=== PATIENT | male | born 1950 | race Caucasian/White ===

== ENCOUNTER → 2018-03-16 13:31 | Outpatient (CLI) | payer MEDICARE, OTHER, SELFPAY ==
--- NOTE | 2018-03-16 13:36 | DI.RAD.S_ITS ---
PROCEDURE: XR LUMBAR SPINE 2-3V INDICATIONS: lumbar pain TECHNIQUE: 3 views of the lumbar spine were acquired. COMPARISON: [facility], , -SPINE 2-3 VIEWS, 08/23/2016, 15:17. FINDINGS: Bones: 5 [id number] vertebrae are present. No acute fractures or dislocations. There is approximately 9 mm of anterolisthesis of L5 on S1, not significantly changed from comparison exam of 08/23/16. Mild anterior wedging of the T11 and T12 vertebral bodies is unchanged from comparison exam as well. There are mild multilevel degenerative changes of the spine as evidenced by osteophyte formation, loss of and agree with the space height, and facet arthropathy. Soft tissues: Overlying bowel gas pattern is normal. No suspicious soft tissue calcifications. IMPRESSION: Mild multilevel degenerative changes of the lumbar spine. Dictated by: David Mitchell M.D. on 03/16/2018 at 16:38 Approved by: David Mitchell M.D. on 03/16/2018 at 16:43
== END ==
PROVIDERS: PCP Internal Medicine; Visit Provider Physician Assistant
DX: M47.816 Spondylosis without myelopathy or radiculopathy, lumbar region (principal); M54.5 Low back pain; G89.29 Other chronic pain
CPT/HCPCS: 72100

== ENCOUNTER → 2019-02-20 12:49 | Outpatient (CLI) | payer MEDICARE, OTHER, SELFPAY ==
[2019-02-20 13:10] LABS: Hematocrit 47.4 % (41-53); Mean Corpuscular HGB Conc 33.8 % (30-36); Mean Corpuscular Hemoglobin 32.2 PG (26-34); Mean Corpuscular Volume 95.2 fL (80-100); Platelet Count 214 X10^3/uL (150-400); Red Blood Cell Count 4.98 X10^6/uL (4.5-5.9); Red Cell Distribution Width 14.3 % (11.6-14.8); White Blood Cell Count 7.9 X10^3/uL (4.5-11.0)
[2019-02-20 13:27] LABS: Neutrophils Absolute Manual 4898 /uL (3000-5900); Total Cells Counted 100
[2019-02-20 13:28] LABS: RBC Morphology Normal Morphology
[2019-02-20 13:54] LABS: Alanine Aminotransferase 30 IU/L (<50); Albumin 4.5 g/dL (3.5-5.0); Albumin Globulin Ratio 1.8 (1.0-2.8); Alkaline Phosphatase 56 U/L (38-126); Aspartate Aminotransferase 28 IU/L (17-59); Bilirubin Total 0.9 mg/dL (0.2-1.3); Blood Urea Nitrogen 16 mg/dL (9-20); Calcium 9.2 mg/dL (8.4-10.2); Carbon Dioxide 26 mmol/L (22-32); Chloride 104 mmol/L (98-107); Estimated Glomerular Filt Rate > 60.0 mL/min (>60); Globulin 2.5 g/dL (1.7-4.1); Glucose 86 mg/dL (80-110); HEMOLYSIS < 15 (0-50); Potassium 4.3 mmol/L (3.4-5.1); Sodium 137 mmol/L (137-145)
[2019-02-20 14:24] LABS: Thyroid Stimulating Hormone 4.88 uIU/mL (0.47-4.68)
[2019-02-24 16:45] LABS: EBV Virus IgG Ab > 750.00 U/mL (< 18.00); EBV Virus IgM Ab < 36.00 U/mL (< 36.00)
== END ==
PROVIDERS: PCP Internal Medicine; Visit Provider Internal Medicine
DX: R53.83 Other fatigue (principal); R50.9 Fever, unspecified
CPT/HCPCS: 36415; 80053; 84443; 85025; 86664; 86665

== ENCOUNTER → 2019-03-05 15:15 | Outpatient (CLI) | payer MEDICARE, OTHER, SELFPAY ==
--- NOTE | 2019-03-05 | DI.RAD.S_ITS ---
PROCEDURE: XR CHEST 2V INDICATIONS: DYSPNEA TECHNIQUE: 2 views of the chest were acquired. COMPARISON: [facility], , CHEST 2 VIEW, 09/15/2012, 10:28. FINDINGS: Surgical changes and devices: None. Lungs and pleura: Left basilar scars and/or atelectasis. No pleural effusions or pneumothorax. Mediastinum: Mediastinal contours are normal. Heart size is normal. Bones and chest wall: No suspicious bony abnormalities. Soft tissues appear unremarkable. IMPRESSION: Left basilar scars and/or atelectasis. Dictated by: Gail Robertson M.D. on 03/05/2019 at 16:30 Approved by: Gail Robertson M.D. on 03/05/2019 at 16:31
[2019-03-05 16:50] LABS: Erythrocyte Sedimentation Rate 2 MM/HR (0-15)
[2019-03-05 16:57] LABS: Creatine Kinase 40 U/L (55-170)
[2019-03-05 17:00] LABS: C-Reactive Protein Quant < 0.5 mg/dL (<1.0); Rheumatoid Factor < 8.6 IU/mL (<12.0)
[2019-03-05 17:12] LABS: Vitamin D 25 Hydroxy (D3) 17.5 ng/mL (30.0-100.0)
[2019-03-05 17:44] LABS: Vitamin B12 559 pg/mL (239-931)
[2019-03-05 17:45] LABS: Hep C Virus Ab w/Reflex Quant NEGATIVE s/c (NEGATIVE)
[2019-03-08 14:09] LABS: Aldolase 4.5 U/L (< 8.2)
[2019-03-08 21:09] LABS: Vitamin B1 125 nmol/L (78-185)
[2019-03-09 09:56] LABS: ANA Screen, IFA NEGATIVE (NEGATIVE)
[2019-03-09 11:11] LABS: CCP Antibody (IgG) < 16 Units (< 20)
[2019-03-16 10:33] LABS: Abnormal Protein Band 1 0.4 g/dL (NONE DETECTED); Albumin 4.1 g/dL (3.8-4.8); Alpha 1 Globulin 0.2 g/dL (0.2-0.3); Alpha 2 Globulin 0.6 g/dL (0.5-0.9); Beta 1 Globulin 0.4 g/dL (0.4-0.6); Gamma Globulin 0.9 g/dL (0.8-1.7); Protein, Total 6.5 g/dL (6.1-8.1)
[2019-03-23 10:22] LABS: Immunofixation, Serum SEE COMMENT BELOW
== END ==
PROVIDERS: PCP Internal Medicine; Visit Provider Internal Medicine
DX: R06.00 Dyspnea, unspecified (principal); M25.50 Pain in unspecified joint; M79.10 Myalgia, unspecified site; R53.83 Other fatigue; G62.9 Polyneuropathy, unspecified
CPT/HCPCS: 36415; 71046; 82085; 82306; 82550; 82607; 82784; 84155; 84165; 84425; 85651; 86038; 86140; 86200; 86334; 86430; 86803

== ENCOUNTER 2019-03-05 18:59 | Emergency (ER) | payer MEDICARE, OTHER, SELFPAY ==
[2019-03-05 19:01] VITALS: BP 149/92; PULSE 94; RESP 12; TEMP 36.7; O2SAT 99; BMI 30.4
--- NOTE | 2019-03-05 19:08 | DI.CT.S_ITS ---
PROCEDURE: CT HEAD/BRAIN WO CON INDICATIONS: headache, confusion, blurry vision TECHNIQUE: Noncontrast 4.5 mm thick angled axial sections acquired from the foramen magnum to the vertex, with coronal and sagittal reformats. For radiation dose reduction, the following was used: automated exposure control, adjustment of mA and/or kV according to patient size. COMPARISON: [facility], CT, HEAD WITHOUT CONTRAST, 11/05/2013, 12:34. FINDINGS: Image quality: Excellent. CSF spaces: Basal cisterns are patent. No extra-axial fluid collections. The ventricles are symmetric in size and shape. Brain: No intracranial bleeds or masses. There is cerebral volume loss for age, with resultant ventricular and sulcal prominence. There are periventricular and deep white matter chronic small vessel ischemic changes. There is intracranial internal carotid artery atherosclerosis. Skull and face: Calvarium and visualized facial bones appear intact, without suspicious lesions. Sinuses: Visualized sinuses and mastoids are clear. IMPRESSION: No CT evidence of acute intracranial pathology. Dictated by: Chapito Greene M.D. on 03/05/2019 at 19:32 Approved by: Chapito Greene M.D. on 03/05/2019 at 19:32
--- NOTE | 2019-03-05 19:58 | ED_ITS ---
HPI - Headache General Chief Complaint: Headache Stated Complaint: pressure in head, dizziness Time Seen by Provider: 03/05/19 19:34 Source: patient Mode of arrival: Ambulatory Limitations: no limitations History of Present Illness HPI Narrative: 68-year-old male here for evaluation of several symptoms. All of these symptoms have been going on for the past several days if not weeks. He describes a pressure in his head. He also describes a lightheadedness. Is not a room spinning sensation just an unsteadiness. Also describes some vision changes. No hearing deficits. Also has been having subjective fevers at night. Did spend some time in [place] however that was several weeks ago. Was exposed to some ?mold? while he was over there. Has been on several different types of antibiotics and is currently on Levaquin for bronchitis. Has also been on prednisone. Has seen his primary doctor for these symptoms. Is scheduled for an MRI of the brain on Saturday of next week. Had labs drawn approximately 2 weeks ago. Had more labs drawn today ordered by his primary provider. Related Data Home Medications Medication Instructions Recorded Confirmed amitriptyline 50 mg tablet 50 mg PO BEDTIME 03/16/18 12/02/18 melatonin 3 mg tablet 3 mg PO BEDTIME PRN 06/27/18 12/02/18 Previous Rx's Medication Instructions Recorded zolpidem 10 mg tablet 10 mg PO BEDTIME PRN #90 tab 02/24/19 Allergies Allergy/AdvReac Type Severity Reaction Status Date / Time No Known Drug Allergies Allergy Verified 03/05/19 19:05 Review of Systems Constitutional Constitutional: Reports fatigue, Reports fever(s), Denies frequent falls, Reports headache(s) and Denies weakness Eyes Eyes: Reports blurry vision and Reports change in vision ENT Ears, Nose, Mouth, and Throat: Denies abnormal hearing, Denies vertigo, Reports dizziness, Reports headache(s), Denies neck pain, Reports disequilibrium, Denies tinnitus, Denies sinus pressure and Denies sore throat Cardiovascular Cardiovascular: Denies chest pain, Denies syncope, Denies palpitations and Denies dyspnea Respiratory Respiratory: Denies dyspnea Gastrointestinal Gastrointestinal: Denies abdominal pain, Denies nausea and Denies vomiting Genitourinary Genitourinary: Denies dysuria Musculoskeletal Musculoskeletal: Denies myalgias, Denies arthralgias, Denies neck pain and Denies tingling Integumentary/Breasts Skin/Breast: Denies lesions and Denies rash Neurologic Neurologic: Denies abnormal hearing, Denies abnormal movements, Denies abnormal speech, Denies behavioral changes, Denies confusion, Denies vertigo, Reports dizziness, Denies syncope, Denies frequent falls, Reports headache(s), Denies convulsions, Denies tingling, Denies paresthesias, Reports disequilibrium and Denies weakness Psychiatric Psychiatric: Denies behavioral changes and Denies confusion Endocrine Endocrine: Reports fatigue and Denies palpitations Hematologic/Lymphatic Hematologic/Lymphatic: Denies easy bleeding and Denies easy bruising Allergic/Immunologic Allergic/Immunologic: Denies urticaria Patient History Medical History Primary insomnia (Chronic) Social History Smoking Status: Never smoker Smoking Status: Never smoker alcohol intake frequency: 0-2 drinks per day Alcohol type: beer Substance Use Type: does not use Exam Initial Vital Signs Initial Vital Signs: Vital Signs Temperature 98.1 F 03/05/19 19:01 Pulse Rate 94 H 03/05/19 19:01 Respiratory Rate 12 03/05/19 19:01 Blood Pressure 149/92 H 03/05/19 19:01 Pulse Oximetry 99 03/05/19 19:01 Const General: cooperative, healthy appearing, comfortable, well developed, well groomed and acute distress Orientation: alert, awake and oriented x3 HENMT Head: normal to inspection and normocephalic Resp Effort & Inspection: normal respiratory effort Auscultation: clear to auscultation bilaterally Cardio Rate: regular rate Rhythm: regular rhythm GI Inspection: non-distended Palpation: soft Skin Lesions: no lesions Rashes: no rashes Neuro General: alert and oriented x3 Cranial Nerves: CN's II-XI intact bilaterally Cognition: normal cognition Speech: speech normal Gait: normal gait Motor: muscle tone normal throughout Sensory Exam: no sensory deficits noted Extrem General: normal to inspection and capillary refill normal Psych Appearance: grossly normal and well kempt Scores GCS [place] coma scale eye opening: Spontaneous [place] coma scale verbal response: Orientated [place] coma scale motor response: Obey commands Shea coma scale total score: 15 Course Orders Ordered: ED Orders 03/05/19 19:08 CT head/brain wo con Stat 03/05/19 19:56 EKG-12 Lead Stat 03/05/19 20:00 Complete Blood Count AUTO DIFF Stat Comprehensive Metabolic Panel Stat Lipase Stat Vital Signs Vital signs: Vital Signs - 8 hr 03/05/19 19:01 03/05/19 20:08 03/05/19 21:11 Temperature 98.1 F Pulse Rate 94 H 72 67 Respiratory Rate 12 12 11 L Blood Pressure 149/92 H Blood Pressure [Left Arm] 146/94 H 141/88 H Pulse Oximetry 99 95 98 MDM - Headache Medical Records Attestation: I reviewed the patient's medical records. Lab Data Attestation: I reviewed the patient's lab results. Result diagrams: 03/05/19 20:00 03/05/19 20:00 Labs: Lab Results 03/05/19 03/05/19 Range/Units 20:00 20:00 WBC 7.3 (4.5-11.0) X10^3/uL RBC 4.64 (4.5-5.9) X10^6/uL Hgb 14.9 (13.5-17.5) g/dL Hct 43.4 (41-53) % MCV 93.5 (80-100) fL MCH 32.1 (26-34) PG MCHC 34.4 (30-36) % RDW 14.0 (11.6-14.8) % Plt Count 211 (150-400) X10^3/uL Neut % (Auto) 50.7 (50-75) % Lymph % (Auto) 38.5 (25-40) % Foster % (Auto) 7.0 (3-14) % Eos % (Auto) 3.0 (2-4) % Baso % (Auto) 0.8 (0-2) % Neut # (Auto) 3700 (9901-2227) /uL Lymph # (Auto) 2800 (3131-1815) /uL Foster # (Auto) 500 (0-900) /uL Eos # (Auto) 200 (0-450) /uL Baso # (Auto) 100 (0-100) /uL Sodium 138 (137-145) mmol/L Potassium 3.8 (3.4-5.1) mmol/L Chloride 103 (98-107) mmol/L Carbon Dioxide 25 (22-32) mmol/L BUN 20 (9-20) mg/dL Creatinine 1.10 (0.66-1.25) mg/dL Estimated GFR > 60.0 (>60) mL/min BUN/Creatinine Ratio 18.2 (6-22) Glucose 125 H (80-110) mg/dL Calcium 9.1 (8.4-10.2) mg/dL Total Bilirubin 0.7 (0.2-1.3) mg/dL AST 27 (17-59) IU/L ALT 23 (<50) IU/L Alkaline Phosphatase 51 (38-126) U/L Total Protein 6.6 (6.3-8.2) g/dL Albumin 4.1 (3.5-5.0) g/dL Globulin 2.5 (1.7-4.1) g/dL Albumin/Globulin Ratio 1.6 (1.0-2.8) Lipase 39 (23-300) U/L Imaging Data Chest x-ray: Radiologist's impression: [address] [address] XRay Report Signed Patient: Oneil Mays EMR#: [id number] : 9Acct:[id number] Age/Sex: 68 / MDate of Service: 03/05/19 Loc: RAD Accession Number: [id number] Procedure: XR chest 2V Ordering Provider: Cindy Miranda MD PROCEDURE: XR CHEST 2V INDICATIONS: DYSPNEA TECHNIQUE: 2 views of the chest were acquired. COMPARISON: [facility], CHEST 2 VIEW, 09/15/2012, 10:28. FINDINGS: Surgical changes and devices: None. Lungs and pleura: Left basilar scars and/or atelectasis. No pleural effusions or pneumothorax. Mediastinum: Mediastinal contours are normal. Heart size is normal. Bones and chest wall: No suspicious bony abnormalities. Soft tissues appear unremarkable. IMPRESSION: Left basilar scars and/or atelectasis. Dictated by: Gail Robertson M.D. on 03/05/2019 at 16:30 Approved by: Gail Robertson M.D. on 03/05/2019 at 16:31 CT scan - head: Radiologist's impression: Oneil Mays John 68 M [address] [address] [address] Scan Report Signed Patient: Oneil Mays EMR#: [id number] : 9Acct:[id number] Age/Sex: 68 / MDate of Service: 03/05/19 Loc: ED Accession Number: [id number] Procedure: CT head/brain wo con Ordering Provider: Kareem Fischer D.O. PROCEDURE: CT HEAD/BRAIN WO CON INDICATIONS: headache, confusion, blurry vision TECHNIQUE: Noncontrast 4.5 mm thick angled axial sections acquired from the foramen magnum to the vertex, with coronal and sagittal reformats. For radiation dose reduction, the following was used: automated exposure control, adjustment of mA and/or kV according to patient size. COMPARISON: [facility], CT, HEAD WITHOUT CONTRAST, 11/05/2013, 12:34. FINDINGS: Image quality: Excellent. CSF spaces: Basal cisterns are patent. No extra-axial fluid collections. The ventricles are symmetric in size and shape. Brain: No intracranial bleeds or masses. There is cerebral volume loss for age, with resultant ventricular and sulcal prominence. There are periventricular and deep white matter chronic small vessel ischemic changes. There is intracranial internal carotid artery atherosclerosis. Skull and face: Calvarium and visualized facial bones appear intact, without suspicious lesions. Sinuses: Visualized sinuses and mastoids are clear. IMPRESSION: No CT evidence of acute intracranial pathology. Dictated by: Chapito Greene M.D. on 03/05/2019 at 19:32 Approved by: Chapito Greene M.D. on 03/05/2019 at 19:32 ECG Data Attestation: I personally reviewed and interpreted this ECG as follows: Prior ECG tracings: not available for review Interpretation: Sinus rhythm Ventricular rate is 67 Normal axis Normal QRS Normal QTC Nonspecific ST T wave changes MDM Narrative Medical decision making narrative: Patient's labs today are unchanged from earlier this month under unremarkable. Labs are ordered by his primary doctor around here today are still pending. I did inform the patient of this. His head CT is unremarkable. His EKG is unremarkable. Patient has relatively benign abdominal exam without any focal neuro deficits. I do think that the MRI on Saturday is not unreasonable. Do not feel that needs to be emergently performed here in the ER in this visit. Patient has had symptoms for several days if not several weeks. He is currently on antibiotics for bronchitis. We did discuss the use of other medications that may potentially help his symptoms to include antihistamine such as Claritin and also Flonase. I did inform him that I'm unsure whether not this would help the symptoms however if this was sinus issues it could potentially help. Will hold on further workup for now. Patient was given return precautions and follow-up instructions. He expressed understanding and agreement plan Discharge Plan Departure Patient Disposition: Home Clinical Impression: Pressure in head, Lightheadedness Discharge Date/Time: 03/05/19 21:24 Instructions: DI for Dizziness-Nonvertigo Activity Restrictions/Additional Instructions: Recommend you continue all of your medications. Also recommend that you start on a medication such as Claritin or Jacqueline. You can also start either Flonase or Nasonex. I do think that the MRI on Saturday is an appropriate test. I also recommend you contact your eye doctor tomorrow for follow-up. Return to the emergency department for any new or worsening symptoms Prescriptions: No Action amitriptyline 50 mg tablet 50 mg PO BEDTIME RF: 0 melatonin 3 mg tablet 3 mg PO BEDTIME PRNRF: 0 zolpidem 10 mg tablet 10 mg PO BEDTIME PRN (Reason: insomnia) Qty: 90 RF: 0 Referrals: Cindy Miranda MD [Primary Care Provider] -
[2019-03-05 20:07] LABS: Add Manual Diff / Slide Review NO; Basophils Absolute Auto 100 /uL (0-100); Basophils Percent Auto 0.8 % (0-2); Eosinophils Absolute Auto 200 /uL (0-450); Hematocrit 43.4 % (41-53); Hemoglobin 14.9 g/dL (13.5-17.5); Lymphocytes Absolute Auto 2800 /uL (1100-4500); Lymphocytes Percent Auto 38.5 % (25-40); Mean Corpuscular HGB Conc 34.4 % (30-36); Mean Corpuscular Hemoglobin 32.1 PG (26-34); Mean Corpuscular Volume 93.5 fL (80-100); Monocytes Absolute Auto 500 /uL (0-900); Neutrophils Absolute Auto 3700 /uL (1500-7000); Neutrophils Percent Auto 50.7 % (50-75); Platelet Count 211 X10^3/uL (150-400); Red Blood Cell Count 4.64 X10^6/uL (4.5-5.9); White Blood Cell Count 7.3 X10^3/uL (4.5-11.0)
[2019-03-05 20:08] VITALS: BP 146/94; PULSE 72; RESP 12; O2SAT 95
[2019-03-05 20:40] LABS: Alanine Aminotransferase 23 IU/L (<50); Albumin 4.1 g/dL (3.5-5.0); Albumin Globulin Ratio 1.6 (1.0-2.8); Alkaline Phosphatase 51 U/L (38-126); Aspartate Aminotransferase 27 IU/L (17-59); BUN Creatinine Ratio 18.2 (6-22); Bilirubin Total 0.7 mg/dL (0.2-1.3); Blood Urea Nitrogen 20 mg/dL (9-20); Calcium 9.1 mg/dL (8.4-10.2); Carbon Dioxide 25 mmol/L (22-32); Chloride 103 mmol/L (98-107); Estimated Glomerular Filt Rate > 60.0 mL/min (>60); Globulin 2.5 g/dL (1.7-4.1); Glucose 125 mg/dL (80-110); HEMOLYSIS < 15 (0-50); Lipase 39 U/L (23-300); Potassium 3.8 mmol/L (3.4-5.1); Sodium 138 mmol/L (137-145); Total Protein 6.6 g/dL (6.3-8.2)
[2019-03-05 21:11] VITALS: BP 141/88; PULSE 67; RESP 11; O2SAT 98
== END 2019-03-05 21:24 | disposition home or self-care (01) ==
PROVIDERS: Emergency Provider Emergency Medicine; Family Provider Internal Medicine; PCP Internal Medicine
DX: R51 Headache (principal); R42 Dizziness and giddiness; R06.00 Dyspnea, unspecified; M25.50 Pain in unspecified joint; M79.10 Myalgia, unspecified site; R53.83 Other fatigue; G62.9 Polyneuropathy, unspecified
CPT/HCPCS: 36415; 70450; 71046; 80053; 82085; 82306; 82550; 82607; 82784; 83690; 84155; 84165; 84425; 85025; 85651; 86038; 86140; 86200; 86334; 86430; 86803; 93005; 93010; 99284; 99285

== ENCOUNTER → 2019-03-09 18:40 | Outpatient (CLI) | payer MEDICARE, OTHER, SELFPAY ==
--- NOTE | 2019-03-09 | DI.MRI.S_ITS ---
PROCEDURE: MR HEAD/BRAIN WO CON INDICATIONS: Headache TECHNIQUE: Non-contrast axial T1 spin echo, axial T2 fast spin echo, sagittal and axial FLAIR, coronal T2 fast spin echo, axial gradient echo, axial diffusion and ADC through the brain. COMPARISON: [facility], CT, CT HEAD/BRAIN WO CON, 03/05/2019, 19:14. [facility], CT, HEAD WITHOUT CONTRAST, 11/05/2013, 12:34. FINDINGS: Image quality: Excellent. CSF spaces: Ventricles appear symmetric in size and shape. Basal cisterns are patent. No extra-axial fluid collections. Brain: No intracranial bleeds or mass effects. There is cerebral volume loss for age. There are periventricular and deep white matter chronic small vessel ischemic changes. Brainstem appears normal. Diffusion-weighted images show no acute ischemic insults. No chronic ischemic insults. Normal intravascular flow voids are present. Skull and face: Calvarial bone marrow is normal in signal. Orbits are normal. Sinuses: There is bilateral ethmoid and left maxillary sinus mucosal thickening. Mastoids are clear. IMPRESSION: 1. No acute intracranial abnormalities. 2. Bilateral ethmoid and left maxillary sinusitis. Dictated by: Gail Robertson M.D. on 03/10/2019 at 10:21 Approved by: Gail Robertson M.D. on 03/10/2019 at 15:59
== END ==
PROVIDERS: PCP Internal Medicine; Visit Provider Internal Medicine
DX: R51 Headache (principal); J32.8 Other chronic sinusitis
CPT/HCPCS: 70551

== ENCOUNTER → 2019-03-19 08:13 | Outpatient (CLI) | payer MEDICARE, OTHER, SELFPAY ==
--- NOTE | 2019-03-21 09:30 | DI.NM.S_ITS ---
DATE OF SERVICE: 03/19/2019 PROCEDURE: Exercise perfusion study. INDICATIONS: Shortness of breath, lightheadedness, fatigue. The patient is 68 years old. RADIOPHARMACEUTICAL: 27.4 mCi technetium-99m Myoview IV was injected at stress and 24.3 mCi technetium-99m Myoview IV was injected at rest. CARDIAC STRESS: The patient underwent an exercise perfusion study under the supervision of an attending staff. The patient walked on Poli protocol for 9 minutes and 05 seconds, achieved 105% of target heart rate. Baseline blood pressure 138/90. Peak blood pressure 210/100, suggestive of hypertensive blood pressure response. The patient achieved functional aerobic impairment of -27% and 10.1 METs of workload. No anginal symptoms. Baseline rhythm sinus with flat ST segment in lead V4 to V6 and early transition. During stress, the patient developed 2-3 mm horizontal/down-sloping ST depression in lead V3 to V6 and some nonspecific changes in the inferolateral leads. There was prolonged recovery and even more than 5 minutes of recovery, the patient remained to have T-wave inversion in the anterolateral leads, which appears to be asymmetrical. No significant sustained arrhythmias seen. RAW DATA: The patient's weight is 200 pounds. There is increased subdiaphragmatic activity. GATED STUDY: Stress LV ejection fraction 59% without any obvious wall motion abnormalities. Resting LV ejection fraction 60%. No transient ischemic dilatation. TID ratio 0.96, which is within normal. Resting end diastolic volume 92 mL. Lung/heart ratio 0.27, which is within normal limits. MYOCARDIAL PERFUSION: Stress supine, resting supine, and stress prone images were compared to each other. Stress supine images revealed a small sized mildly decreased perfusion of the distal anterior wall, distal anterior septum, as well as mildly decreased perfusion of the inferolateral wall which got completely resolved during prone images, suggestive of tissue attenuation artifact. During resting supine, there was mildly decreased perfusion of the distal anterior wall. No obvious reversible ischemia. CONCLUSION: As far as perfusion scan is concerned, I will call this a normal myocardial perfusion study, as prone images revealed normal myocardial perfusion. Most likely, the patient had tissue attenuation artifact which was seen during stress supine images. The patient has good exercise tolerance, walked on Poli protocol for 9 minutes and 05 seconds with functional aerobic impairment -27%. Hypertensive blood pressure response. There were ischemic EKG changes seen without any significant arrhythmias. In view of normal myocardial perfusion, normal LV function, and good exercise tolerance, without any transient ischemic dilatation or abnormal lung/heart ratio, likely positive EKG changes due to false positive stress test. However, sometimes balanced ischemia can cause normal myocardial perfusion, as well. If clinical suspicion for pre-test coronary artery disease is high, and the patient's symptoms are very typical, consider other modalities for CAD diagnosis and risk stratification. Oneil Mays - [employer]ESS[employer]/jacklyn/ts doc#: [id number]/job#: [id number] dd: 03/20/2019 16:36:00 dt: 03/21/2019 09:05:00 DICTATING /COPIES TO: Fredy Moore MD COPIES MNE: WESLY
== END ==
PROVIDERS: PCP Internal Medicine; Visit Provider Internal Medicine
DX: R06.02 Shortness of breath (principal); R53.83 Other fatigue; R42 Dizziness and giddiness; R06.00 Dyspnea, unspecified
CPT/HCPCS: 78452; 93016; 93017; 93018; A9502

== ENCOUNTER → 2019-03-24 09:09 | Outpatient (CLI) | payer MEDICARE, OTHER, SELFPAY ==
--- NOTE | 2019-03-24 | DI.ECHO.S_ITS ---
[facility] +---------+ : : [address] : : : : [id number] : : : : Phone: [phone] Echocardiogram Report + + :Name: TEDDY NGUYEN Study Date: 03/24/2019 Height: 68 in : :[facility] Weight: 200 lb : : Gender: Male BSA: 2.0 m2 : :: 1950 Age: 68 yrs BP: 128/78 mmHg: :Reason For Study: Dyspnea : : Performed By: Mateusz Estrada : :Referring: GT WOOD : + + Interpretation Summary The left ventricle is normal in size. The ejection fraction is estimated to be 55-60%. The right ventricle is at the upper limits of normal in size. Right ventricular systolic function is mildly reduced. There is mild to moderate mitral regurgitation. The IVC is of normal diameter and collapses greater than 50% with a sniff. This suggests a low right atrial pressure of 3 mm Hg. Procedure: A two-dimensional transthoracic echocardiogram with color flow and Doppler was performed. The study quality was technically adequate. There is no prior echocardiogram noted for this patient. The patient was in normal sinus rhythm during the exam. Left Ventricle: The left ventricle is normal in size. There is mild concentric left ventricular hypertrophy. Proximal septal thickening is noted. There is no echo evidence for significant left ventricular outflow tract obstruction. There is no thrombus. Left ventricular systolic function is normal. The ejection fraction is estimated to be 55-60%. There are no focal wall motion abnormalities. Diastolic parameters suggest a relaxation abnormality of the left ventricle, consistent with probable normal filling pressures. Right Ventricle: The right ventricle is at the upper limits of normal in size. Right ventricular systolic function is mildly reduced. Atria: The left atrial size is normal. Right atrial size is normal. The interatrial septum is intact with no evidence for an atrial septal defect. Mitral Valve: There is mild mitral annular calcification. There is mild to moderate mitral regurgitation. Aortic Valve: The aortic valve is trileaflet. The aortic valve opens well. There is no aortic valve stenosis. No aortic regurgitation is present. Tricuspid Valve: The tricuspid valve is normal. There is trace tricuspid regurgitation. Pulmonary artery pressures cannot be estimated because of the lack of a measurable TR jet velocity. Pulmonic Valve: The pulmonic valve is not well seen, but is grossly normal. There is trace pulmonic regurgitation. Great Vessels: The aortic root is normal size. The dimensions of the ascending aorta are normal. The pulmonary artery is normal size. The IVC is of normal diameter and collapses greater than 50% with a sniff. This suggests a low right atrial pressure of 3 mm Hg. Pericardium/ Pleura There is no pericardial effusion. There is no pleural effusion. MMode/2D Measurements & Calculations LVIDd: 3.9 cm LVOT diam: 2.0 cm LVIDs: 2.8 cm Ao root diam: 3.7 cm FS: 29.0 % Aortic Jxn: 3.1 cm IVSd: 1.3 cm asc Aorta Diam: 3.1 cm LVPWd: 1.1 cm LV quiñones. diameter/BSA (cm/m^2): 1.9 LV sys. diameter/BSA (cm/m^2): 1.3 LA A2 area: 19.6 cm2 RA long axis: 5.2 cm LA A4 area: 23.1 cm2 RA area: 17.4 cm2 LA length (vol): 5.8 cm RA vol: 49.6 ml LA vol: 65.7 ml RA : 24.3 ml/m2 LA vol index: 32.1 ml/m2 TAPSE: 1.2 cm Doppler Measurements & Calculations Ao V2 max: 94.3 cm/sec LVOT Max Estuardo: 92.4 cm/sec Ao V2 mean: 60.4 cm/sec LV V1 max P.4 mmHg Ao max P.6 mmHg LV V1 VTI: 19.6 cm Ao mean P.8 mmHg LUL(I,D): 3.6 cm2 Ao V2 VTI: 17.8 cm LUL(V,D): 3.2 cm2 sev ratio: 1.1 LUL indexed to BSA (cm^2/m^2): 1.8 MV E max estuardo: 57.1 cm/sec PA V2 max: 106.1 cm/sec MV A max estuardo: 59.9 cm/sec PA V2 mean: 70.0 cm/sec MV E/A: 0.95 PA mean P.3 mmHg Med Peak E' Estuardo: 5.6 cm/sec PA Accel Time: 0.07 sec E/E' med: 10.2 Lat Peak E' Estuardo: 8.7 cm/sec E/E' lat: 6.5 E/e' average: 8.4 MV dec time: 0.32 sec SV(LVOT): 63.8 ml Reading Physician:01:06 PM
== END ==
PROVIDERS: PCP Internal Medicine; Visit Provider Internal Medicine
DX: I34.0 Nonrheumatic mitral (valve) insufficiency (principal); R53.83 Other fatigue; R06.00 Dyspnea, unspecified
CPT/HCPCS: 93306

== ENCOUNTER → 2019-03-25 13:36 | Outpatient (CLI) | payer MEDICARE, OTHER, SELFPAY ==
[2019-03-27 11:52] LABS: Free Kappa/ Lambda Ratio 0.87 (0.26-1.65); Free Lambda 13.8 mg/L (5.7-26.3)
[2019-03-28 15:18] LABS: PSA, Total < 0.1 ng/mL (< 4.1)
== END ==
PROVIDERS: PCP Internal Medicine; Visit Provider Internal Medicine
DX: R79.89 Other specified abnormal findings of blood chemistry (principal); E03.9 Hypothyroidism, unspecified; Z85.46 Personal history of malignant neoplasm of prostate
CPT/HCPCS: 36415; 83883; 84153; 84154; 86335

== ENCOUNTER → 2019-03-27 09:52 | Outpatient (CLI) | payer MEDICARE, OTHER, SELFPAY ==
--- NOTE | 2019-04-01 10:13 | PM.PFT.1 ---
Pulmonary Function Test Referral & Results Date Patient Seen: 03/27/19 Requesting provider: Cindy Miranda Results: The spirometry demonstrates an FVC of 3.67 L which is 89% of predicted. The FEV1 was measured at 2.76 L which is 91% of predicted. The FEV1/FVC ratio was 75 which is 102% of predicted. Following the administration of bronchodilator there was a 9% improvement in FEV1 and a 42% improvement in FEF 25-75%. Lung volumes show an SVC of 3.44 L which is 80% of predicted. The diffusing capacity was measured at 26.43 which is 89% of predicted. The maximum voluntary ventilation was normal Interpretation: This study demonstrates very mild obstructive lung disease based on minimal reduction FEV1 although shape a flow volume loop supports this as well. There is also evidence of benefit following bronchodilator administration particularly small airway flow based on 42% improvement in FEF 25-75%. There may be minimal restrictive lung disease based on minimal reduction in SVC as well Clinical correlation suggested
== END ==
PROVIDERS: PCP Internal Medicine; Visit Provider Internal Medicine
DX: R06.02 Shortness of breath (principal)
CPT/HCPCS: 94060; 94726; 94729

== ENCOUNTER → 2019-04-03 15:00 | Outpatient (CLI) | payer MEDICARE, OTHER, SELFPAY ==
--- NOTE | 2019-04-03 | DI.MRI.S_ITS ---
PROCEDURE: MR CERVICAL SPINE WO/W CON INDICATIONS: SPEECH DISTURBANCE,Occlusion and stenosis of unspe TECHNIQUE: Noncontrast sagittal T1 spin echo and T2 fast spin echo, sagittal STIR, foraminal oblique sagittal T2 fast spin echo, axial gradient echo or T2 fast spin echo through the cervical spine. After the administration of contrast, axial and sagittal T1 spin echo with fat saturation through the cervical spine. COMPARISON: None. FINDINGS: Image quality: Degraded by patient motion artifact. Alignment and curvature: There is trace C7-T1 and T1-T2 anterolisthesis. Marrow: Mild reactive endplate change is noted adjacent to the C3-C4, C4-C5, C5-C6 and C6-C7 discs. Small, benign interosseous hemangioma noted in the C6 vertebral body. No suspicious enhancement. Spinal cord: Visualized spinal cord has normal size and signal. No cerebellar tonsillar herniation. No abnormal intramedullary enhancement. Paraspinous soft tissues: No paravertebral masses or suspicious enhancement. C2-3: Loss of disc signal. Mild bilateral facet hypertrophy. Mild narrowing central canal. Mild bilateral neural foraminal narrowing. No neural compression. C3-4: Loss of disc signal. Mild diffuse disc bulge. Mild right and moderate left facet hypertrophy. Mild narrowing of the central canal. Moderate right and severe left neural foraminal narrowing with compression of the exiting left C4 nerve root. C4-5: Loss of disc signal and mild loss of disc height. Moderate, diffuse disc bulge. Moderate bilateral facet hypertrophy. Mild to moderate narrowing of the central canal. Mild bilateral uncovertebral joint hypertrophy. Severe bilateral neural foraminal narrowing with compression of the exiting C5 nerve roots. C5-6: Loss of disc signal. Mild, diffuse disc bulge. Mild right and moderate left facet hypertrophy. Mild narrowing of the central canal. Mild to moderate bilateral uncovertebral joint hypertrophy. Moderate right and severe left neural foraminal narrowing with compression of the left C6 nerve root. C6-7: Loss of disc signal and height. Mild to moderate diffuse disc bulge. Moderate narrowing of the central canal. Mild bilateral uncovertebral joint hypertrophy. Mild right and moderate left neural foraminal narrowing. No neural compression. C7-T1: Loss of disc signal. Minimal, diffuse disc bulge. No central stenosis. No neural foraminal narrowing. No neural compression. The right true vocal cord appears medialized. IMPRESSION: 1. Multilevel degenerative disc disease. 2. Multilevel facet and uncovertebral arthropathy. 3. Moderate C6-C7 central canal narrowing. Mild to moderate C4-C5 and C5-C6 central canal narrowing. Mild C2-C3 and C3-C4 central innominate. 4. Severe bilateral C4-C5 neural foraminal narrowing. Moderate right and severe left C3-C4 and C5-C6 neural foraminal narrowing. Mild right and moderate left C6-C7 neural foraminal narrowing. Mild bilateral C2-C3 neural foraminal narrowing. 5. No suspicious postcontrast enhancement. 6. Possible medialization of the right true vocal cord. Recommend dedicated CT scan of soft tissues of the neck with contrast for definitive characterization. Dictated by: Camila Reyna MD, PhD on 04/03/2019 at 17:14 Approved by: Camila Reyna MD, PhD on 04/03/2019 at 17:25
--- NOTE | 2019-04-03 | DI.CT.S_ITS ---
PROCEDURE: CT ANGIO NECK INDICATIONS: SPEECH DISTURBANCE, Occlusion and stenosis of unspe TECHNIQUE: After the administration of intravenous contrast, 1.5 mm axial sections acquired from the aortic arch to the [place]. Maximum intensity projection (MIP) reformats were then performed. COMPARISON: [facility], CT, CT HEAD/BRAIN WO CON, 03/05/2019, 19:14. [facility], MR, MR CERVICAL SPINE WO/W CON, 04/03/2019, 15:15. FINDINGS: Image quality: There is streak artifact associated with the metallic dental hardware. Carotid system: The great vessels demonstrate a conventional anatomy as they arise from the aortic arch. The origins of the common carotid arteries appear patent. The common carotid arteries demonstrate normal calibers and courses. The bifurcation regions appear normal bilaterally. The internal carotid arteries demonstrate normal caliber and course. Posterior circulation: The origins of the vertebral arteries appear patent. The more superior portions of the vertebral arteries demonstrate normal course and caliber. They join to form a normal appearing basilar artery. Soft tissues: Visualized neck soft tissues demonstrate no suspicious abnormalities. Thyroid gland demonstrates no significant CT abnormality. Coronary artery calcifications are seen. Bones: No suspicious bony lesions. Visualized cervical spine appears normally aligned. Degenerative changes are seen, including mild to moderate disc space narrowing at C4-C5 and C5-C6 at least moderate disc space narrowing at C6-C7. Facet arthropathy is seen at many levels, left worse than right. IMPRESSION: Within the arteries of the neck, no hemodynamically significant stenosis can be seen. Incidental note is made of: Lower cervical spine degenerative change Coronary artery calcification Any quantitative stenosis measurements were performed using the NASCET criteria. Dictated by: Adrián Vang M.D. on 04/03/2019 at 16:59 Approved by: Adrián Vang M.D. on 04/03/2019 at 17:03
[2019-04-03 15:32] LABS: Alanine Aminotransferase 31 IU/L (<50); Albumin 4.1 g/dL (3.5-5.0); Albumin Globulin Ratio 1.3 (1.0-2.8); Alkaline Phosphatase 56 U/L (38-126); Aspartate Aminotransferase 32 IU/L (17-59); Bilirubin Total 0.6 mg/dL (0.2-1.3); Blood Urea Nitrogen 19 mg/dL (9-20); Carbon Dioxide 28 mmol/L (22-32); Chloride 100 mmol/L (98-107); Estimated Glomerular Filt Rate > 60.0 mL/min (>60); Globulin 3.1 g/dL (1.7-4.1); Glucose 106 mg/dL (80-110); HEMOLYSIS 25 (0-50); Potassium 4.1 mmol/L (3.4-5.1); Sodium 137 mmol/L (137-145); Total Protein 7.2 g/dL (6.3-8.2)
== END ==
PROVIDERS: PCP Internal Medicine; Visit Provider Internal Medicine
DX: M47.22 Other spondylosis with radiculopathy, cervical region (principal); M50.11 Cervical disc disorder with radiculopathy, high cervical region; M48.02 Spinal stenosis, cervical region; I65.29 Occlusion and stenosis of unspecified carotid artery; R47.81 Slurred speech; R47.9 Unspecified speech disturbances; I25.10 Atherosclerotic heart disease of native coronary artery without angina pectoris
CPT/HCPCS: 36415; 70498; 72156; 80053; Q9967

== ENCOUNTER → 2019-04-07 07:18 | Outpatient (CLI) | payer MEDICARE, OTHER, SELFPAY ==
[2019-04-07 07:55] LABS: Cholesterol 265 mg/dL (140-199); HDL Cholesterol 90 mg/dL (40-60); LDL Cholesterol Calculated 138 mg/dL (<100); Triglycerides 187 mg/dL (35-150)
== END ==
PROVIDERS: PCP Internal Medicine; Visit Provider Internal Medicine Cardiovascular Disease
DX: Z00.00 Encounter for general adult medical examination without abnormal findings (principal); I25.10 Atherosclerotic heart disease of native coronary artery without angina pectoris; I25.84 Coronary atherosclerosis due to calcified coronary lesion
CPT/HCPCS: 36415; 80061

== ENCOUNTER → 2019-05-19 13:05 | Outpatient (ROUT) | payer MEDICARE, OTHER, SELFPAY ==
[2019-05-19 13:19] LABS: Add Manual Diff / Slide Review NO; Basophils Absolute Auto 0 /uL (0-100); Basophils Percent Auto 0.7 % (0-2); Eosinophils Absolute Auto 200 /uL (0-450); Eosinophils Percent Auto 3.3 % (2-4); Hematocrit 44.7 % (41-53); Hemoglobin 15.7 g/dL (13.5-17.5); Lymphocytes Absolute Auto 2000 /uL (1100-4500); Lymphocytes Percent Auto 29.2 % (25-40); Mean Corpuscular HGB Conc 35.1 % (30-36); Mean Corpuscular Hemoglobin 32.4 PG (26-34); Mean Corpuscular Volume 92.5 fL (80-100); Monocytes Absolute Auto 700 /uL (0-900); Monocytes Percent Auto 9.8 % (3-14); Neutrophils Absolute Auto 3800 /uL (1500-7000); Platelet Count 225 X10^3/uL (150-400); Red Blood Cell Count 4.83 X10^6/uL (4.5-5.9); Red Cell Distribution Width 14.2 % (11.6-14.8); White Blood Cell Count 6.7 X10^3/uL (4.5-11.0)
[2019-05-19 13:34] LABS: Alanine Aminotransferase 32 IU/L (<50); Albumin 4.2 g/dL (3.5-5.0); Albumin Globulin Ratio 1.4 (1.0-2.8); Alkaline Phosphatase 80 U/L (38-126); Aspartate Aminotransferase 37 IU/L (17-59); Bilirubin Total 0.5 mg/dL (0.2-1.3); Blood Urea Nitrogen 18 mg/dL (9-20); C-Reactive Protein Quant 1.5 mg/dL (<1.0); Calcium 9.9 mg/dL (8.4-10.2); Carbon Dioxide 22 mmol/L (22-32); Chloride 105 mmol/L (98-107); Creatine Kinase 41 U/L (55-170); Estimated Glomerular Filt Rate > 60.0 mL/min (>60); Glucose 126 mg/dL (80-110); HEMOLYSIS 22 (0-50); Potassium 4.5 mmol/L (3.4-5.1); Sodium 138 mmol/L (137-145); Total Protein 7.2 g/dL (6.3-8.2)
[2019-05-19 13:50] LABS: Erythrocyte Sedimentation Rate 11 MM/HR (0-15)
[2019-05-21 14:15] LABS: Aldolase 5.9 U/L (< 8.2)
[2019-05-21 15:34] LABS: Lyme SCREEN w/ Reflex IgG IgM < 0.90 (< 0.90)
[2019-05-23 12:55] LABS: Myoglobin < 28 mcg/L (< 96)
== END ==
PROVIDERS: PCP Internal Medicine; Visit Provider Internal Medicine
DX: M25.50 Pain in unspecified joint (principal); M79.10 Myalgia, unspecified site; R53.83 Other fatigue
CPT/HCPCS: 80053; 82085; 82550; 83874; 85025; 85651; 86140; 86618

== ENCOUNTER → 2019-06-17 11:30 | Outpatient (CLI) | payer MEDICARE, OTHER, SELFPAY ==
[2019-06-17 13:27] LABS: Influenza A - CEPHEID Flu A NEGATIVE (NEGATIVE); Influenza B - CEPHEID Flu B NEGATIVE (NEGATIVE)
[2019-06-19 08:11] LABS: COVID19 Sendout Not Detected (Not Detected)
== END ==
PROVIDERS: PCP Internal Medicine; Visit Provider Family Medicine
DX: R05 Cough (principal)
CPT/HCPCS: 87502; 87635

== ENCOUNTER → 2019-07-10 11:07 | Outpatient (CLI) | payer MEDICARE, OTHER, SELFPAY ==
--- NOTE | 2019-07-10 | DI.RAD.S_ITS ---
PROCEDURE: XR SHOULDER LT MIN 2V INDICATIONS: Arthralgia, unspecified joint TECHNIQUE: 3 views of the shoulder were acquired. COMPARISON: [facility], ELINA, CHEST 2 VIEW, 09/15/2012, 10:28. [facility], ELINA, XR CHEST 2V, 03/05/2019, 16:06. FINDINGS: Bones: No fractures or dislocations. Sclerosis is present overlying the acromion/scapula unchanged compared to prior exam and possibly related to bone island. Visualized ribs appear intact. Mild high riding appearance of the humeral head. Severe acromioclavicular degenerative narrowing. Soft tissues: No suspicious soft tissue calcifications. Calcific tendinitis is present. IMPRESSION: 1. High riding appearance of the humeral head, which can be indicative of rotator cuff pathology. 2. Severe acromioclavicular degenerative narrowing. Dictated by: Debi Ugalde M.D. on 07/10/2019 at 13:25 Approved by: Debi Ugalde M.D. on 07/10/2019 at 13:27
--- NOTE | 2019-07-10 | DI.RAD.S_ITS ---
PROCEDURE: XR SHOULDER RT MIN 2V INDICATIONS: Arthralgia, unspecified joint TECHNIQUE: 3 views of the shoulder were acquired. COMPARISON: [facility], CR, XR CHEST 2V, 03/05/2019, 16:06. [facility], CR, XR SHOULDER LT MIN 2V, 07/10/2019, 10:28. FINDINGS: Bones: No fractures or dislocations. No suspicious bony lesions. Visualized ribs appear intact. Humeral head is high riding. Severe acromioclavicular degenerative narrowing. Soft tissues: No suspicious soft tissue calcifications. IMPRESSION: 1. High riding appearance of the humeral head, which can be indicative of rotator cuff pathology. 2. Severe acromioclavicular degenerative narrowing. Dictated by: Debi Ugalde M.D. on 07/10/2019 at 13:27 Approved by: Debi Ugalde M.D. on 07/10/2019 at 13:30
--- NOTE | 2019-07-10 | DI.RAD.S_ITS ---
PROCEDURE: XR HAND LT 2V INDICATIONS: Arthralgia, unspecified joint TECHNIQUE: 2 Views of the hand(s) acquired. COMPARISON: [facility], CR, XR HAND RT 2V, 07/10/2019, 10:35. FINDINGS: Bones: Prior amputation change of the distal 4th finger can be seen. Degenerative changes are seen, with joint space narrowing with associated subchondral irregularity and sclerosis with osteophyte formation. These findings are most prominent involving the distal interphalangeal joints and the 1st carpometacarpal joint. No acute fractures are seen. No suspicious lytic or blastic lesions are seen. Soft tissues: No suspicious soft tissue calcifications. 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 Dictated by: Adrián Vang M.D. on 07/10/2019 at 11:26 Approved by: Adrián Vang M.D. on 07/10/2019 at 11:27
--- NOTE | 2019-07-10 | DI.RAD.S_ITS ---
PROCEDURE: XR HAND RT 2V INDICATIONS: Arthralgia, unspecified joint TECHNIQUE: 2 views of the hand(s) acquired. COMPARISON: [facility], CR, XR HAND LT 2V, 07/10/2019, 10:33. FINDINGS: Bones: No acute fractures or dislocations. There is a remote, unfused ulnar styloid fracture seen. Irregularity is seen of the distal 5th metacarpal, which also may be related to remote fracture. Carpal bones are normally aligned. No suspicious bony lesions. Osteoarthritic degenerative changes are seen, which are most prominent involving the distal interphalangeal joints and the 1st carpometacarpal joint. Soft tissues: No suspicious soft tissue calcifications. IMPRESSION: Age-appropriate osteoarthritic degenerative changes. Remote, unfused ulnar styloid fracture. Dictated by: Adrián Vang M.D. on 07/10/2019 at 10:57 Approved by: Adrián Vang M.D. on 07/10/2019 at 10:58
[2019-07-10 12:30] LABS: C-Reactive Protein Quant < 0.5 mg/dL (<1.0); Rheumatoid Factor < 8.6 IU/mL (<12.0)
[2019-07-10 12:34] LABS: Erythrocyte Sedimentation Rate 1 MM/HR (0-15)
[2019-07-13 20:07] LABS: CCP Antibodies IgG/IgA 11 units (0-19)
[2019-07-16 07:45] LABS: HLA B27 Negative (.)
== END ==
PROVIDERS: PCP Internal Medicine; Referring Provider Internal Medicine; Visit Provider Internal Medicine
DX: M25.50 Pain in unspecified joint (principal)
CPT/HCPCS: 36415; 73030; 73120; 81374; 85651; 86140; 86200; 86430

== ENCOUNTER → 2019-07-24 07:37 | Outpatient (CLI) | payer MEDICARE, OTHER, SELFPAY ==
[2019-07-24 08:27] LABS: Cholesterol 244 mg/dL (140-199); HDL Cholesterol 85 mg/dL (40-60); LDL Cholesterol Calculated 133 mg/dL (<100); Triglycerides 130 mg/dL (35-150)
== END ==
PROVIDERS: PCP Internal Medicine; Referring Provider Internal Medicine Cardiovascular Disease; Visit Provider Internal Medicine Cardiovascular Disease
DX: I25.10 Atherosclerotic heart disease of native coronary artery without angina pectoris (principal); I65.29 Occlusion and stenosis of unspecified carotid artery; I25.84 Coronary atherosclerosis due to calcified coronary lesion
CPT/HCPCS: 36415; 80061

== ENCOUNTER → 2019-07-30 13:17 | Outpatient (CLI) | payer MEDICARE, OTHER, SELFPAY ==
--- NOTE | 2019-07-30 | DI.RAD.S_ITS ---
PROCEDURE: XR CHEST 2V INDICATIONS: CHEST CONGESTION TECHNIQUE: 2 views of the chest were acquired. COMPARISON: [facility], CR, XR CHEST 2V, 03/05/2019, 16:06. FINDINGS: Surgical changes and devices: None. Lungs and pleura: Minimal opacity at the left lung base. Mild prominence of the interstitium bilaterally. No significant pleural effusions or pneumothorax. Mediastinum: Mediastinal contours are normal. Heart size is normal. Bones and chest wall: No suspicious bony abnormalities. Soft tissues appear unremarkable. IMPRESSION: Mild fluid overload. Dictated by: Erickson Nobles M.D. on 07/30/2019 at 14:24 Approved by: Erickson Nobles M.D. on 07/30/2019 at 14:25
[2019-07-30 14:09] LABS: Add Manual Diff / Slide Review NO; Basophils Absolute Auto 0 /uL (0-100); Basophils Percent Auto 0.5 % (0-2); Eosinophils Absolute Auto 0 /uL (0-450); Eosinophils Percent Auto 0.4 % (2-4); Hematocrit 44.9 % (41-53); Hemoglobin 15.3 g/dL (13.5-17.5); Lymphocytes Absolute Auto 1000 /uL (1100-4500); Lymphocytes Percent Auto 12.6 % (25-40); Mean Corpuscular Hemoglobin 32.4 PG (26-34); Mean Corpuscular Volume 95.3 fL (80-100); Monocytes Absolute Auto 200 /uL (0-900); Monocytes Percent Auto 2.8 % (3-14); Neutrophils Absolute Auto 6900 /uL (1500-7000); Neutrophils Percent Auto 83.7 % (50-75); Platelet Count 226 X10^3/uL (150-400); Red Blood Cell Count 4.72 X10^6/uL (4.5-5.9); Red Cell Distribution Width 14.4 % (11.6-14.8); White Blood Cell Count 8.2 X10^3/uL (4.5-11.0)
[2019-07-30 14:29] LABS: Erythrocyte Sedimentation Rate 1 MM/HR (0-15)
[2019-07-30 14:30] LABS: Alanine Aminotransferase 33 IU/L (<50); Albumin 4.4 g/dL (3.5-5.0); Albumin Globulin Ratio 1.6 (1.0-2.8); Alkaline Phosphatase 57 U/L (38-126); Aspartate Aminotransferase 35 IU/L (17-59); BUN Creatinine Ratio 19.8 (6-22); Bilirubin Total 0.6 mg/dL (0.2-1.3); Blood Urea Nitrogen 19 mg/dL (9-20); Calcium 9.9 mg/dL (8.4-10.2); Carbon Dioxide 27 mmol/L (22-32); Chloride 100 mmol/L (98-107); Estimated Glomerular Filt Rate > 60.0 mL/min (>60); Globulin 2.8 g/dL (1.7-4.1); Glucose 127 mg/dL (80-110); HEMOLYSIS < 15 (0-50); Potassium 4.6 mmol/L (3.4-5.1); Sodium 136 mmol/L (137-145); Total Protein 7.2 g/dL (6.3-8.2)
[2019-07-30 14:31] LABS: C-Reactive Protein Quant < 0.5 mg/dL (<1.0)
[2019-07-31 11:37] LABS: NT-proBNP (BNP-Adult 18+) 54 pg/mL (<125)
== END ==
PROVIDERS: PCP Internal Medicine; Referring Provider Internal Medicine; Visit Provider Internal Medicine
DX: R09.89 Other specified symptoms and signs involving the circulatory and respiratory systems (principal); G89.4 Chronic pain syndrome
CPT/HCPCS: 36415; 71046; 80053; 83880; 85025; 85651; 86140

== ENCOUNTER → 2019-08-07 10:05 | Outpatient (CLI) | payer MEDICARE, OTHER, SELFPAY ==
--- NOTE | 2019-08-07 | DI.CT.S_ITS ---
PROCEDURE: CT CHEST WO CON INDICATIONS: Cough TECHNIQUE: Noncontrast 5 mm thick sections acquired from the pulmonary apices to the posterior costophrenic angles. 1 mm lung window, 5 mm thick coronal and sagittal and 7 mm axial MIP reformats were then acquired. For radiation dose reduction, the following was used: automated exposure control, adjustment of mA and/or kV according to patient size. COMPARISON: [facility], CT, ABDOMEN/PELVIS WITH CONTRAST, 01/16/2010, 16:21. FINDINGS: Image quality: Excellent. Lungs and pleura: Scattered subsegmental atelectasis and/or scarring. No focal consolidation. No pleural effusions or pneumothorax. Central and peripheral airways are patent and normal in caliber. 2 mm right middle lobe pulmonary nodule image 69/3. 2 mm nodule seen within the right fissure image 142/3. Mediastinum: Heart size is normal. No pericardial effusion. No mediastinal adenopathy by size criteria. Thoracic aorta and central pulmonary arteries are normal in size. Esophagus is normal in caliber. No hiatal hernia. Bones and chest wall: No suspicious bony lesions. No vertebral body compression fractures. No axillary or supraclavicular adenopathy by size criteria. Thyroid gland negative. Abdomen: Visualized upper abdominal solid organs and bowel loops appear normal in the absence of contrast. IMPRESSION: Scattered subsegmental atelectasis and/or scarring. No focal consolidation. Multiple sub-5 mm nonspecific pulmonary nodules within the right lung. Given the absence of relevant prior studies, recommend one year chest CT followup to exclude early malignant or metastatic possibilities Dictated by: Hakeem Ruffin M.D. on 08/07/2019 at 10:55 Approved by: Hakeem Ruffin M.D. on 08/07/2019 at 11:01
== END ==
PROVIDERS: PCP Internal Medicine; Referring Provider Internal Medicine; Visit Provider Internal Medicine
DX: R05 Cough (principal); R91.8 Other nonspecific abnormal finding of lung field
CPT/HCPCS: 71250

== ENCOUNTER 2020-02-07 14:45 | Emergency (ER) | payer MEDICARE, OTHER, SELFPAY ==
[2020-02-07] VITALS (10 sets, daily range): BP systolic 155–169; BP diastolic 74–87; PULSE 64–76; RESP 15; TEMP 36.5; O2SAT 87–98; BMI 31.9
--- NOTE | 2020-02-07 16:43 | DI.RAD.S_ITS ---
PROCEDURE: XR CHEST 1V INDICATIONS: fall, ingested ambien x 3 TECHNIQUE: One view of the chest was acquired. COMPARISON: [facility], CT, CT CHEST WO CON, 08/07/2019, 10:05. [facility], CR, XR CHEST 2V, 03/05/2019, 16:06. [facility], CR, XR CHEST 2V, 07/30/2019, 13:35. FINDINGS: Surgical changes and devices: None. Lungs and pleura: On this semiupright portable chest examination, no large pneumothorax or large pleural effusions are seen. No focal infiltrates are seen. Generalized interstitial prominence can be seen. Low lung volumes are noted. This causes a crowded appearance to the lung markings and limits evaluation. Mediastinum: Mediastinal contours appear normal. Heart size is normal. Bones and chest wall: No suspicious bony lesions. Age-appropriate bony degenerative changes are seen. Overlying soft tissues appear unremarkable. IMPRESSION: Generalized interstitial prominence is seen. Differential diagnosis includes artifact from low lung volumes and mild pulmonary edema. No focal infiltrates are seen. If there is clinical concern for a developing pulmonary process, a short-term followup chest series (with PA and lateral views, performed in deep inspiration) is suggested for further evaluation. Dictated by: Adrián Vang M.D. on 02/07/2020 at 16:26 Approved by: Adrián Vang M.D. on 02/07/2020 at 16:27
--- NOTE | 2020-02-07 16:50 | ED.OVERDOSE ---
HPI - Overdose General Chief Complaint: Toxicology Problem Stated Complaint: cant wake up /fell Time Seen by Provider: 02/07/20 16:42 Source: patient and family Mode of arrival: Wheelchair Limitations: no limitations History of Present Illness HPI Narrative: 69-year-old male comes emergency department with complaint of difficulty waking up and fall overnight and overdose of Ambien. Per patient he took 2 Ambien 10 mg overnight the 1st at 8:30 p.m. and the 2nd around 9:30 p.m.. Patient states he will often take 2 if needed. Patient states he was having hard time fall asleep because he has chronic shoulder pain and it was worse last night. He denies take any an additional but his daughter states that of 90 tablet prescription they are only 62 tablets present and it was filled on 01/25/2022. At most he would have taken 22 if he was taking 2 tablets nightly which he does not take every night and 28 tablets are currently missin. Daughter states that he was very hard to wake and he overslept this morning and she will come up about 10:30 a.m., she noticed that he had been incontinent. He was also very very dry mouth and had difficulty even opening his mouth, she states that he has been complaining that he still feels dry. His speech was difficult to understand because he was so dry that has improved but she states he still seems a little slurred he falls asleep almost immediately although that is slowly improving. She states he did fall overnight either out of bed or getting out of bed. They do not appreciate any bruises or injuries and he does not complain of any pain. He denies any fevers or chills, no cold cough or congestion recently but had some upper respiratory symptoms about a week ago. No chest pain or shortness of breath. No nausea, no vomiting, no diarrhea, no constipation. No frequency dysuria urgency. He has a history of neuropathy, they stated in the opacity, he does take amitriptyline and gabapentin but did not appear that he had taken additional. He takes medication for dyslipidemia and she states he has some sort of autoimmune disease that has not been fully diagnosed. Patient states he is not intending to take additional medication in order to harm himself but only to sleep. Related Data Home Medications Medication Instructions Recorded Confirmed aspirin 81 mg PO DAILY 04/14/19 02/07/20 levothyroxine 25 mcg PO DAILY 04/14/19 02/07/20 amitriptyline 10 mg tablet 40 mg PO DAILY tab 06/17/19 02/07/20 gabapentin 800 mg tablet 400 mg PO DAILY tab 06/17/19 02/07/20 rosuvastatin 20 mg tablet 20 mg PO DAILY 08/28/19 02/07/20 duloxetine 60 mg PO DAILY 11/02/19 02/07/20 Previous Rx's Medication Instructions Recorded albuterol sulfate 90 mcg/actuation 2 puff INHALATION Q6H PRN #8 gram 06/17/19 aerosol inhaler zolpidem 10 mg tablet See Rx Instructions .ROUTE 01/26/20 .COMPLEX #90 tab Allergies Allergy/AdvReac Type Severity Reaction Status Date / Time No Known Drug Allergies Allergy Verified 06/17/19 11:17 Review of Systems Review of Systems ROS Unobtainable: All systems reviewed & are unremarkable except as noted in HPI and below Patient History Medical History H/O nephrolithotomy with removal of calculi (~1970) Hyperlipidemia Hypothyroidism Primary insomnia Surgical History H/O hernia repair (~08/2018) H/O prostatectomy (~1999) Hx of appendectomy Hx of tonsillectomy Family History (Updated 04/14/19 @ 11:08 by Janna Graham MD) Brother COPD (chronic obstructive pulmonary disease) Social History Smoking Status: Never smoker Smoking Status: Never smoker alcohol intake frequency: 0-2 drinks per day Alcohol type: beer Substance Use Type: does not use Exam Narrative Exam Narrative: GEN: well nourished, well appearing male, alert and oriented x 3, patient appears to be in mild distress. HEENT: Atraumatic, pupils are equal round reactive to light, extraocular movements are intact, nares are clear, TMs are clear with no fluid, there is no conjunctival pallor. Throat is clear without any exudates, erythema, tonsillar enlargement or uvular deviation, no facial droop, patient does appear to have some dry mouth and there is a little bit of Abrasion on the edge of the mouth. Dry mucous membranes HEART: Regular rate and rhythm without murmur, clicks, rubs. Pulses are equal in upper and lower extremities LUNGS:Lungs clear to auscultation, no wheezes, rales, crackles, chest moves symmetrically ABD:bowel sounds normal, soft, non-tender, no guarding, rebound, rigidity, no masses noted, no hepatosplenomegaly :No CVA tenderness MSCL: Non-tender, no muscle atrophy, muscles strength 5/5 upper and lower extremities, full range of motion NEURO:CN 2-12 intact, sensation normal, reflexes 2/4 upper and lower extremities. finger nose finger test normal, heel triplett test normal, speech is slightly slurred. Initial Vital Signs Initial Vital Signs: Vital Signs Temperature 97.7 F 02/07/20 14:59 Pulse Rate 73 02/07/20 14:59 Respiratory Rate 15 02/07/20 14:59 Blood Pressure 169/87 H 02/07/20 14:59 Pulse Oximetry 98 02/07/20 14:59 Scores GCS [place]a coma scale eye opening: Spontaneous [place] coma scale verbal response: Orientated [place] coma scale motor response: Obey commands [place] coma scale total score: 15 NIH Stroke Scale Level of Conciousness: Alert, keenly responsive Ask month/age: Answers both questions correctly. Open/close eyes, close hand: Performs both tasks correctly Best gaze horizontal: Normal Visual hughes: No visual loss Facial palsy: Normal symetrical movement Left arm drift: No drift for full 10 sec Right arm drift: No drift for full 10 sec Left leg drift: No drift for full 5 sec Right leg drift: No drift for full 5 sec Limb ataxia: Absent Sensory on face/arms/legs: Normal, no sensory loss Best language: No aphasia, normal Dysarthria: Mild to mod,some slurring (resolved on recheck, NIH=0) Extinction or inattention: No abnormality Total NIH Stroke scale score: 1 Course Orders Ordered: ED Orders 02/07/20 16:20 Acetaminophen Stat Complete Blood Count AUTO DIFF Stat Comprehensive Metabolic Panel Stat Ethanol (ETOH) Stat Hepatic (Liver) Panel Stat Lactate (Lactic Acid) Stat Salicylate Stat Troponin & CK Cardiac Panel Stat 02/07/20 16:43 XR chest 1V Stat 02/07/20 17:13 EKG-12 Lead Stat 02/07/20 17:26 CT head/brain wo con Stat 02/07/20 17:55 COVID19 Stat 02/07/20 18:37 Urine Drug Screen, Rapid Stat Sodium Chloride (Normal Saline 0.9%) 1,000 mls @ 150 mls/hr IV CONT PHILOMENA Last Admin: 02/07/20 17:28 Dose: 150 mls/hr Documented by: IRENE Discontinued Medications Al Hydrox/Mg Hydrox/Simethicone 20 ml/ Lidocaine HCl 15 ml 0 ml PO NOW ONE Stop: 02/07/20 18:58 Last Admin: 02/07/20 19:07 Dose: 35 ml Documented by: MICHELLE Consultations Consultation #1: Nursing spoke with poison control but recontacted as patient family gave me an updated number of tablets missing. Time: 17:48 Vital Signs Vital signs: Vital Signs - 8 hr 02/07/20 14:59 02/07/20 16:14 02/07/20 16:30 Temperature 97.7 F Pulse Rate 73 72 68 Respiratory Rate 15 Blood Pressure 169/87 H 165/82 H Pulse Oximetry 98 87 L 98 02/07/20 16:53 02/07/20 17:00 02/07/20 17:01 Temperature Pulse Rate 75 68 68 Respiratory Rate Blood Pressure 155/81 H 158/74 H Pulse Oximetry 98 96 97 02/07/20 17:30 02/07/20 17:31 02/07/20 18:00 Temperature Pulse Rate 76 65 64 Respiratory Rate Blood Pressure 157/84 H Pulse Oximetry 98 98 97 02/07/20 18:30 Temperature Pulse Rate 68 Respiratory Rate Blood Pressure Pulse Oximetry 96 MDM - Overdose Lab Data Attestation: I reviewed the patient's lab results. Lab results narrative: CBC is normal, sodium is 134 with normal potassium, otherwise normal renal function and electrolytes, liver function and troponin are negative. Toxicology is negative for salicylates, Tylenol and ETOH. Patient is covid negative. Result diagrams: 02/07/20 16:20 02/07/20 16:20 Labs: Lab Results 02/07/20 02/07/20 02/07/20 Range/Units 16:20 16:20 16:20 WBC 9.7 (4.5-11.0) X10^3/uL RBC 4.59 (4.5-5.9) X10^6/uL Hgb 14.7 (13.5-17.5) g/dL Hct 42.7 (41-53) % MCV 93.1 (80-100) fL MCH 32.1 (26-34) PG MCHC 34.5 (30-36) % RDW 13.7 (11.6-14.8) % Plt Count 181 (150-400) X10^3/uL Neut % (Auto) 65.8 (50-75) % Lymph % (Auto) 23.3 L (25-40) % [place] % (Auto) 8.0 (3-14) % Eos % (Auto) 2.5 (2-4) % Baso % (Auto) 0.4 (0-2) % Neut # (Auto) 6400 (4939-1641) /uL Lymph # (Auto) 2300 (6457-7723) /uL [place] # (Auto) 800 (0-900) /uL Eos # (Auto) 200 (0-450) /uL Baso # (Auto) 0 (0-100) /uL Sodium 134 L (137-145) mmol/L Potassium 4.0 (3.4-5.1) mmol/L Chloride 102 (98-107) mmol/L Carbon Dioxide 29 (22-32) mmol/L BUN 17 (9-20) mg/dL Creatinine 0.87 (0.66-1.25) mg/dL Estimated GFR > 60.0 (>60) mL/min BUN/Creatinine Ratio 19.5 (6-22) Glucose 89 (80-110) mg/dL Lactate 1.2 (0.7-2.1) mmol/L Calcium 9.0 (8.4-10.2) mg/dL Total Bilirubin 1.0 (0.2-1.3) mg/dL Conjugated Bilirubin 0.0 (0.0-0.3) md/dL Unconjugated Bilirubin 0.7 (0.0-1.1) mg/dL AST 34 (17-59) IU/L ALT 28 (<50) IU/L Alkaline Phosphatase 73 (38-126) U/L Total Creatine Kinase 157 (55-170) U/L CK-MB (CK-2) 3.74 H (<2.37) ng/mL CK-MB (CK-2) Rel Index 2.4 (1.5-5.0) % Troponin I < 0.012 (0.01-0.034) ng/mL Total Protein 7.0 (6.3-8.2) g/dL Albumin 4.1 (3.5-5.0) g/dL Globulin 2.9 (1.7-4.1) g/dL Albumin/Globulin Ratio 1.4 (1.0-2.8) Salicylates < 1.0 (<20) mg/dL U Opiates 300ng/mL cut (Negative) Ur Oxycodone Screen (Negative) Urine Methadone Screen (Negative) Acetaminophen < 10 L (10-30) ug/mL Ur Barbiturates Screen (Negative) U Tricyclic Antidepress (Negative) Ur Phencyclidine Scrn (Negative) Ur Amphetamines Screen (Negative) U Methamphetamines Scrn (Negative) Ur MDMA Scrn (Ecstasy) (Negative) U Benzodiazepines Scrn (Negative) Urine Cocaine Screen (Negative) U Marijuana (THC) Screen (Negative) Ethyl Alcohol < 10 ( - 10) mg/dL COVID-19 PCR (Negative) 02/07/20 02/07/20 Range/Units 17:55 18:37 WBC (4.5-11.0) X10^3/uL RBC (4.5-5.9) X10^6/uL Hgb (13.5-17.5) g/dL Hct (41-53) % MCV (80-100) fL MCH (26-34) PG MCHC (30-36) % RDW (11.6-14.8) % Plt Count (150-400) X10^3/uL Neut % (Auto) (50-75) % Lymph % (Auto) (25-40) % [place] % (Auto) (3-14) % Eos % (Auto) (2-4) % Baso % (Auto) (0-2) % Neut # (Auto) (7312-6292) /uL Lymph # (Auto) (6463-9078) /uL [place] # (Auto) (0-900) /uL Eos # (Auto) (0-450) /uL Baso # (Auto) (0-100) /uL Sodium (137-145) mmol/L Potassium (3.4-5.1) mmol/L Chloride (98-107) mmol/L Carbon Dioxide (22-32) mmol/L BUN (9-20) mg/dL Creatinine (0.66-1.25) mg/dL Estimated GFR (>60) mL/min BUN/Creatinine Ratio (6-22) Glucose (80-110) mg/dL Lactate (0.7-2.1) mmol/L Calcium (8.4-10.2) mg/dL Total Bilirubin (0.2-1.3) mg/dL Conjugated Bilirubin (0.0-0.3) md/dL Unconjugated Bilirubin (0.0-1.1) mg/dL AST (17-59) IU/L ALT (<50) IU/L Alkaline Phosphatase (38-126) U/L Total Creatine Kinase (55-170) U/L CK-MB (CK-2) (<2.37) ng/mL CK-MB (CK-2) Rel Index (1.5-5.0) % Troponin I (0.01-0.034) ng/mL Total Protein (6.3-8.2) g/dL Albumin (3.5-5.0) g/dL Globulin (1.7-4.1) g/dL Albumin/Globulin Ratio (1.0-2.8) Salicylates (<20) mg/dL U Opiates 300ng/mL cut Positive H (Negative) Ur Oxycodone Screen Negative (Negative) Urine Methadone Screen Negative (Negative) Acetaminophen (10-30) ug/mL Ur Barbiturates Screen Negative (Negative) U Tricyclic Antidepress Positive H (Negative) Ur Phencyclidine Scrn Negative (Negative) Ur Amphetamines Screen Negative (Negative) U Methamphetamines Scrn Negative (Negative) Ur MDMA Scrn (Ecstasy) Negative (Negative) U Benzodiazepines Scrn Negative (Negative) Urine Cocaine Screen Negative (Negative) U Marijuana (THC) Screen Negative (Negative) Ethyl Alcohol ( - 10) mg/dL COVID-19 PCR Negative (Negative) Urine Dip Bedside Urine Glucose Negative Bedside Urine Bilirubin - Negative Bedside Urine Ketone - Negative Urine Specific [place] 1.015 Bedside Urine Occult Blood - Negative Bedside Urine pH 6.0 Bedside Urine Protein - Negative Bedside Urine Urobilinogen - Negative Bedside Urine Nitrite - Negative Bedside Urine Leukocytes - Negative Esterase Imaging Data CT scan - head: Radiologist's Impression: [address] [id number] Scan ReportSigned Patient: Oneil Mays EMR#: [id number]: [id number]:[id number]/Sex: 69 / MDate of Service: 02/07/20Loc: EDAccession Number: [id number] Procedure: CT head/brain wo con Ordering Provider: Camille Wagner D.O. PROCEDURE: CT HEAD/BRAIN WO CON INDICATIONS: ? overdose vs other TECHNIQUE: Noncontrast 4.5 mm thick angled axial sections acquired from the foramen magnum to the vertex, with coronal and sagittal reformats. For radiation dose reduction, the following was used: automated exposure control, adjustment of mA and/or kV according to patient size. COMPARISON: [facility], MR, MR HEAD/BRAIN WO CON, 03/09/2019, 18:47. [facility], CT, HEAD WITHOUT CONTRAST, 11/05/2013, 12:34. [facility], CR, XR CHEST 1V, 02/07/2020, 17:02. [facility], CT, CT HEAD/BRAIN WO CON, 03/05/2019, 19:14. FINDINGS: Image quality: Excellent. CSF spaces: Basal cisterns are patent. No extra-axial fluid collections. The ventricles are symmetric in size and shape. Brain: No intracranial bleeds or masses. There is cerebral volume loss for age, with resultant ventricular and sulcal prominence. There are periventricular and deep white matter chronic small vessel ischemic changes. There is intracranial internal carotid artery atherosclerosis. Skull and face: Calvarium and visualized facial bones appear intact, without suspicious lesions. Sinuses: Visualized sinuses and mastoids are clear. IMPRESSION: No acute intracranial process is seen. If there is strong clinical suspicion for an acute stroke, please consider an MRI for further evaluation, as it is more sensitive (assuming that there is no contraindication to MRI). Dictated by: Adrián Vang M.D. on 02/07/2020 at 16:58 Approved by: Adrián Vang M.D. on 02/07/2020 at 16:59 Chest x-ray: Radiologist's Impression: [address] [id number] ReportSigned Patient: Oneil Mays EMR#: [id number]: [id number]:[id number]/Sex: 69 / MDate of Service: 02/07/20Loc: EDAccession Number: [id number] Procedure: XR chest 1V Ordering Provider: Camille Wagner D.O. PROCEDURE: XR CHEST 1V INDICATIONS: fall, ingested ambien x 3 TECHNIQUE: One view of the chest was acquired. COMPARISON: [facility], CT, CT CHEST WO CON, 08/07/2019, 10:05. [facility], CR, XR CHEST 2V, 03/05/2019, 16:06. [facility], CR, XR CHEST 2V, 07/30/2019, 13:35. FINDINGS: Surgical changes and devices: None. Lungs and pleura: On this semiupright portable chest examination, no large pneumothorax or large pleural effusions are seen. No focal infiltrates are seen. Generalized interstitial prominence can be seen. Low lung volumes are noted. This causes a crowded appearance to the lung markings and limits evaluation. Mediastinum: Mediastinal contours appear normal. Heart size is normal. Bones and chest wall: No suspicious bony lesions. Age-appropriate bony degenerative changes are seen. Overlying soft tissues appear unremarkable. IMPRESSION: Generalized interstitial prominence is seen. Differential diagnosis includes artifact from low lung volumes and mild pulmonary edema. No focal infiltrates are seen. If there is clinical concern for a developing pulmonary process, a short-term followup chest series (with PA and lateral views, performed in deep inspiration) is suggested for further evaluation. Dictated by: Adrián Vang M.D. on 02/07/2020 at 16:26 Approved by: Adrián Vang M.D. on 02/07/2020 at 16:27 ECG Data Attestation: I personally reviewed and interpreted this ECG as follows: Prior ECG tracings: available for review Interpretation: Sinus rhythm rate of 62, [place] 148, QRS of 90 and QTC of 422. No ST elevation appreciated. Nonspecific change. Similar prior. [facility] Narrative Medical decision making narrative: Patient comes in with a day of sleepiness, dry mouth and some slurred speech. He likely took multiple tablets of Ambien possibly up he thought he took 2 tablets which is his normal and his daughter thought he took more accidentally. Patient does also take [place] amitriptyline as well as duloxetine and gabapentin and these may have potentially also caused his altered mental status although it is unclear if he is missing any tablets from these prescriptions. Head CT and chest x-ray do not show any acute changes, EKG does not show acute changes there is potential for stroke he does continue to have some slurred speech. Discharge Plan Departure Patient Disposition: Home Clinical Impression: Accidental overdose Instructions: DI for Drug Overdose in Adults Activity Restrictions/Additional Instructions: Follow up with your physician in the next 24-48 hours for recheck. If you continue to have dry mouth, throat and soreness discuss with your physician or return for re-evaluation. Do not take any Ambien tonight, make sure all of your medications are secured so you cannot take an additional for extra medication by accident. Return to the ER for fevers, new confusion or altered mental status, new weakness, numbness, difficulty with speech, lightheadedness or passing out, new chest pain or shortness of breath, persistent vomiting or other new or concerning symptoms. Prescriptions: No Action amitriptyline 10 mg tablet 40 mg PO DAILY RF: 0 gabapentin 800 mg tablet 400 mg PO DAILY RF: 0 albuterol sulfate 90 mcg/actuation HFA aerosol inhaler 2 puff INHALATION Q6H PRN (Reason: shortness of breath or wheezing) Qty: 8 RF: 0 zolpidem 10 mg tablet See Rx Instructions .ROUTE .COMPLEX Qty: 90 RF: 0 levothyroxine 25 mcg Tablet 25 mcg PO DAILY RF: 0 aspirin 81 mg Tablet,Chewable 81 mg PO DAILY RF: 0 duloxetine 20 mg Capsule,Delayed Release(Dr/Ec) 60 mg PO DAILY RF: 0 rosuvastatin 20 mg tablet 20 mg PO DAILY RF: 0 Referrals: Cindy Miranda MD [Primary Care Provider] -
[2020-02-07 16:53] LABS: Add Manual Diff / Slide Review NO; Basophils Absolute Auto 0 /uL (0-100); Basophils Percent Auto 0.4 % (0-2); Eosinophils Absolute Auto 200 /uL (0-450); Eosinophils Percent Auto 2.5 % (2-4); Hematocrit 42.7 % (41-53); Hemoglobin 14.7 g/dL (13.5-17.5); Lymphocytes Absolute Auto 2300 /uL (1100-4500); Lymphocytes Percent Auto 23.3 % (25-40); Mean Corpuscular HGB Conc 34.5 % (30-36); Mean Corpuscular Hemoglobin 32.1 PG (26-34); Mean Corpuscular Volume 93.1 fL (80-100); Monocytes Absolute Auto 800 /uL (0-900); Neutrophils Absolute Auto 6400 /uL (1500-7000); Neutrophils Percent Auto 65.8 % (50-75); Platelet Count 181 X10^3/uL (150-400); Red Blood Cell Count 4.59 X10^6/uL (4.5-5.9); Red Cell Distribution Width 13.7 % (11.6-14.8); White Blood Cell Count 9.7 X10^3/uL (4.5-11.0)
[2020-02-07 17:02] LABS: Alanine Aminotransferase 28 IU/L (<50); Albumin 4.1 g/dL (3.5-5.0); Albumin Globulin Ratio 1.4 (1.0-2.8); Alkaline Phosphatase 73 U/L (38-126); Aspartate Aminotransferase 34 IU/L (17-59); BUN Creatinine Ratio 19.5 (6-22); Bilirubin Unconjugated 0.7 mg/dL (0.0-1.1); Blood Urea Nitrogen 17 mg/dL (9-20); Carbon Dioxide 29 mmol/L (22-32); Chloride 102 mmol/L (98-107); Creatine Kinase 157 U/L (55-170); Estimated Glomerular Filt Rate > 60.0 mL/min (>60); Globulin 2.9 g/dL (1.7-4.1); Glucose 89 mg/dL (80-110); HEMOLYSIS 24 (0-50); Lactate (Lactic Acid) 1.2 mmol/L (0.7-2.1); Sodium 134 mmol/L (137-145)
[2020-02-07 17:13] LABS: Acetaminophen < 10 ug/mL (10-30); Ethanol (ETOH) < 10 mg/dL; Salicylate < 1.0 mg/dL (<20); Troponin I < 0.012 ng/mL (0.01-0.034)
[2020-02-07 17:17] LABS: CKMB % Relative Index 2.4 % (1.5-5.0); Creatine Kinase MB 3.74 ng/mL (<2.37)
--- NOTE | 2020-02-07 17:26 | DI.CT.S_ITS ---
PROCEDURE: CT HEAD/BRAIN WO CON INDICATIONS: ? overdose vs other TECHNIQUE: Noncontrast 4.5 mm thick angled axial sections acquired from the foramen magnum to the vertex, with coronal and sagittal reformats. For radiation dose reduction, the following was used: automated exposure control, adjustment of mA and/or kV according to patient size. COMPARISON: [facility], MR, MR HEAD/BRAIN WO CON, 03/09/2019, 18:47. [facility], CT, HEAD WITHOUT CONTRAST, 11/05/2013, 12:34. [facility], CR, XR CHEST 1V, 02/07/2020, 17:02. [facility], CT, CT HEAD/BRAIN WO CON, 03/05/2019, 19:14. FINDINGS: Image quality: Excellent. CSF spaces: Basal cisterns are patent. No extra-axial fluid collections. The ventricles are symmetric in size and shape. Brain: No intracranial bleeds or masses. There is cerebral volume loss for age, with resultant ventricular and sulcal prominence. There are periventricular and deep white matter chronic small vessel ischemic changes. There is intracranial internal carotid artery atherosclerosis. Skull and face: Calvarium and visualized facial bones appear intact, without suspicious lesions. Sinuses: Visualized sinuses and mastoids are clear. IMPRESSION: No acute intracranial process is seen. If there is strong clinical suspicion for an acute stroke, please consider an MRI for further evaluation, as it is more sensitive (assuming that there is no contraindication to MRI). Dictated by: Adrián Vang M.D. on 02/07/2020 at 16:58 Approved by: Adrián Vang M.D. on 02/07/2020 at 16:59
[2020-02-07] MEDS: SODIUM CHLORIDE 0.9% 1,000 ML 150 ML IV (17:28)
[2020-02-07 18:23] LABS: COVID19 -Nasal RAPID Negative (Negative)
[2020-02-07] MEDS: MAG HYDROX/ALUMINUM/SIMETH SUS 20 ML, LIDOCAINE VISCOUS 2% 15 ML PO (19:07)
[2020-02-07 19:11] LABS: UR Morphine/Opiate cutoff 300 Positive (Negative); Ur Creatinine Normal (Normal); Ur Specific Gravity Normal (Normal); Urine Amphetamines Negative (Negative); Urine Barbiturates Negative (Negative); Urine Benzodiazepines Negative (Negative); Urine Cocaine Negative (Negative); Urine MDMA Negative (Negative); Urine Methamphetamines Negative (Negative); Urine Phencyclidine Negative (Negative); Urine Tetrahydrocannabinol Negative (Negative); Urine pH Normal (Normal)
[2020-02-07 19:12] LABS: Urine Methadone Negative (Negative); Urine Oxycodone Negative (Negative); Urine Tricyclic Antidepressant Positive (Negative)
== END 2020-02-07 19:15 | disposition home or self-care (01) ==
PROVIDERS: Emergency Provider Emergency Medicine; PCP Internal Medicine
DX: T42.6X1A Poisoning by other antiepileptic and sedative-hypnotic drugs, accidental (unintentional), initial encounter (principal); R47.81 Slurred speech; R07.9 Chest pain, unspecified
CPT/HCPCS: 36415; 70450; 71045; 80053; 80076; 80305; 80320; 80329; 81003; 82550; 82553; 83605; 84484; 85025; 87635; 93005; 93010; 96360; 96361; 99284; G0480

== ENCOUNTER → 2020-02-17 14:07 | Outpatient (CLI) | payer MEDICARE, OTHER, SELFPAY | PROVIDERS: PCP Internal Medicine; Referring Provider Internal Medicine; Visit Provider Internal Medicine | DX: Z03.818 Encounter for observation for suspected exposure to other biological agents ruled out (principal) | CPT/HCPCS: 36415; 86769 ==

== ENCOUNTER → 2020-03-29 15:52 | Outpatient (CLI) | payer MEDICARE, OTHER, SELFPAY ==
[2020-03-29 18:18] LABS: Erythrocyte Sedimentation Rate 2 MM/HR (0-15)
[2020-03-29 18:25] LABS: BUN Creatinine Ratio 22.8 (6-22); Blood Urea Nitrogen 18 mg/dL (9-20); Calcium 8.9 mg/dL (8.4-10.2); Carbon Dioxide 26 mmol/L (22-32); Chloride 104 mmol/L (98-107); Estimated Glomerular Filt Rate > 60.0 mL/min (>60); Glucose 100 mg/dL (80-110); HEMOLYSIS < 15 (0-50); Potassium 3.8 mmol/L (3.4-5.1); Sodium 136 mmol/L (137-145)
[2020-03-29 18:27] LABS: C-Reactive Protein Quant < 0.5 mg/dL (<1.0)
[2020-03-29 18:43] LABS: Free T4, Direct Thyroxine 0.94 ng/dL (0.78-2.19)
[2020-03-29 18:57] LABS: Thyroid Stimulating Hormone 2.76 uIU/mL (0.47-4.68)
[2020-03-31 08:08] LABS: Triiodothyronine T3 Total 111 ng/dL (71-180)
[2020-04-01 09:28] LABS: Free Kappa Lt Chain,UR 74.88 mg/L (0.63-113.79); Free Lambda Lt Chain,UR 7.85 mg/L (0.47-11.77); URINE Kappa/Lambda Ratio 9.54 (1.03-31.76)
[2020-04-01 15:11] LABS: Immunoglobulin A, Serum 462 mg/dL (61-437); Immunoglobulin G,Serum 544 mg/dL (603-1613); Immunoglobulin M, Serum 50 mg/dL (15-143)
== END ==
PROVIDERS: PCP Internal Medicine; Referring Provider Internal Medicine; Visit Provider Internal Medicine
DX: R53.83 Other fatigue (principal)
CPT/HCPCS: 36415; 80048; 82784; 83883; 84155; 84439; 84443; 84480; 85651; 86003; 86140; 86334

== ENCOUNTER → 2020-04-01 10:58 | Outpatient (CLI) | payer MEDICARE, OTHER, SELFPAY ==
--- NOTE | 2020-04-01 11:41 | DI.CT.S_ITS ---
PROCEDURE: CT CHEST W CON INDICATIONS: Other nonspecific abnormal finding of lung field TECHNIQUE: After the administration of intravenous contrast, 5 mm thick sections acquired from the pulmonary apices to the posterior costophrenic angles. 1 mm axial lung, 5 mm thick coronal and sagittal reformats and 7 mm axial MIP were acquired. For radiation dose reduction, the following was used: automated exposure control, adjustment of mA and/or kV according to patient size. COMPARISON: [facility], CT, CT CHEST WO CON, 08/07/2019, 10:05. FINDINGS: Image quality: Excellent. Lungs and pleura: No acute air space opacities. Chronic mild alveolar scarring right mid and lower lung. No pleural effusions or pneumothorax. Central and peripheral airways are patent and normal in caliber. Mediastinum: Heart size is normal. No pericardial effusion. No mediastinal or hilar adenopathy by size criteria. Thoracic aorta and central pulmonary arteries are normal in size. Esophagus is normal in caliber. No hiatal hernia. Bones and chest wall: No suspicious bony lesions. No vertebral body compression fractures. No axillary or supraclavicular adenopathy by size criteria. Thyroid gland is not well seen . Abdomen: Visualized upper abdominal solid organs appear normal. Upper abdominal bowel loops are normal in caliber. IMPRESSION: Normal for age, source of current symptoms is not found. The alveolar airspace disease seen at the right mid and lower lung is minimal, likely rep jossie ting alveolar scarring from prior inflammatory event. Dictated by: Barron Kelley M.D. on 04/01/2020 at 13:00 Approved by: Barron Kelley M.D. on 04/01/2020 at 13:05
== END ==
PROVIDERS: PCP Internal Medicine; Referring Provider Internal Medicine; Visit Provider Internal Medicine
DX: R91.8 Other nonspecific abnormal finding of lung field (principal)
CPT/HCPCS: 71260; Q9967

== ENCOUNTER → 2020-06-01 07:37 | Outpatient (CLI) | payer MEDICARE, OTHER, SELFPAY ==
[2020-06-01 08:20] LABS: C-Reactive Protein Quant < 0.5 mg/dL (<1.0); Cholesterol 177 mg/dL (140-199); HDL Cholesterol 68 mg/dL (40-60); LDL Cholesterol Calculated 53 mg/dL (<100); Triglycerides 278 mg/dL (35-150)
[2020-06-01 08:50] LABS: Prostate Specific Antigen Scrn < 0.064 ng/mL (0.1-4.0)
[2020-06-03 15:36] LABS: ANA Screen, IFA Negative (.)
== END ==
PROVIDERS: PCP Family Medicine; Referring Provider Family Medicine; Visit Provider Family Medicine
DX: E03.9 Hypothyroidism, unspecified (principal); E78.5 Hyperlipidemia, unspecified; Z12.5 Encounter for screening for malignant neoplasm of prostate; R53.83 Other fatigue
CPT/HCPCS: 36415; 80061; 86038; 86140; G0103

== ENCOUNTER → 2020-06-09 15:53 | Outpatient (CLI) | payer MEDICARE, OTHER, SELFPAY ==
--- NOTE | 2020-06-09 15:55 | DI.RAD.S_ITS ---
PROCEDURE: XR KNEE RT 3V INDICATIONS: Lateral R- knee pain TECHNIQUE: 3 views of the knee were acquired. COMPARISON: [facility], ELINA, XR KNEE ARTHRITIC SERIES RT, 03/19/2017, 9:57. FINDINGS: Bones: No acute fractures or dislocations. No suspicious bony lesions. Mild narrowing of the lateral femorotibial compartment is seen. Tiny marginal osteophytes are seen in the anterior compartment. Soft tissues: Small joint effusion. No suspicious soft tissue calcifications. IMPRESSION: No acute osseous abnormality. If clinical suspicion and/or symptoms persist, additional imaging with repeat plain films, or advanced imaging (e.g. CT, MRI) may be helpful for further assessment. Dictated by: Amauri Meredith M.D. on 06/09/2020 at 15:28 Approved by: Amauri Meredith M.D. on 06/09/2020 at 15:30
== END ==
PROVIDERS: PCP Family Medicine; Referring Provider Physician Assistant; Visit Provider Physician Assistant
DX: M25.561 Pain in right knee (principal)
CPT/HCPCS: 73562

== ENCOUNTER 2021-05-24 18:25 | Observation (INO) | payer MEDICARE, OTHER, SELFPAY ==
[2021-05-24] VITALS (10 sets, daily range): BP systolic 154–175; BP diastolic 93–108; PULSE 61–89; RESP 7–22; TEMP 36.1–36.3; O2SAT 97–100; BMI 32.6
--- NOTE | 2021-05-24 19:02 | DI.CT.S_ITS ---
PROCEDURE: CT ANGIO HEAD AND NECK INDICATIONS: dizzy, ataxia, confusion, trouble finding words TECHNIQUE: After the administration of intravenous contrast, 1 mm thick sections acquired from the aortic arch through the Stark of [place]. Post-contrast 4.5 mm thick sections then re-acquired from the foramen magnum to the vertex. 3-dimensional yjuzorv-jsrtiaffk-eyrdruaied (MIP) and/or volume rendering reformats were acquired of the central intracranial vasculature and neck separately. COMPARISON: [facility], CT, CT HEAD/BRAIN WO CON, 05/24/2021, 19:13. FINDINGS: Image quality: Excellent. BRAIN: CSF spaces: Ventricles are normal in size and shape. Basal cisterns are patent. No extra-axial fluid collections. Brain: No midline shift. No intracranial bleeds or masses. Johnston-white matter interface appears intact. Skull and face: Calvarium and facial bones appear intact, without suspicious lesions. Orbits appear normal. Sinuses: Sinuses and mastoids are clear. HEAD CT ANGIOGRAPHY: Anterior circulation: Intracranial internal carotid arteries are normal in size and flow. The flow within the paired anterior cerebral arteries is normal and symmetric. The flow within the middle cerebral arteries is normal and symmetric. The anterior communicating artery is seen. No aneurysms are seen. Posterior circulation: Visualized portions of the vertebral arteries demonstrate normal caliber, and join to form a normal appearing basilar artery. Flow within the posterior cerebral arteries is normal and symmetric. No aneurysms are seen. Dural sinuses demonstrate normal postcontrast enhancement. NECK CT ANGIOGRAPHY: Carotid system: The great vessels demonstrate a conventional anatomy as they arise from the aortic arch. The origins of the common carotid arteries appear patent. The common carotid arteries demonstrate normal caliber and courses. The bifurcation regions are both widely patent. The internal carotid arteries demonstrate normal calibers and courses. Posterior circulation: The origins of the vertebral arteries both appear widely patent. The more superior extracranial portions of both vertebral arteries also demonstrate normal courses and calibers. They join to form a normal appearing basilar artery. Soft tissues: Visualized neck soft tissues demonstrate no suspicious abnormalities. Bones: No suspicious bony lesions. Spine degenerative disc disease and facet arthropathy. Visualized cervical spine appears normally aligned. IMPRESSION: 1. No acute intracranial disease process. 2. No large vessel occlusion, hemodynamically significant vascular stenosis, vascular dissection or aneurysm. Any quantitative measurements of stenosis were performed using NASCET criteria. Dictated by: Camila Reyna MD, PhD on 05/24/2021 at 19:43 Approved by: Camila Reyna MD, PhD on 05/24/2021 at 19:51
--- NOTE | 2021-05-24 19:03 | DI.CT.S_ITS ---
PROCEDURE: CT HEAD/BRAIN WO CON INDICATIONS: dizzy, ataxia, confusion TECHNIQUE: Noncontrast 4.5 mm thick angled axial sections acquired from the foramen magnum to the vertex, with coronal and sagittal reformats. For radiation dose reduction, the following was used: automated exposure control, adjustment of mA and/or kV according to patient size. COMPARISON: [facility], CT, CT HEAD/BRAIN WO CON, 02/07/2020, 17:26. FINDINGS: Image quality: Excellent. CSF spaces: Basal cisterns are patent. No extra-axial fluid collections. The ventricles are symmetric in size and shape. Brain: No intracranial bleeds or masses. There is cerebral volume loss for age, with resultant ventricular and sulcal prominence. There are periventricular and deep white matter chronic small vessel ischemic changes. Skull and face: Calvarium and visualized facial bones appear intact, without suspicious lesions. Sinuses: Visualized sinuses and mastoids are clear. IMPRESSION: No acute intracranial disease process. Dictated by: Camila Reyna MD, PhD on 05/24/2021 at 19:33 Approved by: Camila Reyna MD, PhD on 05/24/2021 at 19:36
--- NOTE | 2021-05-24 19:03 | DI.RAD.S_ITS ---
PROCEDURE: XR CHEST 1V INDICATIONS: weak TECHNIQUE: One view of the chest was acquired. COMPARISON: [facility], CR, XR CHEST 1V, 02/07/2020, 17:02. FINDINGS: Surgical changes and devices: None. Lungs and pleura: Lungs are clear. No pleural effusions or pneumothorax. Mediastinum: Mediastinal contours appear normal. Heart size is normal. Bones and chest wall: No suspicious bony lesions. Overlying soft tissues appear unremarkable. IMPRESSION: No acute cardiopulmonary disease process. Dictated by: Camila Reyna MD, PhD on 05/24/2021 at 19:31 Approved by: Camila Reyna MD, PhD on 05/24/2021 at 19:32
--- NOTE | 2021-05-24 19:05 | ED.DIZZY ---
HPI - Dizziness General Chief Complaint: Dizziness Stated Complaint: dizzy/fuzzy Time Seen by Provider: 05/24/21 18:41 Source: patient Mode of arrival: Wheelchair History of Present Illness HPI Narrative: 70-year-old male nonsmoker with history of hyperlipidemia, prostate cancer, monoclonal gammopathy of unknown significance, hypothyroid presents with his in the chief complaint of series of symptoms including dizziness, lightheadedness, fatigue, confusion that has been present for at least the past few hours. Denies any recent head injuries, fever or chills nor any changes in medications, diet or sleep schedule. He states that he feels lightheaded and unsteady and has to be very purposeful with ambulation, as if he is falling over. He denies any blurred vision and has I had slurred speech but has had to think and work harder to speak on occasion. He denies chest pain or cough but has been increasingly short of breath, particularly at night. He denies any upper respiratory symptoms such as runny nose, sneezing or sore throat. He has no ear pain, fullness or drainage. He states that he is persistently dizzy, whether still or moving, whether eyes are open or close. He states that he does not have worsening dizziness when looking left or right but seems to get a bit worse upon standing. Related Data Home Medications Medication Instructions Recorded Confirmed aspirin 81 mg chewable tablet 81 mg PO DAILY 04/14/19 05/24/21 duloxetine 20 mg capsule,delayed 80 mg PO DAILY 11/02/19 05/24/21 release gabapentin 800 mg tablet 500 mg PO DAILY tab 06/21/20 05/24/21 zolpidem 5 mg tablet 2.5 mg PO BEDTIME PRN MDD 5 mg 05/18/21 05/24/21 Previous Rx's Medication Instructions Recorded albuterol sulfate 90 mcg/actuation 2 puff INHALATION Q6H PRN #8 gram 12/26/20 aerosol inhaler sildenafil (pulm.hypertension) 20 20 mg PO .PRN #14 tab MDD 5 02/22/21 mg tablet levothyroxine 25 mcg tablet 25 mcg PO DAILY #90 tab 05/19/21 Allergies Allergy/AdvReac Type Severity Reaction Status Date / Time No Known Drug Allergies Allergy Verified 05/24/21 18:36 Review of Systems Review of Systems Narrative: GENERAL: See HPI HEENT: See HPI RESPIRATORY: Denies dyspnea, cough, wheezing, hemoptysis, sputum. CARDIOVASCULAR: See HPI GASTROINTESTINAL: Denies nausea, vomiting, abdominal pain, diarrhea, constipation, melena. : Denies dysuria, frequency, incontinence, hematuria, urinary retention. MUSCULOSKELETAL: denies weakness, joint pain, or bony pain SKIN: Denies rash, skin lesions, or other NEUROLOGIC: See HPI PSYCHIATRIC: No concerning psychosocial issues. 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 Well-developed patient, in mild distress. HEAD: Atraumatic. Normocephalic. EYES: Pupils equal round and reactive. Extraocular motions intact. No scleral icterus. No injection or drainage. ENT: Nose without bleeding, purulent drainage. Throat without erythema, tonsillar hypertrophy or exudate. Airway patent. NECK: Trachea midline. Non tender CARDIOVASCULAR: Regular rate and rhythm without murmurs, gallops, or rubs. RESPIRATORY: Clear to auscultation. Breath sounds equal bilaterally. No wheezes, rales, or rhonchi. GASTROINTESTINAL: Abdomen soft, non-tender, nondistended. EXTREMITIES: No edema or joint tenderness. BACK: Nontender without deformity or crepitance. No flank tenderness. NEURO: AOx3. Cranial nerves 2-12 grossly intact SKIN: No rash or erythema of visible areas NIH Stroke Scale 1a. LOC: Patient is alert and keenly responsive (0) 1b. LOC Questions: Patient answers both LOC questions accurately (0) 1c. LOC Commands: Patient performs both tasks correctly (0) 2. Best Gaze: Normal (0) 3. Visual: No visual loss (0) 4. Facial palsy: Normal symmetrical movements (0) 5. Motor arm: No drift (0) 6. Motor leg: No drift (0) 7. Limb ataxia: Absent (0) 8. Sensory: Normal (0) 9. Best language: No aphasia; normal (0) 10. Dysarthria: Normal (0) 11. Extinction and inattention: No abnormality (0) NIHSS: 0 Initial Vital Signs Initial Vital Signs: Vital Signs Temperature 97.0 F L 05/24/21 18:33 Pulse Rate 75 05/24/21 18:33 Respiratory Rate 18 05/24/21 18:33 Blood Pressure 175/95 H 05/24/21 18:33 Pulse Oximetry 97 05/24/21 18:33 Course Course Course Narrative: Patient's orthostatic vital signs are not grossly abnormal but patient became symptomatic, not so much lightheaded or near syncopal but unsteady. Orders Ordered: Albuterol (Albuterol 2.5 Mg/3 Ml Neb (Adult)) 2.5 mg INH [id number] PRN PRN Reason: Shortness Of Breath Last Admin: 05/24/21 23:15 Dose: 2.5 mg Documented by: [email or web address] Albuterol/Ipratropium (Albuterol/Ipratropium 3 Ml Ampul) 3 ml INH RTBID [facility] Aspirin (Aspirin Ec 81 Mg Tablet) 81 mg PO DAILY [facility] Atorvastatin Calcium (Atorvastatin 20 Mg Tablet) 80 mg PO BEDTIME [facility] Duloxetine HCl (Duloxetine 20 Mg Capsule) 80 mg PO DAILY [facility] Enoxaparin Sodium (Enoxaparin 40 Mg/0.4 Ml Syringe) 40 mg SUBCUT DAILY [facility] Gabapentin (Gabapentin 100 Mg Capsule) 200 mg PO BEDTIME [facility] Last Admin: 05/24/21 23:09 Dose: 200 mg Documented by: NARDA Gabapentin (Gabapentin 300 Mg Capsule) 300 mg PO BEDTIME [facility] Last Admin: 05/24/21 23:09 Dose: 300 mg Documented by: NARDA Levothyroxine Sodium (Levothyroxine 25 Mcg Tablet) 25 mcg PO DAILY [facility] Ondansetron HCl (Ondansetron 4 Mg/2 Ml Inj) 4 mg IV Q8HR PRN PRN Reason: Nausea And Vomiting Zolpidem Tartrate (Zolpidem 5 Mg Tablet) 5 mg PO BEDTIME PRN PRN Reason: Sleep Last Admin: 05/24/21 23:09 Dose: 5 mg Documented by: NARDA Discontinued Medications Gabapentin (Gabapentin 600 Mg Tablet) 500 mg PO BEDTIME [facility] Last Admin: 05/24/21 23:10 Dose: Not Given Documented by: NARDA Sodium Chloride (Normal Saline 0.9%) 1,000 mls @ 1,000 mls/hr IV BOLUS ONE Stop: 05/24/21 20:01 Last Infusion: 05/24/21 20:50 Dose: 0 mls/hr Documented by: Admin: 05/24/21 19:24 Dose: 1,000 mls/hr Documented by: HARI Thiamine HCl 200 mg/ Sodium (Chloride) 102 mls @ 408 mls/hr IV NOW ONE Stop: 05/24/21 19:03 Last Infusion: 05/24/21 19:44 Dose: 0 mls/hr Documented by: Admin: 05/24/21 19:24 Dose: 408 mls/hr Documented by: HARI Vital Signs Vital signs: Vital Signs - 8 hr 05/24/21 18:33 05/24/21 18:53 05/24/21 18:58 Temperature 97.0 F L Pulse Rate 75 78 Pulse Rate [Orthostatic Lying] 70 Pulse Rate [Orthostatic Sitting] 76 Pulse Rate [Orthostatic Standing] 89 Respiratory Rate 18 16 Blood Pressure 175/95 H 156/97 H Blood Pressure [Orthostatic Lying] 166/98 H Blood Pressure [Orthostatic Sitting] 163/93 H Blood Pressure [Orthostatic Standing] 156/97 H Pulse Oximetry 97 98 05/24/21 19:00 05/24/21 19:30 05/24/21 20:00 Temperature Pulse Rate 66 62 63 Pulse Rate [Orthostatic Lying] Pulse Rate [Orthostatic Sitting] Pulse Rate [Orthostatic Standing] Respiratory Rate 11 L 7 L 22 Blood Pressure 154/100 H Blood Pressure [Orthostatic Lying] Blood Pressure [Orthostatic Sitting] Blood Pressure [Orthostatic Standing] Pulse Oximetry 99 99 100 05/24/21 20:30 05/24/21 20:45 Temperature Pulse Rate 61 62 Pulse Rate [Orthostatic Lying] Pulse Rate [Orthostatic Sitting] Pulse Rate [Orthostatic Standing] Respiratory Rate 13 20 Blood Pressure 170/96 H Blood Pressure [Orthostatic Lying] Blood Pressure [Orthostatic Sitting] Blood Pressure [Orthostatic Standing] Pulse Oximetry 98 99 MDM - Dizziness Lab Data Result diagrams: 05/24/21 18:38 05/24/21 19:30 Labs: Lab Results 05/24/21 05/24/21 05/24/21 Range/Units 18:38 18:38 19:30 WBC 7.8 (4.5-11.0) X10^3/uL RBC 4.85 (4.5-5.9) X10^6/uL Hgb 15.8 (13.5-17.5) g/dL Hct 46.3 (41-53) % MCV 95.3 (80-100) fL MCH 32.6 (26-34) PG MCHC 34.2 (30-36) % RDW 14.2 (11.6-14.8) % Plt Count 223 (150-400) X10^3/uL Neut % (Auto) 60.6 (50-75) % Lymph % (Auto) 26.7 (25-40) % [place] % (Auto) 9.0 (3-14) % Eos % (Auto) 2.6 (2-4) % Baso % (Auto) 1.1 (0-2) % Neut # (Auto) 4700 (1786-2159) /uL Lymph # (Auto) 2100 (5163-0443) /uL [place] # (Auto) 700 (0-900) /uL Eos # (Auto) 200 (0-450) /uL Baso # (Auto) 100 (0-100) /uL PT 11.0 (10.1-12.7) SECONDS INR 1.0 (0.9-1.3) Sodium 133 L (137-145) mmol/L Potassium 4.2 (3.4-5.1) mmol/L Chloride 103 (98-107) mmol/L Carbon Dioxide 29 (22-32) mmol/L BUN 19 (9-20) mg/dL Creatinine 0.89 (0.66-1.25) mg/dL Estimated GFR > 60.0 (>60) mL/min BUN/Creatinine Ratio 21.3 (6-22) Glucose 98 (80-110) mg/dL Calcium 8.4 (8.4-10.2) mg/dL Total Bilirubin 0.6 (0.2-1.3) mg/dL AST 36 (17-59) IU/L ALT 28 (<50) IU/L Alkaline Phosphatase 61 (38-126) U/L Troponin I (0.01-0.034) ng/mL Total Protein 7.0 (6.3-8.2) g/dL Albumin 4.0 (3.5-5.0) g/dL Globulin 3.0 (1.7-4.1) g/dL Albumin/Globulin Ratio 1.3 (1.0-2.8) Procalcitonin 0.05 (<0.5) ng/mL TSH (0.47-4.68) uIU/mL U Opiates 300ng/mL cut (Negative) Ur Oxycodone Screen (Negative) Urine Methadone Screen (Negative) Ur Barbiturates Screen (Negative) U Tricyclic Antidepress (Negative) Ur Phencyclidine Scrn (Negative) Ur Amphetamines Screen (Negative) U Methamphetamines Scrn (Negative) Ur MDMA Scrn (Ecstasy) (Negative) U Benzodiazepines Scrn (Negative) Urine Cocaine Screen (Negative) U Marijuana (THC) Screen (Negative) SARS-CoV-2 (PCR) (Negative) 05/24/21 05/24/21 05/24/21 Range/Units 19:30 19:30 20:53 WBC (4.5-11.0) X10^3/uL RBC (4.5-5.9) X10^6/uL Hgb (13.5-17.5) g/dL Hct (41-53) % MCV (80-100) fL MCH (26-34) PG MCHC (30-36) % RDW (11.6-14.8) % Plt Count (150-400) X10^3/uL Neut % (Auto) (50-75) % Lymph % (Auto) (25-40) % [place] % (Auto) (3-14) % Eos % (Auto) (2-4) % Baso % (Auto) (0-2) % Neut # (Auto) (0099-7110) /uL Lymph # (Auto) (6128-9478) /uL [place] # (Auto) (0-900) /uL Eos # (Auto) (0-450) /uL Baso # (Auto) (0-100) /uL PT (10.1-12.7) SECONDS INR (0.9-1.3) Sodium (137-145) mmol/L Potassium (3.4-5.1) mmol/L Chloride (98-107) mmol/L Carbon Dioxide (22-32) mmol/L BUN (9-20) mg/dL Creatinine (0.66-1.25) mg/dL Estimated GFR (>60) mL/min BUN/Creatinine Ratio (6-22) Glucose (80-110) mg/dL Calcium (8.4-10.2) mg/dL Total Bilirubin (0.2-1.3) mg/dL AST (17-59) IU/L ALT (<50) IU/L Alkaline Phosphatase (38-126) U/L Troponin I < 0.012 (0.01-0.034) ng/mL Total Protein (6.3-8.2) g/dL Albumin (3.5-5.0) g/dL Globulin (1.7-4.1) g/dL Albumin/Globulin Ratio (1.0-2.8) Procalcitonin (<0.5) ng/mL TSH 4.49 (0.47-4.68) uIU/mL U Opiates 300ng/mL cut (Negative) Ur Oxycodone Screen (Negative) Urine Methadone Screen (Negative) Ur Barbiturates Screen (Negative) U Tricyclic Antidepress (Negative) Ur Phencyclidine Scrn (Negative) Ur Amphetamines Screen (Negative) U Methamphetamines Scrn (Negative) Ur MDMA Scrn (Ecstasy) (Negative) U Benzodiazepines Scrn (Negative) Urine Cocaine Screen (Negative) U Marijuana (THC) Screen (Negative) SARS-CoV-2 (PCR) Negative (Negative) 05/24/21 Range/Units 20:53 WBC (4.5-11.0) X10^3/uL RBC (4.5-5.9) X10^6/uL Hgb (13.5-17.5) g/dL Hct (41-53) % MCV (80-100) fL MCH (26-34) PG MCHC (30-36) % RDW (11.6-14.8) % Plt Count (150-400) X10^3/uL Neut % (Auto) (50-75) % Lymph % (Auto) (25-40) % [place] % (Auto) (3-14) % Eos % (Auto) (2-4) % Baso % (Auto) (0-2) % Neut # (Auto) (0955-0764) /uL Lymph # (Auto) (3656-7668) /uL [place] # (Auto) (0-900) /uL Eos # (Auto) (0-450) /uL Baso # (Auto) (0-100) /uL PT (10.1-12.7) SECONDS INR (0.9-1.3) Sodium (137-145) mmol/L Potassium (3.4-5.1) mmol/L Chloride (98-107) mmol/L Carbon Dioxide (22-32) mmol/L BUN (9-20) mg/dL Creatinine (0.66-1.25) mg/dL Estimated GFR (>60) mL/min BUN/Creatinine Ratio (6-22) Glucose (80-110) mg/dL Calcium (8.4-10.2) mg/dL Total Bilirubin (0.2-1.3) mg/dL AST (17-59) IU/L ALT (<50) IU/L Alkaline Phosphatase (38-126) U/L Troponin I (0.01-0.034) ng/mL Total Protein (6.3-8.2) g/dL Albumin (3.5-5.0) g/dL Globulin (1.7-4.1) g/dL Albumin/Globulin Ratio (1.0-2.8) Procalcitonin (<0.5) ng/mL TSH (0.47-4.68) uIU/mL U Opiates 300ng/mL cut Negative (Negative) Ur Oxycodone Screen Negative (Negative) Urine Methadone Screen Negative (Negative) Ur Barbiturates Screen Negative (Negative) U Tricyclic Antidepress Negative (Negative) Ur Phencyclidine Scrn Negative (Negative) Ur Amphetamines Screen Negative (Negative) U Methamphetamines Scrn Negative (Negative) Ur MDMA Scrn (Ecstasy) Negative (Negative) U Benzodiazepines Scrn Negative (Negative) Urine Cocaine Screen Negative (Negative) U Marijuana (THC) Screen Negative (Negative) SARS-CoV-2 (PCR) (Negative) Point of Care Testing Glucose POC [address] scan - head: Radiologist's Impression: Launch?[address] [address] [address] Scan Report Signed Patient: Oneil Mays MR#: [id number] : 1950 Acct:[id number] Age/Sex: 70 / M Date of Service: 05/24/21 Loc: ED Accession Number: [id number] ?? Procedure: CT head/brain wo con Ordering Provider: Eran Silverman D.O. PROCEDURE:? CT HEAD/BRAIN WO CON ? INDICATIONS:? dizzy, ataxia, confusion ? TECHNIQUE:? Noncontrast 4.5 mm thick angled axial sections acquired from the foramen magnum to the vertex, with coronal and sagittal reformats.? For radiation dose reduction, the following was used:? automated exposure control, adjustment of mA and/or kV according to patient size.? ? COMPARISON:? [facility], CT, CT HEAD/BRAIN WO CON, 02/07/2020, 17:26. ? FINDINGS:? Image quality:? Excellent.? ? CSF spaces:? Basal cisterns are patent.? No extra-axial fluid collections.? The ventricles are symmetric in size and shape.? ? Brain:? No intracranial bleeds or masses.? There is cerebral volume loss for age, with resultant ventricular and sulcal prominence.? There are periventricular and deep white matter chronic small vessel ischemic changes.? ? Skull and face:? Calvarium and visualized facial bones appear intact, without suspicious lesions.? ? Sinuses:? Visualized sinuses and mastoids are clear.? ? IMPRESSION:? No acute intracranial disease process. ? ? Dictated by: Camila Reyna MD, PhD on 05/24/2021 at 19:33 ? ? Approved by: Camila Reyna MD, PhD on 05/24/2021 at 19:36 ? Chest x-ray: Radiologist's Impression: Launch?[address] [address] [address] Scan Report Signed Patient: Oneil Mays MR#: [id number] : 1950 Acct:[id number] Age/Sex: 70 / M Date of Service: 05/24/21 Loc: ED Accession Number: [id number] ?? Procedure: CT head/brain wo con Ordering Provider: Eran Silverman D.O. PROCEDURE:? CT HEAD/BRAIN WO CON ? INDICATIONS:? dizzy, ataxia, confusion ? TECHNIQUE:? Noncontrast 4.5 mm thick angled axial sections acquired from the foramen magnum to the vertex, with coronal and sagittal reformats.? For radiation dose reduction, the following was used:? automated exposure control, adjustment of mA and/or kV according to patient size.? ? COMPARISON:? [facility], CT, CT HEAD/BRAIN WO CON, 02/07/2020, 17:26. ? FINDINGS:? Image quality:? Excellent.? ? CSF spaces:? Basal cisterns are patent.? No extra-axial fluid collections.? The ventricles are symmetric in size and shape.? ? Brain:? No intracranial bleeds or masses.? There is cerebral volume loss for age, with resultant ventricular and sulcal prominence.? There are periventricular and deep white matter chronic small vessel ischemic changes.? ? Skull and face:? Calvarium and visualized facial bones appear intact, without suspicious lesions.? ? Sinuses:? Visualized sinuses and mastoids are clear.? ? IMPRESSION:? No acute intracranial disease process. ? ? Dictated by: Camila Reyna MD, PhD on 05/24/2021 at 19:33 ? ? Approved by: Camila Reyna MD, PhD on 05/24/2021 at 19:36 ? CTA Head/Neck: Radiologist's Impression: [address] [address] [address] Scan Report Signed Patient: Oneil Mays MR#: [id number] : 1950 Acct:[id number] Age/Sex: 70 / M Date of Service: 05/24/21 Loc: ED Accession Number: [id number] ?? Procedure: CT angio head and neck Ordering Provider: Eran Silverman D.O. PROCEDURE:? CT ANGIO HEAD AND NECK ? INDICATIONS:? dizzy, ataxia, confusion, trouble finding words ? TECHNIQUE:? After the administration of intravenous contrast, 1 mm thick sections acquired from the aortic arch through the [place].? Post-contrast 4.5 mm thick sections then re-acquired from the foramen magnum to the vertex.? 3-dimensional sgzusfk-stnqsanky-cmduzgmtht (MIP) and/or volume rendering reformats were acquired of the central intracranial vasculature and neck separately. ? COMPARISON:? [facility], CT, CT HEAD/BRAIN WO CON, 05/24/2021, 19:13. ? FINDINGS:? Image quality:? Excellent.? ? BRAIN:? CSF spaces:? Ventricles are normal in size and shape.? Basal cisterns are patent.? No extra-axial fluid collections.? ? Brain:? No midline shift.? No intracranial bleeds or masses.? [place]-white matter interface appears intact.? ? Skull and face:? Calvarium and facial bones appear intact, without suspicious lesions.? Orbits appear normal.? ? Sinuses:? Sinuses and mastoids are clear.? ? HEAD CT ANGIOGRAPHY:? Anterior circulation:? Intracranial internal carotid arteries are normal in size and flow.? The flow within the paired anterior cerebral arteries is normal and symmetric.? The flow within the middle cerebral arteries is normal and symmetric.? The anterior communicating artery is seen.? No aneurysms are seen.? ? Posterior circulation:? Visualized portions of the vertebral arteries demonstrate normal caliber, and join to form a normal appearing basilar artery.? Flow within the posterior cerebral arteries is normal and symmetric.? No aneurysms are seen. ? Dural sinuses demonstrate normal postcontrast enhancement. ? ? NECK CT ANGIOGRAPHY:? Carotid system:? The great vessels demonstrate a conventional anatomy as they arise from the aortic arch.? The origins of the common carotid arteries appear patent.? The common carotid arteries demonstrate normal caliber and courses.? The bifurcation regions are both widely patent.? The internal carotid arteries demonstrate normal calibers and courses.? ? Posterior circulation:? The origins of the vertebral arteries both appear widely patent.? The more superior extracranial portions of both vertebral arteries also demonstrate normal courses and calibers.? They join to form a normal appearing basilar artery.? ? Soft tissues:? Visualized neck soft tissues demonstrate no suspicious abnormalities.? ? Bones:? No suspicious bony lesions. Spine degenerative disc disease and facet arthropathy.? Visualized cervical spine appears normally aligned.? ? ? IMPRESSION:? ? 1. No acute intracranial disease process.? ? 2. No large vessel occlusion, hemodynamically significant vascular stenosis, vascular dissection or aneurysm.? ? ? Any quantitative measurements of stenosis were performed using NASCET criteria.? ? ? Dictated by: Camila Reyna MD, PhD on 05/24/2021 at 19:43 ? ? Approved by: Camila Reyna MD, PhD on 05/24/2021 at 19:51 ? ECG Data Interpretation: EKG is normal sinus rhythm rate [62 ] and free of any signs of ischemia or ectopy. No ST segmental elevation or depression. No T wave inversions Discharge Plan Departure Patient Disposition: Admitted as Observation Clinical Impression: Brain TIA Admit Date/Time: 05/24/21 21:45 Admit Provider: Rudi Blakely
[2021-05-24 19:14] LABS: Add Manual Diff / Slide Review NO; Basophils Absolute Auto 100 /uL (0-100); Basophils Percent Auto 1.1 % (0-2); Eosinophils Absolute Auto 200 /uL (0-450); Eosinophils Percent Auto 2.6 % (2-4); Hematocrit 46.3 % (41-53); Hemoglobin 15.8 g/dL (13.5-17.5); Lymphocytes Absolute Auto 2100 /uL (1100-4500); Lymphocytes Percent Auto 26.7 % (25-40); Mean Corpuscular HGB Conc 34.2 % (30-36); Mean Corpuscular Hemoglobin 32.6 PG (26-34); Mean Corpuscular Volume 95.3 fL (80-100); Monocytes Absolute Auto 700 /uL (0-900); Neutrophils Absolute Auto 4700 /uL (1500-7000); Neutrophils Percent Auto 60.6 % (50-75); Platelet Count 223 X10^3/uL (150-400); Red Blood Cell Count 4.85 X10^6/uL (4.5-5.9); Red Cell Distribution Width 14.2 % (11.6-14.8); White Blood Cell Count 7.8 X10^3/uL (4.5-11.0)
[2021-05-24] MEDS: THIAMINE 200 MG in SODIUM CHLORIDE 0.9% 100 ML 408 ML IV (19:24)
[2021-05-24] MEDS: SODIUM CHLORIDE 0.9% 1,000 ML 1000 ML IV (19:24)
[2021-05-24 19:54] LABS: Alanine Aminotransferase 28 IU/L (<50); Albumin Globulin Ratio 1.3 (1.0-2.8); Alkaline Phosphatase 61 U/L (38-126); Aspartate Aminotransferase 36 IU/L (17-59); BUN Creatinine Ratio 21.3 (6-22); Bilirubin Total 0.6 mg/dL (0.2-1.3); Blood Urea Nitrogen 19 mg/dL (9-20); Calcium 8.4 mg/dL (8.4-10.2); Carbon Dioxide 29 mmol/L (22-32); Chloride 103 mmol/L (98-107); Estimated Glomerular Filt Rate > 60.0 mL/min (>60); Glucose 98 mg/dL (80-110); HEMOLYSIS 36 (0-50); Potassium 4.2 mmol/L (3.4-5.1); Sodium 133 mmol/L (137-145)
[2021-05-24 20:06] LABS: Troponin I < 0.012 ng/mL (0.01-0.034)
[2021-05-24 20:11] LABS: Procalcitonin 0.05 ng/mL (<0.5)
[2021-05-24 20:33] LABS: TSH w/ Reflex to FT4 4.49 uIU/mL (0.47-4.68)
[2021-05-24 21:09] LABS: Ur Creatinine Normal (Normal); Ur Specific Gravity Normal (Normal); Urine pH Normal (Normal)
[2021-05-24 21:10] LABS: UR Morphine/Opiate cutoff 300 Negative (Negative); Urine Amphetamines Negative (Negative); Urine Barbiturates Negative (Negative); Urine Benzodiazepines Negative (Negative); Urine Cocaine Negative (Negative); Urine MDMA Negative (Negative); Urine Methadone Negative (Negative); Urine Methamphetamines Negative (Negative); Urine Oxycodone Negative (Negative); Urine Phencyclidine Negative (Negative); Urine Tetrahydrocannabinol Negative (Negative); Urine Tricyclic Antidepressant Negative (Negative)
[2021-05-24 21:51] LABS: COVID19 - ADMIT (NP swab/PCR) Negative (Negative)
--- NOTE | 2021-05-24 22:10 | DI.MRI.S_ITS ---
PROCEDURE: MR HEAD/BRAIN WO CON INDICATIONS: tia vs cva TECHNIQUE: Noncontrast axial T1 spin echo, axial T2 fast spin echo, sagittal and axial FLAIR, coronal T2 fast spin echo, axial gradient echo, axial diffusion and ADC through the brain. COMPARISON: None. FINDINGS: Image quality: Excellent. CSF Spaces: Basal cisterns are patent. No extra-axial fluid collections. Ventricles are normal in size and shape. Brain: No intracranial masses or hemorrhage. [place]/white matter interface is normal. Brainstem appears normal. Diffusion-weighted images demonstrate no acute ischemic insult. No chronic ischemic insults. Normal intravascular flow voids are present. Skull and face: Calvarium has normal marrow signal. Orbits appear normal. Sinuses: Sinuses and mastoids are clear. IMPRESSION: No acute infarct or other acute intracranial finding Dictated by: Aníbal Rodriguez M.D. on 05/25/2021 at 10:56 Approved by: Aníbal Rodriguez M.D. on 05/25/2021 at 10:57
--- NOTE | 2021-05-24 22:10 | DI.ECHO.S_ITS ---
[facility] +---------+ : : [address] : : : : [id number] : : : : Phone: [phone]+ Echocardiogram Report + + :Name: TEDDY NGUYEN Study Date: 05/25/2021 Height: 68 in : :[facility] ReadingLocation: Weight: 215 lb : : Gender: Male BSA: 2.1 m2 : :: 1950 Age: 70 yrs BP: 155/108 mmHg: :Reason For Study: TIA VS CVA : :Ordering Physician: KORIN, : :LEWIS Performed By: Geeta Renee : :Referring: LEWIS LANGLEY : + + Interpretation Summary The left ventricle is normal in size. There is mild concentric LVH The ejection fraction is estimated to be 60-65% Normal chamber sizes. No significant valvular abnormalities. Compared to prior study 03/24/2019 no changes have occurred. Procedure: A two-dimensional transthoracic echocardiogram with color flow and Doppler was performed. The study quality was technically adequate. Comparison is made with the echocardiogram of 03/24/2019. The patient was in sinus bradycardia with heart rates between 57-61 bpm during the exam. Left Ventricle: The left ventricle is normal in size. There is mild concentric left ventricular hypertrophy. The ejection fraction is estimated to be 60-65%. Right Ventricle: The right ventricle is normal in size and function. Atria: The left atrial size is normal. Right atrial size is normal. There is no Doppler evidence for an interatrial shunt. Mitral Valve: The mitral valve leaflets appear normal. There is no evidence of stenosis, fluttering, or prolapse. There is mild to moderate mitral regurgitation. Aortic Valve: The aortic valve is trileaflet. The aortic valve opens well. There is no aortic valve stenosis. No aortic regurgitation is present. Tricuspid Valve: The tricuspid valve is normal in structure and function. There is trace tricuspid regurgitation. Pulmonic Valve: The pulmonic valve leaflets are thin and pliable; valve motion is normal. There is no pulmonic valvular regurgitation. Great Vessels: The aortic root is normal size. The dimensions of the ascending aorta are normal. The IVC is of normal diameter and collapses greater than 50% with a sniff. This suggests a low right atrial pressure of 3 mm Hg. Pericardium/ Pleura There is no pericardial effusion. There is no pleural effusion. MMode/2D Measurements & Calculations LVIDd: 4.7 cm LVOT diam: 2.2 cm LVIDs: 3.1 cm Ao root diam: 3.7 cm FS: 34.5 % asc Aorta Diam: 3.3 cm IVSd: 1.2 cm Ao Arch Diam (Prox Trans): 3.1 cm LVPWd: 1.2 cm LV quiñones. diameter/BSA (cm/m^2): 2.2 LV sys. diameter/BSA (cm/m^2): 1.5 LA A2 area: 20.4 cm2 RA long axis: 5.6 cm LA A4 area: 22.8 cm2 RA area: 21.1 cm2 LA length (vol): 6.1 cm RA vol: 67.9 ml LA vol: 64.3 ml RA : 32.2 ml/m2 LA vol index: 30.5 ml/m2 IVC diam: 1.2 cm RVD1 (basal): 3.7 cm TAPSE: 1.7 cm Doppler Measurements & Calculations Ao V2 max: 112.8 cm/sec LVOT Max Estuardo: 86.6 cm/sec Ao V2 mean: 77.4 cm/sec LV V1 max P.0 mmHg Ao max P.1 mmHg LV V1 VTI: 17.6 cm Ao mean P.8 mmHg LUL(I,D): 2.8 cm2 Ao V2 VTI: 24.7 cm LUL(V,D): 3.0 cm2 sev ratio: 0.71 LUL indexed to BSA (cm^2/m^2): 1.3 MV E max estuardo: 61.3 cm/sec PA V2 max: 97.5 cm/sec MV A max estuardo: 65.0 cm/sec PA V2 mean: 71.2 cm/sec MV E/A: 0.94 PA mean P.2 mmHg Med Peak E' Estuardo: 6.5 cm/sec PA pr(Accel): 32.8 mmHg E/E' med: 9.5 Lat Peak E' Estuardo: 7.0 cm/sec E/E' lat: 8.7 E/e' average: 9.1 MV dec time: 0.30 sec SV(LVDALY): 69.4 ml Electronically signed by: Karen Marin M.D. on Reading Physician:05/25/2021 04:53 PM
--- NOTE | 2021-05-24 22:26 | P.HP_ITS ---
History of Present Illness History of Present Illness Date Patient Seen: 05/24/21 Time Patient Seen: 22:00 Chief complaint: dizzy/fuzzy Narrative: 70M with PMH MGUS, peripheral neuropathy, hypothyroid who presents with his with dizziness, headache, fatigue, difficulty with speech. He notes that he has been feeling not his normal self for the last two years. He states this started occurring after being diagnosed with covid, where he will have fatigue, and s hortness of breath primarily. He also has been diagnosed with IgA kappa MGUS. He has recently seen his oncologist and discussed these symptoms as well as symptoms including fevers/chills, sweats. He had repeat tests which showed an Mspike of only 0.4, which was stable since 2019. Free light chain kappa/lamdba and ratio were normal. It was thought that because of this it was less likely his MGUS causing these symptoms. He also notes he has a distended/bloated belly as well. He notes possibly some slight weakness in his left leg. He notes no other lateralizing weakness. He notes no facial droop. In the ED workup was done, vitals were notable for elevated blood pressure. Labs notable for WBC 7.8, hgb 15.8, plts 223. Na 133, creatinine 0.89, trop negative. TSH 4.49, procal 0.05. CT head, and CTA head/neck showed no acute process. Chest xray showed no acute process. EKG showed normal sinus rhythm. He was admitted for further treatment. 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) Peripheral neuropathic pain Primary insomnia Trochanteric bursitis of left hip Surgical History H/O hernia repair (~08/2018) H/O prostatectomy (~1999) Hx of appendectomy Hx of tonsillectomy Family & Social History Family History Brother COPD (chronic obstructive pulmonary disease) Safety & Behavioral: Feels Safe in Current Yes Environment Been Physically Hurt or No Threatened By a Person Tobacco & Substance use: Smoking Status Never smoker alcohol intake frequency 0-2 drinks per day Substance Use Type does not use Meds Home Medications and Allergies Home Medications Medication Instructions Recorded Confirmed Type aspirin 81 mg chewable tablet 81 mg PO DAILY 04/14/19 05/24/21 History duloxetine 20 mg capsule,delayed 80 mg PO DAILY 11/02/19 05/24/21 History release gabapentin 800 mg tablet 500 mg PO DAILY tab 06/21/20 05/24/21 History albuterol sulfate 90 mcg/actuation 2 puff INHALATION Q6H PRN #8 gram 12/26/20 05/24/21 Rx aerosol inhaler sildenafil (pulm.hypertension) 20 20 mg PO .PRN #14 tab MDD 5 02/22/21 05/24/21 Rx mg tablet zolpidem 5 mg tablet 2.5 mg PO BEDTIME PRN MDD 5 mg 05/18/21 05/24/21 History levothyroxine 25 mcg tablet 25 mcg PO DAILY #90 tab 05/19/21 05/24/21 Rx Allergies Allergy/AdvReac Type Severity Reaction Status Date / Time No Known Drug Allergies Allergy Verified 05/24/21 18:36 Review of Systems Review of Systems Narrative: 14 systems reviewed and negative aside from what is noted in HPI Exam Vital Signs (past 8 hours): - 05/24/21 18:33 05/24/21 18:53 05/24/21 18:58 Temperature 97.0 F L Pulse Rate 75 78 Pulse Rate [Orthostatic Lying] 70 Pulse Rate [Orthostatic Sitting] 76 Pulse Rate [Orthostatic Standing] 89 Respiratory Rate 18 16 Blood Pressure 175/95 H 156/97 H Blood Pressure [Orthostatic Lying] 166/98 H Blood Pressure [Orthostatic Sitting] 163/93 H Blood Pressure [Orthostatic Standing] 156/97 H Pulse Oximetry 97 98 05/24/21 19:00 05/24/21 19:30 05/24/21 20:00 Temperature Pulse Rate 66 62 63 Pulse Rate [Orthostatic Lying] Pulse Rate [Orthostatic Sitting] Pulse Rate [Orthostatic Standing] Respiratory Rate 11 L 7 L 22 Blood Pressure 154/100 H Blood Pressure [Orthostatic Lying] Blood Pressure [Orthostatic Sitting] Blood Pressure [Orthostatic Standing] Pulse Oximetry 99 99 100 03/09/22 20:30 05/24/21 20:45 05/24/21 22:21 Temperature 97.4 F L Pulse Rate 61 62 62 Pulse Rate [Orthostatic Lying] Pulse Rate [Orthostatic Sitting] Pulse Rate [Orthostatic Standing] Respiratory Rate 13 20 16 Blood Pressure 170/96 H 155/108 H Blood Pressure [Orthostatic Lying] Blood Pressure [Orthostatic Sitting] Blood Pressure [Orthostatic Standing] Pulse Oximetry 98 99 98 Oxygen Delivery Method Room Air Narrative Exam Narrative: GEN: no acute distress HEENT: moist mucous membranes, PERRL NECK: trachea midline, no JVD CV: regular rate and rhythm, no murmurs PULM: clear bilateraly, on wheezes, rhonchi, rales ABD: soft, nontender, nondistended, no organomegaly, normal bowel sounds EXT: warm and well perfused with no edema NEURO: awake, alert oriented, 5/5 strength upper and lower extremites, normal sensatino, normal cerebellar exam findings, cn 2-12 intact PSYCH: pleasant, cooperative Objective Labs Result Diagrams: 05/24/21 18:38 05/24/21 19:30 Labs: Laboratory Results - last 24 hr 05/24/21 05/24/21 05/24/21 18:38 18:38 19:30 WBC 7.8 RBC 4.85 Hgb 15.8 Hct 46.3 MCV 95.3 MCH 32.6 MCHC 34.2 RDW 14.2 Plt Count 223 Neut % (Auto) 60.6 Lymph % (Auto) 26.7 Lander % (Auto) 9.0 Eos % (Auto) 2.6 Baso % (Auto) 1.1 Neut # (Auto) 4700 Lymph # (Auto) 2100 Lander # (Auto) 700 Eos # (Auto) 200 Baso # (Auto) 100 PT 11.0 INR 1.0 Sodium 133 L Potassium 4.2 Chloride 103 Carbon Dioxide 29 BUN 19 Creatinine 0.89 Estimated GFR > 60.0 BUN/Creatinine Ratio 21.3 Glucose 98 Calcium 8.4 Total Bilirubin 0.6 AST 36 ALT 28 Alkaline Phosphatase 61 Troponin I Total Protein 7.0 Albumin 4.0 Globulin 3.0 Albumin/Globulin Ratio 1.3 Procalcitonin 0.05 TSH U Opiates 300ng/mL cut Ur Oxycodone Screen Urine Methadone Screen Ur Barbiturates Screen U Tricyclic Antidepress Ur Phencyclidine Scrn Ur Amphetamines Screen U Methamphetamines Scrn Ur MDMA Scrn (Ecstasy) U Benzodiazepines Scrn Urine Cocaine Screen U Marijuana (THC) Screen SARS-CoV-2 (PCR) 05/24/21 05/24/21 05/24/21 19:30 19:30 20:53 WBC RBC Hgb Hct MCV MCH MCHC RDW Plt Count Neut % (Auto) Lymph % (Auto) Lander % (Auto) Eos % (Auto) Baso % (Auto) Neut # (Auto) Lymph # (Auto) Lander # (Auto) Eos # (Auto) Baso # (Auto) PT INR Sodium Potassium Chloride Carbon Dioxide BUN Creatinine Estimated GFR BUN/Creatinine Ratio Glucose Calcium Total Bilirubin AST ALT Alkaline Phosphatase Troponin I < 0.012 Total Protein Albumin Globulin Albumin/Globulin Ratio Procalcitonin TSH 4.49 U Opiates 300ng/mL cut Ur Oxycodone Screen Urine Methadone Screen Ur Barbiturates Screen U Tricyclic Antidepress Ur Phencyclidine Scrn Ur Amphetamines Screen U Methamphetamines Scrn Ur MDMA Scrn (Ecstasy) U Benzodiazepines Scrn Urine Cocaine Screen U Marijuana (THC) Screen SARS-CoV-2 (PCR) Negative 05/24/21 20:53 WBC RBC Hgb Hct MCV MCH MCHC RDW Plt Count Neut % (Auto) Lymph % (Auto) Lander % (Auto) Eos % (Auto) Baso % (Auto) Neut # (Auto) Lymph # (Auto) Lander # (Auto) Eos # (Auto) Baso # (Auto) PT INR Sodium Potassium Chloride Carbon Dioxide BUN Creatinine Estimated GFR BUN/Creatinine Ratio Glucose Calcium Total Bilirubin AST ALT Alkaline Phosphatase Troponin I Total Protein Albumin Globulin Albumin/Globulin Ratio Procalcitonin TSH U Opiates 300ng/mL cut Negative Ur Oxycodone Screen Negative Urine Methadone Screen Negative Ur Barbiturates Screen Negative U Tricyclic Antidepress Negative Ur Phencyclidine Scrn Negative Ur Amphetamines Screen Negative U Methamphetamines Scrn Negative Ur MDMA Scrn (Ecstasy) Negative U Benzodiazepines Scrn Negative Urine Cocaine Screen Negative U Marijuana (THC) Screen Negative SARS-CoV-2 (PCR) Assessment & Plan Assessment & Plan narrative: Mr. Mays is a 70M with PMH hypothyroid, MGUS, peripheral neuropathy who presents with headache, speaking difficulties, dizziness. 1. Dizziness, acute -etiology not clear currently -does have headache, some speech difficulties, questionable laterazliazing extremity weakness that was subjective but not objective -concern for possible TIA vs CVA -ordered for aspirin, statin -initial NIH of 0 -CT head, CTA head/neck showed no acute process -ECHO/MRI ordered -a1c, lipids ordered -PT/OT ordered -NIH ordered qshift -patient also mildly acute hyponatremic, etiology likely hypovolemia, ordered for orthostatic vitals check, did get IVF in ED -think that MGUS is less likely as stable lab values, but patient does note many symptoms consistent with progression including fever/chills, fatigue, headache, dizziness -additionally could have post-covid syndrome as well with chronic respiratory and systemic symptoms that have lasted chronically since illness -TSH normal 2. Peripheral neuropathy, chronic -continue duloxetine, gabapentin -per patient etiology not known 3. Hypothyroid -continue synthroid CODE: Full Proxy: Dianne Mays, spouse I have utilized all available resources to reconcile the patient's home medications. Time Spent With Patient Critical Care time: I spent a total of [] minutes of critical care time on this patient's care today; this time is exclusive of procedural time. Quality MIPS - Admit I confirm the patient?s Advance Care Plan is present, Code status is documented, Surrogate decision maker is in patient?s record [If Yes, STOP here]: Yes
--- NOTE | 2021-05-24 22:43 | PC.ADMIT ---
[email or web address] Admission Note: Admitted from ED. Ambulated to bed, slightly unsteady. Patient denies pain and nausea, but reported mildly increased work of breathing. O2 and HR normal, RT contacted. Patient A/O x4. Oriented to room and educated on hospital policies. Bed alarm on and call light within reach. The patient,Oneil Mays,70 y/o, was given written information regarding hospital policies, unit procedures and contact persons. Patient's smoking status: Never smoker. Vital Signs - 8 hr 05/24/21 18:33 05/24/21 18:53 05/24/21 18:58 Temperature 97.0 F L Pulse Rate 75 78 Pulse Rate [Orthostatic Lying] 70 Pulse Rate [Orthostatic Sitting] 76 Pulse Rate [Orthostatic Standing] 89 Respiratory Rate 18 16 Blood Pressure 175/95 H 156/97 H Blood Pressure [Orthostatic Lying] 166/98 H Blood Pressure [Orthostatic Sitting] 163/93 H Blood Pressure [Orthostatic Standing] 156/97 H Pulse Oximetry 97 98 05/24/21 19:00 05/24/21 19:30 05/24/21 20:00 Temperature Pulse Rate 66 62 63 Pulse Rate [Orthostatic Lying] Pulse Rate [Orthostatic Sitting] Pulse Rate [Orthostatic Standing] Respiratory Rate 11 L 7 L 22 Blood Pressure 154/100 H Blood Pressure [Orthostatic Lying] Blood Pressure [Orthostatic Sitting] Blood Pressure [Orthostatic Standing] Pulse Oximetry 99 99 100 05/24/21 20:30 05/24/21 20:45 05/24/21 22:21 Temperature 97.4 F L Pulse Rate 61 62 62 Pulse Rate [Orthostatic Lying] Pulse Rate [Orthostatic Sitting] Pulse Rate [Orthostatic Standing] Respiratory Rate 13 20 16 Blood Pressure 170/96 H 155/108 H Blood Pressure [Orthostatic Lying] Blood Pressure [Orthostatic Sitting] Blood Pressure [Orthostatic Standing] Pulse Oximetry 98 99 98
[2021-05-24] MEDS: GABAPENTIN 300 MG CAPSULE PO (23:09)
[2021-05-24] MEDS: ZOLPIDEM 5 MG TABLET PO (23:09)
[2021-05-24] MEDS: GABAPENTIN 100 MG CAPSULE 200 MG PO (23:09)
[2021-05-24] MEDS: ALBUTEROL 2.5 MG/3 ML NEB (ADULT) INH (23:15)
[2021-05-25] VITALS (7 sets, daily range): BP systolic 131–165; BP diastolic 63–100; PULSE 59–82; RESP 16–18; TEMP 35.9–36.9; O2SAT 94–97
[2021-05-25] MEDS: ASPIRIN EC 81 MG TABLET PO (08:20)
[2021-05-25] MEDS: ENOXAPARIN 40 MG/0.4 ML SYRINGE SUBCUT (08:20)
[2021-05-25] MEDS: LEVOTHYROXINE 25 MCG TABLET PO (08:20)
[2021-05-25] MEDS: DULOXETINE 20 MG CAPSULE 80 MG PO (08:22)
[2021-05-25 08:48] LABS: Add Manual Diff / Slide Review NO; Basophils Absolute Auto 0 /uL (0-100); Basophils Percent Auto 0.5 % (0-2); Eosinophils Absolute Auto 200 /uL (0-450); Eosinophils Percent Auto 3.9 % (2-4); Hematocrit 43.2 % (41-53); Hemoglobin 14.5 g/dL (13.5-17.5); Lymphocytes Absolute Auto 1500 /uL (1100-4500); Mean Corpuscular HGB Conc 33.7 % (30-36); Mean Corpuscular Hemoglobin 32.2 PG (26-34); Mean Corpuscular Volume 95.6 fL (80-100); Monocytes Absolute Auto 500 /uL (0-900); Monocytes Percent Auto 8.2 % (3-14); Neutrophils Absolute Auto 3400 /uL (1500-7000); Neutrophils Percent Auto 60.4 % (50-75); Platelet Count 187 X10^3/uL (150-400); Red Blood Cell Count 4.52 X10^6/uL (4.5-5.9); White Blood Cell Count 5.7 X10^3/uL (4.5-11.0)
[2021-05-25] MEDS: ALBUTEROL/IPRATROPIUM 3 ML AMPUL INH (09:04)
[2021-05-25 09:18] LABS: Alanine Aminotransferase 26 IU/L (<50); Albumin 3.9 g/dL (3.5-5.0); Albumin Globulin Ratio 1.4 (1.0-2.8); Alkaline Phosphatase 60 U/L (38-126); Aspartate Aminotransferase 32 IU/L (17-59); BUN Creatinine Ratio 14.4 (6-22); Bilirubin Total 0.6 mg/dL (0.2-1.3); Blood Urea Nitrogen 13 mg/dL (9-20); Calcium 8.4 mg/dL (8.4-10.2); Carbon Dioxide 27 mmol/L (22-32); Chloride 106 mmol/L (98-107); Estimated Glomerular Filt Rate > 60.0 mL/min (>60); Globulin 2.8 g/dL (1.7-4.1); Glucose 96 mg/dL (80-110); HEMOLYSIS < 15 (0-50); Potassium 3.8 mmol/L (3.4-5.1); Sodium 137 mmol/L (137-145); Total Protein 6.7 g/dL (6.3-8.2)
[2021-05-25 09:58] LABS: Cholesterol 244 mg/dL (140-199); HDL Cholesterol 60 mg/dL (40-60); LDL Cholesterol Calculated 154 mg/dL (<100); Triglycerides 152 mg/dL (35-150)
--- NOTE | 2021-05-25 11:27 | OT.IPNOTE ---
Attempted OT eval ,pt insistent has no OT needs, has a supportive and good home set-up. Per nursing aid and nurse, pt doing well. Therefore discharge pt from OT services.
--- NOTE | 2021-05-25 12:31 | PT.IIE ---
Medical History (Last Reviewed 05/24/21 @ 22:26 by Rudi Blakely MD) Chronic low back pain Erectile dysfunction Fatigue H/O nephrolithotomy with removal of calculi (~1971) Hyperlipidemia Hypnotic dependence with current use Hypothyroidism 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) Peripheral neuropathic pain Primary insomnia Trochanteric bursitis of left hip Physical Therapy Inpatient Evaluation/Re-Eval M1 PT/OT-IP Prior Functional Status Start: 05/25/21 12:30 Freq: NEEDED Status: Active Protocol: Document 05/25/21 12:31 DLM (Rec: 05/25/21 13:22 DL [id number]) Medical Review Prior Functional Status Medical History Reviewed Yes Diet/Fluid Consistency Regular Communication glasses Mobility and Gait Independent without device, community distances Activities of Daily Living and IADL's Independent Prior Functional Level (Other details) He believes he had COVID Jan 2019 while traveling, continued symptoms of fatigue and shortness of breath since that time Social History Household Members spouse Living Arrangements House Number of Floors (Floors) Two Floors Number of Stairs To Enter/Railing? one step to enter Additional Social History Comment travels and is active M2 PT-IP Current Condition Start: 05/25/21 12:30 Freq: NEEDED Status: Active Protocol: Document 05/25/21 12:31 DLM (Rec: 05/25/21 13:22 [facility] [id number]) Physical Therapy Current Condition Current Condition Evaluation Date 05/25/21 Treatment Diagnosis dizziness Onset Date 05/24/21 M3 PT-IP Subjective Start: 05/25/21 12:30 Freq: NEEDED Status: Active Protocol: Document 05/25/21 12:31 DLM (Rec: 05/25/21 13:22 [facility] [id number]) Subjective Physical Therapy Visit Type Type Initial Evaluation Visit Start Time 11:35 Visit Stop Time 12:31 Total Visit Minutes 56 Number of ELECTRIC [employer] Visits 0 Physical Therapy Visit Comments Patient Comments He c/o frontal headache with pressure and constant dizziness/lightheadedness Patient Goals get better M4 PT-IP Mobility and Gait Start: 05/25/21 12:30 Freq: NEEDED Status: Active Protocol: Document 05/25/21 12:31 DLM (Rec: 05/25/21 13:22 [facility] [id number]) PT-Bed Mobility Assessment Rolling Level of Assist Independent Supine to Sit Supine to Sit Independent Sit to Supine Sit to Supine Independent Scooting Scooting to Edge of Bed Independent Scooting Up and Down in Bed Independent PT-Transfer Assessment Sit to and From Stand Sit to and from Stand Independent Equipment Transfer Assistive Device None Transfers Transfer Destination Bed,Chair Transfer Technique Stand Step Pivot Transfer Ability Level of Assist Independent Gait Assessment Gait Gait Assistance Required: Standby Assistance Distance (Feet) 250 Assistive Devices Assistive Device None Comments Gait Comments he reports his [place] decreased during gait but his dizziness progressively increased with gait, he describes being less confident in his gait but no losses of balance observed Stair Climbing Assessment Evaluation Level of Assist On Stairs Independent Devices Stair Climbing Assistive Devices Left Railing,Right Railing Technique/Endurance Stair Climbing Direction Ascend and Descend Stair Climbing Technique Step Over Step Number of Steps Climbed 3 Query Text: Stair Climbing Set # Repetitions (reps) 1 PT-Balance Assessment Sitting Balance and Reactions Static Sitting Balance Ability Normal Dynamic Sitting Balance Ability Normal Standing Balance and Reactions Static Standing Balance Ability Good Dynamic Standing Balance Ability Good Device Used none Balance Tests Single Limb Standing independent greater than 10 sec Romberg increased sway Tandem Standing needs UE support to get in position M5 PT-IP Objective Assessments Start: 05/25/21 12:30 Freq: NEEDED Status: Active Protocol: Document 05/25/21 12:31 DLM (Rec: 05/25/21 13:22 DL [id number]) Orientation Orientation/Cognition Level of Alertness Alert Orientation Name,Age,Birthday,Month,Date, Year,Day of Week,Place, Situation Language Function Ability No Deficits Noted Safety Awareness Understands Safety Issues Memory Description No Deficits Noted Gross Range of Motion Upper Extremity ROM Assessment Within Functional Limits Lower Extremity ROM Assessment Within Functional Limits Strength Upper Extremity Strength Assessment Within Functional Limits Lower Extremity Strength Assessment Within Functional Limits Coordination Assessment Gross Coordination Gross Coordination WNL Assessment Foot Tapping Test Normal Performance Sensation Assessment Sensation Gross Sensation Right LE Impaired,Left LE Impaired Sensation Description Numbness,Pain Comments Sensation Comments from knees down, hx neuropathy Muscle Tone Muscle Tone WNL Yes Other Assessments Other Other Assessments no changes in his dizziness with most activity, mild decrease in dizziness in sitting with eyes closed but it did not resolve and his headache increased M6 PT-IP Treatment Start: 05/25/21 12:30 Freq: NEEDED Status: Active Protocol: Document 05/25/21 12:31 DLM (Rec: 05/25/21 13:22 DL [id number]) Physical Therapy Treatment Education Education Provided Safety M7 PT-IP Assessment and Plan Start: 05/25/21 12:30 Freq: NEEDED Status: Active Protocol: Document 05/25/21 12:31 DL (Rec: 05/25/21 13:22 DL [id number]) PT Summary Assessment and Plan Potential Rehabilitation Potential Good Status of Condition at Evaluation Evolving Summary Impairments Balance,Activity Tolerance Assessment Summary Eddie continues to report constant dizziness. He demonstrates independent mobility and SBA for gait without a device. He has no losses of balance during gait but c/o feeling unsteady. He has a supportive at home to assist him. Clinical screening is negative for BPPV . His dizziness is not triggered by movement and does not resolve with rest. He shows elevated BP 170/99 after gait. He needs further medical work-up at this time. His LE neuropathy is a complicating factor for his balance. He may benefit from out-pt physical therapy if his dizziness/unsteadiness continues. He appears safe to go home with his and will defer further treatment to out-pt follow-up. Frequency of Treatment Frequency Of Treatment Discharge Recommendations To Nursing Amount of Assist Needed Standby Assistance Discharge Recommendations PT Discharge Recommendations Home with Assistance Other Discharge Recommendations able to assist him Transportation Needs at Discharge Private Vehicle
--- NOTE | 2021-05-25 13:59 | P.DS_ITS ---
History of Present Illness History of Present Illness Date Patient Seen: 05/25/21 Time Patient Seen: 13:59 Chief complaint: dizzy/fuzzy Narrative: Per Dr. Blakely, 70M with PMH MGUS, peripheral neuropathy, hypothyroid who presents with his with dizziness, headache, fatigue, difficulty with speech. He notes that he has been feeling not his normal self for the last two years. He states this started occurring after being diagnosed with covid, where he will have fatigue, and shortness of breath primarily. He also has been diagnosed with IgA kappa MGUS. He has recently seen his oncologist and discussed these symptoms as well as symptoms including fevers/chills, sweats. He had repeat tests which showed an Mspike of only 0.4, which was stable since 2019. Free light chain kappa/lamdba and ratio were normal. It was thought that because of this it was less likely his MGUS causing these symptoms. He also notes he has a distended/bloated belly as well. He notes possibly some slight weakness in his left leg. He notes no other lateralizing weakness. He notes no facial droop. In the ED workup was done, vitals were notable for elevated blood pressure. Labs notable for WBC 7.8, hgb 15.8, plts 223. Na 133, creatinine 0.89, trop negative. TSH 4.49, procal 0.05. CT head, and CTA head/neck showed no acute process. Chest xray showed no acute process. EKG showed normal sinus rhythm. He was admitted for further treatment. Family history: Mother with CAD Social history: drinks 2-3 drinks daily Discharge Providers Provider Date of admission: 05/24/21 21:45 Discharge Date: 05/25/21 Primary care physician: Colin Grace MD Consults: 05/24/21 22:09 Consult to Discharge Planning Routine Comment: Consult to Occupational Therapy Evaluate & Treat Comment: Physician Instructions: Evaluate and treat Consult to Physical Therapy Evaluate & Treat Comment: Physician Instructions: Evaluate and Treat Discharge provider: Jean Claude Chen DO Summary Hospital Course Discharge Diagnosis: 1. Dizziness, acute 2. Peripheral neuropathy, chronic 3. Hypothyroid Hospital Course: Mr. Mays is a 70M with PMH hypothyroid, MGUS, peripheral neuropathy who presents with headache, speaking difficulties, dizziness. He had improvement in his symptoms over time and MRI was negative for any acute infarcts. 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 He was started on lisinopril for elevated blood pressures / hypertension. No other medication changes are recommended. I recommend he follow up with primary care and discuss symptoms with his neurologist as well Exam Vital Signs (past 8 hours): - 05/25/21 07:00 05/25/21 08:00 05/25/21 09:09 Temperature 96.7 F L Pulse Rate 64 64 Pulse Rate [Orthostatic Lying] 64 Pulse Rate [Orthostatic Sitting] 59 L Pulse Rate [Orthostatic Standing] 61 Respiratory Rate 16 16 Blood Pressure 142/87 H Blood Pressure [Orthostatic Lying] 142/87 H Blood Pressure [Orthostatic Sitting] 144/96 H Blood Pressure [Orthostatic Standing] 165/94 H Pulse Oximetry 97 96 05/25/21 12:00 Temperature 97.6 F Pulse Rate 62 Pulse Rate [Orthostatic Lying] Pulse Rate [Orthostatic Sitting] Pulse Rate [Orthostatic Standing] Respiratory Rate 16 Blood Pressure 162/97 H Blood Pressure [Orthostatic Lying] Blood Pressure [Orthostatic Sitting] Blood Pressure [Orthostatic Standing] Pulse Oximetry 97 Oxygen Delivery Method Room Air Oxygen Flow Rate 0 Narrative Exam Narrative: GEN: no acute distress HEENT: moist mucous membranes, PERRL NECK: trachea midline, no JVD CV: regular rate and rhythm, no murmurs PULM: clear bilateraly, on wheezes, rhonchi, rales ABD: soft, nontender, nondistended, no organomegaly, normal bowel sounds EXT: warm and well perfused with no edema NEURO: awake, alert oriented, 5/5 strength upper and lower extremites, normal sensatino, normal cerebellar exam findings, cn 2-12 intact PSYCH: pleasant, cooperative Objective Labs Result Diagrams: 05/25/21 06:25 05/25/21 06:25 Labs: Laboratory Results - last 24 hr 05/24/21 05/24/21 05/24/21 18:38 18:38 19:30 WBC 7.8 RBC 4.85 Hgb 15.8 Hct 46.3 MCV 95.3 MCH 32.6 MCHC 34.2 RDW 14.2 Plt Count 223 Neut % (Auto) 60.6 Lymph % (Auto) 26.7 [place] % (Auto) 9.0 Eos % (Auto) 2.6 Baso % (Auto) 1.1 Neut # (Auto) 4700 Lymph # (Auto) 2100 [place] # (Auto) 700 Eos # (Auto) 200 Baso # (Auto) 100 PT 11.0 INR 1.0 Sodium 133 L Potassium 4.2 Chloride 103 Carbon Dioxide 29 BUN 19 Creatinine 0.89 Estimated GFR > 60.0 BUN/Creatinine Ratio 21.3 Glucose 98 Hemoglobin A1c Calcium 8.4 Total Bilirubin 0.6 AST 36 ALT 28 Alkaline Phosphatase 61 Troponin I Total Protein 7.0 Albumin 4.0 Globulin 3.0 Albumin/Globulin Ratio 1.3 Triglycerides Cholesterol LDL Cholesterol, Calc HDL Cholesterol Procalcitonin 0.05 TSH U Opiates 300ng/mL cut Ur Oxycodone Screen Urine Methadone Screen Ur Barbiturates Screen U Tricyclic Antidepress Ur Phencyclidine Scrn Ur Amphetamines Screen U Methamphetamines Scrn Ur MDMA Scrn (Ecstasy) U Benzodiazepines Scrn Urine Cocaine Screen U Marijuana (THC) Screen SARS-CoV-2 (PCR) 05/24/21 05/24/21 05/24/21 19:30 19:30 20:53 WBC RBC Hgb Hct MCV MCH MCHC RDW Plt Count Neut % (Auto) Lymph % (Auto) [place] % (Auto) Eos % (Auto) Baso % (Auto) Neut # (Auto) Lymph # (Auto) [place] # (Auto) Eos # (Auto) Baso # (Auto) PT INR Sodium Potassium Chloride Carbon Dioxide BUN Creatinine Estimated GFR BUN/Creatinine Ratio Glucose Hemoglobin A1c Calcium Total Bilirubin AST ALT Alkaline Phosphatase Troponin I < 0.012 Total Protein Albumin Globulin Albumin/Globulin Ratio Triglycerides Cholesterol LDL Cholesterol, Calc HDL Cholesterol Procalcitonin TSH 4.49 U Opiates 300ng/mL cut Ur Oxycodone Screen Urine Methadone Screen Ur Barbiturates Screen U Tricyclic Antidepress Ur Phencyclidine Scrn Ur Amphetamines Screen U Methamphetamines Scrn Ur MDMA Scrn (Ecstasy) U Benzodiazepines Scrn Urine Cocaine Screen U Marijuana (THC) Screen SARS-CoV-2 (PCR) Negative 05/24/21 05/25/21 05/25/21 20:53 06:25 06:25 WBC 5.7 RBC 4.52 Hgb 14.5 Hct 43.2 MCV 95.6 MCH 32.2 MCHC 33.7 RDW 14.0 Plt Count 187 Neut % (Auto) 60.4 Lymph % (Auto) 27.0 [place] % (Auto) 8.2 Eos % (Auto) 3.9 Baso % (Auto) 0.5 Neut # (Auto) 3400 Lymph # (Auto) 1500 [place] # (Auto) 500 Eos # (Auto) 200 Baso # (Auto) 0 PT INR Sodium 137 Potassium 3.8 Chloride 106 Carbon Dioxide 27 BUN 13 Creatinine 0.90 Estimated GFR > 60.0 BUN/Creatinine Ratio 14.4 Glucose 96 Hemoglobin A1c Calcium 8.4 Total Bilirubin 0.6 AST 32 ALT 26 Alkaline Phosphatase 60 Troponin I Total Protein 6.7 Albumin 3.9 Globulin 2.8 Albumin/Globulin Ratio 1.4 Triglycerides Cholesterol LDL Cholesterol, Calc HDL Cholesterol Procalcitonin TSH U Opiates 300ng/mL cut Negative Ur Oxycodone Screen Negative Urine Methadone Screen Negative Ur Barbiturates Screen Negative U Tricyclic Antidepress Negative Ur Phencyclidine Scrn Negative Ur Amphetamines Screen Negative U Methamphetamines Scrn Negative Ur MDMA Scrn (Ecstasy) Negative U Benzodiazepines Scrn Negative Urine Cocaine Screen Negative U Marijuana (THC) Screen Negative SARS-CoV-2 (PCR) 05/25/21 05/25/21 06:25 06:25 WBC RBC Hgb Hct MCV MCH MCHC RDW Plt Count Neut % (Auto) Lymph % (Auto) [place] % (Auto) Eos % (Auto) Baso % (Auto) Neut # (Auto) Lymph # (Auto) [place] # (Auto) Eos # (Auto) Baso # (Auto) PT INR Sodium Potassium Chloride Carbon Dioxide BUN Creatinine Estimated GFR BUN/Creatinine Ratio Glucose Hemoglobin A1c 6.0 Calcium Total Bilirubin AST ALT Alkaline Phosphatase Troponin I Total Protein Albumin Globulin Albumin/Globulin Ratio Triglycerides 152 H Cholesterol 244 H LDL Cholesterol, Calc 154 H HDL Cholesterol 60 Procalcitonin TSH U Opiates 300ng/mL cut Ur Oxycodone Screen Urine Methadone Screen Ur Barbiturates Screen U Tricyclic Antidepress Ur Phencyclidine Scrn Ur Amphetamines Screen U Methamphetamines Scrn Ur MDMA Scrn (Ecstasy) U Benzodiazepines Scrn Urine Cocaine Screen U Marijuana (THC) Screen SARS-CoV-2 (PCR) [facility] Medical History Chronic low back pain Erectile dysfunction Fatigue H/O nephrolithotomy with removal of calculi (~1970) Hyperlipidemia Hypnotic dependence with current use Hypothyroidism 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) Peripheral neuropathic pain Primary insomnia Trochanteric bursitis of left hip Surgical History H/O hernia repair (~08/2018) H/O prostatectomy (~1999) Hx of appendectomy Hx of tonsillectomy Family History Brother COPD (chronic obstructive pulmonary disease) Social History household members: spouse Smoking Status: Never smoker substance use type: does not use Discharge Plan Discharge Plan Patient Disposition: Home Provider Discharge Comment: You were admitted to the hospital with dizziness, concern was for a possible stroke. MRI was negative. This probably represents long COVID. There are starting to be many long covid specialty clinics ([place] and a few other medical centers have them). Discharge orders & Medications Prescriptions: New lisinopril 5 mg tablet 5 mg PO DAILY 30 Days Qty: 30 0RF Continued gabapentin 800 mg tablet 500 mg PO DAILY 0RF sildenafil (pulm.hypertension) 20 mg tablet 20 mg PO .PRN MDD 5 Qty: 14 0RF Rx Instructions: Take 30 minutes to 4 hours prior to sexual activity. levothyroxine 25 mcg tablet 25 mcg PO DAILY Qty: 90 2RF albuterol sulfate 90 mcg/actuation HFA aerosol inhaler 2 puff INHALATION Q6H PRN (Reason: shortness of breath or wheezing) Qty: 8 3RF aspirin 81 mg Tablet,Chewable 81 mg PO DAILY 0RF duloxetine 20 mg Capsule,Delayed Release(Dr/Ec) 80 mg PO DAILY 0RF zolpidem 5 mg tablet 2.5 mg PO BEDTIME MDD 5 mg PRN (Reason: insomnia) 0RF Rx Instructions: Use sparingly. Follow up/Referrals: Colin Grace MD [Primary Care Provider] - Visit Report/Discharge Packet Instructions: Vertigo, How to Prevent Falls, Lisinopril Discharge Data Primary Care Provider: Colin Grace Attending Provider: Rudi Blakely
== END 2021-05-25 15:24 | disposition home or self-care (01) ==
LOC: ED 18:41 → AC 21:46
PROVIDERS: Admitting Provider Internal Medicine; Emergency Provider Emergency Medicine; PCP Family Medicine; Referring Provider Emergency Medicine; Visit Provider Internal Medicine
DX: R42 Dizziness and giddiness (principal); R51.9 Headache, unspecified; R53.83 Other fatigue; R41.0 Disorientation, unspecified; R47.89 Other speech disturbances; R29.700 NIHSS score 0; E78.5 Hyperlipidemia, unspecified; E03.9 Hypothyroidism, unspecified; G62.9 Polyneuropathy, unspecified; D47.2 Monoclonal gammopathy; Z20.822 Contact with and (suspected) exposure to COVID-19
CPT/HCPCS: 36415; 70450; 70496; 70498; 70551; 71045; 80053; 80061; 80305; 82962; 83036; 84145; 84443; 84484; 85025; 85610; 87635; 93005; 93010; 93306; 94640; 94760; 96361; 96365; 96372; 97162; 99284; 99285; C9803; G0378; J1650; J7613; Q9967

== ENCOUNTER → 2021-11-23 09:27 | Outpatient (CLI) | payer MEDICARE, OTHER, SELFPAY ==
[2021-05-24 21:47] VITALS: BMI 32.6
[2021-11-23 10:46] LABS: Alanine Aminotransferase 28 IU/L (<50); Albumin 4.1 g/dL (3.5-5.0); Albumin Globulin Ratio 1.5 (1.0-2.8); Alkaline Phosphatase 81 U/L (38-126); Aspartate Aminotransferase 29 IU/L (17-59); Blood Urea Nitrogen 18 mg/dL (9-20); Carbon Dioxide 26 mmol/L (22-32); Chloride 100 mmol/L (98-107); Cholesterol 196 mg/dL (140-199); Estimated Glomerular Filt Rate > 60 mL/min (>60); Globulin 2.7 g/dL (1.7-4.1); Glucose 178 mg/dL (80-110); HDL Cholesterol 77 mg/dL (40-60); HEMOLYSIS < 15 (0-50); LDL Cholesterol Calculated 81 mg/dL (<100); Potassium 4.4 mmol/L (3.4-5.1); Sodium 135 mmol/L (137-145); Total Protein 6.8 g/dL (6.3-8.2); Triglycerides 192 mg/dL (35-150)
[2021-11-23 11:13] LABS: TSH w/ Reflex to FT4 3.22 uIU/mL (0.47-4.68)
== END ==
PROVIDERS: PCP Family Medicine; Referring Provider Family Medicine; Visit Provider Family Medicine
DX: E03.9 Hypothyroidism, unspecified (principal); E78.2 Mixed hyperlipidemia; G45.9 Transient cerebral ischemic attack, unspecified; D47.2 Monoclonal gammopathy; G63 Polyneuropathy in diseases classified elsewhere
CPT/HCPCS: 36415; 80053; 80061; 84443

== ENCOUNTER → 2021-12-01 09:03 | Outpatient (CLI) | payer MEDICARE, OTHER, SELFPAY ==
[2021-05-24 21:47] VITALS: BMI 32.6
[2021-12-01 09:44] LABS: Hemoglobin A1C% w Est Avg Glu 6.1 % (4.0-6.0)
[2021-12-01 10:23] LABS: Alanine Aminotransferase 26 IU/L (<50); Albumin 4.2 g/dL (3.5-5.0); Albumin Globulin Ratio 1.4 (1.0-2.8); Alkaline Phosphatase 85 U/L (38-126); Aspartate Aminotransferase 37 IU/L (17-59); BUN Creatinine Ratio 17.6 (6-22); Bilirubin Total 0.7 mg/dL (0.2-1.3); Blood Urea Nitrogen 18 mg/dL (9-20); Calcium 9.2 mg/dL (8.4-10.2); Carbon Dioxide 27 mmol/L (22-32); Chloride 102 mmol/L (98-107); Estimated Glomerular Filt Rate > 60 mL/min (>60); Globulin 2.9 g/dL (1.7-4.1); Glucose 119 mg/dL (80-110); HEMOLYSIS < 15 (0-50); Potassium 4.5 mmol/L (3.4-5.1); Sodium 140 mmol/L (137-145); Total Protein 7.1 g/dL (6.3-8.2)
== END ==
PROVIDERS: PCP Family Medicine; Referring Provider Family Medicine; Visit Provider Family Medicine
DX: R73.9 Hyperglycemia, unspecified (principal)
CPT/HCPCS: 36415; 80053; 83036

== ENCOUNTER → 2022-01-26 08:25 | Outpatient (CLI) | payer MEDICARE, OTHER, SELFPAY ==
[2021-05-24 21:47] VITALS: BMI 32.6
[2022-01-26 09:12] LABS: Hemoglobin A1C% w Est Avg Glu 6.1 % (4.0-6.0)
[2022-01-26 09:55] LABS: BUN Creatinine Ratio 16.3 (6-22); Blood Urea Nitrogen 16 mg/dL (9-20); Calcium 8.7 mg/dL (8.4-10.2); Carbon Dioxide 26 mmol/L (22-32); Chloride 103 mmol/L (98-107); Estimated Glomerular Filt Rate > 60 mL/min (>60); Glucose 109 mg/dL (80-110); HEMOLYSIS < 15 (0-50); Potassium 4.7 mmol/L (3.4-5.1); Sodium 136 mmol/L (137-145)
[2022-01-26 10:22] LABS: TSH w/ Reflex to FT4 4.91 uIU/mL (0.47-4.68)
[2022-01-26 10:58] LABS: Free T4, Direct Thyroxine 0.84 ng/dL (0.78-2.19)
== END ==
PROVIDERS: PCP Family Medicine; Referring Provider Family Medicine; Visit Provider Family Medicine
DX: R73.03 Prediabetes (principal); E03.9 Hypothyroidism, unspecified; E78.5 Hyperlipidemia, unspecified
CPT/HCPCS: 36415; 80048; 83036; 84439; 84443

== ENCOUNTER → 2022-06-01 07:39 | Outpatient (CLI) | payer MEDICARE, OTHER, SELFPAY ==
[2021-05-24 21:47] VITALS: BMI 32.6
[2022-06-01 08:30] LABS: Add Manual Diff / Slide Review NO; Basophils Absolute Auto 0 /uL (0-100); Basophils Percent Auto 0.6 % (0-2); Eosinophils Absolute Auto 200 /uL (0-450); Eosinophils Percent Auto 3.6 % (2-4); Hematocrit 43.2 % (41-53); Hemoglobin 14.8 g/dL (13.5-17.5); Lymphocytes Absolute Auto 2100 /uL (1100-4500); Lymphocytes Percent Auto 33.6 % (25-40); Mean Corpuscular HGB Conc 34.2 % (30-36); Mean Corpuscular Hemoglobin 31.3 PG (26-34); Mean Corpuscular Volume 91.5 fL (80-100); Monocytes Absolute Auto 600 /uL (0-900); Monocytes Percent Auto 9.6 % (3-14); Neutrophils Absolute Auto 3300 /uL (1500-7000); Neutrophils Percent Auto 52.6 % (50-75); Platelet Count 188 X10^3/uL (150-400); Red Blood Cell Count 4.72 X10^6/uL (4.5-5.9); Red Cell Distribution Width 14.2 % (11.6-14.8); White Blood Cell Count 6.3 X10^3/uL (4.5-11.0)
[2022-06-01 08:44] LABS: Alanine Aminotransferase 28 IU/L (<50); Albumin 4.2 g/dL (3.5-5.0); Albumin Globulin Ratio 1.4 (1.0-2.8); Alkaline Phosphatase 83 U/L (38-126); Aspartate Aminotransferase 28 IU/L (17-59); Bilirubin Total 0.7 mg/dL (0.2-1.3); Blood Urea Nitrogen 13 mg/dL (9-20); Calcium 8.3 mg/dL (8.4-10.2); Carbon Dioxide 27 mmol/L (22-32); Chloride 104 mmol/L (98-107); Estimated Glomerular Filt Rate > 60 mL/min (>60); Globulin 2.9 g/dL (1.7-4.1); Glucose 102 mg/dL (80-110); HEMOLYSIS 16 (0-50); Lactate Dehydrogenase 189 U/L (120-246); Potassium 4.2 mmol/L (3.4-5.1); Sodium 137 mmol/L (137-145); Total Protein 7.1 g/dL (6.3-8.2)
[2022-06-01 08:46] LABS: Cholesterol 203 mg/dL (140-199); HDL Cholesterol 73 mg/dL (40-60); LDL Cholesterol Calculated 90 mg/dL (<100); Triglycerides 202 mg/dL (35-150)
[2022-06-01 09:32] LABS: Creatinine Urine Random 213.9 mg/dL
[2022-06-01 09:36] LABS: Microalbumi Creatinin Ratio Ur 9.3 ug/mg CR (<30)
[2022-06-01 10:02] LABS: TSH w/ Reflex to FT4 6.79 uIU/mL (0.47-4.68)
[2022-06-01 10:24] LABS: Hep C Virus Ab w/Reflex Quant NEGATIVE s/c (NEGATIVE)
[2022-06-01 10:50] LABS: Free T4, Direct Thyroxine 0.99 ng/dL (0.78-2.19)
[2022-06-01 10:51] LABS: Hemoglobin A1C% w Est Avg Glu 6.1 % (4.0-6.0)
[2022-06-04 13:33] LABS: Free Kappa Lt Chains, Serum 15.7 mg/L (3.3-19.4)
[2022-06-05 14:22] LABS: Albumin 3.8 g/dL (2.9-4.4); Alpha-1-Globulin 0.2 g/dL (0.0-0.4); Alpha-2-Globulin 0.7 g/dL (0.4-1.0); Gamma Globulin 0.9 g/dL (0.4-1.8); Globulin Total 2.7 g/dL (2.2-3.9); Immunoglobulin A, Serum 479 mg/dL (61-437); Immunoglobulin G,Serum 648 mg/dL (603-1613); Immunoglobulin M, Serum 52 mg/dL (15-143); Protein, Total 6.5 g/dL (6.0-8.5)
[2022-06-05 17:03] LABS: Beta-2-Microglobulin 1.7 mg/L (0.6-2.4)
== END ==
PROVIDERS: Internal Medicine Hematology & Oncology; PCP Family Medicine; Referring Provider Family Medicine; Visit Provider Family Medicine
DX: R73.03 Prediabetes; E03.9 Hypothyroidism, unspecified; D47.2 Monoclonal gammopathy; E78.2 Mixed hyperlipidemia
CPT/HCPCS: 36415; 80053; 80061; 82043; 82232; 82570; 82784; 83036; 83615; 83883; 84155; 84165; 84439; 84443; 85025; 86334; 86803

== ENCOUNTER → 2022-08-30 08:36 | Outpatient (CLI) | payer MEDICARE, OTHER, SELFPAY ==
[2021-05-24 21:47] VITALS: BMI 32.6
[2022-08-30 09:57] LABS: Prothrombin Time 11.2 SECONDS (10.1-12.7)
[2022-08-30 10:00] LABS: PTT Partial Thromboplastin Tim 32 SECONDS (26-36)
[2022-08-30 10:46] LABS: TSH w/ Reflex to FT4 3.85 uIU/mL (0.47-4.68)
== END ==
PROVIDERS: PCP Family Medicine; Referring Provider Family Medicine; Visit Provider Family Medicine
DX: R23.3 Spontaneous ecchymoses (principal); E03.9 Hypothyroidism, unspecified; R73.9 Hyperglycemia, unspecified
CPT/HCPCS: 36415; 83036; 84443; 85610; 85730

== ENCOUNTER 2022-09-08 08:47 | Observation (INO) | payer MEDICARE, OTHER, SELFPAY ==
[2021-05-24 21:47] VITALS: BMI 32.6
[2022-09-08] VITALS (44 sets, daily range): BP systolic 130–176; BP diastolic 74–110; PULSE 64–81; RESP 9–28; TEMP 35.9–36.5; O2SAT 85–99; BMI 31.8
--- NOTE | 2022-09-08 | DI.ECHO.S_ITS ---
[place] +---------+ [facility] +---------+ : : [address] : : : : [id number] : : : : Phone: [phone]+ Echocardiogram Report + + :Name: TEDDY NGUYEN Study Date: 09/09/2022 Height: 71 in : :[facility] ReadingLocation: Weight: 228 lb : : Gender: Male BSA: 2.2 m2 : :: 1950 Age: 72 yrs BP: 139/67 mmHg: :Reason For Study: TIA : :Ordering Physician: Shantelle, : :Fe Performed By: Radha Mckoy : :Referring: FE NGUYEN A : + + Interpretation Summary Sinus rhythm with wide QRS complexes. Normal LV size and wall thickness. Normal wall motion LV systolic function ejection fraction 60-65%. Normal chamber sizes. Aortic valve leaflets are mildly thickened and calcified but open well. No vegetations. Estimated PA systolic pressure is 27 mm Hg assuming RA pressure of 3 mm Hg. There is PFO based with bubble study with shunting during Valsalva maneuver (but none at baseline). Compared to prior study May 25, 2021, PFO is newly appreciated with the caveat that bubble study was not done on prior assessment. Procedure: A two-dimensional transthoracic echocardiogram with color flow and Doppler was performed. The study quality was technically adequate. Comparison is made with the echocardiogram of 05/25/2021. A saline contrast injection was performed to assess for cardiac shunting. The patient was in normal sinus rhythm during the exam. Left Ventricle: The left ventricle is normal in size. The ejection fraction is estimated to be 55-60%. Diastolic parameters suggest a relaxation abnormality of the left ventricle, consistent with probable normal filling pressures. Right Ventricle: The right ventricle is normal size. The right ventricular systolic function is normal. Atria: The left atrial size is normal. Right atrial size is normal. Bubble study was captured on image frame(s) # [id number]. Injection of contrast with valsalva documented an interatrial shunt in frame #100. Mitral Valve: The mitral valve is normal. There is no mitral valve stenosis. There is trace mitral regurgitation. Aortic Valve: The aortic valve is trileaflet. The aortic valve opens well. There is no aortic valve stenosis. There is trace aortic regurgitation. Tricuspid Valve: The tricuspid valve is normal. There is no tricuspid stenosis. There is trace tricuspid regurgitation. The right ventricular systolic pressure is estimated to be at least 27 mmHg based on an estimated right atrial pressure of 3 mm Hg. Pulmonic Valve: The pulmonic valve leaflets are thin and pliable; valve motion is normal. There is no pulmonic valvular stenosis. There is no pulmonic valvular regurgitation. Great Vessels: The aortic root is normal size. The ascending aorta is normal in size. The pulmonary artery is normal size. The IVC is of normal diameter and collapses greater than 50% with a sniff. This suggests a low right atrial pressure of 3 mm Hg. Pericardium/ Pleura There is no pericardial effusion. There is no pleural effusion. MMode/2D Measurements & Calculations LVIDd: 3.7 cm LVOT diam: 2.1 cm LVIDs: 1.9 cm Ao root diam: 3.4 cm FS: 48.6 % asc Aorta Diam: 3.1 cm IVSd: 1.5 cm LVPWd: 1.1 cm LV quiñones. diameter/BSA (cm/m^2): 1.7 LV sys. diameter/BSA (cm/m^2): 0.85 LA A2 area: 18.3 cm2 RA long axis: 4.9 cm LA A4 area: 20.8 cm2 RA area: 13.5 cm2 LA length (vol): 5.7 cm RA vol: 31.5 ml LA vol: 56.3 ml RA : 14.1 ml/m2 LA vol index: 25.2 ml/m2 RVD1 (basal): 3.6 cm LVLs ap4: 6.0 cm LVLd ap2: 6.8 cm TAPSE_phl: 2.0 cm LVLs ap2: 5.3 cm Doppler Measurements & Calculations Ao V2 max: 130.0 cm/sec LVOT Max Estuardo: 115.0 cm/sec Ao V2 mean: 95.0 cm/sec LV V1 max P.3 mmHg Ao max P.0 mmHg LV V1 VTI: 23.8 cm Ao mean P.0 mmHg LUL(I,D): 2.9 cm2 Ao V2 VTI: 28.6 cm LUL(V,D): 3.1 cm2 sev ratio: 0.83 LUL indexed to BSA (cm^2/m^2): 1.3 MV E max estuardo: 76.4 cm/sec TR max estuardo: 249.0 cm/sec MV A max estuardo: 82.9 cm/sec TR max P.8 mmHg MV E/A: 0.92 PA V2 max: 110.0 cm/sec Med Peak E' Estuardo: 6.3 cm/sec PA V2 mean: 77.9 cm/sec E/E' med: 12.1 PA mean P.0 mmHg Lat Peak E' Estuardo: 12.5 cm/sec PA pr(Accel): 13.8 mmHg E/E' lat: 6.1 E/e' average: 9.1 MV dec time: 0.25 sec SV(LVOT): 82.4 ml AV VR_phl: 0.88 LUL(VTI)/BSA_phl: 1.3 MV P1/2t-pr_phl: 74.0 msec Electronically signed by: Karen Marin M.D. on Reading Physician:09/09/2022 04:29 PM
--- NOTE | 2022-09-08 08:51 | DI.CT.S_ITS ---
PROCEDURE: CT STROKE INDICATIONS: facial droop, left weakness TECHNIQUE: Noncontrast 4.5 mm thick angled axial sections acquired from the foramen magnum to the vertex, with coronal reformats. For radiation dose reduction, the following was used: automated exposure control, adjustment of mA and/or kV according to patient size. COMPARISON: None. FINDINGS: Image quality: Excellent. CSF spaces: Basal cisterns are patent. No extra-axial fluid collections. The ventricles are symmetric in size and shape. Brain: No intracranial bleeds or masses. There is cerebral volume loss for age, with resultant ventricular and sulcal prominence. There are periventricular and deep white matter chronic small vessel ischemic changes. There is intracranial internal carotid artery atherosclerosis. Skull and face: Calvarium and visualized facial bones appear intact, without suspicious lesions. Sinuses: Visualized sinuses and mastoids are clear. IMPRESSION: 1. No CT evidence of acute intracranial process. 2. Findings conveyed to the emergency room provider at 900 hours. This study fulfills neurological imaging criteria for inclusion or exclusion of acute stroke therapies based on available published neurological guidelines. Dictated by: Nadege Ng M.D. on 09/08/2022 at 8:59 Approved by: Nadege Ng M.D. on 09/08/2022 at 9:02
--- NOTE | 2022-09-08 08:51 | DI.CT.S_ITS ---
PROCEDURE: CT ANGIO HEAD AND NECK INDICATIONS: facial droop, left weakness TECHNIQUE: After the administration of intravenous contrast, 1 mm thick sections acquired from the aortic arch through the [place] of [place]. Post-contrast 4.5 mm thick sections then re-acquired from the foramen magnum to the vertex. 3-dimensional cxysifq-qlloshiot-inapunsrxi (MIP) and/or volume rendering reformats were acquired of the central intracranial vasculature and neck separately. For radiation dose reduction, the following was used: automated exposure control, adjustment of mA and/or kV according to patient size. COMPARISON: [facility], CT, CT ANGIO HEAD AND NECK, 05/24/2021, 19:13. FINDINGS: Image quality: Excellent. BRAIN: CSF spaces: Ventricles are normal in size and shape. Basal cisterns are patent. No extra-axial fluid collections. Brain: No midline shift. No intracranial bleeds or masses. [place]-white matter interface appears intact. Skull and face: Calvarium and facial bones appear intact, without suspicious lesions. Orbits appear normal. Sinuses: Sinuses and mastoids are clear. HEAD CT ANGIOGRAPHY: Anterior circulation: Intracranial internal carotid arteries are normal in size and flow. The flow within the paired anterior cerebral arteries is normal and symmetric. The flow within the middle cerebral arteries is normal and symmetric. The anterior communicating artery is seen. No aneurysms are seen. Posterior circulation: Visualized portions of the vertebral arteries demonstrate normal caliber, and join to form a normal appearing basilar artery. Flow within the posterior cerebral arteries is normal and symmetric. No aneurysms are seen. NECK CT ANGIOGRAPHY: Carotid system: The great vessels demonstrate a conventional anatomy as they arise from the aortic arch. The origins of the common carotid arteries appear patent. The common carotid arteries demonstrate normal caliber and courses. The bifurcation regions are both widely patent. The internal carotid arteries demonstrate normal calibers and courses. Incidental note of a tight, chronic stenosis at the left external carotid artery origin due to tortuosity. There is poststenotic dilatation. Posterior circulation: The origins of the vertebral arteries both appear widely patent. Probable stenosis at the left vertebral artery origin due to vascular tortuosity, chronic. The more superior extracranial portions of both vertebral arteries also demonstrate normal courses and calibers. They join to form a normal appearing basilar artery. Soft tissues: Visualized neck soft tissues demonstrate no suspicious abnormalities. Bones: No suspicious bony lesions. Visualized cervical spine appears normally aligned. Chronic degenerative disc and endplate changes. IMPRESSION: 1. No CT evidence of intracranial arterial occlusion, significant stenosis, or aneurysm. 2. No significant stenosis of either carotid or vertebral artery. 3. Vascular tortuosity at the left vertebral artery origin and left ECA origin, possibly causing chronic stenosis. Any quantitative measurements of stenosis were performed using NASCET criteria. Dictated by: Nadege Ng M.D. on 09/08/2022 at 9:49 Approved by: Nadege Ng M.D. on 09/08/2022 at 10:02
--- NOTE | 2022-09-08 08:52 | ED.NEUROSD ---
HPI - Neuro Symptoms/Deficit General Chief Complaint: Neuro Symptoms/Deficit Stated Complaint: code stroke Time Seen by Provider: 09/08/22 08:49 Source: patient, RN notes reviewed and old records reviewed Mode of arrival: EMS History of Present Illness HPI Narrative: This is a 72-year-old male with history of dyslipidemia, prostate cancer, monoclonal gammopathy of unknown significance, hypothyroidism, and chronic low back pain who presents for concern for stroke. Patient states last night he went to sleep at about 10:30 p.m. in his normal state he does have some chronic neuropathy but woke up intermittently throughout the night noted that he was having some issues with his speech and movement. And this morning when woke up facial droop was appreciated he is noted some left-sided weakness and particularly expressive aphasia. Patient's denies headache, no acute vision changes, denies chest pain or shortness of breath. He reports numbness and tingling but states he has chronic neuropathy in both legs, he states new changes some numbness tingling both upper extremities but sometimes has this present. He appreciate some weakness particularly on the left side. Mostly speech. Denies any abdominal back or flank pain. No dysuria, urgency or frequency. No incontinence. No diarrhea constipation. No vertigo. Patient is on aspirin 81 mg daily, he does follow with Oncology for his MGUS and had reported TIA in May of 2021. No known drug allergies. Patient's reportedly thought that he was walking around normal at 530 this morning but he states that he was having issues this morning upon awakening on persisting through the morning. Related Data Home Medications Medication Instructions Recorded Confirmed aspirin 81 mg chewable tablet 81 mg PO DAILY 04/14/19 09/08/22 atorvastatin 20 mg tablet 20 mg PO BEDTIME 06/18/22 09/08/22 Previous Rx's Medication Instructions Recorded albuterol sulfate 90 mcg/actuation 2 puff inhalation Q6H PRN 12/26/20 aerosol inhaler shortness of breath or wheezing #8 grams duloxetine 30 mg capsule,delayed 30 mg PO DAILY #90 caps 12/04/21 release losartan 50 mg tablet See Rx Instructions .Route 05/29/22 .COMPLEX #90 tabs gabapentin 400 mg capsule 400 mg PO TID #270 caps 06/04/22 hydroxyzine HCl 25 mg tablet See Rx Instructions PO BEDTIME #90 06/04/22 tabs levothyroxine 25 mcg tablet See Rx Instructions .Route 06/19/22 .COMPLEX #90 tabs sildenafil (pulm.hypertension) 20 See Rx Instructions .Route 08/02/22 mg tablet .COMPLEX #14 tabs duloxetine 20 mg capsule,delayed See Rx Instructions .Route 08/14/22 release .COMPLEX #180 caps zolpidem 12.5 mg tablet,extended 12.5 mg PO BEDTIME PRN insomnia 09/03/22 release,multiphase #30 tabs Allergies Allergy/AdvReac Type Severity Reaction Status Date / Time No Known Drug Allergies Allergy Verified 09/03/22 12:47 Review of Systems Review of Systems ROS Unobtainable: All systems reviewed & are unremarkable except as noted in HPI and below Patient History Medical History Chronic low back pain Easy bruising Erectile dysfunction Fatigue H/O nephrolithotomy with removal of calculi (~1970) Hyperlipidemia Hypnotic dependence with current use Hypothyroidism 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) Obstructive sleep apnea Peripheral neuropathic pain Primary insomnia Trochanteric bursitis of left hip Surgical History H/O hernia repair (~08/2018) H/O prostatectomy (~1999) Hx of appendectomy Hx of tonsillectomy Family History Brother COPD (chronic obstructive pulmonary disease) Social History household members: spouse Smoking Status: Former smoker alcohol intake: current substance use type: does not use Smoking Status: Never smoker alcohol intake frequency: 0-2 drinks per day Alcohol type: beer Substance Use Type: does not use Exam Narrative Exam Narrative: GEN: well nourished, well appearing male, alert and oriented x 3, patient appears to be in mild distress. HEENT: Atraumatic, pupils are equal round reactive to light, extraocular movements are intact, nares are clear, TMs are clear with no fluid, there is no conjunctival pallor. Throat is clear without any exudates, erythema, tonsillar enlargement or uvular deviation, mild facial droop. HEART: Regular rate and rhythm without murmur, clicks, rubs. Pulses are equal in upper and lower extremities LUNGS:Lungs clear to auscultation, no wheezes, rales, crackles, chest moves symmetrically ABD:bowel sounds normal, soft, non-tender, no guarding, rebound, rigidity, no masses noted, no hepatosplenomegaly :No CVA tenderness MSCL: Non-tender, no muscle atrophy, muscles strength 5/5 upper and lower extremities, full range of motion, normal gait NEURO:CN 2-12 intact, sensation normal, finger nose finger test normal with right upper extremity patient has very mild difficulty with the left, heel triplett test normal bilateral, positive for expressive aphasia. No dysarthria. Initial Vital Signs Initial Vital Signs: Vital Signs Temperature 97.7 F 09/08/22 08:57 Pulse Rate 81 09/08/22 08:57 Respiratory Rate 16 09/08/22 08:57 Blood Pressure 156/103 H 09/08/22 08:57 Pulse Oximetry 97 09/08/22 08:57 Oxygen Delivery Method Room Air 09/08/22 08:57 Scores NIH Stroke Scale Level of Conciousness: Alert, keenly responsive Ask month/age: Answers both questions correctly. Open/close eyes, close hand: Performs both tasks correctly Best gaze horizontal: Normal Visual hughes: No visual loss Facial palsy: Minor paralysis, flattened nasolabial fold, asymmetry on smiling Left arm drift: No drift for full 10 sec Right arm drift: No drift for full 10 sec Left leg drift: No drift for full 5 sec Right leg drift: No drift for full 5 sec Limb ataxia: Present in one limb Sensory on face/arms/legs: Normal, no sensory loss Best language: Mild to moderate, slurs some words Dysarthria: Mild to mod,some slurring Extinction or inattention: No abnormality Total NIH Stroke scale score: 4 Course Orders Ordered: Albuterol (Albuterol 2.5 Mg/3 Ml Neb (Adult)) 2.5 mg INH Q2H PRN PRN Reason: shortness of breath or wheezing Aspirin (Aspirin 81 Mg Chew Tab) 81 mg PO DAILY [facility] Atorvastatin Calcium (Atorvastatin 20 Mg Tablet) 80 mg PO BEDTIME [facility] Clopidogrel Bisulfate (Clopidogrel 75 Mg Tablet) 75 mg PO DAILY [facility] Duloxetine HCl (Duloxetine 20 Mg Capsule) 40 mg PO DAILY [facility] Duloxetine HCl (Duloxetine 30 Mg Capsule) 30 mg PO DAILY [facility] Last Admin: 09/08/22 17:45 Dose: 30 mg Documented By: BT Enoxaparin Sodium (Enoxaparin 40 Mg/0.4 Ml Syringe) 40 mg SUBCUT DAILY [facility] Gabapentin (Gabapentin 400 Mg Capsule) 400 mg PO TID [facility] Last Admin: 09/08/22 14:37 Dose: 400 mg Documented By: BT Levothyroxine Sodium (Levothyroxine 25 Mcg Tablet) 25 mcg PO DAILY@0600 [facility] Losartan Potassium (Losartan 50 Mg Tablet) 50 mg PO DAILY [facility] Last Admin: 09/08/22 14:37 Dose: 50 mg Documented By: BT Naloxone HCl (Naloxone 0.4 Mg/Ml Vial) 0.2 mg IV Q2MIN PRN PRN Reason: Opiate Reversal Discontinued Medications Aspirin (Aspirin 81 Mg Chew Tab) 324 mg PO NOW ONE Stop: 09/08/22 09:07 Last Admin: 09/08/22 09:24 Dose: 324 mg Documented By: CTS Clopidogrel Bisulfate (Clopidogrel 75 Mg Tablet) 300 mg PO NOW ONE Stop: 09/08/22 10:15 Last Admin: 09/08/22 10:19 Dose: 300 mg Documented By: CTS Vital Signs Vital signs: Vital Signs - 8 hr 09/08/22 08:57 09/08/22 09:10 Temperature 97.7 F Pulse Rate 81 Respiratory Rate 16 Blood Pressure 156/103 H 162/94 H Pulse Oximetry 97 Oxygen Delivery Method Room Air MDM - Neuro Symptoms/Deficit Lab Data 09/08/22 08:53 09/08/22 08:53 Labs: Lab Results 09/08/22 09/08/22 09/08/22 Range/Units 08:53 08:53 08:53 WBC 6.3 (4.5-11.0) X10^3/uL RBC 4.50 (4.5-5.9) X10^6/uL Hgb 14.1 (13.5-17.5) g/dL Hct 41.9 (41-53) % MCV 93.1 (80-100) fL MCH 31.4 (26-34) PG MCHC 33.7 (30-36) % RDW 14.4 (11.6-14.8) % Plt Count 177 (150-400) X10^3/uL Neut % (Auto) 41.5 L (50-75) % Lymph % (Auto) 43.0 H (25-40) % [place] % (Auto) 10.7 (3-14) % Eos % (Auto) 4.2 H (2-4) % Baso % (Auto) 0.6 (0-2) % Neut # (Auto) 2600 (8112-5962) /uL Lymph # (Auto) 2700 (4053-2365) /uL [place] # (Auto) 700 (0-900) /uL Eos # (Auto) 300 (0-450) /uL Baso # (Auto) 0 (0-100) /uL PT 10.7 (10.1-12.7) SECONDS INR 0.9 (0.9-1.3) APTT 32 (26-36) SECONDS Sodium 135 L (137-145) mmol/L Potassium 4.1 (3.4-5.1) mmol/L Chloride 101 (98-107) mmol/L Carbon Dioxide 29 (22-32) mmol/L BUN 18 (9-20) mg/dL Creatinine 1.02 (0.66-1.25) mg/dL Estimated GFR > 60 (>60) mL/min BUN/Creatinine Ratio 17.6 (6-22) Glucose 109 (80-110) mg/dL Calcium 8.8 (8.4-10.2) mg/dL Total Bilirubin 0.7 (0.2-1.3) mg/dL AST 29 (17-59) IU/L ALT 33 (<50) IU/L Alkaline Phosphatase 92 (38-126) U/L Total Creatine Kinase 77 (55-170) U/L CK-MB (CK-2) TNP CK-MB (CK-2) Rel Index TNP Troponin I < 0.012 (0.01-0.034) ng/mL Total Protein 7.0 (6.3-8.2) g/dL Albumin 4.2 (3.5-5.0) g/dL Globulin 2.8 (1.7-4.1) g/dL Albumin/Globulin Ratio 1.5 (1.0-2.8) Ethyl Alcohol < 10 ( - 10) mg/dL SARS-CoV-2 (PCR) (Negative) 09/08/22 Range/Units 09:19 WBC (4.5-11.0) X10^3/uL RBC (4.5-5.9) X10^6/uL Hgb (13.5-17.5) g/dL Hct (41-53) % MCV (80-100) fL MCH (26-34) PG MCHC (30-36) % RDW (11.6-14.8) % Plt Count (150-400) X10^3/uL Neut % (Auto) (50-75) % Lymph % (Auto) (25-40) % [place] % (Auto) (3-14) % Eos % (Auto) (2-4) % Baso % (Auto) (0-2) % Neut # (Auto) (6489-6057) /uL Lymph # (Auto) (2337-4147) /uL [place] # (Auto) (0-900) /uL Eos # (Auto) (0-450) /uL Baso # (Auto) (0-100) /uL PT (10.1-12.7) SECONDS INR (0.9-1.3) APTT (26-36) SECONDS Sodium (137-145) mmol/L Potassium (3.4-5.1) mmol/L Chloride (98-107) mmol/L Carbon Dioxide (22-32) mmol/L BUN (9-20) mg/dL Creatinine (0.66-1.25) mg/dL Estimated GFR (>60) mL/min BUN/Creatinine Ratio (6-22) Glucose (80-110) mg/dL Calcium (8.4-10.2) mg/dL Total Bilirubin (0.2-1.3) mg/dL AST (17-59) IU/L ALT (<50) IU/L Alkaline Phosphatase (38-126) U/L Total Creatine Kinase (55-170) U/L CK-MB (CK-2) CK-MB (CK-2) Rel Index Troponin I (0.01-0.034) ng/mL Total Protein (6.3-8.2) g/dL Albumin (3.5-5.0) g/dL Globulin (1.7-4.1) g/dL Albumin/Globulin Ratio (1.0-2.8) Ethyl Alcohol ( - 10) mg/dL SARS-CoV-2 (PCR) Negative (Negative) Point of Care Testing Glucose POC [address] scan - head: Radiologist's Impression: No CT evidence acute intracranial process, results called to ED 0900 CTA - brain/neck: Radiologist's Impression: [address] [address] [address] Scan Report Signed Patient: Oneil Mays MR#: [id number] : 1950 Acct:[id number] Age/Sex: 72 / M Date of Service: 09/08/22 Loc: ED Accession Number: [id number] ?? Procedure: CT angio head and neck Ordering Provider: Camille Wagner D.O. PROCEDURE:? CT ANGIO HEAD AND NECK ? INDICATIONS:? facial droop, left weakness ? TECHNIQUE:? After the administration of intravenous contrast, 1 mm thick sections acquired from the aortic arch through the [place].? Post-contrast 4.5 mm thick sections then re-acquired from the foramen magnum to the vertex.? 3-dimensional qdnaemg-rlqvmczot-gcwmwfozyr (MIP) and/or volume rendering reformats were acquired of the central intracranial vasculature and neck separately. For radiation dose reduction, the following was used:? automated exposure control, adjustment of mA and/or kV according to patient size.? ? COMPARISON:? [facility], CT, CT ANGIO HEAD AND NECK, 05/24/2021, 19:13. ? FINDINGS:? Image quality:? Excellent.? ? BRAIN:? CSF spaces:? Ventricles are normal in size and shape.? Basal cisterns are patent.? No extra-axial fluid collections.? ? Brain:? No midline shift.? No intracranial bleeds or masses.? [place]-white matter interface appears intact.? ? Skull and face:? Calvarium and facial bones appear intact, without suspicious lesions.? Orbits appear normal.? ? Sinuses:? Sinuses and mastoids are clear.? ? HEAD CT ANGIOGRAPHY:? Anterior circulation:? Intracranial internal carotid arteries are normal in size and flow.? The flow within the paired anterior cerebral arteries is normal and symmetric.? The flow within the middle cerebral arteries is normal and symmetric.? The anterior communicating artery is seen.? No aneurysms are seen.? ? Posterior circulation:? Visualized portions of the vertebral arteries demonstrate normal caliber, and join to form a normal appearing basilar artery.? Flow within the posterior cerebral arteries is normal and symmetric.? No aneurysms are seen.? ? NECK CT ANGIOGRAPHY:? Carotid system:? The great vessels demonstrate a conventional anatomy as they arise from the aortic arch.? The origins of the common carotid arteries appear patent.? The common carotid arteries demonstrate normal caliber and courses.? The bifurcation regions are both widely patent.? The internal carotid arteries demonstrate normal calibers and courses.? Incidental note of a tight, chronic stenosis at the left external carotid artery origin due to tortuosity.? There is poststenotic dilatation. ? Posterior circulation:? The origins of the vertebral arteries both appear widely patent.? Probable stenosis at the left vertebral artery origin due to vascular tortuosity, chronic.? The more superior extracranial portions of both vertebral arteries also demonstrate normal courses and calibers.? They join to form a normal appearing basilar artery.? ? Soft tissues:? Visualized neck soft tissues demonstrate no suspicious abnormalities.? ? Bones:? No suspicious bony lesions.? Visualized cervical spine appears normally aligned.? Chronic degenerative disc and endplate changes. ? ? IMPRESSION:? ? 1. No CT evidence of intracranial arterial occlusion, significant stenosis, or aneurysm. ? 2. No significant stenosis of either carotid or vertebral artery. ? 3. Vascular tortuosity at the left vertebral artery origin and left ECA origin, possibly causing chronic stenosis.? ? Any quantitative measurements of stenosis were performed using NASCET criteria.? ? ? Dictated by: Nadege Ng M.D. on 09/08/2022 at 9:49 ? ? Approved by: Nadege Ng M.D. on 09/08/2022 at 10:02?? ECG Data Attestation: I personally reviewed and interpreted this ECG as follows: Prior ECG tracings: available for review Interpretation: Sinus rhythm rate of 78 SD 134 QRS of 92 and QTC 462. No acute ST elevation. Prior from 05/24/2021 no acute changes. MDM Narrative Medical decision making narrative: Patient case was discussed with his . She saw him at 5 she said he was walking normally but they had very minimal interaction in terms of speech. She states she then saw him again at about 830 this morning had brought down his sheets because he would had incontinence. Patient's last known normal was about 9:00 p.m. last night. Did discuss initial head CT is negative waiting for CT angio consultation with Neurology. Spoke with Dr. Garcia at [facility] Neurology: She is reviewing CT angio, she suspects possible lacunar infarct, she does recommend we try to obtain an MR brain if possible. She will call back after CT angio is reviewed. Discussed timeline of patient's symptoms and both agree not appropriate tPA candidate. Last known normal was 9:00 p.m. last night. Recontact with Dr. Garcia [facility] neurology: Reviewed CT angio she does not appreciate any chronic stenosis on imaging we did review the CT angio report from our Radiology. She recommends dual antiplatelet with loading dose of 300 mg Plavix today and then 75 mg daily times 21 days then aspirin 81 mg x 21 days. Based on patient's weight dependent on MRI report would possibly have patient at 325 mg aspirin daily after 21 days and dependent on patient's lipid panel possibly increase atorvastatin if LDL is not at goal. Spoke with Dr. Pepper hospitalist: Discussed recommendations from Neurology, Dr. Pepper accepts for admission. MRI ordered. Stroke Core Measures Exclusion Criteria TPA in CVA: Symptom Onset >3 or 4.5 Hours (LKN 2100) Discharge Plan Departure Patient Disposition: Admitted As Inpatient Clinical Impression: Acute CVA (cerebrovascular accident) Admit Date/Time: 09/08/22 10:22 Admit Provider: Rashid Pepper
[2022-09-08 09:00] LABS: Add Manual Diff / Slide Review NO; Basophils Absolute Auto 0 /uL (0-100); Basophils Percent Auto 0.6 % (0-2); Eosinophils Absolute Auto 300 /uL (0-450); Eosinophils Percent Auto 4.2 % (2-4); Hematocrit 41.9 % (41-53); Hemoglobin 14.1 g/dL (13.5-17.5); Lymphocytes Absolute Auto 2700 /uL (1100-4500); Mean Corpuscular HGB Conc 33.7 % (30-36); Mean Corpuscular Hemoglobin 31.4 PG (26-34); Mean Corpuscular Volume 93.1 fL (80-100); Monocytes Absolute Auto 700 /uL (0-900); Monocytes Percent Auto 10.7 % (3-14); Neutrophils Absolute Auto 2600 /uL (1500-7000); Neutrophils Percent Auto 41.5 % (50-75); Platelet Count 177 X10^3/uL (150-400); Red Cell Distribution Width 14.4 % (11.6-14.8); White Blood Cell Count 6.3 X10^3/uL (4.5-11.0)
[2022-09-08 09:08] LABS: INR 0.9 (0.9-1.3); Prothrombin Time 10.7 SECONDS (10.1-12.7)
[2022-09-08 09:11] LABS: PTT Partial Thromboplastin Tim 32 SECONDS (26-36)
[2022-09-08 09:13] LABS: Alanine Aminotransferase 33 IU/L (<50); Albumin 4.2 g/dL (3.5-5.0); Albumin Globulin Ratio 1.5 (1.0-2.8); Alkaline Phosphatase 92 U/L (38-126); Aspartate Aminotransferase 29 IU/L (17-59); BUN Creatinine Ratio 17.6 (6-22); Bilirubin Total 0.7 mg/dL (0.2-1.3); Blood Urea Nitrogen 18 mg/dL (9-20); Calcium 8.8 mg/dL (8.4-10.2); Carbon Dioxide 29 mmol/L (22-32); Chloride 101 mmol/L (98-107); Creatine Kinase 77 U/L (55-170); Estimated Glomerular Filt Rate > 60 mL/min (>60); Ethanol (ETOH) < 10 mg/dL; Globulin 2.8 g/dL (1.7-4.1); Glucose 109 mg/dL (80-110); HEMOLYSIS < 15 (0-50); Potassium 4.1 mmol/L (3.4-5.1); Sodium 135 mmol/L (137-145)
[2022-09-08 09:24] LABS: Troponin I < 0.012 ng/mL (0.01-0.034)
[2022-09-08] MEDS: ASPIRIN 81 MG CHEW TAB 324 MG PO (09:24)
--- NOTE | 2022-09-08 09:28 | DI.MRI.S_ITS ---
PROCEDURE: MR HEAD/BRAIN WO CON INDICATIONS: dysarthria, aphasia, left weakness TECHNIQUE: Non-contrast axial T1 spin echo, axial T2 fast spin echo, sagittal and axial FLAIR, coronal T2 fast spin echo, axial gradient echo, axial diffusion and ADC through the brain. COMPARISON: [facility], MR, MR HEAD/BRAIN WO CON, 05/25/2021, 10:27. FINDINGS: Image quality: Excellent. CSF spaces: Ventricles appear symmetric in size and shape. Basal cisterns are patent. No extra-axial fluid collections. Brain: No intracranial bleeds or mass effects. There is cerebral volume loss for age. There are minimal periventricular and deep white matter chronic small vessel ischemic changes. Brainstem appears normal. Diffusion-weighted images show no acute ischemic insults. No chronic ischemic insults. Normal intravascular flow voids are present. Skull and face: Calvarial bone marrow is normal in signal. Orbits are normal. Sinuses: Sinuses and mastoids are clear. IMPRESSION: No acute intracranial abnormality. Dictated by: Dakota Goyal M.D. on 09/08/2022 at 10:42 Approved by: Dakota Goyal M.D. on 09/08/2022 at 10:47
[2022-09-08 09:37] LABS: COVID19 -Nasal RAPID Negative (Negative)
--- NOTE | 2022-09-08 09:37 | RT ---
Responded to code stroke, pt alert, airway patent and no distres noted. pt on room air with MD at bedside
[2022-09-08] MEDS: CLOPIDOGREL 75 MG TABLET 300 MG PO (10:19)
--- NOTE | 2022-09-08 13:27 | PM.HP.1 ---
History of Present Illness History of Present Illness Date Patient Seen: 09/08/22 Time Patient Seen: 16:36 Chief complaint: code stroke Narrative: This is a 72-year-old male with acute neurological changes suggestive of TIA. He has history of hyperlipidemia, severe insomnia, peripheral neuropathy, hypothyroidism and hypertension. When he woke up this morning at 6 am he was reportedly experiencing expressive aphasia and left-sided weakness. He had felt fine during the day and the night before but had suffered from his usual insomnia, falling asleep around midnight after taking 12.5 mg of extended release zolpidem. This was the 4th day he has been on that dose. He did not experience any of these similar neurological symptoms the 1st 3 days but has felt somewhat over-sedated each morning. His usual previous dose was 15 mg of the short-acting zolpidem. His called the paramedics and they reported that his symptoms and his speaking ability improved enroute. When I see him he has had an MRI that shows no stroke and has had no signs of atrial fibrillation on telemetry. His speaking sounds normal to me although he says it still feels like his speech is unclear to him. He is moving all extremities normally. He is pending further observation on telemetry and an echocardiogram tomorrow before we might conclude that the long-acting zolpidem contributed to his symptoms or caused them? Neurology was called and suggested 21 days of 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) Obstructive sleep apnea Peripheral neuropathic pain Primary insomnia Trochanteric bursitis of left hip Surgical History H/O hernia repair (~08/2018) H/O prostatectomy (~1999) Hx of appendectomy Hx of tonsillectomy Family History Brother COPD (chronic obstructive pulmonary disease) Social History household members: spouse Smoking Status: Never smoker substance use type: does not use Meds Home Medications and Allergies Home Medications Medication Instructions Recorded Confirmed Type aspirin 81 mg chewable tablet 81 mg PO DAILY 04/14/19 09/08/22 History albuterol sulfate 90 mcg/actuation 2 puff inhalation Q6H PRN 12/26/20 09/08/22 Rx aerosol inhaler shortness of breath or wheezing #8 grams duloxetine 30 mg capsule,delayed 30 mg PO DAILY #90 caps 12/04/21 09/08/22 Rx release losartan 50 mg tablet See Rx Instructions .Route 05/29/22 09/08/22 Rx .COMPLEX #90 tabs gabapentin 400 mg capsule 400 mg PO TID #270 caps 06/04/22 09/08/22 Rx hydroxyzine HCl 25 mg tablet See Rx Instructions PO BEDTIME #90 06/04/22 09/08/22 Rx tabs atorvastatin 20 mg tablet 20 mg PO BEDTIME 06/18/22 09/08/22 History levothyroxine 25 mcg tablet See Rx Instructions .Route 06/19/22 09/08/22 Rx .COMPLEX #90 tabs sildenafil (pulm.hypertension) 20 See Rx Instructions .Route 08/02/22 09/08/22 Rx mg tablet .COMPLEX #14 tabs duloxetine 20 mg capsule,delayed See Rx Instructions .Route 08/14/22 09/08/22 Rx release .COMPLEX #180 caps zolpidem 12.5 mg tablet,extended 12.5 mg PO BEDTIME PRN insomnia 09/03/22 09/08/22 Rx release,multiphase #30 tabs Allergies Allergy/AdvReac Type Severity Reaction Status Date / Time No Known Drug Allergies Allergy Verified 09/03/22 12:47 Review of Systems Review of Systems Narrative: Positive for anxiety, peripheral neuropathy, expressive aphasia and left-sided weakness. Negative for fevers, chills, sweats, nausea, vomiting, abdominal pain, chest pain, shortness breast, coughing, bleeding, dysuria, headaches, seizures, sore throat, new allergies Exam Vital Signs (past 8 hours): - 09/08/22 08:57 09/08/22 09:10 09/08/22 09:30 Temperature 97.7 F Pulse Rate 81 77 Respiratory Rate 16 12 Blood Pressure 156/103 H 162/94 H Pulse Oximetry 97 96 Oxygen Delivery Method Room Air 09/08/22 09:35 09/08/22 09:35 09/08/22 09:40 Temperature Pulse Rate 79 80 Respiratory Rate 11 L 13 Blood Pressure 130/87 Pulse Oximetry 95 95 Oxygen Delivery Method 09/08/22 09:40 09/08/22 09:45 09/08/22 09:45 Temperature Pulse Rate 78 Respiratory Rate 11 L Blood Pressure 155/105 H 152/92 H Pulse Oximetry 95 Oxygen Delivery Method 09/08/22 09:51 09/08/22 09:51 09/08/22 09:55 Temperature Pulse Rate 78 Respiratory Rate 18 Blood Pressure 152/110 H 151/110 H Pulse Oximetry 96 Oxygen Delivery Method 09/08/22 09:55 09/08/22 10:00 09/08/22 10:00 Temperature Pulse Rate 77 78 Respiratory Rate 11 L 11 L Blood Pressure 150/108 H Pulse Oximetry 96 96 Oxygen Delivery Method 09/08/22 10:05 09/08/22 10:05 09/08/22 10:11 Temperature Pulse Rate 78 74 Respiratory Rate 10 L 11 L Blood Pressure 151/101 H Pulse Oximetry 95 96 Oxygen Delivery Method 09/08/22 10:11 09/08/22 10:15 09/08/22 10:15 Temperature Pulse Rate 74 Respiratory Rate 12 Blood Pressure 157/93 H 163/95 H Pulse Oximetry 96 Oxygen Delivery Method 09/08/22 10:21 09/08/22 10:21 09/08/22 10:25 Temperature Pulse Rate 69 Respiratory Rate 11 L Blood Pressure 150/74 H 155/99 H Pulse Oximetry 96 Oxygen Delivery Method 09/08/22 10:25 09/08/22 10:30 09/08/22 10:30 Temperature Pulse Rate 69 73 Respiratory Rate 11 L 11 L Blood Pressure 169/105 H Pulse Oximetry 96 96 Oxygen Delivery Method 09/08/22 10:35 09/08/22 10:35 09/08/22 10:40 Temperature Pulse Rate 71 71 Respiratory Rate 11 L 12 Blood Pressure 150/92 H Pulse Oximetry 96 96 Oxygen Delivery Method 09/08/22 10:40 09/08/22 10:46 09/08/22 10:46 Temperature Pulse Rate 79 Respiratory Rate 28 H Blood Pressure 163/84 H 145/77 H Pulse Oximetry 91 Oxygen Delivery Method 09/08/22 11:21 09/08/22 11:23 09/08/22 11:23 Temperature Pulse Rate 81 77 Respiratory Rate 17 Blood Pressure 160/84 H Pulse Oximetry 85 L 97 Oxygen Delivery Method 09/08/22 11:25 09/08/22 11:25 09/08/22 11:30 Temperature Pulse Rate 64 Respiratory Rate 9 L Blood Pressure 160/94 H 169/95 H Pulse Oximetry 99 Oxygen Delivery Method 09/08/22 11:30 09/08/22 11:39 09/08/22 11:39 Temperature Pulse Rate 70 69 Respiratory Rate 11 L 11 L Blood Pressure 176/101 H Pulse Oximetry 97 97 Oxygen Delivery Method 09/08/22 11:40 09/08/22 11:40 09/08/22 11:45 Temperature Pulse Rate 69 69 Respiratory Rate 11 L 10 L Blood Pressure 157/91 H Pulse Oximetry 97 97 Oxygen Delivery Method 09/08/22 11:45 09/08/22 11:50 09/08/22 11:50 Temperature Pulse Rate 70 Respiratory Rate 13 Blood Pressure 157/93 H 157/95 H Pulse Oximetry 98 Oxygen Delivery Method 09/08/22 11:55 09/08/22 11:55 09/08/22 12:00 Temperature Pulse Rate 67 Respiratory Rate 11 L Blood Pressure 158/103 H 146/93 H Pulse Oximetry 98 Oxygen Delivery Method 09/08/22 12:00 09/08/22 12:06 09/08/22 12:06 Temperature Pulse Rate 68 71 Respiratory Rate 17 13 Blood Pressure 130/77 Pulse Oximetry 97 97 Oxygen Delivery Method 09/08/22 12:11 09/08/22 12:11 09/08/22 12:15 Temperature Pulse Rate 70 Respiratory Rate 19 Blood Pressure 160/87 H 156/89 H Pulse Oximetry 98 Oxygen Delivery Method 09/08/22 12:15 09/08/22 12:20 09/08/22 12:20 Temperature Pulse Rate 67 72 Respiratory Rate 18 15 Blood Pressure 150/92 H Pulse Oximetry 98 96 Oxygen Delivery Method 09/08/22 12:25 09/08/22 12:25 09/08/22 12:30 Temperature Pulse Rate 73 Respiratory Rate 18 Blood Pressure 158/94 H 154/81 H Pulse Oximetry 97 Oxygen Delivery Method 09/08/22 12:30 09/08/22 12:35 09/08/22 12:35 Temperature Pulse Rate 71 73 Respiratory Rate 11 L 14 Blood Pressure 148/89 H Pulse Oximetry 97 97 Oxygen Delivery Method 09/08/22 12:40 09/08/22 12:40 09/08/22 12:45 Temperature Pulse Rate 72 76 Respiratory Rate 14 15 Blood Pressure 145/91 H Pulse Oximetry 96 96 Oxygen Delivery Method 09/08/22 12:45 09/08/22 12:50 09/08/22 12:50 Temperature Pulse Rate 79 Respiratory Rate 23 Blood Pressure 153/99 H 144/76 H Pulse Oximetry 98 Oxygen Delivery Method 09/08/22 12:55 09/08/22 12:55 09/08/22 13:00 Temperature Pulse Rate 73 Respiratory Rate 22 Blood Pressure 150/89 H 148/98 H Pulse Oximetry 99 Oxygen Delivery Method 09/08/22 13:00 Temperature Pulse Rate 76 Respiratory Rate 17 Blood Pressure Pulse Oximetry 98 Oxygen Delivery Method Oxygen Delivery Method Room Air Narrative Exam Narrative: Alert and oriented x3. No apparent distress. No apparent aphasia. Speech is clear although somewhat long in processing. Pupils are equally round and reactive to light and accommodation. Extraocular muscles are intact Sclerae are pink and nonicteric Throat looks normal No lymph nodes are felt head, neck, supraclavicular area. JVD is less 6 cm No carotid bruits are heard There is no thyromegaly Heart is regular rate and rhythm without murmur Lungs are clear to auscultation bilaterally Abdomen is soft, bowel sounds positive, nontender, no organomegaly Extremities have no ankle edema Skin has no rash or jaundice Neurological exam: Speech is clear and fluid although his processing and memory recall are slow. Cranial nerves 2-12 test intact There is no tremor Reflexes are normal Motor function is 5/5 in all extremities Gait and balance are not tested Babinski's are equivocal but seem to be upgoing on the right and downgoing on the left. Objective Imaging CT scan - head: Radiologist's impression: CTA Brain IMPRESSION:? ? 1. No CT evidence of intracranial arterial occlusion, significant stenosis, or aneurysm. ? 2. No significant stenosis of either carotid or vertebral artery. ? 3. Vascular tortuosity at the left vertebral artery origin and left ECA origin, possibly causing chronic stenosis.? MRI - head: Radiologist's impression: PROCEDURE:? MR HEAD/BRAIN WO CON ? INDICATIONS:? dysarthria, aphasia, left weakness ? TECHNIQUE:? Non-contrast axial T1 spin echo, axial T2 fast spin echo, sagittal and axial FLAIR, coronal T2 fast spin echo, axial gradient echo, axial diffusion and ADC through the brain.? ? COMPARISON:? [facility], MR, MR HEAD/BRAIN WO CON, 05/25/2021, 10:27. ? FINDINGS:? Image quality:? Excellent.? ? CSF spaces:? Ventricles appear symmetric in size and shape.? Basal cisterns are patent.? No extra-axial fluid collections.? ? Brain:? No intracranial bleeds or mass effects.? There is cerebral volume loss for age.? There are minimal periventricular and deep white matter chronic small vessel ischemic changes.? Brainstem appears normal.? Diffusion-weighted images show no acute ischemic insults.? No chronic ischemic insults.? Normal intravascular flow voids are present.? ? Skull and face:? Calvarial bone marrow is normal in signal.? Orbits are normal.? ? Sinuses:? Sinuses and mastoids are clear.? ? IMPRESSION:? No acute intracranial abnormality. ? ? Dictated by: Dakota Goyal M.D. on 09/08/2022 at 10:42 ? ? Approved by: Dakota Goyal M.D. on 09/08/2022 at 10:47 Labs 09/08/22 08:53 09/08/22 08:53 Labs: Laboratory Results - last 24 hr 09/08/22 09/08/22 09/08/22 08:53 08:53 08:53 WBC 6.3 RBC 4.50 Hgb 14.1 Hct 41.9 MCV 93.1 MCH 31.4 MCHC 33.7 RDW 14.4 Plt Count 177 Neut % (Auto) 41.5 L Lymph % (Auto) 43.0 H [place] % (Auto) 10.7 Eos % (Auto) 4.2 H Baso % (Auto) 0.6 Neut # (Auto) 2600 Lymph # (Auto) 2700 [place] # (Auto) 700 Eos # (Auto) 300 Baso # (Auto) 0 PT 10.7 INR 0.9 APTT 32 Sodium 135 L Potassium 4.1 Chloride 101 Carbon Dioxide 29 BUN 18 Creatinine 1.02 Estimated GFR > 60 BUN/Creatinine Ratio 17.6 Glucose 109 Calcium 8.8 Total Bilirubin 0.7 AST 29 ALT 33 Alkaline Phosphatase 92 Total Creatine Kinase 77 CK-MB (CK-2) TNP CK-MB (CK-2) Rel Index TNP Troponin I < 0.012 Total Protein 7.0 Albumin 4.2 Globulin 2.8 Albumin/Globulin Ratio 1.5 Ethyl Alcohol < 10 SARS-CoV-2 (PCR) 09/08/22 09:19 WBC RBC Hgb Hct MCV MCH MCHC RDW Plt Count Neut % (Auto) Lymph % (Auto) [place] % (Auto) Eos % (Auto) Baso % (Auto) Neut # (Auto) Lymph # (Auto) [place] # (Auto) Eos # (Auto) Baso # (Auto) PT INR APTT Sodium Potassium Chloride Carbon Dioxide BUN Creatinine Estimated GFR BUN/Creatinine Ratio Glucose Calcium Total Bilirubin AST ALT Alkaline Phosphatase Total Creatine Kinase CK-MB (CK-2) CK-MB (CK-2) Rel Index Troponin I Total Protein Albumin Globulin Albumin/Globulin Ratio Ethyl Alcohol SARS-CoV-2 (PCR) Negative Assessment & Plan Assessment & Plan narrative: 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 Symptoms have now resolved and he is admitted for rule out TIA. His new long-acting zolpidem is suspicious for contributing or causing these symptoms. Acute neurological changes/TIA, present on admission. Active. -observation on telemetry with echocardiogram tomorrow and holding all zolpidem tonight. -CTA shows no carotid disease. Brain MRI shows no stroke. Telemetry shows no atrial fibrillation. -Check EKG -DAPT with Aspirin and Plavix per neurology recommendations -outpatient Neurology followup Hypertension, present on admission. Active -Continue Losartan Severe insomnia, present on admission. Active. -hold all sedatives tonight to clarify any TIA symptoms that might occur. -advised to avoid long-acting zolpidem in the future. Severe peripheral neuropathy, present on admission. Active. -continue gabapentin and duloxetine. Hyperlipidemia, present admission. Chronic. -continue atorvastatin Hypothyroidism, present on admission. Chronic. -continue levothyroxine Enoxaparin for DVT prevention.
[2022-09-08] MEDS: GABAPENTIN 400 MG CAPSULE PO ×2 (14:37→20:01)
[2022-09-08] MEDS: LOSARTAN 50 MG TABLET PO (14:37)
--- NOTE | 2022-09-08 15:04 | PT-IP ANOTE ---
PT eval received and EMR reviewed. pt here in the hospital to r/o CVA. checked on pt and pt refused PT. stated that he does not need PT. asked pt if he wants PT to check back tomorrow and agreed. will f/u.
[2022-09-08] MEDS: DULOXETINE 30 MG CAPSULE PO (17:45)
[2022-09-08 20:00] LABS: Appearance Urine UA CLEAR; Bilirubin Urine UA NEGATIVE (NEGATIVE); Color Urine UA YELLOW; Glucose Urine UA NEGATIVE (Negative); Ketones Urine UA NEGATIVE (NEGATIVE); Leukocyte Esterase Urine UA NEGATIVE (NEGATIVE); Nitrite Urine UA NEGATIVE (Negative); Occult Blood Urine UA NEGATIVE (Negative); Protein Urine UA NEGATIVE (Negative)
[2022-09-08] MEDS: ATORVASTATIN 20 MG TABLET 80 MG PO (20:01)
[2022-09-08 20:16] LABS: Bacteria Urine None Seen; Culture Indicated Urine Cult Not Indicated; RBC Urine None Seen (0-5/HPF); Squamous Epithelial Cell Urine 0-1 /HPF (0-5/HPF); WBC Urine None Seen (0-5/HPF)
[2022-09-09 02:21] VITALS: BP 161/87; PULSE 68; RESP 18; TEMP 36.2; O2SAT 98
[2022-09-09] MEDS: LEVOTHYROXINE 25 MCG TABLET PO (05:49)
[2022-09-09 06:00] VITALS: BP 139/67; PULSE 67; RESP 18; TEMP 36.1; O2SAT 98
--- NOTE | 2022-09-09 07:50 | PT.IIE ---
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) Obstructive sleep apnea Peripheral neuropathic pain Primary insomnia Trochanteric bursitis of left hip Physical Therapy Inpatient Evaluation/Re-Eval M1 PT/OT-IP Prior Functional Status Start: 09/09/22 07:16 Freq: NEEDED Status: Active Protocol: Document 09/09/22 07:35 MB (Rec: 09/09/22 07:50 MB [id number]) Medical Review Prior Functional Status Medical History Reviewed Yes Diet/Fluid Consistency Regular Communication No trouble communicating Mobility and Gait I, pt denies falls Activities of Daily Living and IADL's I Prior Functional Level (Other details) I Social History Household Members spouse Living Arrangements House Number of Floors (Floors) Two Floors Number of Stairs To Enter/Railing? 16 steps inside, one step to enter Home Environment Standard Height Toilet Employment Status Retired M2 PT-IP Current Condition Start: 09/09/22 07:16 Freq: NEEDED Status: Active Protocol: Document 09/09/22 07:35 MB (Rec: 09/09/22 07:50 MB [id number]) Physical Therapy Current Condition Current Condition Evaluation Date 09/09/22 Treatment Diagnosis R/o CVA, negative diagnostics Onset Date 1 day M3 PT-IP Subjective Start: 09/09/22 07:16 Freq: NEEDED Status: Active Protocol: Document 09/09/22 07:35 MB (Rec: 09/09/22 07:50 MB [id number]) Subjective Physical Therapy Visit Type Type Initial Evaluation Visit Start Time 07:15 Visit Stop Time 07:35 Total Visit Minutes 20 Number of TRANSIT MAN Visits 0 Physical Therapy Visit Comments Patient Comments I need to go to the [place]. Patient Goals To go home Therapy Pain Assessment Pain When Pain Assessed At Rest Pain Present Pain Present Pain Reported Location Bilateral Foot Intensity 2 Scale Used Anastacia (Faces) Description Sharp,Shooting M4 PT-IP Mobility and Gait Start: 09/09/22 07:16 Freq: NEEDED Status: Active Protocol: Document 09/09/22 07:35 MB (Rec: 09/09/22 07:50 MB [id number]) PT-Bed Mobility Assessment Rolling Type of Rolling Roll to Left Level of Assist Independent Supine to Sit Supine to Sit Independent PT-Transfer Assessment Sit to and From Stand Sit to and from Stand Independent Equipment Transfer Assistive Device None Gait Assessment Gait Gait Assistance Required: Independent Distance (Feet) 200 Able to Maintain Weight Bearing Status Yes During Gait Assistive Devices Assistive Device None Gait Deviations General Gait Pattern Within Normal Limits Comments Gait Comments Forward gait, retropulsion, 180 deg turn right, con't gait , 180 deg turn left, con't gait, all I Stair Climbing Assessment Evaluation Level of Assist On Stairs Independent Devices Stair Climbing Assistive Devices Left Railing,Right Railing Technique/Endurance Stair Climbing Direction Ascend and Descend Stair Climbing Technique Step Over Step Number of Steps Climbed 3 Query Text: Stair Climbing Set # Repetitions (reps) 2 PT-Balance Assessment Sitting Balance and Reactions Static Sitting Balance Ability Normal Dynamic Sitting Balance Ability Normal Standing Balance and Reactions Static Standing Balance Ability Normal Dynamic Standing Balance Ability Good M5 PT-IP Objective Assessments Start: 09/09/22 07:16 Freq: NEEDED Status: Active Protocol: Document 09/09/22 07:35 MB (Rec: 09/09/22 07:50 MB [id number]) Orientation Orientation/Cognition Level of Alertness Alert Orientation Name,Age,Birthday,Month,Date, Year,Day of Week,Place, Situation Language Function Ability No Deficits Noted Safety Awareness Understands Safety Issues Memory Description No Deficits Noted Gross Range of Motion Upper Extremity ROM Assessment Within Functional Limits Lower Extremity ROM Assessment Within Functional Limits Strength Upper Extremity Strength Assessment Within Functional Limits Lower Extremity Strength Assessment Within Functional Limits Sensation Assessment Comments Sensation Comments Pain complaints and sensation issues are related to pt reports of chronic neuropathy in legs that keeps him awake Muscle Tone Muscle Tone WNL Yes M6 PT-IP Treatment Start: 09/09/22 07:16 Freq: NEEDED Status: Active Protocol: Document 09/09/22 07:35 MB (Rec: 09/09/22 07:50 MB [id number]) Physical Therapy Treatment Education Education Provided Safety M7 PT-IP Assessment and Plan Start: 09/09/22 07:16 Freq: NEEDED Status: Active Protocol: Document 09/09/22 07:35 MB (Rec: 09/09/22 07:50 MB [id number]) PT Summary Assessment and Plan Potential Rehabilitation Potential Good Status of Condition at Evaluation Evolving Summary Impairments Pain Progress Towards Goals Goals Met Assessment Summary Pt is a pleasant gentleman whose symptoms have resolved. He has had stroke-like symptoms twice in the past year and so PT ed pt on risk factors for stroke and con't follow-up with doctor and doctor recommendations. He sees a neurologist for B LE neuropathy already. He is I with bed mobility, transfers, using the rest room, gait, steps and dynamic balance with gait. No acute PT needed. Frequency of Treatment Frequency Of Treatment Discharge Recommendations To Nursing Amount of Assist Needed Standby Assistance Discharge Recommendations PT Discharge Recommendations Home Transportation Needs at Discharge Private Vehicle
[2022-09-09 08:08] VITALS: BP 139/67
[2022-09-09] MEDS: ASPIRIN 81 MG CHEW TAB PO (08:08)
[2022-09-09] MEDS: LOSARTAN 50 MG TABLET PO (08:08)
[2022-09-09] MEDS: DULOXETINE 20 MG CAPSULE 40 MG PO (08:08)
[2022-09-09] MEDS: CLOPIDOGREL 75 MG TABLET PO (08:09)
[2022-09-09] MEDS: ENOXAPARIN 40 MG/0.4 ML SYRINGE SUBCUT (08:09)
[2022-09-09] MEDS: GABAPENTIN 400 MG CAPSULE PO ×2 (08:09→15:10)
[2022-09-09 08:44] VITALS: BP 167/98; PULSE 67; RESP 18; TEMP 35.8; O2SAT 98
--- NOTE | 2022-09-09 09:08 | CM.DANOTE ---
Initial DCP Assessment Note Pt is a 72 yo male, resident of [place], presents from home, code stroke. Thus far, imaging has been neg for CVA. Patient admitted for further monitoring on telemetry and echo. Admitting physician suspects sx might have been related to patient's dosing of his long-acting zolpidem -taken for insomnia. PCP: Colin Grace Payer: LAMINE/Tejal Reviewed chart; pt lives with spouse, suffers from some LE neuropathy although able to complete all ADLs indp. Patient seen by PT and discharged, back to functional baseline- Indp w/all exercises and ambulation in the room Pending further testing today, anticipate patient will return home w/spouse to assist as needed. Close outpatient follow up recommended No barriers identified at this time to safe return home w/family, CM team following in case any DC needs or concerns arise KIMMY Nicholas Discharge Planning/Care Management CM Discharge Assessment Start: 09/09/22 09:06 Freq: Status: Active Protocol: Document 09/09/22 09:07 ROSAURA (Rec: 09/09/22 09:08 ROSAURA [id number]) Discharge Planning Assessment Assigned Track Man KIMMY Luke DPOA/Assigned Designee Name Dianne Mays, spouse Contact Information [phone] Advance Directives? Yes Advance Directives on File No: Patient unsure. History Provided By Patient,Significant Other, Medical Record Prior Living Arrangements House Household Members spouse Type of transporation used prior to Drives own vehicle admit Independent with ADL's Yes Is patient alert and oriented? Yes Needs Assistance With Home Chores / Shopping Barriers to Discharge No Discharge Plan Home Transportation Arrangement Spouse Referrals Initiated None needed
[2022-09-09] MEDS: ACETAMINOPHEN 325 MG TABLET 650 MG PO (12:03)
--- NOTE | 2022-09-09 12:59 | P.PN_ITS ---
Exam Vital Signs (past 8 hours): - 09/09/22 06:00 09/09/22 08:08 09/09/22 08:44 Temperature 96.9 F L 96.4 F L Pulse Rate 67 67 Respiratory Rate 18 18 Blood Pressure 139/67 139/67 167/98 H Pulse Oximetry 98 98 Oxygen Flow Rate 0 0 Oxygen Delivery Method Room Air Oxygen Flow Rate 0 Objective Labs 09/08/22 08:53 09/08/22 08:53 Labs: Laboratory Results - last 24 hr 09/08/22 19:25 Urine Color Yellow Urine Appearance Clear Urine pH 6.0 Ur Specific [place] 1.010 Urine Protein Negative Urine Glucose (UA) Negative Urine Ketones Negative Urine Occult Blood Negative Urine Nitrate Negative Urine Bilirubin Negative Urine Urobilinogen 1.0 Ur Leukocyte Esterase Negative Urine RBC None seen Urine WBC None seen Ur Squamous Epith Cells 0-1 /hpf Urine Bacteria None seen Ur Culture Indicated? 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) Obstructive sleep apnea Peripheral neuropathic pain Primary insomnia Trochanteric bursitis of left hip Surgical History H/O hernia repair (~08/2018) H/O prostatectomy (~1999) Hx of appendectomy Hx of tonsillectomy Family History Brother COPD (chronic obstructive pulmonary disease) Social History household members: spouse Smoking Status: Former smoker alcohol intake: current substance use type: does not use Assessment & Plan Assessment & Plan narrative: 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 S ymptoms have now resolved and he is admitted for rule out TIA.? His new long- acting zolpidem is suspicious for contributing or causing these symptoms. Acute neurological changes/TIA, present on admission.? Active.? -observation on telemetry with echocardiogram tomorrow and holding all zolpidem tonight.? -CTA shows no carotid disease.? Brain MRI shows no stroke.? Telemetry shows no atrial fibrillation.? -Check EKG -DAPT with Aspirin and Plavix per neurology recommendations -outpatient Neurology followup Hypertension, present on admission. Active -Continue Losartan Severe insomnia, present on admission.? Active.? -hold all sedatives tonight to clarify any TIA symptoms that might occur. -advised to avoid long-acting zolpidem in the future. Severe peripheral neuropathy, present on admission.? Active.? -continue gabapentin and duloxetine. Hyperlipidemia, present admission.? Chronic.? -continue atorvastatin Hypothyroidism, present on admission.? Chronic.? -continue levothyroxine Enoxaparin for DVT prevention.
[2022-09-09 13:55] VITALS: BP 135/78; PULSE 81; RESP 18; TEMP 36.3; O2SAT 97
[2022-09-09 15:05] LABS: Ur Creatinine Normal (Normal); Ur Specific Gravity Normal (Normal); Urine pH Normal (Normal)
[2022-09-09 15:06] LABS: UR Morphine/Opiate cutoff 300 Positive (Negative); Urine Cocaine Negative (Negative); Urine Tetrahydrocannabinol Negative (Negative)
[2022-09-09 15:07] LABS: Urine Amphetamines Negative (Negative); Urine Barbiturates Negative (Negative); Urine Benzodiazepines Negative (Negative); Urine MDMA Negative (Negative); Urine Methadone Negative (Negative); Urine Methamphetamines Negative (Negative); Urine Oxycodone Positive (Negative); Urine Phencyclidine Negative (Negative); Urine Tricyclic Antidepressant Negative (Negative)
[2022-09-09 16:36] VITALS: BP 130/77; PULSE 66; RESP 16; TEMP 35.7; O2SAT 96
--- NOTE | 2022-09-09 16:41 | P.DS_ITS ---
History of Present Illness History of Present Illness Date Patient Seen: 09/09/22 Time Patient Seen: 16:58 Chief complaint: code stroke Narrative: This is a 72-year-old male with acute neurological changes suggestive of TIA. He has history of hyperlipidemia, severe insomnia, peripheral neuropathy, hypothyroidism and hypertension. When he woke up this morning at 6 am he was reportedly experiencing expressive aphasia and left-sided weakness. He had felt fine during the day and the night before but had suffered from his usual insomnia, falling asleep around midnight after taking 12.5 mg of extended release zolpidem. This was the 4th day he has been on that dose. He did not experience any of these similar neurological symptoms the 1st 3 days but has felt somewhat over-sedated each morning. His usual previous dose was 15 mg of the short-acting zolpidem. His called the paramedics and they reported that his symptoms and his speaking ability improved enroute. When I see him he has had an MRI that shows no stroke and has had no signs of atrial fibrillation on telemetry. His speaking sounds normal to me although he says it still feels like his speech is unclear to him. He is moving all extremities normally. He is pending further observation on telemetry and an echocardiogram tomorrow before we might conclude that the long-acting zolpidem contributed to his symptoms or caused them? Neurology was called and suggested 21 days of DAPT. Discharge Providers Provider Date of admission: 09/08/22 10:22 Discharge Date: 09/09/22 Primary care physician: Colin Grace MD Consults: 09/08/22 13:35 Consult to Occupational Therapy Evaluate & Treat Comment: Physician Instructions: Evaluate and treat Consult to Physical Therapy Evaluate & Treat Comment: Physician Instructions: Evaluate and Treat 09/08/22 13:58 Consult to Data Analysis Assistant Routine Comment: Discharge provider: Jody Ponce MD Summary Hospital Course Discharge Diagnosis: The patient reports that he did not sleep at all last night, watching TV, reading books. This is typical for his severe insomnia. He is had no recurrence of his garbled speech, confusion and left arm weakness. Hospital Course: Acute neurological changes/TIA -he was observed for 24 hours without significant arrhythmia or recurrence of neurological symptoms. The long-acting zolpidem was held. -CTA shows no carotid disease.? Brain MRI shows no stroke.? Telemetry shows no atrial fibrillation.? -Normal EKG -DAPT with Aspirin and Plavix per neurology recommendations -outpatient Neurology followup -echocardiogram with Valsalva producing visible PFO on bubble study -discussed possible referral to Dr. Thomas in [place] who does PFO consults and closures Hypertension, present on admission. Active -Continue Losartan Severe insomnia, present on admission.? Active.? -Held Ambien SR due to concern about reaction -advised to avoid long-acting zolpidem in the future. -resumed short-acting 15 mg Ambien at night on discharge. Severe peripheral neuropathy, present on admission.? Active.? -continue gabapentin and duloxetine. Hyperlipidemia, present admission.? Chronic.? -continue atorvastatin Hypothyroidism, present on admission.? Chronic.? -continue levothyroxine Status at Discharge Cognitive/behavioral status at discharge: oriented and at baseline, oriented Functional status at discharge: independent ambulation Overall status at discharge: patient is back to baseline Exam Vital Signs (past 8 hours): - 09/09/22 08:44 09/09/22 13:55 09/09/22 16:36 Temperature 96.4 F L 97.3 F L 96.2 F L Pulse Rate 67 81 66 Respiratory Rate 18 18 16 Blood Pressure 167/98 H 135/78 130/77 Pulse Oximetry 98 97 96 Oxygen Flow Rate 0 0 0 Oxygen Delivery Method Room Air Oxygen Flow Rate 0 Narrative Exam Narrative: Heart is regular rate and rhythm without murmur Lungs are clear to auscultation bilaterally Extremities have no ankle edema Oriented x3 and in no apparent distress Motor function is 5/5 throughout There is no dysmetria. Finger-nose pointing is normal. Cranial nerves 2-12 test intact There is no tremor Babinski's are equivocal bilaterally as the patient is quite hypersensitive due to his neuropathy. No sensation asymmetry. Objective ECG Impression: Sinus rhythm, normal EKG. Imaging Echo: My impression: Patient is anxious to go home, the written report is still pending. The telephone report from Dr. Marin is that his echocardiogram is normal except for the bubble study showing a PFO with Valsalva. Labs 09/08/22 08:53 09/08/22 08:53 Labs: Laboratory Results - last 24 hr 09/08/22 09/08/22 19:25 19:25 Urine Color Yellow Urine Appearance Clear Urine pH 6.0 Ur Specific [place] 1.010 Urine Protein Negative Urine Glucose (UA) Negative Urine Ketones Negative Urine Occult Blood Negative Urine Nitrate Negative Urine Bilirubin Negative Urine Urobilinogen 1.0 Ur Leukocyte Esterase Negative Urine RBC None seen Urine WBC None seen Ur Squamous Epith Cells 0-1 /hpf Urine Bacteria None seen Ur Culture Indicated? Cult not indicated U Opiates 300ng/mL cut Positive H Ur Oxycodone Screen Positive H Urine Methadone Screen Negative Ur Barbiturates Screen Negative U Tricyclic Antidepress Negative Ur Phencyclidine Scrn Negative Ur Amphetamines Screen Negative U Methamphetamines Scrn Negative Ur MDMA Scrn (Ecstasy) Negative U Benzodiazepines Scrn Negative Urine Cocaine Screen Negative U Marijuana (THC) Screen Negative PFSH Medical History Chronic low back pain Easy bruising Erectile dysfunction Fatigue H/O nephrolithotomy with removal of calculi (~1970) Hyperlipidemia Hypnotic dependence with current use Hypothyroidism 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) Obstructive sleep apnea Peripheral neuropathic pain Primary insomnia Trochanteric bursitis of left hip Surgical History H/O hernia repair (~08/2018) H/O prostatectomy (~1999) Hx of appendectomy Hx of tonsillectomy Family History Brother COPD (chronic obstructive pulmonary disease) Social History household members: spouse Smoking Status: Former smoker alcohol intake: current substance use type: does not use Discharge Assessment & Plan Assessment and Plan Plan of Treatment: Follow-up with primary care Follow up with Neurology Add Plavix Resume short-acting Ambien and avoid long-acting Ambien Follow-up with cardiology for PFO consultation Discharge Plan Discharge Plan Patient Disposition: Home Discharge orders & Medications Prescriptions: New clopidogrel 75 mg Tablet 75 mg PO DAILY Qty: 30 0RF zolpidem 10 mg tablet 15 mg PO BEDTIME Qty: 45 0RF Continued losartan 50 mg tablet See Rx Instructions .ROUTE .COMPLEX Qty: 90 3RF Dose Instruction: TAKE ONE TABLET BY MOUTH ONE TIME DAILY Patient Comments: I take it opposite of the atorvastatin in terms of morning/bedtime Rx Instructions: TAKE ONE TABLET BY MOUTH ONE TIME DAILY levothyroxine 25 mcg tablet See Rx Instructions .ROUTE .COMPLEX Qty: 90 0RF Dose Instruction: TAKE ONE TABLET BY MOUTH ONE TIME DAILY Patient Comments: I don't remember when I take this Rx Instructions: TAKE ONE TABLET BY MOUTH ONE TIME DAILY sildenafil (pulm.hypertension) 20 mg tablet See Rx Instructions .ROUTE .COMPLEX Qty: 14 0RF Dose Instruction: Take one tablet by mouth 30 minutes to 4 hours prior to sexual activity. Max daily dose of 5 tablets. Rx Instructions: Take one tablet by mouth 30 minutes to 4 hours prior to sexual activity. Max daily dose of 5 tablets. duloxetine 20 mg capsule,delayed release(DR/EC) See Rx Instructions .ROUTE .COMPLEX Qty: 180 0RF Dose Instruction: TAKE TWO CAPSULES BY MOUTH DAILY Rx Instructions: TAKE TWO CAPSULES BY MOUTH DAILY duloxetine 30 mg capsule,delayed release(DR/EC) 30 mg PO DAILY Qty: 90 3RF Rx Instructions: 30 mg in pm gabapentin 400 mg capsule 400 mg PO TID Qty: 270 1RF hydroxyzine HCl 25 mg tablet See Rx Instructions PO BEDTIME Qty: 90 3RF Rx Instructions: t1-2 tabs orally bedtime; albuterol sulfate 90 mcg/actuation HFA aerosol inhaler 2 puff INHALATION Q6H PRN (Reason: shortness of breath or wheezing) Qty: 8 3RF aspirin 81 mg Tablet,Chewable 81 mg PO DAILY atorvastatin 20 mg Tablet 20 mg PO BEDTIME Discontinued zolpidem 12.5 mg tablet,ext release multiphase 12.5 mg PO BEDTIME PRN (Reason: insomnia) Qty: 30 0RF Patient Comments: We talked about changing it to the long-acting and it's not working. I'd like to go back to the 15 mg at bedtime. Follow up/Referrals: Colin Grace MD [Primary Care Provider] - Diet/Activity/Treatments Diet: Regular Visit Report/Discharge Packet Instructions: DI for Transient Ischemic Attack Stand Alone Forms: Patient Portal/API, Stroke Signs & Symptoms Discharge Data Primary Care Provider: Colin Grace
== END 2022-09-09 17:26 | disposition home or self-care (01) ==
LOC: ED 10:21 → AC 11:56
PROVIDERS: Admitting Provider Student in an Organized Health Care Education/Training Program; Emergency Provider Emergency Medicine; PCP Family Medicine; Referring Provider Emergency Medicine; Visit Provider Student in an Organized Health Care Education/Training Program
DX: G45.9 Transient cerebral ischemic attack, unspecified (principal); E03.9 Hypothyroidism, unspecified; I10 Essential (primary) hypertension; E78.5 Hyperlipidemia, unspecified; G62.9 Polyneuropathy, unspecified; G47.00 Insomnia, unspecified; R29.704 NIHSS score 4
CPT/HCPCS: 36415; 70450; 70496; 70498; 70551; 80053; 80305; 80320; 81001; 82550; 82962; 84484; 85025; 85610; 85730; 87635; 93005; 93306; 96372; 97161; 99285; 99291; 99292; C9803; G0378; Q3014; J1650; Q9967

== ENCOUNTER 2023-02-09 08:46 | Emergency (ER) | payer MEDICARE, OTHER, SELFPAY ==
[2022-09-08 13:29] VITALS: BMI 31.8
[2023-02-09 08:57] VITALS: BP 149/83; PULSE 81; RESP 16; TEMP 36.5; O2SAT 95; BMI 31.9
[2023-02-09 09:20] LABS: Appearance Urine UA CLEAR; Bilirubin Urine UA NEGATIVE (NEGATIVE); Color Urine UA YELLOW; Glucose Urine UA NEGATIVE (Negative); Ketones Urine UA NEGATIVE (NEGATIVE); Leukocyte Esterase Urine UA NEGATIVE (NEGATIVE); Nitrite Urine UA NEGATIVE (Negative); Occult Blood Urine UA NEGATIVE (Negative); Protein Urine UA TRACE (Negative); Specific Gravity Urine UA 1.025 (1.000-1.035)
[2023-02-09 09:27] LABS: Bacteria Urine Occasional (0-1); RBC Urine None Seen (0-5/HPF); Squamous Epithelial Cell Urine 1-5 /HPF (0-5/HPF); WBC Urine None Seen (0-5/HPF)
[2023-02-09 09:28] LABS: Calcium Oxalate Crystals Urine Many; Culture Indicated Urine Cult Not Indicated
--- NOTE | 2023-02-09 09:31 | ED.MALEGU ---
HPI - Male Genitourinary General Chief complaint: Urogenital-Male Stated complaint: blood in Urine T-7 Time Seen by Provider: 02/09/23 09:03 Source: patient Mode of arrival: Ambulatory Limitations: no limitations History of Present Illness HPI Narrative: 72-year-old male on aspirin, Plavix with history of hypertension, dyslipidemia, prior stroke, PFO, chronic peripheral neuropathy and MGUS. Patient states he has had a history kidney stones in the past. No pain but noticed blood in his urine today. Patient states no pain, no dysuria, urgency frequency or difficulty with urination. States he noticed blood in the toilet yesterday but did not know if it had come from the stool or urine, states today he was urinating and saw bright red blood. States he has not eaten anything like beats or similar foods that would make his urine bright red. He states he has had kidney stones in the past does not have any pain similar to this. Denies any back or flank pain. He has felt bloated in his stomach. He has had a little bit of left lower abdominal pain. Patient states no fevers, no new chills. No chest pain, no shortness of breath, no nausea or vomiting. No issues with bowel movements or black or bloody stools. Patient states that it was with his urination this morning was bright red no clots. He urinated again here to give sample he states the urine appeared red in the cup but did not see it was obviously in the stream. Denies any recent surgeries. Former smoker, does drink alcohol, no recreational drugs. Related Data Home Medications Medication Instructions Recorded Confirmed aspirin 81 mg chewable tablet 81 mg PO DAILY 04/14/19 09/24/22 Previous Rx's Medication Instructions Recorded losartan 50 mg tablet See Rx Instructions .Route 05/29/22 .COMPLEX #90 tabs sildenafil (pulm.hypertension) 20 See Rx Instructions .Route 08/02/22 mg tablet .COMPLEX #14 tabs levothyroxine 25 mcg tablet See Rx Instructions .Route 09/13/22 .COMPLEX #90 tabs clopidogrel 75 mg tablet 75 mg PO DAILY #90 tabs 10/08/22 atorvastatin 20 mg tablet 20 mg PO BEDTIME #90 tabs 10/23/22 duloxetine 20 mg capsule,delayed See Rx Instructions .Route 11/08/22 release .COMPLEX #180 caps duloxetine 30 mg capsule,delayed 30 mg PO QPM #90 caps 11/16/22 release gabapentin 400 mg capsule 400 mg PO TID #270 caps 11/20/22 zolpidem 10 mg tablet 15 mg (1.5 x 10 mg) PO BEDTIME #90 12/11/22 tabs hydroxyzine HCl 25 mg tablet See Rx Instructions PO BEDTIME #90 01/29/23 tabs Allergies Allergy/AdvReac Type Severity Reaction Status Date / Time No Known Drug Allergies Allergy Verified 09/24/22 13:55 Review of Systems Review of Systems ROS Unobtainable: All systems reviewed & are unremarkable except as noted in HPI and below Patient History Medical History PFO (patent foramen ovale) Easy bruising Obstructive sleep apnea Erectile dysfunction Trochanteric bursitis of left hip Peripheral neuropathic pain Chronic low back pain Fatigue 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 H/O nephrolithotomy with removal of calculi (~1970) Hypothyroidism Hyperlipidemia Primary insomnia Surgical History H/O hernia repair (~08/2018) Hx of appendectomy Hx of tonsillectomy H/O prostatectomy (~1999) Family History Brother COPD (chronic obstructive pulmonary disease) Social History household members: spouse Smoking Status: Former smoker alcohol intake: current substance use type: does not use Smoking Status: Former smoker alcohol intake frequency: 3 or more drinks per day Alcohol type: beer Substance Use Type: does not use Exam Narrative Exam Narrative: GENERAL: Alert and oriented x three, well-appearing male in no acute distress. HEENT: Head normocephalic, atraumatic, EOMI, pupils reactive, face symmetric, moist mucous membranes NECK: Supple, full range of motion CARDIOVASCULAR: Regular rate and rhythm without murmurs, rubs or gallops. RESPIRATORY: Breath sounds equal bilaterally, no wheezes rales or rhonchi. ABDOMEN: Soft, nontender palpation. Abdomen slightly distended but soft. Normoactive bowel sounds all 4 quadrants. No guarding or rebound, rigidity, no mass : No CVA tenderness. Male: normal external examination, no penile discharge or lesions, testicles non-tender, cremasteric reflex intact, no inguinal hernias noted. No blood in the urethral meatus. No discharge. EXTREMITIES: Normal range of motion, no clubbing or edema. Neurovascularly intact NEUROLOGICAL: Cranial nerves II through XII grossly intact. Moving all extremities SKIN: Warm, dry, no petechiae, no rashes or lesions. Initial Vital Signs Initial Vital Signs: Vital Signs Temperature 97.7 F 02/09/23 08:57 Pulse Rate 81 02/09/23 08:57 Respiratory Rate 16 02/09/23 08:57 Blood Pressure 149/83 H 02/09/23 08:57 Pulse Oximetry 95 02/09/23 08:57 Oxygen Delivery Method Room Air 02/09/23 08:57 Course Orders Ordered: ED Orders 02/09/23 09:05 UA Complete [Urinalysis and Microscopic] Stat 02/09/23 10:07 US renal complete Stat 02/09/23 10:15 CBC Auto Diff [Complete Blood Count AUTO DIFF] Stat CK [Creatine Kinase] Stat CMP [Comprehensive Metabolic Panel] Stat Lipase Stat Vital Signs Vital signs: Vital Signs - 8 hr 02/09/23 11:52 Pulse Rate 86 Respiratory Rate 16 Blood Pressure 132/70 MDM - Male Genitourinary Lab Data 02/09/23 10:15 02/09/23 10:15 Labs: Lab Results 02/09/23 02/09/23 Range/Units 09:05 10:15 WBC 7.1 (4.5-11.0) X10^3/uL RBC 4.89 (4.5-5.9) X10^6/uL Hgb 15.2 (13.5-17.5) g/dL Hct 45.1 (41-53) % MCV 92.3 (80-100) fL MCH 31.1 (26-34) PG MCHC 33.7 (30-36) % RDW 14.8 (11.6-14.8) % Plt Count 189 (150-400) X10^3/uL Neut % (Auto) 65.9 (50-75) % Lymph % (Auto) 20.8 L (25-40) % [place] % (Auto) 9.5 (3-14) % Eos % (Auto) 2.7 (2-4) % Baso % (Auto) 1.1 (0-2) % Neut # (Auto) 4700 (9759-5654) /uL Lymph # (Auto) 1500 (7644-2906) /uL [place] # (Auto) 700 (0-900) /uL Eos # (Auto) 200 (0-450) /uL Baso # (Auto) 100 (0-100) /uL Sodium 133 L (137-145) mmol/L Potassium 4.6 (3.4-5.1) mmol/L Chloride 104 (98-107) mmol/L Carbon Dioxide 23 (22-32) mmol/L BUN 21 H (9-20) mg/dL Creatinine 0.88 (0.66-1.25) mg/dL Estimated GFR > 60 (>60) mL/min BUN/Creatinine Ratio 23.9 H (6-22) Glucose 130 H (80-110) mg/dL Calcium 9.1 (8.4-10.2) mg/dL Total Bilirubin 0.8 (0.2-1.3) mg/dL AST 33 (17-59) IU/L ALT 29 (<50) IU/L Alkaline Phosphatase 87 (38-126) U/L Total Creatine Kinase 81 (55-170) U/L Total Protein 7.8 (6.3-8.2) g/dL Albumin 4.5 (3.5-5.0) g/dL Globulin 3.3 (1.7-4.1) g/dL Albumin/Globulin Ratio 1.4 (1.0-2.8) Lipase 41 (23-300) U/L Urine Color Yellow Urine Appearance Clear Urine pH 5.0 (4.5-8.0) Ur Specific [place] 1.025 (1.000-1.035) Urine Protein Trace H (Negative) Urine Glucose (UA) Negative (Negative) g/dL Urine Ketones Negative (NEGATIVE) Urine Occult Blood Negative (Negative) Urine Nitrate Negative (Negative) Urine Bilirubin Negative (NEGATIVE) Urine Urobilinogen 1.0 (0.2) E.U./dL Ur Leukocyte Esterase Negative (NEGATIVE) Urine RBC None seen (0-5/HPF) Urine WBC None seen (0-5/HPF) Ur Squamous Epith Cells 1-5 /hpf (0-5/HPF) Calcium Oxalate Crystal Many H Urine Bacteria Occasional (0-1) (None) Ur Culture Indicated? Cult not indicated Urine Dip Bedside Urine Glucose Negative Bedside Urine Bilirubin - Negative Bedside Urine Ketone - Negative Urine Specific [place] 1.025 Bedside Urine Occult Blood - Negative Bedside Urine pH 6.0 Bedside Urine Protein +/- 15 Bedside Urine Urobilinogen - Negative Bedside Urine Nitrite - Negative Bedside Urine Leukocytes - Negative Esterase MDM Narrative Medical decision making narrative: 72-year-old male with complaint of hematuria and some left lower abdominal pain. Patient states it was with the stream was bright red this morning he did see some yesterday he states it was not as bright when he went to urinate here today. His UA is negative for blood, RBCs, white cells, bacteria but does have calcium oxalate crystals. He has had a little bit of left lower abdominal pain but no flank pain. He has not had any painful urination, dysuria urgency or frequency. Patient states he has had kidney stones he states it does not feel similar to that. Discussed with patient does not appear to have any signs of infection no obvious blood in his urinalysis today he notes he has not eaten anything that should make his urine be discolored. Discussed sending urine culture versus additional workup patient would like to do more today. We will obtain CBC, CMP, CK, and renal ultrasound with bladder for further evaluation. CK is normal range. Normal white count, platelets and hemoglobin. Normal creatinine at 0.88 BUN slightly elevated at 21 sodium 133 glucose 130 with normal LFTs and bilirubin Ultrasound shows no significant issues bilateral kidneys, partially distended bladder, no hydro no nephrolithiasis no solid mass lesions. No significant changes to the bladder on imaging. Hepatic steatosis with anechoic cyst in the right hepatic lobe. Urinalysis is negative except for calcium oxalate. Plan to have patient follow-up. Discharge Plan Departure Patient Disposition: Home Clinical Impression: Calcium oxalate crystals present in urine Activity Restrictions/Additional Instructions: Your urinalysis does not show any blood or changes today, your kidney function and lab work is otherwise normal. Ultrasound imaging does not show any changes to the kidneys or bladder. You do have a cyst on your liver but no other acute changes. Please continue to watch your urine, drink plenty of fluids. Check to see if you have anything that might have discolored your urine. If you noticed repeat changes to your urine color but no pain or difficulty with urination please follow-up with primary care or Urology. Please return for fevers, new or worsening abdominal back or flank pain, persistent vomiting, difficulty with urination, painful urination, large blood clots, lightheadedness or passing out, inappropriate bruising or bleeding elsewhere or other new or concerning changes. Prescriptions: No Action losartan 50 mg tablet See Rx Instructions .ROUTE .COMPLEX Qty: 90 3RF Dose Instruction: TAKE ONE TABLET BY MOUTH ONE TIME DAILY Patient Comments: I take it opposite of the atorvastatin in terms of morning/bedtime Rx Instructions: TAKE ONE TABLET BY MOUTH ONE TIME DAILY sildenafil (pulm.hypertension) 20 mg tablet See Rx Instructions .ROUTE .COMPLEX Qty: 14 0RF Dose Instruction: Take one tablet by mouth 30 minutes to 4 hours prior to sexual activity. Max daily dose of 5 tablets. Rx Instructions: Take one tablet by mouth 30 minutes to 4 hours prior to sexual activity. Max daily dose of 5 tablets. levothyroxine 25 mcg tablet See Rx Instructions .ROUTE .COMPLEX Qty: 90 3RF Dose Instruction: TAKE ONE TABLET BY MOUTH ONE TIME DAILY Rx Instructions: TAKE ONE TABLET BY MOUTH ONE TIME DAILY clopidogrel 75 mg tablet 75 mg PO DAILY Qty: 90 2RF atorvastatin 20 mg tablet 20 mg PO BEDTIME Qty: 90 3RF duloxetine 20 mg capsule,delayed release(DR/EC) See Rx Instructions .ROUTE .COMPLEX Qty: 180 3RF Dose Instruction: TAKE TWO CAPSULES BY MOUTH DAILY Rx Instructions: TAKE TWO CAPSULES BY MOUTH DAILY duloxetine 30 mg capsule,delayed release(DR/EC) 30 mg PO QPM Qty: 90 0RF gabapentin 400 mg capsule 400 mg PO TID Qty: 270 1RF zolpidem 10 mg tablet 15 mg PO BEDTIME Qty: 90 0RF hydroxyzine HCl 25 mg tablet See Rx Instructions PO BEDTIME Qty: 90 3RF Rx Instructions: t1-2 tabs orally bedtime; aspirin 81 mg Tablet,Chewable 81 mg PO DAILY Referrals: Colin Grace MD [Primary Care Provider] - Stand Alone Forms: Patient Portal/API
--- NOTE | 2023-02-09 09:38 | PC.NURSE ---
Pt denies urinary frequency,hesitancy or urgency. Pt takes plavix. Pt denies any pain.
--- NOTE | 2023-02-09 10:07 | DI.US.S_ITS ---
PROCEDURE: US RENAL COMPLETE INDICATIONS: GROSS HEMATURIA PER PATIENT. NORMAL UA. H/O STONES AND UTI. TECHNIQUE: Real-time scanning was performed of the kidneys and bladder, with image documentation. COMPARISON: None. FINDINGS: Kidneys: Kidneys are normal in size. Right kidney measures 9.7 cm long; left kidney measures 11.2 cm long. Right renal cortical thickness is 1.2 cm; left renal cortical thickness is 0.8 cm. Renal cortical echotexture is normal. No hydronephrosis or nephrolithiasis. No suspicious solid mass lesions. Bladder: Pre-void bladder volume is 39.1 mL. Patient was unable to void. Pre-void images demonstrate no intraluminal masses or stones. On pre-void images, no ureteral jets are noted with color Doppler interrogation. (Of note, ureteral jets may not be detectable in up to 25% of cases due to insufficient differences in specific gravity between ureteral and bladder urine). Miscellaneous: No free pelvic fluid. Hepatic steatosis is seen. Anechoic cyst in right hepatic lobe measures 0.8 x 1.1 x 0.7 cm. IMPRESSION: 1. Unremarkable ultrasound examination of bilateral kidneys and partially distended urinary bladder. 2. Hepatic steatosis and small hepatic cyst as above. Dictated by: Chapito Greene M.D. on 02/09/2023 at 11:08 Approved by: Chapito Greene M.D. on 02/09/2023 at 11:15
[2023-02-09 10:24] LABS: Add Manual Diff / Slide Review NO; Basophils Absolute Auto 100 /uL (0-100); Basophils Percent Auto 1.1 % (0-2); Eosinophils Absolute Auto 200 /uL (0-450); Eosinophils Percent Auto 2.7 % (2-4); Hematocrit 45.1 % (41-53); Hemoglobin 15.2 g/dL (13.5-17.5); Lymphocytes Absolute Auto 1500 /uL (1100-4500); Lymphocytes Percent Auto 20.8 % (25-40); Mean Corpuscular HGB Conc 33.7 % (30-36); Mean Corpuscular Hemoglobin 31.1 PG (26-34); Mean Corpuscular Volume 92.3 fL (80-100); Monocytes Absolute Auto 700 /uL (0-900); Monocytes Percent Auto 9.5 % (3-14); Neutrophils Absolute Auto 4700 /uL (1500-7000); Neutrophils Percent Auto 65.9 % (50-75); Platelet Count 189 X10^3/uL (150-400); Red Blood Cell Count 4.89 X10^6/uL (4.5-5.9); Red Cell Distribution Width 14.8 % (11.6-14.8); White Blood Cell Count 7.1 X10^3/uL (4.5-11.0)
[2023-02-09 10:35] LABS: Alanine Aminotransferase 29 IU/L (<50); Albumin 4.5 g/dL (3.5-5.0); Albumin Globulin Ratio 1.4 (1.0-2.8); Alkaline Phosphatase 87 U/L (38-126); Aspartate Aminotransferase 33 IU/L (17-59); BUN Creatinine Ratio 23.9 (6-22); Bilirubin Total 0.8 mg/dL (0.2-1.3); Blood Urea Nitrogen 21 mg/dL (9-20); Calcium 9.1 mg/dL (8.4-10.2); Carbon Dioxide 23 mmol/L (22-32); Chloride 104 mmol/L (98-107); Estimated Glomerular Filt Rate > 60 mL/min (>60); Globulin 3.3 g/dL (1.7-4.1); Glucose 130 mg/dL (80-110); HEMOLYSIS 31 (0-50); Lipase 41 U/L (23-300); Potassium 4.6 mmol/L (3.4-5.1); Sodium 133 mmol/L (137-145); Total Protein 7.8 g/dL (6.3-8.2)
[2023-02-09 10:37] LABS: Creatine Kinase 81 U/L (55-170)
[2023-02-09 11:52] VITALS: BP 132/70; PULSE 86; RESP 16
== END 2023-02-09 11:53 | disposition home or self-care (01) ==
PROVIDERS: Emergency Provider Emergency Medicine; PCP Family Medicine
DX: R82.998 Other abnormal findings in urine (principal); K76.0 Fatty (change of) liver, not elsewhere classified; K76.89 Other specified diseases of liver; I10 Essential (primary) hypertension; E78.5 Hyperlipidemia, unspecified; G62.89 Other specified polyneuropathies; Z79.82 Long term (current) use of aspirin; Z79.899 Other long term (current) drug therapy
CPT/HCPCS: 36415; 76770; 80053; 81001; 81003; 82550; 83690; 85025; 99282; 99284

== ENCOUNTER → 2023-04-04 15:51 | Outpatient (CLI) | payer MEDICARE, OTHER, SELFPAY ==
[2022-09-08 13:29] VITALS: BMI 31.8
[2023-04-04 16:50] LABS: Appearance Urine UA CLEAR; Bilirubin Urine UA NEGATIVE (NEGATIVE); Color Urine UA YELLOW; Glucose Urine UA NEGATIVE (Negative); Ketones Urine UA NEGATIVE (NEGATIVE); Leukocyte Esterase Urine UA NEGATIVE (NEGATIVE); Nitrite Urine UA NEGATIVE (Negative); Occult Blood Urine UA TRACE-INTACT (Negative); Protein Urine UA NEGATIVE (Negative); Specific Gravity Urine UA >=1.030 (1.000-1.035); Urobilinogen Urine UA 0.2 E.U./dL (0.2)
[2023-04-04 16:55] LABS: Add Manual Diff / Slide Review NO; Basophils Absolute Auto 0 /uL (0-100); Basophils Percent Auto 0.4 % (0-2); Eosinophils Absolute Auto 200 /uL (0-450); Eosinophils Percent Auto 2.5 % (2-4); Hematocrit 43.3 % (41-53); Hemoglobin 14.6 g/dL (13.5-17.5); Lymphocytes Absolute Auto 2000 /uL (1100-4500); Lymphocytes Percent Auto 25.5 % (25-40); Mean Corpuscular HGB Conc 33.7 % (30-36); Monocytes Absolute Auto 800 /uL (0-900); Monocytes Percent Auto 10.9 % (3-14); Neutrophils Absolute Auto 4700 /uL (1500-7000); Neutrophils Percent Auto 60.7 % (50-75); Platelet Count 209 X10^3/uL (150-400); Red Blood Cell Count 4.71 X10^6/uL (4.5-5.9); Red Cell Distribution Width 14.4 % (11.6-14.8); White Blood Cell Count 7.8 X10^3/uL (4.5-11.0)
[2023-04-04 16:58] LABS: Bacteria Urine Occasional (0-1); Culture Indicated Urine Cult Not Indicated; RBC Urine 0-1/HPF (0-5/HPF); Squamous Epithelial Cell Urine 0-1 /HPF (0-5/HPF); WBC Urine 0-1/HPF (0-5/HPF)
[2023-04-05 11:10] LABS: PSA Ultrasensitive <0.006 ng/mL (0.000-4.000)
== END ==
PROVIDERS: PCP Family Medicine; Referring Provider Family Medicine; Visit Provider Family Medicine
DX: Z94.81 Bone marrow transplant status (principal); R31.0 Gross hematuria
CPT/HCPCS: 36415; 81001; 84153; 85025

== ENCOUNTER → 2023-04-14 10:51 | Outpatient (CLI) | payer MEDICARE, OTHER, SELFPAY ==
[2022-09-08 13:29] VITALS: BMI 31.8
--- NOTE | 2023-04-14 10:53 | DI.CT.S_ITS ---
PROCEDURE: CT IVP A/P W/WO INDICATIONS: Gross hematuria TECHNIQUE: Optional 5 mm thick noncontrast images acquired from the diaphragm to the symphysis pubis. After the administration of intravenous contrast, 5 mm thick images acquired from the diaphragm to the symphysis pubis after a 10-minute delay. 2 mm thick coronal and sagittal reformats were then performed of the kidneys and ureters. For radiation dose reduction, the following was used: automated exposure control, adjustment of mA and/or kV according to patient size. COMPARISON: [facility], , US RENAL COMPLETE, 02/09/2023, 10:22. FINDINGS: Image quality: Diagnostic. Kidneys and Ureters: Both kidneys are normal in size, without hydronephrosis or nephrolithiasis. No perinephric fat stranding. There is normal bilateral renal enhancement. Renal calyces appear normal in morphology when filled with contrast. Subcentimeter hypoattenuating lesions in the kidneys are too small to characterize, but most likely benign cysts. A left renal calyceal diverticulum is noted, which fills with contrast material. Opacified portions of both ureters demonstrate normal caliber Bladder: Bladder wall thickness is normal. No calcified bladder stones. OTHER: Lower chest: Unremarkable. Liver: There is geographic fatty infiltration of the liver. Subcentimeter hypoattenuating lesions in the liver are too small to characterize but are most likely cysts. Gallbladder: No radiopaque gallstones or wall thickening. Biliary ducts: No biliary dilation. Pancreas: No ductal dilation. Spleen: Size is within normal limits. Adrenal Glands: No adrenal nodules. Stomach and Bowel: Multiple diverticula seen in the colon without signs of acute diverticulitis. Normal appendix. Small bowel loops are unremarkable. Peritoneum: No abnormal intraperitoneal fluid. No free air. Ventral Wall: No hernia. Abdominal Nodes: No retroperitoneal or mesenteric adenopathy by size criteria. Vessels: Aorta and inferior vena cava are normal in size. PELVIS: Pelvic Organs: Postsurgical changes from prior prostatectomy. Pelvic Nodes: No enlarged lymph nodes. Miscellaneous: Small bilateral fat containing inguinal hernias. Bones: No aggressive osseous abnormality. Degenerative changes are seen in the sacroiliac joints and lumbar spine. Do things are seen in the pubic symphysis. IMPRESSION: 1. No nephrolithiasis or filling defects within the opacified renal collecting system or ureters. 2. Postsurgical changes from prior prostatectomy. 3. Colonic diverticulosis. Approved by: Amauri Meredith M.D. on 04/14/2023 at 14:05
== END ==
LOC: CT 10:52
PROVIDERS: PCP Family Medicine; Referring Provider Physician Assistant Medical; Visit Provider Physician Assistant Medical
DX: R31.0 Gross hematuria (principal); K57.90 Diverticulosis of intestine, part unspecified, without perforation or abscess without bleeding; K40.20 Bilateral inguinal hernia, without obstruction or gangrene, not specified as recurrent
CPT/HCPCS: 74178; Q9967

== ENCOUNTER → 2023-05-07 06:52 | Outpatient (CLI) | payer MEDICARE, OTHER, SELFPAY ==
[2022-09-08 13:29] VITALS: BMI 31.8
[2023-05-07 08:26] LABS: Alanine Aminotransferase 30 IU/L (<50); Albumin 4.1 g/dL (3.5-5.0); Albumin Globulin Ratio 1.3 (1.0-2.8); Alkaline Phosphatase 82 U/L (38-126); Aspartate Aminotransferase 32 IU/L (17-59); BUN Creatinine Ratio 15.2 (6-22); Bilirubin Total 0.6 mg/dL (0.2-1.3); Blood Urea Nitrogen 14 mg/dL (9-20); Calcium 9.1 mg/dL (8.4-10.2); Carbon Dioxide 26 mmol/L (22-32); Chloride 102 mmol/L (98-107); Cholesterol 205 mg/dL (140-199); Estimated Glomerular Filt Rate > 60 mL/min (>60); Globulin 3.1 g/dL (1.7-4.1); Glucose 103 mg/dL (80-110); HDL Cholesterol 71 mg/dL (40-60); HEMOLYSIS < 15 (0-50); LDL Cholesterol Calculated 80 mg/dL (<100); Potassium 3.9 mmol/L (3.4-5.1); Sodium 137 mmol/L (137-145); Total Protein 7.2 g/dL (6.3-8.2); Triglycerides 270 mg/dL (35-150)
[2023-05-08 03:13] LABS: Apolipoprotein B 95 mg/dL (<90)
[2023-05-09 12:37] LABS: Lipoprotein (a) 16.1 nmol/L (<75.0)
== END ==
PROVIDERS: PCP Family Medicine; Referring Provider Family Medicine; Visit Provider Family Medicine
DX: R73.09 Other abnormal glucose (principal); E78.2 Mixed hyperlipidemia; R73.9 Hyperglycemia, unspecified
CPT/HCPCS: 36415; 80053; 80061; 82172; 83036; 83695

== ENCOUNTER → 2023-05-09 10:04 | Outpatient (CLI) | payer MEDICARE, OTHER, SELFPAY ==
[2022-09-08 13:29] VITALS: BMI 31.8
--- NOTE | 2023-05-09 10:08 | DI.RAD.S_ITS ---
PROCEDURE: XR LUMBAR SPINE 2-3V INDICATIONS: worsening neuropathy, lower extremities TECHNIQUE: 3 views of the lumbar spine were acquired. COMPARISON: [facility], CR, XR LUMBAR SPINE 2-3V, 03/16/2018, 13:47. FINDINGS: Bones: Grade 2 anterior spondylolisthesis noted at L5-S1 associated with hypertrophic facet joints and probable pars defects. Vertebral body height and alignment is otherwise maintained. Diffuse degenerative disc disease and arthropathy Soft tissues: Overlying bowel gas pattern is normal. No suspicious soft tissue calcifications. IMPRESSION: Grade 2 isthmic spondylolisthesis at L5-S1 has slightly increased from the prior Degenerative disc disease and arthropathy Approved by: Riki Dela Cruz M.D. on 05/09/2023 at 19:12
== END ==
PROVIDERS: PCP Family Medicine; Referring Provider Family Medicine; Visit Provider Family Medicine
DX: M43.17 Spondylolisthesis, lumbosacral region (principal); M51.37 Other intervertebral disc degeneration, lumbosacral region; M47.817 Spondylosis without myelopathy or radiculopathy, lumbosacral region; G45.9 Transient cerebral ischemic attack, unspecified; D47.2 Monoclonal gammopathy; M79.2 Neuralgia and neuritis, unspecified
CPT/HCPCS: 72100

== ENCOUNTER → 2023-05-10 13:45 | Outpatient (CLI) | payer MEDICARE, OTHER, SELFPAY ==
[2022-09-08 13:29] VITALS: BMI 31.8
[2023-05-13 20:54] LABS: Fecal Immunochemical Test Negative (Negative)
== END ==
PROVIDERS: PCP Family Medicine; Referring Provider Family Medicine; Visit Provider Family Medicine
DX: Z12.11 Encounter for screening for malignant neoplasm of colon (principal)
CPT/HCPCS: 82274

== ENCOUNTER → 2023-05-12 09:14 | Outpatient (CLI) | payer MEDICARE, OTHER, SELFPAY ==
[2022-09-08 13:29] VITALS: BMI 31.8
--- NOTE | 2023-05-12 09:16 | DI.MRI.S_ITS ---
PROCEDURE: MR LUMBAR SPINE WO CON INDICATIONS: worsening neuropathy, lower extremities TECHNIQUE: Noncontrast sagittal T1 spin echo and T2 fast echo, sagittal STIR, and T2 fast spin echo through the lumbar spine. In cases with scoliosis, additional coronal T2 fast spin echo may be performed. COMPARISON: [facility], CR, XR LUMBAR SPINE 2-3V, 05/09/2023, 10:18. [facility], MR, L-SPINE WITHOUT CONTRAST, 09/24/2016, 13:36. FINDINGS: Image quality: Excellent. Alignment and Curvature: Bilateral L5 pars defects with 9 mm of anterolisthesis of L5 on S1. Mild retrolisthesis of L4 on L5. Bone Marrow: Marrow is of normal overall signal. No acute vertebral body compression fractures. Spinal Cord: Conus medullaris terminates at the L1 level. Visualized cord demonstrates normal signal and size. Paraspinous Soft Tissues: No paravertebral masses. T12-L1: Minimal disc bulge. Mild facet hypertrophy. No canal stenosis or foraminal stenosis. L1-L2: Disc bulge. Facet hypertrophy. Epidural lipomatosis. No significant central canal stenosis or foraminal nerve root impingement. L2-L3: Disc bulge. Facet hypertrophy. Epidural lipomatosis. No significant central canal stenosis. Mild left foraminal stenosis. L3-L4: Disc bulge. Facet hypertrophy. No canal stenosis. Mild bilateral foraminal stenosis. L4-L5: Mild retrolisthesis of L4 on L5. Diffuse disc height loss. Disc bulge with minimal right paracentral disc protrusion, which has developed since the previous study. No significant canal stenosis. Bilateral facet hypertrophy. [id number] bilateral foraminal stenosis. L5-S1: Bilateral L5 pars defects. Anterolisthesis of L5 on S1 is not significantly changed, measuring approximately 9 mm. There is unroofing of the disc and diffuse posterior disc bulge. There is no central canal stenosis. There is moderate to severe right foraminal narrowing, which is progressed. There is marked left foraminal narrowing. There is bilateral foraminal L5 nerve root impingement. IMPRESSION: 1. There is multilevel underlying facet arthropathy. 2. Slight interval progression at L5-S1. There are bilateral L5 pars defects, 9 mm of anterolisthesis of L5 on S1, and significant bilateral foraminal narrowing, left greater than right. Right foraminal narrowing is progressed. 3. No significant central canal stenosis. Dictated by: Jeb Smith M.D. on 05/13/2023 at 10:09 Approved by: Jeb Smith M.D. on 05/13/2023 at 10:19
== END ==
PROVIDERS: PCP Family Medicine; Referring Provider Family Medicine; Visit Provider Family Medicine
DX: M48.07 Spinal stenosis, lumbosacral region; M47.816 Spondylosis without myelopathy or radiculopathy, lumbar region; M48.061 Spinal stenosis, lumbar region without neurogenic claudication; M43.17 Spondylolisthesis, lumbosacral region; G45.9 Transient cerebral ischemic attack, unspecified; M79.2 Neuralgia and neuritis, unspecified; D47.2 Monoclonal gammopathy
CPT/HCPCS: 72148

== ENCOUNTER → 2023-06-04 11:14 | Outpatient (CLI) | payer MEDICARE, OTHER, SELFPAY ==
[2022-09-08 13:29] VITALS: BMI 31.8
[2023-06-04 11:40] LABS: Add Manual Diff / Slide Review NO; Basophils Absolute Auto 0 /uL (0-100); Basophils Percent Auto 0.6 % (0-2); Eosinophils Absolute Auto 200 /uL (0-450); Eosinophils Percent Auto 2.8 % (2-4); Hematocrit 42.9 % (41-53); Hemoglobin 14.5 g/dL (13.5-17.5); Lymphocytes Absolute Auto 1700 /uL (1100-4500); Lymphocytes Percent Auto 28.2 % (25-40); Mean Corpuscular HGB Conc 33.8 % (30-36); Mean Corpuscular Hemoglobin 31.5 PG (26-34); Mean Corpuscular Volume 93.2 fL (80-100); Monocytes Absolute Auto 600 /uL (0-900); Monocytes Percent Auto 9.9 % (3-14); Neutrophils Absolute Auto 3600 /uL (1500-7000); Neutrophils Percent Auto 58.5 % (50-75); Platelet Count 214 X10^3/uL (150-400); Red Cell Distribution Width 14.2 % (11.6-14.8); White Blood Cell Count 6.1 X10^3/uL (4.5-11.0)
[2023-06-04 11:55] LABS: Alanine Aminotransferase 31 IU/L (<50); Albumin 4.3 g/dL (3.5-5.0); Albumin Globulin Ratio 1.4 (1.0-2.8); Alkaline Phosphatase 75 U/L (38-126); Aspartate Aminotransferase 31 IU/L (17-59); BUN Creatinine Ratio 18.2 (6-22); Bilirubin Total 0.8 mg/dL (0.2-1.3); Blood Urea Nitrogen 18 mg/dL (9-20); Calcium 9.5 mg/dL (8.4-10.2); Carbon Dioxide 31 mmol/L (22-32); Chloride 106 mmol/L (98-107); Estimated Glomerular Filt Rate > 60 mL/min (>60); Globulin 3.1 g/dL (1.7-4.1); Glucose 98 mg/dL (80-110); HEMOLYSIS < 15 (0-50); Lactate Dehydrogenase 186 U/L (120-246); Potassium 4.4 mmol/L (3.4-5.1); Sodium 138 mmol/L (137-145); Total Protein 7.4 g/dL (6.3-8.2)
[2023-06-06 21:46] LABS: Free Kappa Lt Chains, Serum 14.9 mg/L (3.3-19.4); Free Lambda Lt Chains,Serum 10.6 mg/L (5.7-26.3)
[2023-06-07 12:54] LABS: Immunoglobulin A, Serum 502 mg/dL (61-437); Immunoglobulin G,Serum 671 mg/dL (603-1613); Immunoglobulin M, Serum 50 mg/dL (15-143)
[2023-06-07 13:49] LABS: Beta-2-Microglobulin 1.6 mg/L (0.6-2.4)
[2023-06-07 15:09] LABS: Albumin 3.7 g/dL (2.9-4.4); Alpha-1-Globulin 0.2 g/dL (0.0-0.4); Alpha-2-Globulin 0.6 g/dL (0.4-1.0); Globulin Total 2.8 g/dL (2.2-3.9); Protein, Total 6.5 g/dL (6.0-8.5)
== END ==
PROVIDERS: PCP Family Medicine; Referring Provider Internal Medicine Hematology & Oncology; Visit Provider Internal Medicine Hematology & Oncology
DX: F13.20 Sedative, hypnotic or anxiolytic dependence, uncomplicated (principal)
CPT/HCPCS: 36415; 80053; 82232; 82784; 83615; 83883; 84155; 84165; 85025; 86334

== ENCOUNTER → 2023-08-26 11:18 | Outpatient (CLI) | payer MEDICARE, OTHER, SELFPAY ==
[2022-09-08 13:29] VITALS: BMI 31.8
--- NOTE | 2023-08-26 11:20 | DI.RAD.S_ITS ---
PROCEDURE: XR SHOULDER RT MIN 2V INDICATIONS: Neck pain, RUE radiculopathy, shoulder pain TECHNIQUE: 3 views of the shoulder were acquired. COMPARISON: [facility], CR, XR SHOULDER RT MIN 2V, 07/10/2019, 10:30. [facility], CR, XR SHOULDER LT MIN 2V, 07/10/2019, 10:28. FINDINGS: Bones: No fractures or dislocations. Severe degenerative changes of the acromioclavicular joint. Moderate degenerative changes of the glenohumeral joint. No suspicious bony lesions. Visualized ribs appear intact. Soft tissues: No suspicious soft tissue calcifications. IMPRESSION: Moderate glenohumeral and severe acromioclavicular joint degeneration. Dictated by: Grupo Tran M.D. on 08/26/2023 at 12:51 Approved by: Grupo Tran M.D. on 08/26/2023 at 13:01
--- NOTE | 2023-08-26 11:20 | DI.RAD.S_ITS ---
PROCEDURE: XR CERVICAL SPINE 4V OR 5V INDICATIONS: Neck pain, R UE radiculopathy TECHNIQUE: Five views of the cervical spine were acquired. COMPARISON: None. FINDINGS: Bones: No fractures or dislocations to the C6 level. Severe disc height loss versus incomplete segmentation at C4-5. No suspicious bony lesions. There is slightly decreased range of motion between flexion and extension, with preserved normal bony alignment. Degenerative joint space loss at C1-2. Soft tissues: Prevertebral soft tissues are normal in thickness. IMPRESSION: Normal alignment and no radiographic evidence of dynamic subluxation. Chronic appearing degenerative changes, most severe at C4-5. Dictated by: Nadege Ng M.D. on 08/26/2023 at 15:11 Approved by: Nadege Ng M.D. on 08/26/2023 at 15:13
--- NOTE | 2023-08-26 11:20 | DI.RAD.S_ITS ---
PROCEDURE: XR KNEE RT 3V INDICATIONS: Right knee pain TECHNIQUE: Three views of the knee were acquired. COMPARISON: [facility], , XR KNEE RT 3V, 06/09/2020, 15:59. FINDINGS: Bones: No fractures or dislocations. No suspicious bony lesions. Mild osteoarthritic changes. Soft tissues: Small joint effusion. No suspicious soft tissue calcifications. IMPRESSION: Small knee joint effusion may indicate internal derangement. Consider MRI if no improvement with conservative management. Dictated by: Nadege Ng M.D. on 08/26/2023 at 15:07 Approved by: Nadege Ng M.D. on 08/26/2023 at 15:10
== END ==
LOC: RAD 11:19
PROVIDERS: PCP Family Medicine; Referring Provider Physician Assistant Surgical; Visit Provider Physician Assistant Surgical
DX: M47.22 Other spondylosis with radiculopathy, cervical region (principal); M19.011 Primary osteoarthritis, right shoulder; S49.90XA Unspecified injury of shoulder and upper arm, unspecified arm, initial encounter; M25.461 Effusion, right knee; M25.561 Pain in right knee; X58.XXXA Exposure to other specified factors, initial encounter
CPT/HCPCS: 72050; 73030; 73562

== ENCOUNTER → 2023-08-29 09:46 | Outpatient (CLI) | payer MEDICARE, OTHER, SELFPAY ==
[2022-09-08 13:29] VITALS: BMI 31.8
[2023-08-29 12:04] LABS: Vitamin B12 465 pg/mL (239-931)
== END ==
PROVIDERS: PCP Family Medicine; Referring Provider Physician Assistant; Visit Provider Physician Assistant
DX: G62.9 Polyneuropathy, unspecified (principal)
CPT/HCPCS: 36415; 82607

== ENCOUNTER → 2023-09-03 11:09 | Outpatient (CLI) | payer MEDICARE, OTHER, SELFPAY ==
[2022-09-08 13:29] VITALS: BMI 31.8
--- NOTE | 2023-09-03 11:11 | DI.MRI.S_ITS ---
PROCEDURE: MR CERVICAL SPINE WO CON INDICATIONS: Right side shoulder pain; radiation down R arm TECHNIQUE: Noncontrast sagittal T1 spin echo and T2 fast spin echo, sagittal STIR, foraminal oblique sagittal T2 fast spin echo, and axial gradient echo or T2 fast spin echo through the cervical spine. COMPARISON: [facility], CR, XR CERVICAL SPINE 4V OR 5V, 08/26/2023, 11:32. [facility], MR, MR CERVICAL SPINE WO/W CON, 04/03/2019, 15:15. FINDINGS: Image quality: Diagnostic, with note made of motion artifact. Alignment and Curvature: There is overall straightening of the normal cervical lordosis. No focal AP alignment abnormality is seen. Bone Marrow: Marrow demonstrates normal overall signal. Spinal Cord: Visualized spinal cord has normal size and signal. No cerebellar tonsillar herniation. Paraspinous Soft Tissues: No paravertebral masses. Prevertebral soft tissues are normal in thickness. C2-C3: The disc height is well-preserved. Loss of disc signal is seen at this level. A mild degree of generalized disc osteophyte complex is seen. There is moderate right-sided and mild left-sided facet hypertrophy. There is [id number] right-sided and no left-sided neural foraminal narrowing. No central canal narrowing is seen. C3-C4: The disc height is well-preserved. Loss of disc signal is seen at this level. A mild degree of generalized disc osteophyte complex is seen. At least moderate facet hypertrophy can be seen, left worse than right. There is moderate to severe bilateral neural foraminal narrowing seen. No significant central canal narrowing is seen. C4-C5: There is at least moderate loss of disc height and disc signal seen. Moderate generalized disc osteophyte complex is seen. There is a central disc osteophyte protrusion. At least moderate facet hypertrophy is seen. There is moderate to severe bilateral neural foraminal narrowing. Moderate central canal narrowing is seen. There is associated mass effect upon the ventral spinal cord. C5-C6: Mild loss of disc height is seen. Loss of disc signal is seen. Mild to moderate disc osteophyte complex is seen, with a central/right disc osteophyte protrusion. Moderate facet joint hypertrophy is seen. Moderate to severe bilateral neural foraminal narrowing can be seen. Mild to moderate central canal narrowing is seen. There is associated mass effect upon the ventral spinal cord. C6-C7: Moderate loss of disc height is seen. Loss of disc signal is seen. Moderate disc osteophyte complex is seen, with a central disc osteophyte protrusion. Uncovertebral joint hypertrophy is seen at this level. Moderate facet joint hypertrophy is seen. Moderate to severe bilateral neural foraminal narrowing can be seen, left worse than right. Moderate central canal narrowing is seen. There is associated mass effect upon the ventral spinal cord. C7-T1: Mild loss of disc height is seen. Loss of disc signal is seen. A mild degree of generalized disc osteophyte complex is seen. There is moderate left-sided and mild right-sided facet hypertrophy. There is moderate left-sided and no right-sided neural foraminal narrowing. No central canal narrowing is seen. IMPRESSION: Multiple levels of significant cervical spine degenerative change can be seen, which have progressed at several levels compared to 2020. Dictated by: Adrián Vang M.D. on 09/03/2023 at 16:37 Approved by: Adrián Vang M.D. on 09/03/2023 at 16:42
== END ==
PROVIDERS: PCP Family Medicine; Referring Provider Family Medicine; Visit Provider Family Medicine
DX: M47.22 Other spondylosis with radiculopathy, cervical region (principal)
CPT/HCPCS: 72141

== ENCOUNTER → 2023-09-18 17:04 | Outpatient (CLI) | payer MEDICARE, OTHER, SELFPAY ==
[2022-09-08 13:29] VITALS: BMI 31.8
--- NOTE | 2023-09-18 17:05 | DI.RAD.S_ITS ---
PROCEDURE: XR SHOULDER RT MIN 2V INDICATIONS: Right shoulder pain TECHNIQUE: 3 views of the shoulder were acquired. COMPARISON: [facility], CR, XR SHOULDER RT MIN 2V, 08/26/2023, 11:32. FINDINGS: Bones: No fractures or dislocations. Moderate to severe glenohumeral joint and acromioclavicular joint osteoarthritis is seen with near complete loss of joint space, extensive subchondral sclerosis and prominent marginal osteophyte formation. No suspicious bony lesions. Visualized ribs appear intact. Soft tissues: Small calcification superior to greater tuberosity of humeral head is seen suggestive of calcific tendinitis. IMPRESSION: No acute shoulder fracture or dislocation. Moderate to severe acromioclavicular joint and glenohumeral joint osteoarthritis. Suggestion of calcific tendinitis involving distal supraspinatus tendon at its insertion on the humeral head. Dictated by: Chapito Greene M.D. on 09/20/2023 at 12:09 Approved by: Chapito Greene M.D. on 09/20/2023 at 12:10
== END ==
PROVIDERS: PCP Family Medicine; Referring Provider Nurse Practitioner Family; Visit Provider Nurse Practitioner Family
DX: M19.011 Primary osteoarthritis, right shoulder (principal); M25.511 Pain in right shoulder
CPT/HCPCS: 73030

== ENCOUNTER 2023-09-21 14:17 | Emergency (ER) | payer MEDICARE, OTHER, SELFPAY ==
[2022-09-08 13:29] VITALS: BMI 31.8
[2023-09-21 14:26] VITALS: BP 167/96; PULSE 83; RESP 14; TEMP 36.2; O2SAT 98; BMI 33.4
--- NOTE | 2023-09-21 16:31 | ED.UPPEXIN ---
HPI - Extremity Injury (Upper) General Chief Complaint: Extremity Injury, Upper Stated Complaint: intense rt shoulder pain Time Seen by Provider: 09/21/23 16:31 Source: patient Mode of arrival: Ambulatory History of Present Illness HPI narrative: This is a 73-year-old male presents emergency department due to Related Data Home Medications Medication Instructions Recorded Confirmed duloxetine 20 mg capsule,delayed 40 mg PO QAM 08/29/23 09/18/23 release Previous Rx's Medication Instructions Recorded sildenafil (pulm.hypertension) 20 See Rx Instructions .Route 08/02/22 mg tablet .COMPLEX #14 tabs clopidogrel 75 mg tablet 75 mg PO DAILY #90 tabs 10/08/22 hydroxyzine HCl 25 mg tablet See Rx Instructions PO BEDTIME #90 01/29/23 tabs rosuvastatin 10 mg tablet 10 mg PO DAILY #90 tabs 05/09/23 triamcinolone acetonide 0.1 % 1 applic topical BID #80 grams 05/24/23 topical cream losartan 50 mg tablet See Rx Instructions .Route 06/04/23 .COMPLEX #90 tabs gabapentin 400 mg capsule 400 mg PO .COMPLEX #360 caps 07/16/23 zolpidem 10 mg tablet 15 mg (1.5 x 10 mg) PO BEDTIME #45 07/23/23 tabs duloxetine 30 mg capsule,delayed 30 mg PO QPM #90 caps 08/19/23 release levothyroxine 25 mcg tablet See Rx Instructions .Route 08/26/23 .COMPLEX #90 tabs prednisone 20 mg tablet 40 mg (2 x 20 mg) PO DAILY #6 tabs 09/18/23 Allergies Allergy/AdvReac Type Severity Reaction Status Date / Time No Known Drug Allergies Allergy Verified 09/21/23 14:26 Review of Systems Review of Systems Narrative: GENERAL: Denies chills, fatigue, malaise, fever, sweats. HEENT: Denies sinus pain, ear pain, sore throat, difficulty swallowing, dizziness. RESPIRATORY: Denies dyspnea, cough, wheezing, hemoptysis, sputum. CARDIOVASCULAR: Denies chest pain, palpitations, orthopnea, edema, GASTROINTESTINAL: Denies nausea, vomiting, abdominal pain, diarrhea, constipation, melena. : Denies dysuria, frequency, incontinence, hematuria, urinary retention. MUSCULOSKELETAL: denies weakness, joint pain, or bony pain SKIN: Denies rash, skin lesions, or other NEUROLOGIC: Denies weakness, headache, numbness, change in speech, confusion, seizures, incoordination. PSYCHIATRIC: No concerning psychosocial issues. 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 H/O nephrolithotomy with removal of calculi (~1970) Hypothyroidism Hyperlipidemia Primary insomnia Surgical History H/O hernia repair (~08/2018) Hx of appendectomy Hx of tonsillectomy H/O prostatectomy (~1999) Family History Brother COPD (chronic obstructive pulmonary disease) Social History household members: spouse Smoking Status: Never smoker alcohol intake: current substance use type: does not use Smoking Status: Never smoker alcohol intake frequency: 0-2 drinks per day Alcohol type: beer Substance Use Type: does not use Exam Narrative Exam Narrative: GENERAL: Well-developed patient, in mild distress. HEAD: Atraumatic. Normocephalic. EYES: Pupils equal round and reactive. Extraocular motions intact. No scleral icterus. No injection or drainage. ENT: Nose without bleeding, purulent drainage. Throat without erythema, tonsillar hypertrophy or exudate. Airway patent. NECK: Trachea midline. Non tender EXTREMITIES: No edema or joint tenderness. NEURO: AOx3. SKIN: No rash or erythema of visible areas Initial Vital Signs Initial Vital Signs: Vital Signs Temperature 97.1 F L 09/21/23 14:26 Pulse Rate 83 09/21/23 14:26 Respiratory Rate 14 09/21/23 14:26 Blood Pressure 167/96 H 09/21/23 14:26 Pulse Oximetry 98 09/21/23 14:26 Oxygen Delivery Method Room Air 09/21/23 14:26 Course Vital Signs Vital signs: Vital Signs - 8 hr 09/21/23 14:26 Temperature 97.1 F L Pulse Rate 83 Respiratory Rate 14 Blood Pressure 167/96 H Pulse Oximetry 98 Oxygen Delivery Method Room Air MDM - Extremity Injury (Upper) MDM Narrative Medical decision making narrative: ED course: [ ] CC: [ ] Complicating co-morbidities: [ ] Data collected from: Previous notes Medical records reviewed: Patient was seen in the walk-in clinic 3 days ago due to acute onset right shoulder pain after a ?pop?. History peripheral neuropathy Nikita pain, fatigue. Patient takes Plavix. Given prednisone as well. Differential considered, but not limited to: [ ] Exam documented above, pertinent findings include: [ ] Lab Test results independently reviewed as above. Pertinent findings: [ ] Imaging studies independently reviewed: [ ] Scores Used: None MIPS Elements: None Consultations: None Treatments: [ ] Re-evaluations: [ ] Discussion: Discussed plan with the patient was comfortable with the plan Diagnosis: [ ] Disposition: see below, along with detailed discharge instructions that have been reviewed with patient as well as indications for ED re-evaluation and additional outpatient follow up Discharge Plan Departure Prescriptions: No Action prednisone 20 mg tablet 40 mg PO DAILY Qty: 6 0RF sildenafil (pulm.hypertension) 20 mg tablet See Rx Instructions .ROUTE .COMPLEX Qty: 14 0RF Dose Instruction: Take one tablet by mouth 30 minutes to 4 hours prior to sexual activity. Max daily dose of 5 tablets. Rx Instructions: Take one tablet by mouth 30 minutes to 4 hours prior to sexual activity. Max daily dose of 5 tablets. clopidogrel 75 mg tablet 75 mg PO DAILY Qty: 90 2RF hydroxyzine HCl 25 mg tablet See Rx Instructions PO BEDTIME Qty: 90 3RF Rx Instructions: t1-2 tabs orally bedtime; losartan 50 mg tablet See Rx Instructions .ROUTE .COMPLEX Qty: 90 3RF Dose Instruction: TAKE ONE TABLET BY MOUTH ONE TIME DAILY Patient Comments: I take it opposite of the atorvastatin in terms of morning/bedtime Rx Instructions: TAKE ONE TABLET BY MOUTH ONE TIME DAILY gabapentin 400 mg capsule 400 mg PO .COMPLEX Qty: 360 1RF Rx Instructions: 400 mg orally take 1 capsule by mouth in the morning, 2 capsules mid day and 1 capsule at night.; zolpidem 10 mg tablet 15 mg PO BEDTIME Qty: 45 3RF duloxetine 30 mg capsule,delayed release(DR/EC) 30 mg PO QPM Qty: 90 0RF levothyroxine 25 mcg tablet See Rx Instructions .ROUTE .COMPLEX Qty: 90 3RF Dose Instruction: TAKE ONE TABLET BY MOUTH ONE TIME DAILY Rx Instructions: TAKE ONE TABLET BY MOUTH ONE TIME DAILY duloxetine 20 mg capsule,delayed release(DR/EC) 40 mg PO QAM rosuvastatin 10 mg tablet 10 mg PO DAILY Qty: 90 3RF triamcinolone acetonide 0.1 % cream 1 applic topical BID Qty: 80 0RF Rx Instructions: apply to affected leg Referrals: Colin Grace MD [Primary Care Provider] -
== END 2023-09-21 16:40 | disposition left against medical advice (07) ==
PROVIDERS: Emergency Provider Emergency Medicine; PCP Family Medicine
DX: M25.511 Pain in right shoulder (principal)
CPT/HCPCS: 99281

== ENCOUNTER → 2023-10-17 12:43 | Outpatient (CLI) | payer MEDICARE, OTHER, SELFPAY ==
[2022-09-08 13:29] VITALS: BMI 31.8
== END ==
PROVIDERS: PCP Family Medicine; Visit Provider Family Medicine
DX: M70.21 Olecranon bursitis, right elbow (principal)
CPT/HCPCS: 87070; 87075; 87205

== ENCOUNTER → 2024-01-01 11:17 | Outpatient (CLI) | payer MEDICARE, OTHER, SELFPAY ==
[2022-09-08 13:29] VITALS: BMI 31.8
[2024-01-01 13:09] LABS: Influenza A - CEPHEID Flu A NEGATIVE (NEGATIVE); Influenza B - CEPHEID Flu B NEGATIVE (NEGATIVE); Respiratory Syncytial Virus Negative (Negative)
[2024-01-01 13:11] LABS: COVID-19 CEPHEID 4-PLEX PCR Negative (Negative)
== END ==
PROVIDERS: PCP Family Medicine; Visit Provider Physician Assistant
DX: R05.1 Acute cough (principal)
CPT/HCPCS: 0241U

== ENCOUNTER 2024-01-03 21:16 | Emergency (ER) | payer MEDICARE, OTHER, SELFPAY ==
[2022-09-08 13:29] VITALS: BMI 31.8
[2024-01-03 21:21] VITALS: BP 120/66; PULSE 78; RESP 16; TEMP 35.9; O2SAT 97; BMI 33.4
--- NOTE | 2024-01-03 21:25 | EKG_ITS ---
[address] [address] Test Date: 2024-01-03 Pat Name: Oneil Mays Department: [facility] Room: Gender: Male [employer] Teacher: ESTEBAN : 1950 Requested By: Order Number: [id number] Reading MD: Shad Medrano Measurements Intervals [place] Rate: 67 P: 35 NC: 138 QRS: -17 QRSD: 86 T: 55 QT: 384 QTc: 405 Interpretive Statements Normal sinus rhythm with sinus arrhythmia Nonspecific T wave abnormality Electronically Signed On 01-06-2024 15:51:13 PDT by Shad Medrano
--- NOTE | 2024-01-03 21:25 | DI.RAD.S_ITS ---
PROCEDURE: XR CHEST 1V INDICATIONS: Shortness of breath TECHNIQUE: One view of the chest was acquired. COMPARISON: [facility], CR, XR CHEST 1V, 05/24/2021, 18:56. [facility], CR, XR CHEST 1V, 02/07/2020, 17:02. [facility], CR, XR CHEST 2V, 07/30/2019, 13:35. [facility], CR, XR CHEST 2V, 03/05/2019, 16:06. FINDINGS: Surgical changes and devices: None. Lungs and pleura: Low lung volumes. Bibasilar subsegmental atelectasis. Trace left pleural effusion versus pleural thickening. No right pleural effusion. No pneumothorax. Mediastinum: Mediastinal contours appear normal. Heart size is normal. Bones and chest wall: Moderate left glenohumeral osteoarthritis. No suspicious bony lesions. Overlying soft tissues appear unremarkable. IMPRESSION: Mild bibasilar subsegmental atelectasis. Otherwise, no acute cardiothoracic process. Dictated by: Mauro Gonzales M.D. on 01/03/2024 at 22:31 Approved by: Maruo Gonzales M.D. on 01/03/2024 at 22:32
[2024-01-03 21:54] LABS: Add Manual Diff / Slide Review NO; Basophils Absolute Auto 0 /uL (0-100); Basophils Percent Auto 0.3 % (0-2); Eosinophils Absolute Auto 300 /uL (0-450); Eosinophils Percent Auto 2.6 % (2-4); Hematocrit 40.8 % (41-53); Hemoglobin 13.9 g/dL (13.5-17.5); Lymphocytes Absolute Auto 2200 /uL (1100-4500); Lymphocytes Percent Auto 22.6 % (25-40); Mean Corpuscular HGB Conc 34.2 % (30-36); Mean Corpuscular Hemoglobin 32.4 PG (26-34); Mean Corpuscular Volume 94.7 fL (80-100); Monocytes Absolute Auto 800 /uL (0-900); Monocytes Percent Auto 8.2 % (3-14); Neutrophils Absolute Auto 6400 /uL (1500-7000); Neutrophils Percent Auto 66.3 % (50-75); Platelet Count 216 X10^3/uL (150-400); Red Blood Cell Count 4.31 X10^6/uL (4.5-5.9); White Blood Cell Count 9.7 X10^3/uL (4.5-11.0)
[2024-01-03 22:02] LABS: Prothrombin Time 11.4 SECONDS (9.4-12.5)
[2024-01-03 22:06] LABS: Alanine Aminotransferase 26 IU/L (<50); Albumin 4.2 g/dL (3.5-5.0); Albumin Globulin Ratio 1.8 (1.0-2.8); Alkaline Phosphatase 78 U/L (38-126); Aspartate Aminotransferase 26 IU/L (17-59); BUN Creatinine Ratio 22.6 (6-22); Bilirubin Total 0.4 mg/dL (0.2-1.3); Blood Urea Nitrogen 24 mg/dL (9-20); Calcium 8.9 mg/dL (8.4-10.2); Carbon Dioxide 22 mmol/L (22-32); Chloride 104 mmol/L (98-107); Estimated Glomerular Filt Rate > 60 mL/min (>60); Globulin 2.3 g/dL (1.7-4.1); Glucose 141 mg/dL (80-110); HEMOLYSIS < 15 (0-50); Lactate (Lactic Acid) 1.9 mmol/L (0.7-2.1); Potassium 3.6 mmol/L (3.4-5.1); Sodium 136 mmol/L (137-145); Total Protein 6.5 g/dL (6.3-8.2)
[2024-01-03 22:18] LABS: NT-proBNP (BNP-Adult 18+) 118 pg/mL (<450); Troponin I < 0.012 ng/mL (0.01-0.034)
[2024-01-03 23:13] VITALS: BP 134/83; PULSE 74; O2SAT 95
[2024-01-03 23:16] LABS: Adenovirus Not Detected (Not Detect); B. parapertussis Not Detected (Not Detecte); Bordetella pertussis Not Detected (Not Detect); Chlamydophila pneumoniae Not Detected (Not Detect); Coronavirus 229E Not Detected (Not Detect); Coronavirus HKU1 Not Detected (Not Detect); Coronavirus NL 63 Not Detected (Not Detect); Coronavirus OC43 Not Detected (Not Detect); Human Metapneumovirus Not Detected (Not Detect); Human Rhinovirus/Enterovirus Detected (Not Detect); Influenza A Not Detected (Not Detect); Influenza B Not Detected (Not Detect); Mycoplasma pneumoniae Not Detected (Not Detect); Parainfluenza Virus 1 Not Detected (Not Detect); Parainfluenza Virus 2 Not Detected (Not Detect); Parainfluenza Virus 3 Not Detected (Not Detect); Parainfluenza Virus 4 Not Detected (Not Detect); Respiratory Syncytial Virus Not Detected (Not Detect); SARS- CoV-2 Not Detected (Not Detecte)
[2024-01-03 23:30] VITALS: BP 138/81; PULSE 65; RESP 16; O2SAT 93
[2024-01-04] VITALS (8 sets, daily range): BP systolic 130–167; BP diastolic 68–82; PULSE 62–86; RESP 12–18; TEMP 36.9; O2SAT 95–98
--- NOTE | 2024-01-04 01:19 | ED.SOB ---
HPI - SOB/Dyspnea General Chief Complaint: Shortness of Breath/Dyspnea Stated Complaint: can't breathe, headache, chest congestion Time Seen by Provider: 01/03/24 22:16 Source: patient Mode of arrival: Ambulatory Limitations: no limitations History of Present Illness HPI Narrative: 73-year-old male history of hypertension, dyslipidemia, prior stroke, PFO, chronic peripheral neuropathy and MGUS. Patient presents with complaint of feeling short of breath, feeling unwell Saturday received a Z-Braxton from the walk-in clinic and had a negative COVID/RSV/influenza swab. Continues to have cough which they state was green, color change to a little bit since. Has felt feverish or chilled. Denies chest pain but states short of breath. No swelling of extremities. Not had any vomiting but has had some nausea. Did have some loose diarrheal stools. No reports of black or bloody stool. Patient can try some albuterol he is used it in the past. Has not been on any steroids recently. Patient and family do not recall having steroids regularly in the past. States he does not have any known COPD or lung disease no prior tobacco use. No tobacco, 3 drinks daily, no recreational drugs. Patient is accompanied by his spouse. Patient's primary care physician in his Dr. Grace. Related Data Home Medications Medication Instructions Recorded Confirmed meloxicam 15 mg tablet 15 mg PO DAILY 01/01/24 01/01/24 Previous Rx's Medication Instructions Recorded sildenafil (pulm.hypertension) 20 See Rx Instructions .Route 08/02/22 mg tablet .COMPLEX #14 tabs clopidogrel 75 mg tablet 75 mg PO DAILY #90 tabs 10/08/22 losartan 50 mg tablet See Rx Instructions .Route 06/04/23 .COMPLEX #90 tabs levothyroxine 25 mcg tablet See Rx Instructions .Route 08/26/23 .COMPLEX #90 tabs duloxetine 30 mg capsule,delayed 90 mg (3 x 30 mg) PO DAILY #270 10/08/23 release caps gabapentin 400 mg capsule 400 mg PO .COMPLEX #360 caps 10/08/23 hydroxyzine HCl 25 mg tablet See Rx Instructions PO BEDTIME #90 10/09/23 tabs rosuvastatin 10 mg tablet 10 mg PO DAILY #90 tabs 10/09/23 zolpidem 10 mg tablet 15 mg (1.5 x 10 mg) PO BEDTIME #45 11/14/23 tabs azithromycin 250 mg tablet See Rx Instructions PO .COMPLEX #6 01/01/24 tabs benzonatate 200 mg capsule 200 mg PO TID PRN cough #30 caps 01/01/24 guaifenesin 1,200 mg tablet, 1,200 mg PO Q12H #30 tabs 01/01/24 extended release 12 hr Allergies Allergy/AdvReac Type Severity Reaction Status Date / Time No Known Drug Allergies Allergy Verified 01/01/24 11:04 Review of Systems Review of Systems ROS Unobtainable: All systems reviewed & are unremarkable except as noted in HPI and below Patient History Medical History Septic olecranon bursitis Acute CVA (cerebrovascular accident) Lumbar degenerative disc disease Anterolisthesis Post-COVID syndrome PFO (patent foramen ovale) Easy bruising Obstructive sleep apnea Erectile dysfunction Trochanteric bursitis of left hip Peripheral neuropathic pain Chronic low back pain Fatigue 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 H/O nephrolithotomy with removal of calculi (~1970) Hypothyroidism Hyperlipidemia Primary insomnia Surgical History H/O hernia repair (~08/2018) Hx of appendectomy Hx of tonsillectomy H/O prostatectomy (~1999) Family History Brother COPD (chronic obstructive pulmonary disease) Social History household members: spouse Smoking Status: Never smoker alcohol intake: current substance use type: does not use Smoking Status: Never smoker alcohol intake frequency: 3 or more drinks per day Alcohol type: beer Substance Use Type: does not use Exam Narrative Exam Narrative: GENERAL: Alert and oriented x three, mild mild distress HEENT: Head normocephalic, atraumatic, EOMI, pupils reactive, face symmetric, nasal congestion, moist mucous membranes NECK: Supple, full range of motion CARDIOVASCULAR: Regular rate and rhythm without murmurs, rubs or gallops. No JVD. No edema bilateral lower extremities. RESPIRATORY: Breath sounds equal bilaterally although slightly diminished, no wheezes, no rales or rhonchi i. No tachypnea or accessory muscle use. ABDOMEN: Soft, nontender. Normoactive bowel sounds all 4 quadrants. No guarding or rebound, rigidity, no mass : No CVA tenderness EXTREMITIES: Normal range of motion, no clubbing or edema. Neurovascularly intact NEUROLOGICAL: Cranial nerves II through XII grossly intact. Moving all extremities SKIN: Warm, dry, no petechiae, no rashes or lesions. Initial Vital Signs Initial Vital Signs: Vital Signs Temperature 96.7 F L 01/03/24 21:21 Pulse Rate 78 01/03/24 21:21 Respiratory Rate 16 01/03/24 21:21 Blood Pressure 120/66 01/03/24 21:21 Pulse Oximetry 97 01/03/24 21:21 Oxygen Delivery Method Room Air 01/03/24 21:21 Course Orders Ordered: ED Orders 01/03/24 21:25 XR chest 1V Stat EKG-12 Lead Stat Measure peak expiratory flow ONCE RT Consult Eval and Treat NOW 01/03/24 21:45 Complete Blood Count AUTO DIFF Stat Comprehensive Metabolic Panel Stat Lactate (Lactic Acid) Stat NT-proBNP (BNP-Adult 18+) Stat Prothrombin Time INR Stat Troponin I Stat 01/03/24 22:23 Respiratory Panel (Film Array) Stat Discontinued Medications Albuterol (Albuterol 2.5 Mg/3 Ml Neb (Adult)) 2.5 mg INH NOW ONE Stop: 01/04/24 01:30 Last Admin: 01/04/24 01:39 Dose: 2.5 mg Documented By: PV Vital Signs Vital signs: Vital Signs - 8 hr 01/03/24 21:21 01/03/24 23:13 01/03/24 23:13 Temperature 96.7 F L Pulse Rate 78 74 Respiratory Rate 16 Blood Pressure 120/66 134/83 Pulse Oximetry 97 95 Oxygen Delivery Method Room Air Fraction of Inspired Oxygen 01/03/24 23:30 01/03/24 23:30 01/04/24 00:00 Temperature Pulse Rate 65 65 Respiratory Rate 16 18 Blood Pressure 138/81 Pulse Oximetry 93 95 Oxygen Delivery Method Fraction of Inspired Oxygen 01/04/24 00:00 01/04/24 00:30 01/04/24 00:47 Temperature Pulse Rate 62 75 Respiratory Rate 12 14 Blood Pressure 141/82 H 133/68 167/76 H Pulse Oximetry 96 98 Oxygen Delivery Method Room Air Fraction of Inspired Oxygen 01/04/24 01:00 01/04/24 01:00 01/04/24 01:30 Temperature Pulse Rate 71 Respiratory Rate Blood Pressure 138/75 130/80 Pulse Oximetry 95 Oxygen Delivery Method Fraction of Inspired Oxygen 01/04/24 01:30 01/04/24 01:40 01/04/24 02:00 Temperature Pulse Rate 71 64 Respiratory Rate 12 18 Blood Pressure 131/73 Pulse Oximetry 96 95 Oxygen Delivery Method Room Air Fraction of Inspired Oxygen 21 01/04/24 02:00 01/04/24 02:47 Temperature 98.4 F Pulse Rate 72 86 Respiratory Rate 16 Blood Pressure 144/77 H Pulse Oximetry 95 96 Oxygen Delivery Method Room Air Fraction of Inspired Oxygen MDM - SOB/Dyspnea Lab Data 01/03/24 21:45 01/03/24 21:45 Labs: Lab Results 01/03/24 01/03/24 Range/Units 21:45 22:23 WBC 9.7 (4.5-11.0) X10^3/uL RBC 4.31 L (4.5-5.9) X10^6/uL Hgb 13.9 (13.5-17.5) g/dL Hct 40.8 L (41-53) % MCV 94.7 (80-100) fL MCH 32.4 (26-34) PG MCHC 34.2 (30-36) % RDW 14.0 (11.6-14.8) % Plt Count 216 (150-400) X10^3/uL Neut % (Auto) 66.3 (50-75) % Lymph % (Auto) 22.6 L (25-40) % [place] % (Auto) 8.2 (3-14) % Eos % (Auto) 2.6 (2-4) % Baso % (Auto) 0.3 (0-2) % Neut # (Auto) 6400 (1177-6949) /uL Lymph # (Auto) 2200 (4216-0650) /uL [place] # (Auto) 800 (0-900) /uL Eos # (Auto) 300 (0-450) /uL Baso # (Auto) 0 (0-100) /uL PT 11.4 (9.4-12.5) SECONDS INR 1.0 (0.9-1.3) Sodium 136 L (137-145) mmol/L Potassium 3.6 (3.4-5.1) mmol/L Chloride 104 (98-107) mmol/L Carbon Dioxide 22 (22-32) mmol/L BUN 24 H (9-20) mg/dL Creatinine 1.06 (0.66-1.25) mg/dL Estimated GFR > 60 (>60) mL/min BUN/Creatinine Ratio 22.6 H (6-22) Glucose 141 H (80-110) mg/dL Lactate 1.9 (0.7-2.1) mmol/L Calcium 8.9 (8.4-10.2) mg/dL Total Bilirubin 0.4 (0.2-1.3) mg/dL AST 26 (17-59) IU/L ALT 26 (<50) IU/L Alkaline Phosphatase 78 (38-126) U/L Troponin I < 0.012 (0.01-0.034) ng/mL NT-Pro-B Natriuret Pep 118 (<450) pg/mL Total Protein 6.5 (6.3-8.2) g/dL Albumin 4.2 (3.5-5.0) g/dL Globulin 2.3 (1.7-4.1) g/dL Albumin/Globulin Ratio 1.8 (1.0-2.8) Chlamy pneumoniae PCR Not detected (Not Detect) Adenovirus (PCR) Not detected (Not Detect) B. pertussis DNA (PCR) Not detected (Not Detect) B.parapertussis DNA PCR Not detected (Not Detecte) Coronavirus OC43 (PCR) Not detected (Not Detect) Coronavirus HKU1 (PCR) Not detected (Not Detect) Coronavirus 229E (PCR) Not detected (Not Detect) SARS-CoV-2 (PCR) Not detected (Not Detecte) Coronavirus NL63 (PCR) Not detected (Not Detect) Human Metapneumovir PCR Not detected (Not Detect) Influenza Type A (PCR) Not detected (Not Detect) Influenza Type B (PCR) Not detected (Not Detect) M. pneumoniae (PCR) Not detected (Not Detect) Parainfluenza 1 (PCR) Not detected (Not Detect) Parainfluenza 2 (PCR) Not detected (Not Detect) Parainfluenza 3 (PCR) Not detected (Not Detect) Parainfluenza 4 (PCR) Not detected (Not Detect) RSV (PCR) Not detected (Not Detect) Entero/Rhino (PCR) Detected H (Not Detect) Imaging Data Chest x-ray: Radiologist's Impression: Close Chest X-Ray (Signed) Mauro Gonzales - 01/03/24 DI Result 10/01/23 Shoulder X-Ray (Signed) Chapito Greene - 09/18/23 Cervical Spine MRI (Signed) Adrián Vang - 09/03/23 Shoulder X-Ray (Signed) [employer] - 08/26/23 Knee X-Ray (Signed) Nadege Ng - 08/26/23 Cervical Spine X-Ray (Signed) Nadege Ng - 08/26/23 Lumbar Spine MRI (Signed) Jeb Smith - 05/12/23 Lumbar Spine X-Ray (Signed) Riki Dela Cruz - 05/09/23 Abdomen/Pelvis CT (Signed) Amauri Meredith - 04/14/23 Renal Ultrasound (Signed) Chapito Greene - 02/09/23 Telemetry Strips 09/08/22 Brain MRI (Signed) Dakota Goyal - 09/08/22 Head/Neck CTA (Signed) Nadege Ng - 09/08/[address] (Signed) Nadege Ng - 09/08/22 Echocardiogram Ultrasound (Signed) Karen Marin - 09/08/22 Echocardiogram Ultrasound (Signed) Karen Marin - 05/24/21 Brain MRI (Signed) Aníbal Rodriguez - 05/24/21 Telemetry Strips 05/24/[address] (Signed) Camila Reyna - 05/24/21 Chest X-Ray (Signed) Camila Reyna - 05/24/21 Head/Neck CTA (Signed) Camila Reyna - 05/24/21 Knee X-Ray (Signed) Amauri Meredith - 06/09/[address] (Signed) Barron Kelley - 04/01/[address] (Signed) Adrián Vang - 02/07/20 Chest X-Ray (Signed) Adrián Vang - 02/07/[address] (Signed) Hakeem Ruffin - 08/07/19 Chest X-Ray (Signed) Erickson Nobles - 07/30/19 Shoulder X-Ray (Signed) Debi Ugalde - 07/10/19 Shoulder X-Ray (Signed) Debi Ugalde - 07/10/19 Hand X-Ray (Signed) Adrián Vang - 07/10/19 Hand X-Ray (Signed) Adrián Vang - 07/10/19 Neck CTA (Signed) Adrián Vang - 04/03/19 Cervical Spine MRI (Signed) Camila Reyna - 04/03/19 PFT Result 03/27/19 Echocardiogram Ultrasound (Signed) JwshadievensLauriearely - 03/24/19 Radiology Report (Cancelled) OscarLauriearely - 03/21/19 Myocardial Perfusion Scan Nuc Med (Signed) Fredy Moore - 03/21/19 Brain MRI (Signed) Willem Robertson - 03/09/[address] (Signed) Chapito Greene - 03/05/19 Chest X-Ray (Signed) Willem Robertson - 03/05/19 Lumbar Spine X-Ray (Signed) David Mitchell - 03/16/18 [address] [address] XRay Report Signed Patient: Oneil Mays MR#: [id number] : 1950 Acct:[id number] Age/Sex: 73 / M Date of Service: 01/03/24 Loc: Accession Number: [id number] Procedure: XR chest 1V Ordering Provider: Camille Wagner D.O. PROCEDURE: XR CHEST 1V INDICATIONS: Shortness of breath TECHNIQUE: One view of the chest was acquired. COMPARISON: [facility], , XR CHEST 1V, 05/24/2021, 18:56. [facility], , XR CHEST 1V, 02/07/2020, 17:02. [facility], , XR CHEST 2V, 07/30/2019, 13:35. [facility], , XR CHEST 2V, 03/05/2019, 16:06. FINDINGS: Surgical changes and devices: None. Lungs and pleura: Low lung volumes. Bibasilar subsegmental atelectasis. Trace left pleural effusion versus pleural thickening. No right pleural effusion. No pneumothorax. Mediastinum: Mediastinal contours appear normal. Heart size is normal. Bones and chest wall: Moderate left glenohumeral osteoarthritis. No suspicious bony lesions. Overlying soft tissues appear unremarkable. IMPRESSION: Mild bibasilar subsegmental atelectasis. Otherwise, no acute cardiothoracic process. Dictated by: Mauro Gonzales M.D. on 01/03/2024 at 22:31 Approved by: Mauro Gonzales M.D. on 01/03/2024 at 22:32 [facility] Narrative Medical decision making narrative: 73-year-old male presents with complaint of chest congestion difficulty breathing, cough with recent productive sputum was treated with azithromycin from the walk-in clinic. Had a COVID, influenza/RSV swab that was negative on 01/01/2024. Labs show white count of 9.7 hemoglobin of 13.9 platelets of 216, sodium is 136 potassium 3.6 chloride 104 CO2 is 22 BUN 24 creatinine 1.06 glucose is 141 lactate 1.9 LFTs are negative troponins less than 0.012 Chest x-ray mild bibasilar subsegmental atelectasis otherwise no acute cardiothoracic process noted. Trace left pleural effusion versus pleural thickening. No right pleural effusion. Moderate left glenohumeral osteoarthritis. Respiratory panel positive for entero/rhinovirus. EKG shows sinus rhythm with sinus arrhythmia nonspecific ST change. Patient is slightly decreased on exam but no wheeze. His vitals are overall been appropriate no hypotension no tachycardia no hypoxia no significant increase in respiratory rate or accessory muscle use. Patient's workup is positive for entero/rhinovirus. Patient has had albuterol in the past but not regularly no reports of lung disease. On recheck he has some occasional mild wheeze. We will give 1 albuterol see if patient is tolerating well. He has not albuterol inhaler at home but does not have a spacer. Patient notes a lot of congestion and discussed he can try [id number] antihistamines such as Claritin or loratadine. Discharge Plan Departure Patient Disposition: Home Clinical Impression: Rhinovirus infection Activity Restrictions/Additional Instructions: Please follow up with the primary care physician as needed, you have tested positive for rhino/enterovirus today. This is a viral illness that typically last 7-10 days. You can take Tylenol and/or ibuprofen as tolerated for fevers or muscle aches. You can take an [id number] antihistamine such as Claritin or loratadine 10 mg daily. If you find your inhaler helpful you can use this I would recommend you use it with a spacer and 2 puffs every 4 hours if needed. It was not required the use this if you do not find it helpful. Please return for rapidly worsening symptoms, new chest pain, increasing shortness of breath, increasing swelling, lightheadedness or passing or other new or concerning changes. Prescriptions: No Action meloxicam 15 mg tablet 15 mg PO DAILY guaifenesin 1,200 mg tablet extended release 12hr 1,200 mg PO Q12H Qty: 30 0RF benzonatate 200 mg capsule 200 mg PO TID PRN (Reason: cough) Qty: 30 0RF azithromycin 250 mg tablet See Rx Instructions PO .COMPLEX Qty: 6 0RF Rx Instructions: For 250 mg dose pack: take 500 mg today (day 1), then 250 mg for 4 days (days 2-5) PO sildenafil (pulm.hypertension) 20 mg tablet See Rx Instructions .ROUTE .COMPLEX Qty: 14 0RF Dose Instruction: Take one tablet by mouth 30 minutes to 4 hours prior to sexual activity. Max daily dose of 5 tablets. Rx Instructions: Take one tablet by mouth 30 minutes to 4 hours prior to sexual activity. Max daily dose of 5 tablets. clopidogrel 75 mg tablet 75 mg PO DAILY Qty: 90 2RF losartan 50 mg tablet See Rx Instructions .ROUTE .COMPLEX Qty: 90 3RF Dose Instruction: TAKE ONE TABLET BY MOUTH ONE TIME DAILY Patient Comments: I take it opposite of the atorvastatin in terms of morning/bedtime Rx Instructions: TAKE ONE TABLET BY MOUTH ONE TIME DAILY levothyroxine 25 mcg tablet See Rx Instructions .ROUTE .COMPLEX Qty: 90 3RF Dose Instruction: TAKE ONE TABLET BY MOUTH ONE TIME DAILY Rx Instructions: TAKE ONE TABLET BY MOUTH ONE TIME DAILY hydroxyzine HCl 25 mg tablet See Rx Instructions PO BEDTIME Qty: 90 3RF Rx Instructions: t1-2 tabs orally bedtime; rosuvastatin 10 mg tablet 10 mg PO DAILY Qty: 90 3RF zolpidem 10 mg tablet 15 mg PO BEDTIME Qty: 45 3RF duloxetine 30 mg capsule,delayed release(DR/EC) 90 mg PO DAILY Qty: 270 3RF gabapentin 400 mg capsule 400 mg PO .COMPLEX Qty: 360 2RF Rx Instructions: 400 mg orally take 1 capsule by mouth in the morning, 2 capsules mid day and 2 capsules at night.; Referrals: Colin Grace MD [Primary Care Provider] - Stand Alone Forms: Patient Portal/API
[2024-01-04] MEDS: ALBUTEROL 2.5 MG/3 ML NEB (ADULT) INH (01:39)
== END 2024-01-04 02:50 | disposition home or self-care (01) ==
PROVIDERS: Emergency Provider Emergency Medicine; PCP Family Medicine
DX: B34.8 Other viral infections of unspecified site (principal); I49.8 Other specified cardiac arrhythmias; Z11.52 Encounter for screening for COVID-19
CPT/HCPCS: 36415; 71045; 80053; 83605; 83880; 84484; 85025; 85610; 87633; 93005; 94640; 99284; J7613

== ENCOUNTER 2024-03-29 00:28 | Emergency (ER) | payer MEDICARE, OTHER, SELFPAY ==
[2024-01-08 10:35] VITALS: BMI 31.8
--- NOTE | 2024-03-29 00:33 | DI.RAD.S_ITS ---
PROCEDURE: XR CHEST 1V INDICATIONS: eval for PNA TECHNIQUE: One view of the chest was acquired. COMPARISON: [facility], CR, XR CHEST 1V, 01/03/2024, 21:38. [facility], CR, XR CHEST 1V, 05/24/2021, 18:56. FINDINGS: Surgical changes and devices: None. Lungs and pleura: Low lung volumes. No consolidation or pleural effusion. Left lung base scarring/chronic atelectasis is again seen. Mediastinum: Heart size is normal and unchanged. Mediastinal contours also unchanged. Bones and chest wall: Degenerative findings. IMPRESSION: Limited single view radiograph. No acute abnormality. Low lung volumes. Unchanged left lung base scarring/chronic atelectasis. Dictated by: Osito Fountain M.D. on 03/29/2024 at 0:57 Approved by: Osito Fountain M.D. on 03/29/2024 at 0:58
[2024-03-29 00:36] VITALS: BP 160/97; PULSE 106; RESP 18; TEMP 37.4; O2SAT 97; BMI 31.9
[2024-03-29 01:22] LABS: Influenza A - CEPHEID Flu A NEGATIVE (NEGATIVE); Influenza B - CEPHEID Flu B NEGATIVE (NEGATIVE); Respiratory Syncytial Virus Negative (Negative)
[2024-03-29 01:39] LABS: COVID-19 CEPHEID 4-PLEX PCR POSITIVE (Negative)
--- NOTE | 2024-03-29 01:54 | ED_ITS ---
HPI - General Adult General Chief complaint: Upper Respiratory Symptoms Stated complaint: Chest congestion, feverish, cough x 5 days Time Seen by Provider: 03/29/24 00:32 Source: patient Mode of arrival: Ambulatory History of Present Illness HPI narrative: Patient was a 73-year-old male. Has a history of asthma as a child. recently was diagnosed in his getting over COVID who is here for evaluation of approximately 5 days of cough, wheezing, trouble sleeping at night because of the cough. He was not tried anything for symptoms prior to arrival. States he was had a adverse reaction to albuterol in the past making it difficult for him to breathe. Related Data Previous Rx's Medication Instructions Recorded clopidogrel 75 mg tablet 75 mg PO DAILY #90 tabs 10/08/22 losartan 50 mg tablet See Rx Instructions .Route 06/04/23 .COMPLEX #90 tabs levothyroxine 25 mcg tablet See Rx Instructions .Route 08/26/23 .COMPLEX #90 tabs duloxetine 30 mg capsule,delayed 90 mg (3 x 30 mg) PO DAILY #270 10/08/23 release caps hydroxyzine HCl 25 mg tablet See Rx Instructions PO BEDTIME #90 10/09/23 tabs sildenafil (pulm.hypertension) 20 See Rx Instructions .Route 02/10/24 mg tablet .COMPLEX #14 tabs gabapentin 400 mg capsule 400 mg PO .COMPLEX #360 caps 02/20/24 rosuvastatin 10 mg tablet 10 mg PO DAILY #90 tabs 02/20/24 zolpidem 10 mg tablet 15 mg (1.5 x 10 mg) PO BEDTIME #45 02/20/24 tabs benzonatate 100 mg capsule 100 mg PO TID PRN cough #14 caps 03/29/24 Allergies Allergy/AdvReac Type Severity Reaction Status Date / Time albuterol AdvReac Severe chest pain Verified 02/20/24 14:57 Review of Systems Review of Systems ROS Unobtainable: All systems reviewed & are unremarkable except as noted in HPI and below Patient History Medical History Septic olecranon bursitis Acute CVA (cerebrovascular accident) Lumbar degenerative disc disease Anterolisthesis Post-COVID syndrome PFO (patent foramen ovale) Easy bruising Obstructive sleep apnea Erectile dysfunction Trochanteric bursitis of left hip Peripheral neuropathic pain Chronic low back pain Fatigue 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 H/O nephrolithotomy with removal of calculi (~1970) Hypothyroidism Hyperlipidemia Primary insomnia Surgical History H/O hernia repair (~08/2018) Hx of appendectomy Hx of tonsillectomy H/O prostatectomy (~1999) Family History Brother COPD (chronic obstructive pulmonary disease) Social History household members: spouse Smoking Status: Never smoker alcohol intake: current substance use type: does not use Smoking Status: Never smoker alcohol intake frequency: 3 or more drinks per day Alcohol type: beer Exam Initial Vital Signs Initial Vital Signs: Vital Signs Temperature 99.3 F 03/29/24 00:36 Pulse Rate 106 H 03/29/24 00:36 Respiratory Rate 18 03/29/24 00:36 Blood Pressure 160/97 H 03/29/24 00:36 Pulse Oximetry 97 03/29/24 00:36 Oxygen Delivery Method Room Air 03/29/24 00:36 Const General: cooperative and comfortable Resp Effort & Inspection: normal respiratory effort, cough, not labored and not tachypneic Auscultation: crackles Cardio Rate: tachycardic Rhythm: regular rhythm Skin General: no rashes or lesions noted Neuro General: patient alert, patient awake and moves all extremities Course Orders Ordered: ED Orders 03/29/24 00:33 XR chest 1V Stat 03/29/24 00:35 Covid-19 + FLU A/B + RSV - PCR Stat Discontinued Medications Benzonatate (Benzonatate 100 Mg Capsule) 100 mg PO NOW ONE Stop: 03/29/24 01:55 Dexamethasone (Dexamethasone 4 Mg Tablet) 12 mg PO NOW ONE Stop: 03/29/24 01:55 Vital Signs Vital signs: Vital Signs - 8 hr 03/29/24 00:36 Temperature 99.3 F Pulse Rate 106 H Respiratory Rate 18 Blood Pressure 160/97 H Pulse Oximetry 97 Oxygen Delivery Method Room Air Medical Decision Making Lab Data Lab results reviewed: Yes I reviewed the patient's lab results. Labs: Lab Results 03/29/24 Range/Units 00:35 SARS-CoV-2 (PCR) Positive H (Negative) Influenza A (RT-PCR) Flu a negative (NEGATIVE) Influenza B (RT-PCR) Flu b negative (NEGATIVE) RSV (PCR) Negative (Negative) Imaging Data Chest x-ray: Radiologist's Impression: PROCEDURE: XR CHEST 1V INDICATIONS: eval for PNA TECHNIQUE: One view of the chest was acquired. COMPARISON: [facility], CR, XR CHEST 1V, 01/03/2024, 21:38. [facility], CR, XR CHEST 1V, 05/24/2021, 18:56. FINDINGS: Surgical changes and devices: None. Lungs and pleura: Low lung volumes. No consolidation or pleural effusion. Left lung base scarring/chronic atelectasis is again seen. Mediastinum: Heart size is normal and unchanged. Mediastinal contours also unchanged. Bones and chest wall: Degenerative findings. IMPRESSION: Limited single view radiograph. No acute abnormality. Low lung volumes. Unchanged left lung base scarring/chronic atelectasis. MDM Narrative Medical decision making narrative: Patient is COVID-19 positive. There was no indication for antibiotics. His chest x-ray is unremarkable. I discussed the diagnosis with him. We will give Tessalon Perles to try to help with the cough. One dose of steroids because of the abnormal lung sounds and he states this is helped him in the past. He was given return precautions. He expressed understanding and agreement plan. Discharge Plan Departure Patient Disposition: Home Clinical Impression: COVID-19 Instructions: DI for COVID-19 (Suspected or Confirmed ) Activity Restrictions/Additional Instructions: Continue to take all of your medications as directed. Contact your primary care doctor for a follow-up. Return to the emergency department for new or worsening symptoms. Prescriptions: New benzonatate 100 mg capsule 100 mg PO TID PRN (Reason: cough) Qty: 14 0RF No Action clopidogrel 75 mg tablet 75 mg PO DAILY Qty: 90 2RF losartan 50 mg tablet See Rx Instructions .ROUTE .COMPLEX Qty: 90 3RF Dose Instruction: TAKE ONE TABLET BY MOUTH ONE TIME DAILY Patient Comments: I take it opposite of the atorvastatin in terms of morning/bedtime Rx Instructions: TAKE ONE TABLET BY MOUTH ONE TIME DAILY levothyroxine 25 mcg tablet See Rx Instructions .ROUTE .COMPLEX Qty: 90 3RF Dose Instruction: TAKE ONE TABLET BY MOUTH ONE TIME DAILY Rx Instructions: TAKE ONE TABLET BY MOUTH ONE TIME DAILY hydroxyzine HCl 25 mg tablet See Rx Instructions PO BEDTIME Qty: 90 3RF Rx Instructions: t1-2 tabs orally bedtime; sildenafil (pulm.hypertension) 20 mg tablet See Rx Instructions .ROUTE .COMPLEX Qty: 14 0RF Dose Instruction: Take one tablet by mouth 30 minutes to 4 hours prior to sexual activity. Max daily dose of 5 tablets. Rx Instructions: Take one tablet by mouth 30 minutes to 4 hours prior to sexual activity. Max daily dose of 5 tablets. duloxetine 30 mg capsule,delayed release(DR/EC) 90 mg PO DAILY Qty: 270 3RF gabapentin 400 mg capsule 400 mg PO .COMPLEX Qty: 360 3RF Rx Instructions: 400 mg orally take 1 capsule by mouth in the morning, 2 capsules mid day and 2 capsules at night.; rosuvastatin 10 mg tablet 10 mg PO DAILY Qty: 90 3RF zolpidem 10 mg tablet 15 mg PO BEDTIME Qty: 45 3RF Referrals: Colin Grace MD [Primary Care Provider] - Stand Alone Forms: Patient Portal/API/Survey
[2024-03-29] MEDS: dexAMETHasone 4 MG TABLET 12 MG PO (02:14)
[2024-03-29] MEDS: BENZONATATE 100 MG CAPSULE PO (02:15)
[2024-03-29 02:17] VITALS: BP 158/88; PULSE 90; RESP 20; O2SAT 98
== END 2024-03-29 02:18 | disposition home or self-care (01) ==
PROVIDERS: Emergency Provider Emergency Medicine; PCP Family Medicine
DX: U07.1 COVID-19 (principal); R05.9 Cough, unspecified; Z20.822 Contact with and (suspected) exposure to COVID-19
CPT/HCPCS: 0241U; 71045; 99283

== ENCOUNTER → 2024-04-09 08:24 | Outpatient (CLI) | payer MEDICARE, OTHER, SELFPAY ==
[2024-01-08 10:35] VITALS: BMI 31.8
--- NOTE | 2024-04-09 08:26 | DI.CT.S_ITS ---
PROCEDURE: CT CHEST WO CON INDICATIONS: chronic shortness of breath TECHNIQUE: Noncontrast 5 mm thick sections acquired from the pulmonary apices to the posterior costophrenic angles. 1 mm lung window, 5 mm thick coronal and sagittal and 7 mm axial MIP reformats were then acquired. For radiation dose reduction, the following was used: automated exposure control, adjustment of mA and/or kV according to patient size. COMPARISON: [facility], CT, CT CHEST W CON, 04/01/2020, 11:16. [facility], CT, CT CHEST WO CON, 08/07/2019, 10:05. FINDINGS: Image quality: Diagnostic. Lower Neck: No enlarged lymph nodes. Thyroid: No thyroid nodules which require sonographic follow up, per consensus guidelines. Axillae: No enlarged lymph nodes. Chest Wall: Unremarkable. Bones: Unremarkable. Lungs and Pleura: No pneumothorax or pleural effusions. No consolidation or suspicious nodules. As has been previously the case there is a small degree of chronic lung scarring, right slightly greater than left, and several scattered punctate right lung calcifications consistent with minimal old granulomatous disease. Heart: Heart size is normal. No pericardial effusion. Thoracic Vessels: The aorta and pulmonary arteries demonstrate normal size. Mediastinum and Lavinia: No enlarged lymph nodes. Esophagus: No wall thickening. No hiatal hernia. Upper Abdomen: Visualized upper abdomen solid organs and bowel loops appear normal. IMPRESSION: Minimal old granulomatous disease, with right-sided stable punctate calcified granulomas. Mild bilateral alveolar scarring, right greater than left, previously the case. No change control analyst time found. Dictated by: Barron Kelley M.D. on 04/09/2024 at 10:32 Approved by: Barron Kelley M.D. on 04/09/2024 at 10:36
== END ==
PROVIDERS: PCP Family Medicine; Referring Provider Family Medicine; Visit Provider Family Medicine
DX: U07.1 COVID-19 (principal); R06.02 Shortness of breath; R06.2 Wheezing; D71 Functional disorders of polymorphonuclear neutrophils; J98.4 Other disorders of lung
CPT/HCPCS: 71250

== ENCOUNTER → 2024-05-02 09:15 | Outpatient (CLI) | payer MEDICARE, OTHER, SELFPAY ==
[2024-05-01 08:11] VITALS: BMI 31.8
[2024-05-02 11:33] LABS: Alanine Aminotransferase 29 IU/L (<50); Albumin 4.5 g/dL (3.5-5.0); Albumin Globulin Ratio 1.8 (1.0-2.8); Alkaline Phosphatase 77 U/L (38-126); Aspartate Aminotransferase 32 IU/L (17-59); BUN Creatinine Ratio 17.5 (6-22); Bilirubin Total 0.5 mg/dL (0.2-1.3); Blood Urea Nitrogen 18 mg/dL (9-20); Calcium 9.2 mg/dL (8.4-10.2); Carbon Dioxide 27 mmol/L (22-32); Chloride 103 mmol/L (98-107); Estimated Glomerular Filt Rate > 60 mL/min (>60); Globulin 2.5 g/dL (1.7-4.1); Glucose 118 mg/dL (80-110); HEMOLYSIS < 15 (0-50); Potassium 4.5 mmol/L (3.4-5.1); Sodium 139 mmol/L (137-145)
[2024-05-02 12:00] LABS: TSH w/ Reflex to FT4 5.02 uIU/mL (0.47-4.68)
[2024-05-02 12:58] LABS: Free T4, Direct Thyroxine 0.82 ng/dL (0.78-2.19)
== END ==
LOC: LAB 09:16
PROVIDERS: PCP Family Medicine; Referring Provider Family Medicine; Visit Provider Family Medicine
DX: R73.9 Hyperglycemia, unspecified (principal); E03.9 Hypothyroidism, unspecified; G89.29 Other chronic pain; E78.5 Hyperlipidemia, unspecified; M54.59 Other low back pain
CPT/HCPCS: 36415; 80053; 83036; 84439; 84443

== ENCOUNTER → 2024-06-27 16:35 | Outpatient (CLI) | payer MEDICARE, OTHER, SELFPAY ==
[2024-05-01 08:11] VITALS: BMI 31.8
[2024-06-27 18:30] LABS: Influenza A - CEPHEID Flu A NEGATIVE (NEGATIVE); Influenza B - CEPHEID Flu B NEGATIVE (NEGATIVE); Respiratory Syncytial Virus Negative (Negative)
[2024-06-27 18:52] LABS: COVID-19 CEPHEID 4-PLEX PCR Negative (Negative)
== END ==
PROVIDERS: PCP Family Medicine; Visit Provider Physician Assistant
DX: R05.1 Acute cough (principal)
CPT/HCPCS: 0241U

== ENCOUNTER → 2024-06-27 17:25 | Outpatient (CLI) | payer MEDICARE, OTHER, SELFPAY ==
[2024-05-01 08:11] VITALS: BMI 31.8
--- NOTE | 2024-06-27 17:28 | DI.RAD.S_ITS ---
PROCEDURE: XR CHEST 2V INDICATIONS: cough TECHNIQUE: 2 views of the chest were acquired. COMPARISON: [facility], CR, XR CHEST 1V, 03/29/2024, 0:46. FINDINGS: Surgical changes and devices: None. Lungs and pleura: Lungs are clear. No pleural effusions or pneumothorax. Mediastinum: Mediastinal contours are normal. Heart size is normal. Bones and chest wall: No suspicious bony abnormalities. Soft tissues appear unremarkable. IMPRESSION: No acute cardiopulmonary pathology. Dictated by: Chapito Greene M.D. on 06/27/2024 at 18:11 Approved by: Chapito Greene M.D. on 06/27/2024 at 18:12
== END ==
LOC: RAD 17:27
PROVIDERS: PCP Family Medicine; Referring Provider Physician Assistant; Visit Provider Physician Assistant
DX: R05.1 Acute cough (principal)
CPT/HCPCS: 0241U; 71046

== ENCOUNTER 2024-08-28 07:33 | Emergency (ER) | payer MEDICARE, OTHER, SELFPAY ==
[2024-05-01 08:11] VITALS: BMI 31.8
[2024-08-28] VITALS (12 sets, daily range): BP systolic 125–157; BP diastolic 65–94; PULSE 63–85; RESP 12–19; TEMP 36.6–37.1; O2SAT 96–99; BMI 34.1
--- NOTE | 2024-08-28 07:55 | EKG_ITS ---
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
--- NOTE | 2024-08-28 07:58 | DI.RAD.S_ITS ---
PROCEDURE: XR CHEST 1V INDICATIONS: Chest Pain TECHNIQUE: One view of the chest was acquired. COMPARISON: [facility], CR, XR CHEST 2V, 06/27/2024, 17:29. FINDINGS: Surgical changes and devices: None. Lungs and pleura: Lungs are clear. No pleural effusions or pneumothorax. Mediastinum: Mediastinal contours appear normal. Heart size is normal. Bones and chest wall: No suspicious bony lesions. Overlying soft tissues appear unremarkable. IMPRESSION: No acute cardiopulmonary pathology. Dictated by: Chapito Greene M.D. on 08/28/2024 at 8:45 Approved by: Chapito Greene M.D. on 08/28/2024 at 8:46
--- NOTE | 2024-08-28 07:58 | ED.GENADULT ---
HPI - General Adult General Chief complaint: Syncope Stated complaint: Fell last night , not on blood thinners Time Seen by Provider: 08/28/24 07:58 Source: patient, RN notes reviewed and old records reviewed Limitations: no limitations History of Present Illness HPI narrative: 74-year-old male history of hypertension, dyslipidemia, hypothyroidism, prostate cancer treated surgically, idiopathic neuropathy aspirin daily who presents with complaint of fall and loss of consciousness. Patient states he was a lot of trouble sleeping at baseline was up between 2 and 4:00 a.m. this morning he was getting up out of his chair and caught his foot on the bottom of the chair falling forward. Patient states no headache, states he does not have a lot of facial discomfort but does have some small lacerations on the forehead. He notes mainly chest pain bilaterally with movement, deep inspiration, patient states does not feel short of breath. Denies any dizziness or lightheadedness prior to or after. No other syncopal episodes. Does state he thinks he had a brief loss of consciousness. was sleeping when this occurred. He did not tell her temp morning. Patient denies any issues with bowel movements or urination, no incontinence. Denies any injuries to his extremities. States everything has been moving normally. He has been able to ambulate but gingerly. Patient and note he was had 3 falls in the past 2 weeks which is atypical. Both of them are described as mechanical. Patient notes prior prostatectomy, remote history 1st surgery for kidney stones. Reports an adverse reaction albuterol. No tobacco, 2 or 3 alcoholic drinks daily, no recreational drugs. Dr. Grace. Patient states tetanus is not up-to-date in the last 5 years. He was accompanied by his who states mentation seems to be baseline patient feels that it is at baseline as well. Related Data Previous Rx's ?Medication ?Instructions ?Recorded clopidogrel 75 mg tablet 75 mg PO DAILY #90 tabs 10/08/22 duloxetine 30 mg capsule,delayed 90 mg (3 x 30 mg) PO DAILY #270 10/08/23 release caps hydroxyzine HCl 25 mg tablet See Rx Instructions PO BEDTIME #90 10/09/23 tabs sildenafil (pulm.hypertension) 20 See Rx Instructions .Route 02/10/24 mg tablet .COMPLEX #14 tabs gabapentin 400 mg capsule 400 mg PO .COMPLEX #360 caps 02/20/24 rosuvastatin 10 mg tablet 10 mg PO DAILY #90 tabs 02/20/24 levalbuterol tartrate 45 2 puff inhalation Q4-6H PRN 04/02/24 mcg/actuation aerosol inhaler shortness of breath or wheezing (Xopenex HFA) #15 grams losartan 50 mg tablet See Rx Instructions .Route 05/28/24 .COMPLEX #90 tabs fluticasone 250 mcg-salmeterol 50 1 ea inhalation BID #60 ea 06/04/24 mcg/dose blistr powdr for inhalation amoxicillin 875 mg-potassium 1 tab PO BID #20 tabs 07/03/24 clavulanate 125 mg tablet zolpidem 10 mg tablet 15 mg (1.5 x 10 mg) PO BEDTIME #45 07/24/24 tabs levothyroxine 25 mcg tablet See Rx Instructions .Route 08/14/24 .COMPLEX #90 tabs hydrocodone 5 mg-acetaminophen 325 1 tab PO Q6H PRN pain #10 tabs 08/28/24 mg tablet Allergies Allergy/AdvReac Type Severity Reaction Status Date / Time albuterol AdvReac Severe chest pain Verified 08/28/24 08:02 Review of Systems Review of Systems ROS Unobtainable: All systems reviewed & are unremarkable except as noted in HPI and below Patient History Medical History Common cold virus Septic olecranon bursitis Acute CVA (cerebrovascular accident) Lumbar degenerative disc disease Anterolisthesis Post-COVID syndrome PFO (patent foramen ovale) Easy bruising Obstructive sleep apnea Erectile dysfunction Trochanteric bursitis of left hip Peripheral neuropathic pain Chronic low back pain Fatigue 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 HEAD: Patient has 2 small lacerations of the right forehead just above the brow, has a little bit of ecchymosis over the bridge of the nose but no skin lacerations, no raccoon/Matthew sign. NECK: Nontender, painless range of motion, trachea midline [Negative/positive] Nexus criteria, [there is not] line tenderness, distracting injury, altered mental status, neuro deficit, recent EtOH. EYES: PERRLA, EOMI ENT: External inspection normal, trachea is midline, TM's are normal no hemotypanum, Nares are clear, no septal hematoma, no dental or oral injury, airway is normal and with normal occlusion, No bony tenderness RESP: Chest is on the right ribs 6 through 9, but no point tenderness. She has symmetric movement, no ecchymosis, breath sounds are normal no crackles, wheezes or rales CVS: Heart sounds are normal, no murmur noted, No JVD. ABG/GI: Nontender, soft, normal bowel sounds, no distention, no organomegaly, pelvic rock is negative NEURO: Oriented AOx3, neuro is grossly intact, sensation and motor is normal all 4 extremities moving, cranial nerves II through XII are intact, GCS is 15 PSYCH: Normal mood and affect SKIN: Intact other than above, warm and dry, no crepitus and without decubitus BACK: No CVA tenderness, no vertebral tenderness, no step-off's, no crepitus EXT: Atraumatic, hips are nontender, no pedal edema, normal color and temperature, normal range of motion of extremities with normal tendon exam, 2+ pulses in all four extremities Initial Vital Signs Initial Vital Signs: Vital Signs Pulse Rate 67 08/28/24 07:47 Pulse Oximetry 96 08/28/24 07:47 Procedures Laceration Repair Laceration 1: Site: face Side (If applicable): right (above eyebrow) Size (cm): 1.7 Description: linear Depth: simple, single layer Pre-repair: wound explored, irrigated extensively and deep structures intact Skin layer closed with: dermabond (steristrips) Scores [place] CT Head Rule Age <16 years old: No Patient on blood thinners: Yes (Aspirin) Seizure after injury: No Exclusion: Patient meets exclusion criteria GCS < 15 at 2 hr post trauma: No Suspected open or depressed skull fracture: No Any sign of basilar skull fracture (hemotympanum, raccoon eyes, Matthew's sign, CSF kady-/rhinorrhea): No Two or more episodes of vomiting: No Age greater or equal to 65 years: Yes Retrograde amnesia to the event greater or equal to 30 min: No Dangerous Mechanism (pedestrian vs. mv, occupant ejected from mv, fall from >3 ft or > 5 stairs): No Recommendation: Consider CT. The [place] Head CT Rule cannot rule out need for Imaging. GCS Shea coma scale eye opening: Spontaneous Shea coma scale verbal response: Orientated [place] coma scale motor response: Obey commands Shea coma scale total score: 15 Nexus Score for C-Spine Focal Neurologic deficit present: No Midline spinal tenderness present: No Altered level of conciousness present: No Intoxication present: No Distracting Injury Present: No Nexus Criteria for C-spine: 0 Course Orders Ordered: Discontinued Medications Hydrocodone Bitart/Acetaminophen (Hydrocodone/Acet 5/325 Tablet) 2 tab PO NOW ONE Stop: 08/28/24 08:14 Last Admin: 08/28/24 09:25 Dose: 2 tab Documented By: Aspirin (Aspirin 81 Mg Chew Tab) 324 mg PO NOW ONE Stop: 08/28/24 07:59 Diphtheria/Tetanus/Acell Pertussis (Tet,Diph,Pertuss(Acell),Vac/Pf 0.5 Ml Syringe) 0.5 ml IM .ONCE ONE Stop: 08/28/24 08:14 Last Admin: 08/28/24 09:24 Dose: 0.5 ml Documented By: Vital Signs Vital signs: Vital Signs - 8 hr 08/28/24 11:24 Temperature 98.7 F Pulse Rate 66 Respiratory Rate 19 Blood Pressure 154/78 H Pulse Oximetry 98 Oxygen Delivery Method Room Air Medical Decision Making Lab Data 08/28/24 08:19 08/28/24 08:19 Labs: Lab Results 08/28/24 Range/Units 08:19 WBC 8.1 (4.5-11.0) X10^3/uL RBC 4.24 L (4.5-5.9) X10^6/uL Hgb 13.5 (13.5-17.5) g/dL Hct 40.0 L (41-53) % MCV 94.4 (80-100) fL MCH 31.9 (26-34) PG MCHC 33.8 (30-36) % RDW 15.2 H (11.6-14.8) % Plt Count 205 (150-400) X10^3/uL Neut % (Auto) 72.2 (50-75) % Lymph % (Auto) 16.9 L (25-40) % [place] % (Auto) 8.6 (3-14) % Eos % (Auto) 2.0 (2-4) % Baso % (Auto) 0.3 (0-2) % Neut # (Auto) 5800 (2196-3452) /uL Lymph # (Auto) 1400 (3783-5642) /uL [place] # (Auto) 700 (0-900) /uL Eos # (Auto) 200 (0-450) /uL Baso # (Auto) 0 (0-100) /uL PT 10.3 (9.4-12.5) SECONDS INR 0.9 (0.9-1.3) APTT 33 (25.1-36.5) SECONDS Sodium 135 L (137-145) mmol/L Potassium 4.2 (3.4-5.1) mmol/L Chloride 103 (98-107) mmol/L Carbon Dioxide 25 (22-32) mmol/L BUN 17 (9-20) mg/dL Creatinine 0.88 (0.66-1.25) mg/dL Estimated GFR > 60 (>60) mL/min BUN/Creatinine Ratio 19.3 (6-22) Glucose 118 H (70-99) mg/dL Calcium 8.5 (8.4-10.2) mg/dL Magnesium 2.0 (1.6-2.3) mg/dL Total Bilirubin 0.5 (0.2-1.3) mg/dL AST 34 (17-59) IU/L ALT 28 (<50) IU/L Alkaline Phosphatase 89 (38-126) U/L Total Creatine Kinase 110 (55-170) U/L Troponin I < 0.012 (0.01-0.034) ng/mL NT-Pro-B Natriuret Pep 63 (<450) pg/mL Total Protein 6.7 (6.3-8.2) g/dL Albumin 4.2 (3.5-5.0) g/dL Globulin 2.5 (1.7-4.1) g/dL Albumin/Globulin Ratio 1.7 (1.0-2.8) Lipase 25 (23-300) U/L Urine Dip Bedside Urine Glucose Negative Bedside Urine Bilirubin - Negative Bedside Urine Ketone - Negative Urine Specific [place] 1.015 Bedside Urine Occult Blood - Negative Bedside Urine pH 6.0 Bedside Urine Protein - Negative Bedside Urine Urobilinogen +/- 1mg Bedside Urine Nitrite - Negative Bedside Urine Leukocytes - Negative Esterase Point of care testing: Urine Dip Bedside Urine Glucose Negative Bedside Urine Bilirubin - Negative Bedside Urine Ketone - Negative Urine Specific [place] 1.015 Bedside Urine Occult Blood - Negative Bedside Urine pH 6.0 Bedside Urine Protein - Negative Bedside Urine Urobilinogen +/- 1mg Bedside Urine Nitrite - Negative Bedside Urine Leukocytes - Negative Esterase ECG Data Attestation: I personally reviewed and interpreted this ECG as follows: Interpretation: Sinus rhythm rate of 70 NM 136 QRS 84 QTC of 453, no acute ST elevation or depression appreciated. Patient was prior from 08/19/2022, no acute ST changes. [facility] Narrative Medical decision making narrative: 74-year-old male who had what sounds like mechanical ground level fall earlier this morning but did have what sounds like a brief loss of consciousness he was some small laceration on his forehead and right chest tenderness. Patient is slightly hypertensive but otherwise appropriate vitals. Based on patient's age, aspirin use and symptoms head CT, CT cervical spine and facial bones was obtained, chest x-ray as well as labs. Labs show normal white count hemoglobin and platelets, coags are negative, sodium is 135 electrolytes are normal BUN creatinine is appropriate glucose is 118, troponins negative BNP 63. LFTs are negative. Point of care urine is negative. EKG shows sinus rhythm Head CT shows no acute intracranial pathology, mild right frontal scalp hematoma and swelling no acute skull fracture. Age-related volume loss and mild white matter small-vessel chronic ischemic changes. CT cervical spine no displaced fracture or traumatic subluxation, [id number]-[id number] degenerative disc disease throughout cervical spine. CT facial bone no acute facial bone or nasal bone fracture, bilateral orbital globes and orbits vault are intact. Mild right frontal/supraorbital soft tissue swelling. Bilateral paranasal sinuses well aerated. Chest x-ray shows no acute cardiopulmonary change. No obvious fractures. Patient's tetanus was updated, patient had [place]. Patient has been ambulating even prior to his arrival to the department. Had superficial laceration slight gap we will go ahead and do Dermabond and Steri-Strips for repair. Reviewed wound care. Discussed return precautions. Patient's notes he was has a little bit increase in his neuropathy over time which might be predisposing him towards falling more. Discussed follow up with primary care. Discharge Plan Departure Patient Disposition: Home Clinical Impression: Concussion, Fall, Superficial laceration of face, Contusion of rib on right side Instructions: DI for Concussion, DI for Rib Fracture Activity Restrictions/Additional Instructions: Follow up for recheck. Wound Care: Keep wound(s) clean and dry. Wash daily with soap and water only. Do not use over the counter products (alcohol or peroxide)on the wounds unless instructed by a physician. You can trim the Steri-Strips as they start to peel off. If wound condition worsens (increased/expanding redness, developing fluid blisters, or worsening pain), either contact your doctor for an urgent re-assessment , or return to the Emergency Department. Your imaging does not show any obvious rib fractures but based on your exam I suspect she may have some, use incentive spirometer hourly while awake until symptoms improve. Can take pain medication as prescribed you can take acetaminophen up to a 1000 mg every 6 hours as needed. If inadequate for pain you can take 1-2 tablets of [place] every 6 hours as needed. This medication can make you sleepy do not drive, perform hazardous activities or make any major decisions while taking it. This medication will make you constipated please take a stool softener once to twice daily until stools are soft and regular. [facility] [place]. Please return for severe headaches, sudden changes to mentation, persistent vomiting, rapidly worsening chest pain or shortness of breath, persistent vomiting, black or bloody stools, new changes or difficulty with ambulation or other new or concerning changes. Prescriptions: New hydrocodone-acetaminophen 5-325 mg tablet 1 tab PO Q6H PRN (Reason: pain) Qty: 10 0RF No Action clopidogrel 75 mg tablet 75 mg PO DAILY Qty: 90 2RF hydroxyzine HCl 25 mg tablet See Rx Instructions PO BEDTIME Qty: 90 3RF Rx Instructions: t1-2 tabs orally bedtime; sildenafil (pulm.hypertension) 20 mg tablet See Rx Instructions .ROUTE .COMPLEX Qty: 14 0RF Dose Instruction: Take one tablet by mouth 30 minutes to 4 hours prior to sexual activity. Max daily dose of 5 tablets. Rx Instructions: Take one tablet by mouth 30 minutes to 4 hours prior to sexual activity. Max daily dose of 5 tablets. levalbuterol tartrate [Xopenex HFA] 45 mcg/actuation HFA aerosol inhaler 2 puff inhalation Q4-6H PRN (Reason: shortness of breath or wheezing) Qty: 15 1RF losartan 50 mg tablet See Rx Instructions .ROUTE .COMPLEX Qty: 90 3RF Dose Instruction: TAKE ONE TABLET BY MOUTH ONE TIME DAILY Patient Comments: I take it opposite of the atorvastatin in terms of morning/bedtime Rx Instructions: TAKE ONE TABLET BY MOUTH ONE TIME DAILY fluticasone propion-salmeterol 250-50 mcg/dose blister with device 1 ea inhalation BID Qty: 60 0RF zolpidem 10 mg tablet 15 mg PO BEDTIME Qty: 45 3RF levothyroxine 25 mcg tablet See Rx Instructions .ROUTE .COMPLEX Qty: 90 3RF Dose Instruction: TAKE ONE TABLET BY MOUTH ONE TIME DAILY Rx Instructions: TAKE ONE TABLET BY MOUTH ONE TIME DAILY duloxetine 30 mg capsule,delayed release(DR/EC) 90 mg PO DAILY Qty: 270 3RF gabapentin 400 mg capsule 400 mg PO .COMPLEX Qty: 360 3RF Rx Instructions: 400 mg orally take 1 capsule by mouth in the morning, 2 capsules mid day and 2 capsules at night.; rosuvastatin 10 mg tablet 10 mg PO DAILY Qty: 90 3RF amoxicillin-pot clavulanate 875-125 mg tablet 1 tab PO BID Qty: 20 0RF Referrals: Colin Grace MD [Primary Care Provider, Family Practice] Stand Alone Forms: Patient Portal/API
--- NOTE | 2024-08-28 08:13 | DI.CT.S_ITS ---
PROCEDURE: CT CERVICAL SPINE WO CON INDICATIONS: fall, +LOC, facial lac, nasal bruising, rib pain TECHNIQUE: Noncontrast 3 mm thick sections acquired from the skull base to the T4 level. Sagittal and coronal reformats were then constructed. For radiation dose reduction, the following was used: automated exposure control, adjustment of mA and/or kV according to patient size. COMPARISON: None. FINDINGS: Image quality: Excellent. Bones: No fractures or dislocations. Loss of disc height, degenerative endplate changes and bilateral uncovertebral hypertrophic changes are noted throughout cervical spine. Visualized superior ribs are intact. Soft tissues: Prevertebral soft tissues are normal in thickness. No paravertebral hematomas. No apical pneumothoraces. IMPRESSION: 1. No displaced fracture or traumatic subluxation. 2. Oppu-[id number] degenerative disc disease throughout cervical spine. Dictated by: Chapito Greene M.D. on 08/28/2024 at 9:27 Approved by: Chapito Greene M.D. on 08/28/2024 at 9:28
--- NOTE | 2024-08-28 08:13 | DI.CT.S_ITS ---
PROCEDURE: CT FACIAL BONES WO CON INDICATIONS: fall, +LOC, facial lac, nasal bruising, rib pain TECHNIQUE: Noncontrast 2.5 mm thick axial images acquired from the mandible through the frontal sinuses, with coronal and sagittal reformatting. For radiation dose reduction, the following was used: automated exposure control, adjustment of mA and/or kV according to patient size. COMPARISON: None. FINDINGS: Image quality: Excellent. Bones and teeth: Orbital downs are intact. Sinus downs show no fracture or deformity. Nasal bones and septum are intact. Visualized portions of the mandible demonstrate no fractures or subluxation. Zygomatic arches are intact. Pterygoid plates are intact. Visualized portions of the skull base and auditory canals are intact. Sinuses: Paranasal sinuses are aerated, without fluid levels, mucosal thickening, or mucoceles. Mastoid air cells are aerated. Soft tissues: Right frontal/supraorbital soft tissue swelling. No enlarged lymph nodes. No soft tissue lacerations or debris. Vascular: Visualized vascular structures appear normal in the absence of contrast. Bony vascular foramina and canals are intact. IMPRESSION: No acute facial bone or nasal bone fracture. Bilateral or orbital globes and orbital downs are intact. Mild right frontal/supraorbital soft tissue swelling. Bilateral paranasal sinuses are well aerated. Dictated by: Chapito Greene M.D. on 08/28/2024 at 9:17 Approved by: Chapito Greene M.D. on 08/28/2024 at 9:27
--- NOTE | 2024-08-28 08:13 | DI.CT.S_ITS ---
PROCEDURE: CT HEAD/BRAIN WO CON INDICATIONS: fall, +LOC, facial lac, nasal bruising, rib pain TECHNIQUE: Noncontrast 4.5 mm thick angled axial sections acquired from the foramen magnum to the vertex, with coronal and sagittal reformats. For radiation dose reduction, the following was used: automated exposure control, adjustment of mA and/or kV according to patient size. COMPARISON: [facility], CT, CT HEAD/BRAIN WO CON, 05/24/2021, 19:13. FINDINGS: Image quality: Diagnostic. CSF spaces: Basal cisterns are patent. No extra-axial fluid collections. The ventricles are symmetric in size and shape. Brain: No intracranial bleeds or mass effect. There is cerebral volume loss, with resultant ventricular and sulcal prominence. There are periventricular and deep white matter chronic small vessel ischemic changes. There is intracranial internal carotid artery atherosclerosis. Skull and face: Mild right frontal scalp hematoma and swelling is seen. Calvarium and visualized facial bones appear intact, without suspicious lesions. Sinuses: Visualized sinuses and mastoids are clear. IMPRESSION: 1. No acute intracranial pathology. 2. Mild right frontal scalp hematoma and swelling. No acute skull fracture. 3. Age related volume loss and mild white matter small vessel chronic ischemic changes. Dictated by: Chapito Greene M.D. on 08/28/2024 at 9:16 Approved by: Chapito Greene M.D. on 08/28/2024 at 9:17
[2024-08-28 08:27] LABS: Add Manual Diff / Slide Review NO; Basophils Absolute Auto 0 /uL (0-100); Basophils Percent Auto 0.3 % (0-2); Eosinophils Absolute Auto 200 /uL (0-450); Hemoglobin 13.5 g/dL (13.5-17.5); Lymphocytes Absolute Auto 1400 /uL (1100-4500); Lymphocytes Percent Auto 16.9 % (25-40); Mean Corpuscular HGB Conc 33.8 % (30-36); Mean Corpuscular Hemoglobin 31.9 PG (26-34); Mean Corpuscular Volume 94.4 fL (80-100); Monocytes Absolute Auto 700 /uL (0-900); Monocytes Percent Auto 8.6 % (3-14); Neutrophils Absolute Auto 5800 /uL (1500-7000); Neutrophils Percent Auto 72.2 % (50-75); Platelet Count 205 X10^3/uL (150-400); Red Blood Cell Count 4.24 X10^6/uL (4.5-5.9); Red Cell Distribution Width 15.2 % (11.6-14.8); White Blood Cell Count 8.1 X10^3/uL (4.5-11.0)
[2024-08-28 08:32] LABS: INR 0.9 (0.9-1.3); Prothrombin Time 10.3 SECONDS (9.4-12.5)
[2024-08-28 08:35] LABS: PTT Partial Thromboplastin Tim 33 SECONDS (25.1-36.5)
--- NOTE | 2024-08-28 09:05 | PC.NURSE ---
Assumed cares of pt at this time. Pt awake and alert. Dried blood on forehead and nose. Split to right side of forehead that is 2 cm in length. Cleansed dried blood and medicated for pain.
[2024-08-28 09:08] LABS: Alanine Aminotransferase 28 IU/L (<50); Albumin 4.2 g/dL (3.5-5.0); Albumin Globulin Ratio 1.7 (1.0-2.8); Alkaline Phosphatase 89 U/L (38-126); Aspartate Aminotransferase 34 IU/L (17-59); BUN Creatinine Ratio 19.3 (6-22); Bilirubin Total 0.5 mg/dL (0.2-1.3); Blood Urea Nitrogen 17 mg/dL (9-20); Calcium 8.5 mg/dL (8.4-10.2); Carbon Dioxide 25 mmol/L (22-32); Chloride 103 mmol/L (98-107); Creatine Kinase 110 U/L (55-170); Estimated Glomerular Filt Rate > 60 mL/min (>60); Globulin 2.5 g/dL (1.7-4.1); Glucose 118 mg/dL (70-99); HEMOLYSIS < 15 (0-50); Lipase 25 U/L (23-300); Potassium 4.2 mmol/L (3.4-5.1); Sodium 135 mmol/L (137-145); Total Protein 6.7 g/dL (6.3-8.2)
[2024-08-28 09:19] LABS: NT-proBNP (BNP-Adult 18+) 63 pg/mL (<450); Troponin I < 0.012 ng/mL (0.01-0.034)
[2024-08-28] MEDS: TET,DIPH,PERTUSS(ACELL),VAC/PF 0.5 ML SYRINGE IM (09:24)
[2024-08-28] MEDS: HYDROCODONE/ACET 5/325 TABLET 2 TAB PO (09:25)
== END 2024-08-28 11:26 | disposition home or self-care (01) ==
PROVIDERS: Emergency Provider Emergency Medicine; PCP Family Medicine
DX: S06.0X1A Concussion with loss of consciousness of 30 minutes or less, initial encounter (principal); S01.81XA Laceration without foreign body of other part of head, initial encounter; S20.211A Contusion of right front wall of thorax, initial encounter; W18.30XA Fall on same level, unspecified, initial encounter; Z23 Encounter for immunization; Z91.81 History of falling
CPT/HCPCS: 36415; 70450; 70486; 71045; 72125; 80053; 81003; 82550; 83690; 83735; 83880; 84484; 85025; 85610; 85730; 90471; 93005; 99284; 90715

== ENCOUNTER 2024-08-30 03:21 | Emergency (ER) | payer MEDICARE, OTHER, SELFPAY ==
[2024-05-01 08:11] VITALS: BMI 31.8
[2024-08-30 03:30] VITALS: BP 139/84; PULSE 87; RESP 15; TEMP 36.5; O2SAT 96; BMI 30.4
--- NOTE | 2024-08-30 03:44 | ED_ITS ---
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 Patient did have CT scan of his head neck and facial bones as well as chest x-ray that did not show any abnormal findings. Patient states that the pain is worse when he takes a deep breath but nonpleuritic in nature. Related Data Previous Rx's ?Medication ?Instructions ?Recorded clopidogrel 75 mg tablet 75 mg PO DAILY #90 tabs 09/16 07/08 duloxetine 30 mg capsule,delayed 90 mg (3 x 30 mg) PO DAILY #270 10/08/23 release caps hydroxyzine HCl 25 mg tablet See Rx Instructions PO BE DTIME #90 10/09/23 tabs sildenafil (pulm.hypertension) 20 See Rx Instructions .Route 02/10/24 mg tablet .COMPLEX #14 tabs gabapentin 400 mg capsule 400 mg PO .COMPLEX #360 caps 02/20/24 rosuvastatin 10 mg tablet 10 mg PO DAILY #90 tabs 08/08 levalbuterol tartrate 45 2 puff inhalation Q4-6H PRN 04/02/24 mcg/actuation aerosol inhaler shortness of breath or w heezing (Xopenex HFA) #15 grams losartan 50 mg tablet See Rx Instructions .Route 0 05/28/24 .COMPLEX #90 tabs fluticasone 250 mcg-salmeterol 50 1 ea inhalation BID #60 ea 06/04/24 mcg/dose blistr powdr for inhalation amoxicillin 875 mg-potassium 1 tab PO BID #20 tabs clavulanate 125 mg tablet zolpidem 10 mg tablet 15 mg (1.5 x 10 mg) PO BEDTI ME #45 07/24/24 tabs levothyroxine 25 mcg tablet See Rx Instructions .Route 08/14/24 .COMPLEX #90 tabs hydrocodone 5 mg-acetaminophen 325 1 tab PO Q6H PRN pa in #10 tabs 08/28/24 mg tablet lidocaine 5 % topical patch 2 patch topical DAILY PRN pain 1 08/30/24 week #15 ea methocarbamol 500 mg tablet 500 mg PO BID PRN pain 1 w [place] #10 08/30/24 tabs Allergies Allergy/AdvReac Type Severity Reaction Status Date / Time albuterol AdvReac Severe chest pain Verified 08/30/24 03:29 Review of Systems Review of Systems Narrative: General: Denies fever, chills, weight loss HEENT: Denies headache, eye drainage, eye irritation, head trauma, sore throat, voice change Cardiovascular: Denies any chest pain, palpitations, tachycardia Respiratory: Denies any shortness of breath, cough, wheeze, stridor GI/: Denies any abdominal pain, nausea, vomiting, diarrhea, bright red blood per rectum, melanotic stools, urinary frequency, urinary retention, dysuria, hematuria MSK: Positive anterior lower rib pain Skin: Denies any rashes, lesions, discoloration Neuro: Denies any headache, lightheadedness, dizziness, fainting, weakness Psych: Denies SI/HI Patient History Medical History Common cold virus Septic olecranon bursitis Acute CVA (cerebrovascular accident) Lumbar degenerative disc disease Anterolisthesis Post-COVID syndrome PFO (patent foramen ovale) Easy bruising Obstructive sleep apnea Erectile dysfunction Trochanteric bursitis of left hip Peripheral neuropathic pain Chronic low back pain Fatigue 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 H/O nephrolithotomy with removal of calculi (~1970) Hypothyroidism Hyperlipidemia Primary insomnia Surgical History H/O hernia repair (~08/2018) Hx of appendectomy Hx of tonsillectomy H/O prostatectomy (~1999) Family History Brother COPD (chronic obstructive pulmonary disease) Social History household members: spouse alcohol intake: current substance use type: does not use Smoking Status: Never smoker alcohol intake frequency: 3 or more drinks per day Alcohol type: beer Exam Narrative Exam Narrative: General: Cooperative, well-developed, not in acute distress HEENT: Normocephalic, atraumatic, PERRLA, normal sclera, eyelids normal Neck: Active full range of motion, atraumatic Chest: Normal to inspection, negative crepitus, no overlying erythema ecchymosis Respiratory: Normal respiratory effort, not in acute respiratory distress, clear to auscultation bilaterally negative cough, wheeze, tachypnea, rhonchi, rales Cardiology: Regular rate rhythm negative gallop, murmur, rubs GI/: No tenderness to palpation, soft, non rigid, normal to inspection, exam deferred MSK: Full active range of motion in all 4 extremities, atraumatic, patient with tenderness to palpation of anterior bilateral lower ribs but no overlying erythema ecchymosis or gross deformity Skin: No rashes or lesions noted Neuro: Alert awake oriented x3, moves all 4 extremities spontaneously, cranial nerves intact, able to answer all questions appropriately follows commands appropriately Psych: Cooperative, negative suicidal or homicidal ideations Initial Vital Signs Initial Vital Signs: Vital Signs Temperature 97.7 F 08/30/24 03:30 Pulse Rate 87 08/30/24 03:30 Respiratory Rate 15 08/30/24 03:30 Blood Pressure 139/84 08/30/24 03:30 Pulse Oximetry 96 08/30/24 03:30 Oxygen Delivery Method Room Air 08/30/24 03:30 Course Orders Ordered: ED Orders 08/30/24 03:51 CT chest wo con Stat Discontinued Medications Lidocaine (Lidocaine 5% Patch) 2 each TOP NOW ONE Stop: 08/30/24 03:52 Last Admin: 08/30/24 03:59 Dose: 2 each Methocarbamol (Methocarbamol 500 Mg Tablet) 500 mg PO NOW ONE Stop: 08/30/24 03:52 Last Admin: 08/30/24 03:58 Dose: 500 mg Vital Signs Vital signs: Vital Signs - 8 hr 08/30/24 03:30 Temperature 97.7 F Pulse Rate 87 Respiratory Rate 15 Blood Pressure 139/84 Pulse Oximetry 96 Oxygen Delivery Method Room Air MDM - SOB/Dyspnea Differential Diagnosis Differential diagnosis: Likely other (Pulmonary contusion, chest contusion, rib fracture) Imaging Data CT scan - chest: Radiologist's Impression: Preliminary read showing acute minimally displaced left 6th rib fracture and probable nondisplaced 7th rib fracture, no contusion or pneumothorax MDM Narrative Medical decision making narrative: 74-year-old male with past medical history of hypertension, hyperlipidemia, hypothyroidism, prostate cancer treated surgically, idiopathic neuropathy on aspirin presenting for bilateral rib pain, he states that he had a fall on 08/28/2024 was seen here had CT scans of his head face and neck without any acute findings, did have a chest x-ray without any fractures. He states that he has been having persistent/worsening pain to his anterior bilateral chest/ribs. States that it is worse with movement or taking deep breath but nonpleuritic in nature. On exam he has tenderness to palpation of bilateral anterior lower ribs left worse than right but no gross deformity no palpable step-offs. Patient had CT scan of his chest performed here did show minimally displaced left 6th rib fracture and probable nondisplaced 7th rib fracture. Did have improved symptoms after administration medication here, patient was instructed to use incentive spirometer at home, he states that he has 3 of them at home, he will be sent home with symptomatic relief, he has requesting short course of opiate medication, I informed patient to use these sparingly due to the fact that this can predispose him to getting a pneumonia. He understands and agrees with being discharged home with outpatient follow up. Discharge Plan Departure Patient Disposition: Home Clinical Impression: Fracture of rib Instructions: DI for Rib Fracture Activity Restrictions/Additional Instructions: Please follow up with your primary care doctor Please use your incentive spirometer Please read the discharge instructions sheet carefully and bring all papers to all doctor follow-up visits, as it may contain information that your doctor may want to see. Disease processes change and evolve, if your symptoms worsen or if you develop any new symptoms that are concerning to you please return for evaluation. Your evaluation today does not show any evidence of any life- threatening/serious illnesses requiring admission to the hospital or surgery. Please follow-up with your doctor for re-evaluation in approximately 1 day. Seek immediate medical attention for any worrisome symptoms. *If you do not have a primary care provider please contact the [facility] Resource line at [phone]. They will ask some questions about your medical history and help get you set up with a doctor in the community. Prescriptions: New lidocaine 5 % adhesive patch,medicated 2 patch topical DAILY PRN (Reason: pain) 7 Days Qty: 15 0RF Rx Instructions: leave on most painful area for up to 12 hrs methocarbamol 500 mg tablet 500 mg PO BID PRN (Reason: pain) 7 Days Qty: 10 0RF No Action clopidogrel 75 mg tablet 75 mg PO DAILY Qty: 90 2RF hydroxyzine HCl 25 mg tablet See Rx Instructions PO BEDTIME Qty: 90 3RF Rx Instructions: t1-2 tabs orally bedtime; sildenafil (pulm.hypertension) 20 mg tablet See Rx Instructions .ROUTE .COMPLEX Qty: 14 0RF Dose Instruction: Take one tablet by mouth 30 minutes to 4 hours prior to sexual activity. Max daily dose of 5 tablets. Rx Instructions: Take one tablet by mouth 30 minutes to 4 hours prior to sexual activity. Max daily dose of 5 tablets. levalbuterol tartrate [Xopenex HFA] 45 mcg/actuation HFA aerosol inhaler 2 puff inhalation Q4-6H PRN (Reason: shortness of breath or wheezing) Qty: 15 1RF losartan 50 mg tablet See Rx Instructions .ROUTE .COMPLEX Qty: 90 3RF Dose Instruction: TAKE ONE TABLET BY MOUTH ONE TIME DAILY Patient Comments: I take it opposite of the atorvastatin in terms of morning/bedtime Rx Instructions: TAKE ONE TABLET BY MOUTH ONE TIME DAILY fluticasone propion-salmeterol 250-50 mcg/dose blister with device 1 ea inhalation BID Qty: 60 0RF zolpidem 10 mg tablet 15 mg PO BEDTIME Qty: 45 3RF levothyroxine 25 mcg tablet See Rx Instructions .ROUTE .COMPLEX Qty: 90 3RF Dose Instruction: TAKE ONE TABLET BY MOUTH ONE TIME DAILY Rx Instructions: TAKE ONE TABLET BY MOUTH ONE TIME DAILY duloxetine 30 mg capsule,delayed release(DR/EC) 90 mg PO DAILY Qty: 270 3RF gabapentin 400 mg capsule 400 mg PO .COMPLEX Qty: 360 3RF Rx Instructions: 400 mg orally take 1 capsule by mouth in the morning, 2 capsules mid day and 2 capsules at night.; rosuvastatin 10 mg tablet 10 mg PO DAILY Qty: 90 3RF amoxicillin-pot clavulanate 875-125 mg tablet 1 tab PO BID Qty: 20 0RF hydrocodone-acetaminophen 5-325 mg tablet 1 tab PO Q6H PRN (Reason: pain) Qty: 10 0RF Referrals: Colin Grace MD [Primary Care Provider, Family Practice] Stand Alone Forms: Patient Portal/API
--- NOTE | 2024-08-30 03:51 | DI.CT.S_ITS ---
PROCEDURE: CT CHEST WO CON INDICATIONS: trauma, bilateral lower anterior pain TECHNIQUE: Noncontrast 5 mm thick sections acquired from the pulmonary apices to the posterior costophrenic angles. 1 mm lung window, 5 mm thick coronal and sagittal and 7 mm axial MIP reformats were then acquired. For radiation dose reduction, the following was used: automated exposure control, adjustment of mA and/or kV according to patient size. COMPARISON: [facility], CT, CT HEAD/BRAIN WO CON, 08/28/2024, 8:31. [facility], CT, CT CERVICAL SPINE WO CON, 08/28/2024, 8:31. [facility], CT, CT FACIAL BONES WO CON, 08/28/2024, 8:31. [facility], CR, XR CHEST 1V, 08/28/2024, 8:17. [facility], CT, CT CHEST WO CON, 04/09/2024, 8:30. FINDINGS: Image quality: Diagnostic. Lower Neck: No enlarged lymph nodes. Thyroid: No thyroid nodules which require sonographic follow up, per consensus guidelines. Axillae: No enlarged lymph nodes. Chest Wall: Unremarkable. Bones: There is a mildly displaced left anterior 6th rib fracture, as on series 3, image 162. A nondisplaced left anterior 7th rib fracture is suspected on series 3 image 230. Age-appropriate bony degenerative changes are seen. Mild levoconvex scoliotic curvature is noted. Accentuated thoracic kyphosis is seen. Lungs and Pleura: No pneumothorax or pleural effusions. Mild dependent atelectasis can be seen. No consolidation or suspicious nodules. Heart: Heart size is normal. No pericardial effusion. There is moderate coronary artery calcification. Thoracic Vessels: The aorta and pulmonary arteries demonstrate normal size. Mediastinum and Lavinia: No enlarged lymph nodes. Esophagus: No wall thickening. No hiatal hernia. Upper Abdomen: Visualized upper abdomen solid organs and bowel loops appear normal. IMPRESSION: Mildly displaced left anterior 6th rib fracture and a nondisplaced left anterior 7th rib fracture. No pneumothorax. Additional findings: Moderate coronary artery calcification Note: No significant discrepancy from the preliminary report. Dictated by: Adrián Vang M.D. on 08/30/2024 at 6:45 Approved by: Adrián Vang M.D. on 08/30/2024 at 6:48
[2024-08-30] MEDS: methocarbamoL 500 MG TABLET PO (03:58)
[2024-08-30] MEDS: LIDOCAINE 5% PATCH 2 EACH TOP (03:59)
--- NOTE | 2024-08-30 04:43 | PC.NURSE ---
Pt has a Mechanical GLF on 08/28/24
[2024-08-30 04:44] VITALS: PULSE 69; O2SAT 92
[2024-08-30 04:46] VITALS: BP 162/98; PULSE 80; O2SAT 96
[2024-08-30 05:00] VITALS: BP 156/90; PULSE 69; O2SAT 96
[2024-08-30] MEDS: OXYCODONE/APAP 5/325 PREPACK 1 BOTTLE MISC (05:35)
== END 2024-08-30 05:47 | disposition home or self-care (01) ==
PROVIDERS: Emergency Provider Student in an Organized Health Care Education/Training Program; PCP Family Medicine
DX: S22.32XA Fracture of one rib, left side, initial encounter for closed fracture (principal); W19.XXXA Unspecified fall, initial encounter
CPT/HCPCS: 71250

== ENCOUNTER 2024-08-30 21:45 | Emergency (ER) | payer MEDICARE, OTHER, SELFPAY ==
[2024-05-01 08:11] VITALS: BMI 31.8
[2024-08-30 21:56] VITALS: BP 128/73; PULSE 104; RESP 18; TEMP 36.4; O2SAT 97; BMI 29.7
--- NOTE | 2024-08-30 21:59 | EKG_ITS ---
[facility] [address] [place] [address] Test Date: 2024-08-30 Pat Name: Oneil Mays Department: [facility] Room: Gender: Male [employer]: : 1950 Requested By: Order Number: [id number] Reading MD: Yoni Mullins MD Measurements Intervals [place] Rate: 104 P: 11 VA: 134 QRS: -6 QRSD: 92 T: 74 QT: 348 QTc: 457 Interpretive Statements Sinus tachycardia Left ventricular hypertrophy with repolarization abnormality ( R in aVL ) Electronically Signed On 08-31-2024 7:42:37 PDT by Yoni Mullins MD
--- NOTE | 2024-08-30 23:52 | ED_ITS ---
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 Patient was seen by me yesterday was discharged home with pain medication. He presents due to the fact that he states he ?ran out and states that he is still having pain with breathing. Patient denies any trauma or falls he is not complaining of any new symptoms at this time. Related Data Previous Rx's ?Medication ?Instructions ?Recorded clopidogrel 75 mg tablet 75 mg PO DAILY #90 tabs 09/16 07/08 duloxetine 30 mg capsule,delayed 90 mg (3 x 30 mg) PO DAILY #270 10/08/23 release caps hydroxyzine HCl 25 mg tablet See Rx Instructions PO BE DTIME #90 10/09/23 tabs sildenafil (pulm.hypertension) 20 See Rx Instructions .Route 02/10/24 mg tablet .COMPLEX #14 tabs gabapentin 400 mg capsule 400 mg PO .COMPLEX #360 caps 02/20/24 rosuvastatin 10 mg tablet 10 mg PO DAILY #90 tabs 08/08 levalbuterol tartrate 45 2 puff inhalation Q4-6H PRN 04/02/24 mcg/actuation aerosol inhaler shortness of breath or w heezing (Xopenex HFA) #15 grams losartan 50 mg tablet See Rx Instructions .Route 0 05/28/24 .COMPLEX #90 tabs fluticasone 250 mcg-salmeterol 50 1 ea inhalation BID #60 ea 06/04/24 mcg/dose blistr powdr for inhalation amoxicillin 875 mg-potassium 1 tab PO BID #20 tabs clavulanate 125 mg tablet zolpidem 10 mg tablet 15 mg (1.5 x 10 mg) PO BEDTI ME #45 07/24/24 tabs levothyroxine 25 mcg tablet See Rx Instructions .Route 08/14/24 .COMPLEX #90 tabs hydrocodone 5 mg-acetaminophen 325 1 tab PO Q6H PRN pa in #10 tabs 08/28/24 mg tablet lidocaine 5 % topical patch 2 patch topical DAILY PRN pain 1 08/30/24 week #15 ea methocarbamol 500 mg tablet 500 mg PO BID PRN pain 1 w [place] #10 08/30/24 tabs oxycodone-acetaminophen 5 mg-325 1 tab PO BID PRN pain 3 days #6 08/31/24 mg tablet (Percocet) tabs Allergies Allergy/AdvReac Type Severity Reaction Status Date / Time albuterol AdvReac Severe chest pain Verified 08/30/24 21:55 Review of Systems Review of Systems Narrative: General: Denies fever, chills, weight loss HEENT: Denies headache, eye drainage, eye irritation, head trauma, sore throat, voice change Cardiovascular: Denies any chest pain, palpitations, tachycardia Respiratory: Positive shortness of breath, denies cough, wheeze, stridor GI/: Denies any abdominal pain, nausea, vomiting, diarrhea, bright red blood per rectum, melanotic stools, urinary frequency, urinary retention, dysuria, hematuria MSK: Positive for pain Skin: Denies any rashes, lesions, discoloration Neuro: Denies any headache, lightheadedness, dizziness, fainting, weakness Psych: Denies SI/HI Patient History Medical History Common cold virus Septic olecranon bursitis Acute CVA (cerebrovascular accident) Lumbar degenerative disc disease Anterolisthesis Post-COVID syndrome PFO (patent foramen ovale) Easy bruising Obstructive sleep apnea Erectile dysfunction Trochanteric bursitis of left hip Peripheral neuropathic pain Chronic low back pain Fatigue 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 H/O nephrolithotomy with removal of calculi (~1970) Hypothyroidism Hyperlipidemia Primary insomnia Surgical History H/O hernia repair (~08/2018) Hx of appendectomy Hx of tonsillectomy H/O prostatectomy (~1999) Family History Brother COPD (chronic obstructive pulmonary disease) Social History household members: spouse alcohol intake: current substance use type: does not use alcohol intake frequency: 3 or more drinks per day Alcohol type: beer Exam Narrative Exam Narrative: General: Cooperative, well-developed, not in acute distress HEENT: Normocephalic, atraumatic, PERRLA, normal sclera, eyelids normal Neck: Active full range of motion, atraumatic Chest: Reproducible chest pain to the left side of his chest anteriorly consistent with known rib fracture Respiratory: Normal respiratory effort, not in acute respiratory distress, clear to auscultation bilaterally negative cough, wheeze, tachypnea, rhonchi, rales Cardiology: Regular rate rhythm negative gallop, murmur, rubs GI/: No tenderness to palpation, soft, non rigid, normal to inspection, exam deferred MSK: Full active range of motion in all 4 extremities, atraumatic, no tenderness to palpation of any bony prominences Skin: No rashes or lesions noted Neuro: Alert awake oriented x3, moves all 4 extremities spontaneously, cranial nerves intact, able to answer all questions appropriately follows commands appropriately Psych: Cooperative, negative suicidal or homicidal ideations Initial Vital Signs Initial Vital Signs: Vital Signs Temperature 97.5 F L 08/30/24 21:56 Pulse Rate 104 H 08/30/24 21:56 Respiratory Rate 18 08/30/24 21:56 Blood Pressure 128/73 08/30/24 21:56 Pulse Oximetry 97 08/30/24 21:56 Oxygen Delivery Method Room Air 08/30/24 21:56 Course Orders Ordered: ED Orders 08/30/24 21:54 XR chest 1V Stat Complete Blood Count AUTO DIFF Stat Comprehensive Metabolic Panel Stat Lipase Stat Magnesium Stat NT-proBNP (BNP-Adult 18+) Stat PTT Partial Thromboplastin Abbe Stat Prothrombin Time INR Stat Troponin & CK Cardiac Panel Stat EKG-12 Lead Stat Discontinued Medications Aspirin (Aspirin 81 Mg Chew Tab) 324 mg PO NOW ONE Stop: 08/30/24 21:55 Last Admin: 08/30/24 23:27 Dose: Not Given Documented By: AB Vital Signs Vital signs: Vital Signs - 8 hr 08/30/24 21:56 Temperature 97.5 F L Pulse Rate 104 H Respiratory Rate 18 Blood Pressure 128/73 Pulse Oximetry 97 Oxygen Delivery Method Room Air MDM - Chest Pain Differential Diagnosis Differential diagnosis: Likely fracture of rib, costochondritis and chest pain MDM Narrative Medical decision making narrative: 74-year-old male past medical history of hypertension hyperlipidemia hypo thyroidism prostate cancer treated surgically, idiopathic neuropathy on aspirin daily presenting for persistent chest pain, patient was seen by me yesterday and was diagnosed with a rib fracture after he fell several days ago. Patient states he returned because he is still having her in his chest and states that he ?ran out of medication. He denies any new trauma or falls. He states that he was not able to get the other medications that I prescribed him previously which included the lidocaine patch as well as the Robaxin, he states that the pharmacy was out states that he ran out of the other medications that I prescribed him which was Percocet, he states that he is here just to get some more Percocets because he did not have any medications throughout the day. I did inform patient again that he needs to be careful with taking these opiate medications in the setting of rib fractures due to the fact that it can predispose him to getting an ammonia, he understands and just states that he came here because he wanted ?a little bit more relief. Patient was given strict return precautions he verbalized understanding of this and agrees to being discharged home with outpatient follow up Discharge Plan Departure Patient Disposition: Home Clinical Impression: Closed rib fracture, Encounter for medication refill Instructions: DI for Rib Fracture Activity Restrictions/Additional Instructions: Please follow up with your primary care doctor Please read the discharge instructions sheet carefully and bring all papers to all doctor follow-up visits, as it may contain information that your doctor may want to see. Disease processes change and evolve, if your symptoms worsen or if you develop any new symptoms that are concerning to you please return for evaluation. Your evaluation today does not show any evidence of any life- threatening/serious illnesses requiring admission to the hospital or surgery. Please follow-up with your doctor for re-evaluation in approximately 1 day. Seek immediate medical attention for any worrisome symptoms. *If you do not have a primary care provider please contact the [facility] Resource line at [phone]. They will ask some questions about your medical history and help get you set up with a doctor in the community. Prescriptions: New oxycodone-acetaminophen [Percocet] 5-325 mg tablet 1 tab PO BID PRN (Reason: pain) 3 Days Qty: 6 0RF No Action clopidogrel 75 mg tablet 75 mg PO DAILY Qty: 90 2RF hydroxyzine HCl 25 mg tablet See Rx Instructions PO BEDTIME Qty: 90 3RF Rx Instructions: t1-2 tabs orally bedtime; sildenafil (pulm.hypertension) 20 mg tablet See Rx Instructions .ROUTE .COMPLEX Qty: 14 0RF Dose Instruction: Take one tablet by mouth 30 minutes to 4 hours prior to sexual activity. Max daily dose of 5 tablets. Rx Instructions: Take one tablet by mouth 30 minutes to 4 hours prior to sexual activity. Max daily dose of 5 tablets. levalbuterol tartrate [Xopenex HFA] 45 mcg/actuation HFA aerosol inhaler 2 puff inhalation Q4-6H PRN (Reason: shortness of breath or wheezing) Qty: 15 1RF losartan 50 mg tablet See Rx Instructions .ROUTE .COMPLEX Qty: 90 3RF Dose Instruction: TAKE ONE TABLET BY MOUTH ONE TIME DAILY Patient Comments: I take it opposite of the atorvastatin in terms of morning/bedtime Rx Instructions: TAKE ONE TABLET BY MOUTH ONE TIME DAILY fluticasone propion-salmeterol 250-50 mcg/dose blister with device 1 ea inhalation BID Qty: 60 0RF zolpidem 10 mg tablet 15 mg PO BEDTIME Qty: 45 3RF levothyroxine 25 mcg tablet See Rx Instructions .ROUTE .COMPLEX Qty: 90 3RF Dose Instruction: TAKE ONE TABLET BY MOUTH ONE TIME DAILY Rx Instructions: TAKE ONE TABLET BY MOUTH ONE TIME DAILY duloxetine 30 mg capsule,delayed release(DR/EC) 90 mg PO DAILY Qty: 270 3RF gabapentin 400 mg capsule 400 mg PO .COMPLEX Qty: 360 3RF Rx Instructions: 400 mg orally take 1 capsule by mouth in the morning, 2 capsules mid day and 2 capsules at night.; rosuvastatin 10 mg tablet 10 mg PO DAILY Qty: 90 3RF amoxicillin-pot clavulanate 875-125 mg tablet 1 tab PO BID Qty: 20 0RF lidocaine 5 % adhesive patch,medicated 2 patch topical DAILY PRN (Reason: pain) 7 Days Qty: 15 0RF Rx Instructions: leave on most painful area for up to 12 hrs methocarbamol 500 mg tablet 500 mg PO BID PRN (Reason: pain) 7 Days Qty: 10 0RF hydrocodone-acetaminophen 5-325 mg tablet 1 tab PO Q6H PRN (Reason: pain) Qty: 10 0RF Referrals: Horras,Colin M, MD [Primary Care Provider, Family Practice] Stand Alone Forms: Patient Portal/API
[2024-08-31] MEDS: OXYCODONE/ACETAMINOPHEN 5/325 TABLET 1 TAB PO (00:12)
[2024-08-31] MEDS: OXYCODONE/APAP 5/325 PREPACK 1 BOTTLE MISC (00:12)
[2024-08-31 00:38] VITALS: BP 177/74; PULSE 94; O2SAT 97
== END 2024-08-31 00:17 | disposition home or self-care (01) ==
PROVIDERS: Emergency Provider Student in an Organized Health Care Education/Training Program; PCP Family Medicine
DX: S22.32XA Fracture of one rib, left side, initial encounter for closed fracture (principal); S22.32XD Fracture of one rib, left side, subsequent encounter for fracture with routine healing; C61 Malignant neoplasm of prostate; R07.9 Chest pain, unspecified; Z76.0 Encounter for issue of repeat prescription; W19.XXXA Unspecified fall, initial encounter
CPT/HCPCS: 71250; 93005; 93010; 99283; 99284

== ENCOUNTER → 2024-09-09 07:27 | Outpatient (CLI) | payer MEDICARE, OTHER, SELFPAY ==
[2024-05-01 08:11] VITALS: BMI 31.8
[2024-09-09 08:42] LABS: Cholesterol 149 mg/dL (140-199); HDL Cholesterol 71 mg/dL (40-60); LDL Cholesterol Calculated 45 mg/dL (<100); Triglycerides 166 mg/dL (35-150)
[2024-09-09 09:08] LABS: TSH w/ Reflex to FT4 5.95 uIU/mL (0.47-4.68)
[2024-09-09 12:28] LABS: Free T4, Direct Thyroxine 1.18 ng/dL (0.78-2.19)
[2024-09-10 06:36] LABS: PSA Ultrasensitive <0.006 ng/mL (0.000-4.000)
== END ==
PROVIDERS: PCP Family Medicine; Referring Provider Family Medicine; Visit Provider Family Medicine
DX: E78.2 Mixed hyperlipidemia (principal); C61 Malignant neoplasm of prostate; E03.9 Hypothyroidism, unspecified; R53.82 Chronic fatigue, unspecified
CPT/HCPCS: 36415; 80061; 84153; 84439; 84443

== ENCOUNTER → 2024-09-15 11:01 | Outpatient (CLI) | payer MEDICARE, OTHER, SELFPAY ==
[2024-05-01 08:11] VITALS: BMI 31.8
--- NOTE | 2024-09-15 11:03 | DI.MRI.S_ITS ---
PROCEDURE: MR LUMBAR SPINE WO CON INDICATIONS: right foot drop, bilateral radiculopathy TECHNIQUE: Noncontrast sagittal T1 spin echo and T2 fast echo, sagittal STIR, and T2 fast spin echo through the lumbar spine. In cases with scoliosis, additional coronal T2 fast spin echo may be performed. COMPARISON: [facility], CR, XR LUMBAR SPINE 2-3V, 05/09/2023, 10:18. [facility], MR, MR LUMBAR SPINE WO CON, 05/12/2023, 9:33. FINDINGS: Image quality: Excellent. Alignment and Curvature: 2 mm of retrolisthesis of T12 on L1, L1 on L2. 3 mm of retrolisthesis of L2 on L3. 4 mm of retrolisthesis of L4 on L5. 9 mm of anterolisthesis of L5 on S1. Bone Marrow: Marrow is of normal overall signal. No acute vertebral body compression fractures. Bilateral L5-S1 pars interarticularis defects. Mild reactive signal throughout the endplates of the lumbar and lower thoracic spine. Spinal Cord: Conus medullaris terminates at the L1 level. Visualized cord demonstrates normal signal and size. Paraspinous Soft Tissues: No paravertebral masses. T12-L1: Moderate disc height loss and desiccation. Mild diffuse disc bulge. Mild bilateral ligamentum flavum hypertrophy. Mild canal stenosis. Mild bilateral foraminal stenosis. No significant change. L1-L2: Moderate disc desiccation. Mild disc height loss and diffuse disc bulge. Mild facet and ligamentum flavum hypertrophy. Mild epidural lipomatosis. Mild canal stenosis. Mild bilateral foraminal stenosis. No significant change. L2-L3: Moderate disc desiccation. Mild diffuse disc bulge. Mild facet and ligamentum flavum hypertrophy. Mild epidural lipomatosis. Mild canal stenosis. Mild bilateral foraminal stenosis. No significant change. L3-L4: Moderate disc desiccation. Mild disc height loss and diffuse disc bulge. Mild facet and ligamentum flavum hypertrophy. Mild epidural lipomatosis. Mild canal stenosis. Moderate bilateral foraminal stenosis. No significant change. L4-L5: Moderate disc height loss and desiccation. Mild diffuse disc bulge/osteophyte. Mild bilateral facet hypertrophy. Mild canal stenosis. Moderate bilateral foraminal stenosis. No significant change. L5-S1: Moderate disc height loss and desiccation. Mild diffuse disc bulge. Mild bilateral facet hypertrophy. Mild canal stenosis. Moderate to severe right and severe left foraminal stenosis. Left greater than right L5 nerve root compression. No significant change. IMPRESSION: 1. Multilevel degenerative disc and facet disease, as well as ligamentum flavum hypertrophy and epidural lipomatosis. 2. Grade 1 isthmic spondylolisthesis at L5-S1. 3. Mild multilevel canal stenosis. 4. Multilevel foraminal stenoses, worst at L5-S1 where there is associated intraforaminal nerve root compression. Recommend correlation with clinical symptoms to ascertain relevance of this finding. Dictated by: Kayode Kiran M.D. on 09/15/2024 at 12:13 Approved by: Kayode Kiran M.D. on 09/15/2024 at 12:17
== END ==
PROVIDERS: PCP Family Medicine; Referring Provider Family Medicine; Visit Provider Family Medicine
DX: M47.816 Spondylosis without myelopathy or radiculopathy, lumbar region (principal); M47.817 Spondylosis without myelopathy or radiculopathy, lumbosacral region; M21.371 Foot drop, right foot; M43.17 Spondylolisthesis, lumbosacral region; M51.369 Other intervertebral disc degeneration, lumbar region without mention of lumbar back pain or lower extremity pain; M51.379 Other intervertebral disc degeneration, lumbosacral region without mention of lumbar back pain or lower extremity pain; M48.061 Spinal stenosis, lumbar region without neurogenic claudication; M48.07 Spinal stenosis, lumbosacral region; E88.2 Lipomatosis, not elsewhere classified
CPT/HCPCS: 72148

== ENCOUNTER → 2024-10-05 11:32 | Outpatient (CLI) | payer MEDICARE, OTHER, SELFPAY ==
[2024-05-01 08:11] VITALS: BMI 31.8
--- NOTE | 2024-10-05 11:33 | DI.CT.S_ITS ---
PROCEDURE: CT CHEST WO CON INDICATIONS: Follow Up Fractures TECHNIQUE: Noncontrast 5 mm thick sections acquired from the pulmonary apices to the posterior costophrenic angles. 1 mm lung window, 5 mm thick coronal and sagittal and 7 mm axial MIP reformats were then acquired. For radiation dose reduction, the following was used: automated exposure control, adjustment of mA and/or kV according to patient size. COMPARISON: [facility], CT, CT CHEST WO [facility], 08/30/2024, 4:04. FINDINGS: Image quality: Diagnostic. Lower Neck: No enlarged lymph nodes. Thyroid: No thyroid nodules which require sonographic follow up, per consensus guidelines. Axillae: No enlarged lymph nodes. Chest Wall: Unremarkable. Bones: No suspicious osseous lesion. -Right 6-8th rib fractures. There is callus formation. -Left 4th-7th rib fractures. There is callus formation. No segmental fractures seen. No significant displacement. Lungs and Pleura: No pneumothorax or pleural effusions. No consolidation. Right middle lobe pulmonary nodule measuring 0.5 cm, (3/135), unchanged. Heart: Heart size is normal. Moderate to severe coronary artery calcifications. No pericardial effusion. Thoracic Vessels: The aorta and pulmonary arteries demonstrate normal size. Mediastinum and Lavinia: No enlarged lymph nodes. Esophagus: No wall thickening. No hiatal hernia. Upper Abdomen: Visualized upper abdomen solid organs and bowel loops appear normal. IMPRESSION: 1. Prior right 6-8th and left 4-7th rib fractures. 2. No pneumothorax. No pleural effusion. Mild dependent atelectasis. Dictated by: Erickson Nobles M.D. on 10/05/2024 at 21:38 Approved by: Erickson Nobles M.D. on 10/05/2024 at 21:47
== END ==
LOC: CT 11:33
PROVIDERS: PCP Family Medicine; Referring Provider Family Medicine; Visit Provider Family Medicine
DX: S22.42XD Multiple fractures of ribs, left side, subsequent encounter for fracture with routine healing (principal); S22.41XD Multiple fractures of ribs, right side, subsequent encounter for fracture with routine healing; S20.211D Contusion of right front wall of thorax, subsequent encounter; J98.11 Atelectasis; R91.1 Solitary pulmonary nodule; I25.10 Atherosclerotic heart disease of native coronary artery without angina pectoris; X58.XXXD Exposure to other specified factors, subsequent encounter
CPT/HCPCS: 71250

== ENCOUNTER → 2024-12-10 13:45 | Outpatient (CLI) | payer MEDICARE, OTHER, SELFPAY ==
[2024-05-01 08:11] VITALS: BMI 31.8
== END ==
LOC: PHYS 13:46
PROVIDERS: Family Provider Family Medicine; PCP Family Medicine; Referring Provider Physical Medicine & Rehabilitation; Visit Provider Physical Medicine & Rehabilitation
DX: R20.2 Paresthesia of skin (principal)
CPT/HCPCS: 95886; 95910

== ENCOUNTER 2024-12-31 13:00 | Outpatient (RCR) | payer MEDICARE, OTHER, SELFPAY ==
[2024-05-01 08:11] VITALS: BMI 31.8
--- NOTE | 2024-12-02 14:51 | PT.OIE ---
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 Siria Ugalde PA-C Attending Provider Advanced Magnetic Resonance Imaging Director Referring Provider Specialty: Orthopedics Orthopedic Surgery Address: [address] [place] [address] Email: [email or web address] Physical Therapy Initial Evaluation PT OP: Lower Back/Lower Extremity Start: 12/02/24 09:48 Freq: Status: Active Protocol: Document 12/02/24 09:48 ARSENIO (Rec: 12/02/24 13:04 ARSENIO [id number]) Out-Patient Physical Therapy Visit Information Visit Information Visit Type Initial Evaluation Visit Start Time 11:35 Visit Stop Time 12:15 Visit Number 1 Number of FINE [employer] PACKER Visits 0 Progress Note Due 01/01/25 OP-PT Subjective Patient Comments Patient Comments Patient reports to PT with reports of L knee pain that started when he was playing with his grandchildren about 6 weeks ago. He reports he felt a tweak at the time but he did not think anyyhing of it. He reports that since the symptoms started the pain has improved. He has been wearing a brace periodically which he thinks has helped. He has had radiographs and was told he had an MCL sprain. He reports he has avoided certain activities due to the pain including stair negotiation, lifting things from the ground, squatting down. He reports a history of fall and multiple rib fractures several weeks prior to the knee pain starting . Previous physical activities: exercise bike (used 3 days per week before his rib fractures), playing flute Pain (current): 210 Pain at the worst: 07/25 - twisting, pivoting (brief pain) Pain at best: 03/27 Goals: improve balance, trusting leg, return to walking without symptoms Palpation Assessment Location One Palpation Location Knee Palpation Findings Tenderness Palpation Details TTP L medial joint line Knee Goniometric Range of Motion Knee L Knee ROM WFL Yes Patient Position Supine Flexion Active ( 135 degrees) Flexion Passive ( 140 degrees) Extension Active ( 0 degrees) Extension Passive ( 0 degrees) R Knee ROM WFL Yes Patient Position Supine Flexion Active ( 135 degrees) Flexion Passive ( 140 degrees) Extension Active ( 0 degrees) Extension Passive ( 0 degrees) Special Tests Knee Special Tests Lateral tap down test Test Results Positive: pain reproduction Knee Strength Knee Manual Muscle Testing Right Flexion (S2) 5 Normal Extension (L3) 5 Normal Left Flexion (S2) 5 Normal Extension (L3) 4 Good Therapeutic Exercises Standing Exercises Squat to chair Standing Exercise Tap the chair Name Side bilateral Resistance - Equipment Used chair Reps/Minutes 3x10 Comments cues for controlled eccentric Posterior tap downs Standing Exercise 6 step Name Side left Resistance - Equipment Used stairs Reps/Minutes x30 Comments cues for L hip motor control Anterior knee drivers Standing Exercise On steps - second step Name Side left Resistance - Equipment Used Steps Reps/Minutes x20 Comments cues for anterior knee translation Physical Therapy Assessment Rehab Potential Rehabilitation Good Potential Evaluation Complexity Number of Personal 0 Factors/ Comorbidities Number of Body 1-2 Systems Impaired Clinical Stable Presentation at Evaluation Impairments Impairments Activity Tolerance,Coordination,Functional Activities, Functional Mobility,Pain,Strength Goals Three Impairment Function Short Term Goal (STG Patient will demonstrate an increase in LEFS score to ) 42 in order to show an increase in self-perceived function. STG Duration 3 weeks Snf Goal (LTG) Patient will demonstrate an increase in LEFS score to 47 in order to show an increase in self-perceived function. LTG Duration 6 weeks Two Impairment Pain/ L knee load tolerance Short Term Goal (STG Patient will squat down to the depth of a standard ) chair with no increases in pain levels and proper mechanics in order to better function with standing up from a chair. STG Duration 3 weeks Snf Goal (LTG) Patient will squat to full depth with no increases in pain levels and proper mechanics in order to better function with squatting down to pick things up from the ground. LTG Duration 6 weeks One Impairment L knee extension strength Short Term Goal (STG Patient will demonstrate an increase in L knee ) extension MMT to 5/5 in order to better function with stair negotiation. STG Duration 3 weeks Assessment Summary Assessment Patient presenting to PT with complaints of subacute L knee pain. Functional deficits include squatting down, stair negotiation, and pivoting/ twisting on the L LE. Objective investigation revealed deficits in L knee strength (see above: knee extension MMT), tenderness to palpation of medial joint line, and pain reproduction with lateral tap downs and squats. Presentation is consistent with L knee osteoarthritis and patient will benefit from PT to address deficits and return to prior level of function. Physical Therapy Plan Frequency and Duration Frequency of 2x/Week Treatment Duration of 12 treatment (weeks) Plan of Care Start 12/02/24 Date Plan of Care End 03/02/25 Date Therapeutic Interventions Therapeutic Balance Training,Coordination Training,Gait Training, Interventions Home Exercise Program,Joint Mobilizations,Manual Therapy,Neuromuscular Re-education,Patient/Caregiver Education,Self-Care/Home Management,Soft Tissue Mobilization,Taping,Therapeutic Activities,Therapeutic Exercises Modalities Cold Pack/Ice Massage,Electric Stimulation,Hot Packs, Infrared Therapy,Iontophoresis,Traction- Mechanical, Ultrasound Next Visit Focus/Plan Next Note Type Treatment Note Next Visit Plan Initiate treatment with focus on progressive L quad and knee joint loading in pain free ranges and loads. Also plan to add L hip strengthening/ motor control exercises. Include the following: posterior tap downs, squats (consider adding load pending pain levels), anterior knee drivers (on stairs), knee extension machine, leg press, band hip ER, lateral band walks
--- NOTE | 2024-12-04 12:59 | PT.OTN ---
Current Diagnoses Pain in left knee (12/04/24) Sprain of medial collateral ligament of left knee, initial encounter (12/04/24) Physical Therapy Treatment Note PT OP: Lower Back/Lower Extremity Start: 12/02/24 09:48 Freq: Status: Active Protocol: Document 12/04/24 11:32 JZ (Rec: 12/04/24 12:17 JFabiola [id number]) Out-Patient Physical Therapy Visit Information Visit Information Visit Type Treatment Note Visit Start Time 11:30 Visit Stop Time 12:10 Visit Number 2 Number of AUTOMATIC MOLD SANDER Visits 0 Progress Note Due 01/01/25 OP-PT Subjective Patient Comments Patient Comments Patient reports his knee is feeling good today. He had no pain or soreness after his last session. Therapeutic Exercises Sitting Exercises Knee extension machine Side left Reps/Minutes 2x10 bilateral, 2x10 single leg on L Standing Exercises Calf raises Side left Resistance BW Reps/Minutes 2x10 bilateral, 2x10 single leg eccentrics Split squats Equipment Used Table for UE support Reps/Minutes 2x10 Comments Cues for anterior weight shift and L knee position Squat to chair Standing Exercise Tap the chair Name Side bilateral Resistance - Equipment Used chair Reps/Minutes 3x10 Comments cues for controlled eccentric Posterior tap downs Standing Exercise 6 step Name Side left Resistance - Equipment Used stairs Reps/Minutes x30 Comments cues for L hip motor control Anterior knee drivers Standing Exercise On steps - second step Name Side left Resistance - Equipment Used Steps Reps/Minutes x20 Comments cues for anterior knee translation Physical Therapy Assessment Goals Three Impairment Function Short Term Goal (STG Patient will demonstrate an increase in LEFS score to ) 42 in order to show an increase in self-perceived function. STG Duration 3 weeks Jail Goal (LTG) Patient will demonstrate an increase in LEFS score to 47 in order to show an increase in self-perceived function. LTG Duration 6 weeks Two Impairment Pain/ L knee load tolerance Short Term Goal (STG Patient will squat down to the depth of a standard ) chair with no increases in pain levels and proper mechanics in order to better function with standing up from a chair. STG Duration 3 weeks Fast Food Crew Member Goal (LTG) Patient will squat to full depth with no increases in pain levels and proper mechanics in order to better function with squatting down to pick things up from the ground. LTG Duration 6 weeks One Impairment L knee extension strength Short Term Goal (STG Patient will demonstrate an increase in L knee ) extension MMT to 5/5 in order to better function with stair negotiation. STG Duration 3 weeks Assessment Summary Assessment Treatment focused on L knee joint and quad loading. Patient tolerated treatment well with no increases in pain levels and reported muscular fatigue near end of sets. Plan next session to continue with plan of care and follow up on home exercises. Physical Therapy Plan Frequency and Duration Frequency of 2x/Week Treatment Duration of 12 treatment (weeks) Plan of Care Start 12/02/24 Date Plan of Care End 03/02/25 Date Next Visit Focus/Plan Next Note Type Treatment Note Next Visit Plan Progress loading as appropriate. Add hip strengthening exercises including band walks, lateral hip bridges.
--- NOTE | 2024-12-08 12:53 | PT.OTN ---
Current Diagnoses Pain in left knee (12/08/24) Sprain of medial collateral ligament of left knee, initial encounter (12/08/24) Physical Therapy Treatment Note PT OP: Lower Back/Lower Extremity Start: 12/02/24 09:48 Freq: Status: Active Protocol: Document 12/08/24 11:07 ARSENIO (Rec: 12/08/24 12:53 ARSENIO [id number]) Out-Patient Physical Therapy Visit Information Visit Information Visit Type Treatment Note Visit Start Time 11:30 Visit Stop Time 12:10 Visit Number 3 Number of FLARE BREAKER Visits 0 Progress Note Due 01/01/25 OP-PT Subjective Patient Comments Patient Comments Patient reports his knee felt good after last session. He notes some muscular soreness after. Cardio Equipment Bicycle (Upright) Duration (Minutes) 6 Resistance level 6 Seat Position level 5 Therapeutic Exercises Sitting Exercises Knee extension machine Side left Reps/Minutes 2x10 bilateral, 2x10 single leg on L Standing Exercises lateral band walks Side bilateral Equipment Used level 1 band Reps/Minutes 2x10 each direction Calf raises Side left Resistance BW Reps/Minutes 2x10 bilateral, 2x10 single leg eccentrics Split squats Equipment Used Table for UE support Reps/Minutes 2x10 Comments Cues for anterior weight shift and L knee position Squat to chair Standing Exercise Tap the chair Name Side bilateral Resistance - Equipment Used chair Reps/Minutes 3x10 Comments cues for controlled eccentric Posterior tap downs Standing Exercise 6 step Name Side left Resistance 10# Equipment Used stairs Reps/Minutes x30 Comments cues for L hip motor control Anterior knee drivers Standing Exercise On steps - second step Name Side left Resistance - Equipment Used Steps Reps/Minutes x20 Comments cues for anterior knee translation Physical Therapy Assessment Goals Three Impairment Function Short Term Goal (STG Patient will demonstrate an increase in LEFS score to ) 42 in order to show an increase in self-perceived function. STG Duration 3 weeks Oncology Rep Goal (LTG) Patient will demonstrate an increase in LEFS score to 47 in order to show an increase in self-perceived function. LTG Duration 6 weeks Two Impairment Pain/ L knee load tolerance Short Term Goal (STG Patient will squat down to the depth of a standard ) chair with no increases in pain levels and proper mechanics in order to better function with standing up from a chair. STG Duration 3 weeks Oncology Rep Goal (LTG) Patient will squat to full depth with no increases in pain levels and proper mechanics in order to better function with squatting down to pick things up from the ground. LTG Duration 6 weeks One Impairment L knee extension strength Short Term Goal (STG Patient will demonstrate an increase in L knee ) extension MMT to 5/5 in order to better function with stair negotiation. STG Duration 3 weeks Assessment Summary Assessment Treatment focused on continued L knee joint and quad loading. Patient tolerated treatment well with no increases in pain levels. Plan next session to update HEP and continue with plan of care. Physical Therapy Plan Frequency and Duration Frequency of 2x/Week Treatment Duration of 12 treatment (weeks) Plan of Care Start 12/02/24 Date Plan of Care End 03/02/25 Date Next Visit Focus/Plan Next Visit Plan Continue with plan of care focused on progressive knee joint, quad and hip musculature loading.
--- NOTE | 2024-12-11 14:34 | PT.OTN ---
Current Diagnoses Pain in left knee (12/11/24) Sprain of medial collateral ligament of left knee, initial encounter (12/11/24) Physical Therapy Treatment Note PT OP: Lower Back/Lower Extremity Start: 12/02/24 09:48 Freq: Status: Active Protocol: Document 12/11/24 13:44 JFabiola (Rec: 12/11/24 14:33 ARSENIO [id number]) Out-Patient Physical Therapy Visit Information Visit Information Visit Type Treatment Note Visit Start Time 13:45 Visit Stop Time 14:30 Visit Number 4 Number of CHILLING HOOD OPERATOR Visits 0 Progress Note Due 01/01/25 OP-PT Subjective Patient Comments Patient Comments Patient reports his knee has been feeling good. He has had no pain recently aside from an occasional twinge. Cardio Equipment Bicycle (Upright) Duration (Minutes) 6 Resistance level 6 Seat Position level 5 Therapeutic Exercises Sitting Exercises Knee extension machine Side left Resistance 40# Reps/Minutes 3x10 each side Standing Exercises lateral band walks Side bilateral Equipment Used level 1 band Reps/Minutes 2x10 each direction Split squats Equipment Used Table for UE support Reps/Minutes 2x10 Comments Cues for anterior weight shift and L knee position Squat to chair Resistance - Posterior tap downs Standing Exercise 6 step Name Side left Resistance 10# Equipment Used stairs Reps/Minutes x30 Comments cues for L hip motor control Anterior knee drivers Standing Exercise On steps - second step Name Side left Resistance - Equipment Used Steps Reps/Minutes x20 Comments cues for anterior knee translation Physical Therapy Assessment Goals Three Impairment Function Short Term Goal (STG Patient will demonstrate an increase in LEFS score to ) 42 in order to show an increase in self-perceived function. STG Duration 3 weeks Departure Clerk Goal (LTG) Patient will demonstrate an increase in LEFS score to 47 in order to show an increase in self-perceived function. LTG Duration 6 weeks Two Impairment Pain/ L knee load tolerance Short Term Goal (STG Patient will squat down to the depth of a standard ) chair with no increases in pain levels and proper mechanics in order to better function with standing up from a chair. STG Duration 3 weeks Mcfp Goal (LTG) Patient will squat to full depth with no increases in pain levels and proper mechanics in order to better function with squatting down to pick things up from the ground. LTG Duration 6 weeks One Impairment L knee extension strength Short Term Goal (STG Patient will demonstrate an increase in L knee ) extension MMT to 5/5 in order to better function with stair negotiation. STG Duration 3 weeks Assessment Summary Assessment Treatment focused on progressing quad strengthening. Patient continues to respond to treatment well with no increases in pain levels and reported muscular fatigue near end of sets indicating proper dosage. Plan next session to follow up on response to today's session and continue with plan of care. Physical Therapy Plan Frequency and Duration Frequency of 2x/Week Treatment Duration of 12 treatment (weeks) Plan of Care Start 12/02/24 Date Plan of Care End 03/02/25 Date Next Visit Focus/Plan Next Visit Plan Continue with plan of care focused on progressive knee joint, quad and hip musculature loading.
--- NOTE | 2024-12-11 14:36 | PT.OTN ---
Current Diagnoses Pain in left knee (12/11/24) Sprain of medial collateral ligament of left knee, initial encounter (12/11/24) Physical Therapy Treatment Note PT OP: Lower Back/Lower Extremity Start: 12/02/24 09:48 Freq: Status: Active Protocol: Document 12/11/24 13:44 JFabiola (Rec: 12/11/24 14:33 ARSENIO [id number]) Out-Patient Physical Therapy Visit Information Visit Information Visit Type Treatment Note Visit Start Time 13:45 Visit Stop Time 14:30 Visit Number 4 Number of VERTICA ARCHITECT Visits 0 Progress Note Due 01/01/25 OP-PT Subjective Patient Comments Patient Comments Patient reports his knee has been feeling good. He has had no pain recently aside from an occasional twinge. Cardio Equipment Bicycle (Upright) Duration (Minutes) 6 Resistance level 6 Seat Position level 5 Therapeutic Exercises Sitting Exercises Knee extension machine Side left Resistance 40# Reps/Minutes 3x10 each side Standing Exercises lateral band walks Side bilateral Equipment Used level 1 band Reps/Minutes 2x10 each direction Split squats Equipment Used Table for UE support Reps/Minutes 2x10 Comments Cues for anterior weight shift and L knee position Squat to chair Resistance - Posterior tap downs Standing Exercise 6 step Name Side left Resistance 10# Equipment Used stairs Reps/Minutes x30 Comments cues for L hip motor control Anterior knee drivers Standing Exercise On steps - second step Name Side left Resistance - Equipment Used Steps Reps/Minutes x20 Comments cues for anterior knee translation Physical Therapy Assessment Goals Three Impairment Function Short Term Goal (STG Patient will demonstrate an increase in LEFS score to ) 42 in order to show an increase in self-perceived function. STG Duration 3 weeks Athletic Training Internship Goal (LTG) Patient will demonstrate an increase in LEFS score to 47 in order to show an increase in self-perceived function. LTG Duration 6 weeks Two Impairment Pain/ L knee load tolerance Short Term Goal (STG Patient will squat down to the depth of a standard ) chair with no increases in pain levels and proper mechanics in order to better function with standing up from a chair. STG Duration 3 weeks Custodial Goal (LTG) Patient will squat to full depth with no increases in pain levels and proper mechanics in order to better function with squatting down to pick things up from the ground. LTG Duration 6 weeks One Impairment L knee extension strength Short Term Goal (STG Patient will demonstrate an increase in L knee ) extension MMT to 5/5 in order to better function with stair negotiation. STG Duration 3 weeks Assessment Summary Assessment Treatment focused on progressing quad strengthening. Patient continues to respond to treatment well with no increases in pain levels and reported muscular fatigue near end of sets indicating proper dosage. Plan next session to follow up on response to today's session and continue with plan of care. Physical Therapy Plan Frequency and Duration Frequency of 2x/Week Treatment Duration of 12 treatment (weeks) Plan of Care Start 12/02/24 Date Plan of Care End 03/02/25 Date Next Visit Focus/Plan Next Visit Plan Continue with plan of care focused on progressive knee joint, quad and hip musculature loading.
--- NOTE | 2024-12-17 10:39 | PT.OTN ---
Current Diagnoses Pain in left knee (12/17/24) Sprain of medial collateral ligament of left knee, initial encounter (12/17/24) Physical Therapy Treatment Note PT OP: Lower Back/Lower Extremity Start: 12/02/24 09:48 Freq: Status: Active Protocol: Document 12/17/24 09:52 AB (Rec: 12/17/24 10:39 AB [id number]) Out-Patient Physical Therapy Visit Information Visit Information Visit Type Treatment Note Visit Start Time 09:53 Visit Stop Time 10:34 Visit Number 5 Number of CORSETS SALESPERSON Visits 1 Progress Note Due 01/01/25 OP-PT Subjective Patient Comments Patient Comments Patient reports the left knee is better, R knee is twitching a little bit. 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 Patient rates pain 0/ 10 start of session ambulating into session without device. Patient reports he got the results of the nerve conduction study and L5/SI there is something serious, does have appointment with MD patient thinks in 2 weeks. Therapeutic Exercises Supine Exercises SLR Side bilateral Reps/Minutes X 15 Comments verbal cues hamstring stretch Side bilateral Reps/Minutes 60 sec X 2 Comments Verbal cues Standing Exercises lateral band walks Standing Exercise with UE use Name Side bilateral Equipment Used level 2 band Reps/Minutes 2x10 each direction Comments VC to avoid toeing out Split squats Equipment Used Table for UE support Reps/Minutes X 8 each LE Comments review Squat to chair Standing Exercise Tap the chair Name Side bilateral Resistance level 3 [place] band Reps/Minutes 2X10 Comments VC to keep tension on band, Pt ed self tactile cues for hip hinge Anterior knee drivers Standing Exercise On steps - second step Name Side bilateral Resistance - Equipment Used Steps Reps/Minutes x10 Comments cues for anterior knee translation Physical Therapy Assessment Goals Three Impairment Function Short Term Goal (STG Patient will demonstrate an increase in LEFS score to ) 42 in order to show an increase in self-perceived function. STG Duration 3 weeks Biomass Production Manager Goal (LTG) Patient will demonstrate an increase in LEFS score to 47 in order to show an increase in self-perceived function. LTG Duration 6 weeks Two Impairment Pain/ L knee load tolerance Short Term Goal (STG Patient will squat down to the depth of a standard ) chair with no increases in pain levels and proper mechanics in order to better function with standing up from a chair. STG Duration 3 weeks Biomass Production Manager Goal (LTG) Patient will squat to full depth with no increases in pain levels and proper mechanics in order to better function with squatting down to pick things up from the ground. LTG Duration 6 weeks One Impairment L knee extension strength Short Term Goal (STG Patient will demonstrate an increase in L knee ) extension MMT to 5/5 in order to better function with stair negotiation. STG Duration 3 weeks Assessment Summary Assessment Patient reports having no pain pre, post or during session bilateral knees. Added level 3 bands to squat with chair touch HEP, and inc to level 2 band for sidestepping with band. Physical Therapy Plan Frequency and Duration Frequency of 2x/Week Treatment Duration of 12 treatment (weeks) Plan of Care Start 12/02/24 Date Plan of Care End 03/02/25 Date Next Visit Focus/Plan Next Note Type Treatment Note Next Visit Plan Continue with plan of care focused on progressive knee joint, quad and hip musculature loading.
--- NOTE | 2024-12-17 10:39 | PT.OTN ---
Current Diagnoses Pain in left knee (12/17/24) Sprain of medial collateral ligament of left knee, initial encounter (12/17/24) Physical Therapy Treatment Note PT OP: Lower Back/Lower Extremity Start: 12/02/24 09:48 Freq: Status: Active Protocol: Document 12/17/24 09:52 AB (Rec: 12/17/24 10:39 AB [id number]) Out-Patient Physical Therapy Visit Information Visit Information Visit Type Treatment Note Visit Start Time 09:53 Visit Stop Time 10:34 Visit Number 5 Number of HULL AND DECK REMOVER Visits 1 Progress Note Due 01/01/25 OP-PT Subjective Patient Comments Patient Comments Patient reports the left knee is better, R knee is twitching a little bit. 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 Patient rates pain 0/ 10 start of session ambulating into session without device. Patient reports he got the results of the nerve conduction study and L5/SI there is something serious, does have appointment with MD patient thinks in 2 weeks. Therapeutic Exercises Supine Exercises SLR Side bilateral Reps/Minutes X 15 Comments verbal cues hamstring stretch Side bilateral Reps/Minutes 60 sec X 2 Comments Verbal cues Standing Exercises lateral band walks Standing Exercise with UE use Name Side bilateral Equipment Used level 2 band Reps/Minutes 2x10 each direction Comments VC to avoid toeing out Split squats Equipment Used Table for UE support Reps/Minutes X 8 each LE Comments review Squat to chair Standing Exercise Tap the chair Name Side bilateral Resistance level 3 [place] green band Reps/Minutes 2X10 Comments VC to keep tension on band, Pt ed self tactile cues for hip hinge Anterior knee drivers Standing Exercise On steps - second step Name Side bilateral Resistance - Equipment Used Steps Reps/Minutes x10 Comments cues for anterior knee translation Physical Therapy Assessment Goals Three Impairment Function Short Term Goal (STG Patient will demonstrate an increase in LEFS score to ) 42 in order to show an increase in self-perceived function. STG Duration 3 weeks Associate Spa Director Goal (LTG) Patient will demonstrate an increase in LEFS score to 47 in order to show an increase in self-perceived function. LTG Duration 6 weeks Two Impairment Pain/ L knee load tolerance Short Term Goal (STG Patient will squat down to the depth of a standard ) chair with no increases in pain levels and proper mechanics in order to better function with standing up from a chair. STG Duration 3 weeks Associate Spa Director Goal (LTG) Patient will squat to full depth with no increases in pain levels and proper mechanics in order to better function with squatting down to pick things up from the ground. LTG Duration 6 weeks One Impairment L knee extension strength Short Term Goal (STG Patient will demonstrate an increase in L knee ) extension MMT to 5/5 in order to better function with stair negotiation. STG Duration 3 weeks Assessment Summary Assessment Patient reports having no pain pre, post or during session bilateral knees. Added level 3 bands to squat with chair touch HEP, and inc to level 2 band for sidestepping with band. Physical Therapy Plan Frequency and Duration Frequency of 2x/Week Treatment Duration of 12 treatment (weeks) Plan of Care Start 12/02/24 Date Plan of Care End 03/02/25 Date Next Visit Focus/Plan Next Note Type Treatment Note Next Visit Plan Continue with plan of care focused on progressive knee joint, quad and hip musculature loading.
--- NOTE | 2024-12-31 14:39 | PT.OPDS ---
Current Diagnoses Pain in left knee (12/31/24) Sprain of medial collateral ligament of left knee, initial encounter (12/31/24) Visit Care Team Role Provider Type Colin Grace MD Family Provider Physician Primary Care Provider Specialty: Family Practice Address: [address] [place] [address], [address] Email: [email or web address] Siria Ugalde PA-C Attending Provider Advanced Manufactured Buildings Repairer Referring Provider Specialty: Orthopedics Orthopedic Surgery Address: [address] [place] [address], [address] Email: [email or web address] Visit Number Visit Number 6 Discharge Summary PT OP: Lower Back/Lower Extremity Start: 12/02/24 09:48 Freq: Status: Active Protocol: Document 12/31/24 13:03 ARSENIO (Rec: 12/31/24 14:39 ARSENIO [id number]) Out-Patient Physical Therapy Visit Information Visit Information Visit Type Discharge Summary Visit Start Time 13:05 Visit Stop Time 01:45 Visit Number 6 Number of RESIDENT CARE ASSOCIATE Visits 0 Progress Note Due 01/01/25 OP-PT Subjective Patient Comments Patient Comments Patient reports his knee has been doing well. He has had very minimal symptoms recently. He reports his neuropathy has been worse and he would like to switch his future appointments to that. Patient Questionnaires Lower Extremity Functional Scale LEFS Score 68 Cardio Equipment Bicycle (Upright) Duration (Minutes) 6 Resistance level 6 Seat Position level 5 Therapeutic Exercises Sitting Exercises Knee extension machine Side left Resistance 40# Reps/Minutes 3x10 each side Standing Exercises lateral band walks Standing Exercise with UE use Name Side bilateral Equipment Used level 2 band Reps/Minutes 3x10 each direction Comments VC to avoid toeing out Calf raises Side left Resistance BW Reps/Minutes 2x10 bilateral, 2x10 single leg eccentrics Split squats Equipment Used Table for UE support Reps/Minutes X 10 each LE Comments review Posterior tap downs Standing Exercise 6 step Name Side left Resistance 10# Equipment Used stairs Reps/Minutes x30 Comments cues for L hip motor control Anterior knee drivers Standing Exercise On steps - second step Name Side bilateral Equipment Used Steps Reps/Minutes x20 Comments cues for anterior knee translation Physical Therapy Assessment Goals Three Impairment Function Short Term Goal (STG Patient will demonstrate an increase in LEFS score to ) 42 in order to show an increase in self-perceived function. - Met (12/31/2024) STG Duration 3 weeks Pc Network Technician Goal (LTG) Patient will demonstrate an increase in LEFS score to 47 in order to show an increase in self-perceived function. - Met (12/31/2024) LTG Duration 6 weeks Two Impairment Pain/ L knee load tolerance Short Term Goal (STG Patient will squat down to the depth of a standard ) chair with no increases in pain levels and proper mechanics in order to better function with standing up from a chair. Met (12/31/2024) STG Duration 3 weeks Pc Network Technician Goal (LTG) Patient will squat to full depth with no increases in pain levels and proper mechanics in order to better function with squatting down to pick things up from the ground. Met (12/31/2024) LTG Duration 6 weeks One Impairment L knee extension strength Short Term Goal (STG Patient will demonstrate an increase in L knee ) extension MMT to 5/5 in order to better function with stair negotiation. Met (12/31/2024) STG Duration 3 weeks Assessment Summary Assessment Patient presenting to PT after 5 PT visits for R knee pain. Patient has made improvements with symptoms and function and would like to move forward with his knee exercises independently. Further investigation revealed that patient has met is PT goals (see above). Because of progress noted above, and patient confidence continuing program independently, today will be his last formal PT session for his knee. Physical Therapy Plan Frequency and Duration Frequency of 2x/Week Treatment Duration of 12 treatment (weeks) Plan of Care Start 12/02/24 Date Plan of Care End 03/02/25 Date Next Visit Focus/Plan Next Note Type Treatment Note Next Visit Plan Continue with plan of care focused on progressive knee joint, quad and hip musculature loading.
== END 2025-01-01 09:34 | disposition home or self-care (01) ==
LOC: PHYS 13:00
PROVIDERS: Family Provider Family Medicine; PCP Family Medicine; Referring Provider Physician Assistant Surgical; Visit Provider Physician Assistant Surgical
DX: M25.562 Pain in left knee (principal); S83.412A Sprain of medial collateral ligament of left knee, initial encounter
CPT/HCPCS: 97110; 97161

== ENCOUNTER → 2025-01-07 11:04 | Outpatient (CLI) | payer MEDICARE, OTHER, SELFPAY ==
[2024-05-01 08:11] VITALS: BMI 31.8
[2025-01-07 12:01] LABS: Add Manual Diff / Slide Review NO; Hematocrit 42.6 % (41-53); Hemoglobin 14.5 g/dL (13.5-17.5); Lymphocytes Absolute Auto 1400 /uL (1100-4500); Mean Corpuscular HGB Conc 34.1 % (30-36); Mean Corpuscular Hemoglobin 33.1 PG (26-34); Mean Corpuscular Volume 97.0 fL (80-100); Platelet Count 202 X10^3/uL (150-400)
[2025-01-07 12:18] LABS: HEMOLYSIS < 15 (0-50); Iron 147 ug/dL (49-181)
[2025-01-07 12:29] LABS: Percent Iron Saturation 40 % (20-50); Total Iron Binding Capacity 371 ug/dL (261-462); Transferrin 334 mg/dL (206-381)
[2025-01-07 12:54] LABS: Ferritin 24 ng/mL (18-464)
== END ==
PROVIDERS: Family Provider Family Medicine; PCP Family Medicine; Referring Provider Family Medicine; Visit Provider Family Medicine
DX: D47.2 Monoclonal gammopathy (principal); R53.82 Chronic fatigue, unspecified; G63 Polyneuropathy in diseases classified elsewhere; R23.3 Spontaneous ecchymoses
CPT/HCPCS: 36415; 82728; 83540; 83550; 85025

== ENCOUNTER → 2025-01-25 10:57 | Outpatient (CLI) | payer MEDICARE, OTHER, SELFPAY ==
[2024-05-01 08:11] VITALS: BMI 31.8
--- NOTE | 2025-01-25 10:59 | DI.RAD.S_ITS ---
PROCEDURE: XR RIBS LT 5V W CXR1V
== END ==
PROVIDERS: Family Provider Family Medicine; PCP Family Medicine; Referring Provider Chiropractor; Visit Provider Chiropractor
DX: S22.42XG Multiple fractures of ribs, left side, subsequent encounter for fracture with delayed healing (principal); J98.11 Atelectasis
CPT/HCPCS: 71101

== ENCOUNTER → 2025-02-09 08:04 | Outpatient (CLI) | payer MEDICARE, OTHER, SELFPAY ==
[2024-05-01 08:11] VITALS: BMI 31.8
--- NOTE | 2025-02-09 09:22 | DI.MRI.S_ITS ---
PROCEDURE: MR SHOULDER LT WO/W CON INDICATIONS: 1.5 cm diameter sclerotic density -L coracoid process on CXR TECHNIQUE: Noncontrast oblique coronal T1 spin echo and T2 fast spin echo with fat saturation, oblique sagittal T1 spin echo and T2 fast spin echo with fat saturation, axial T1 spin echo and T2 fast spin echo with fat saturation through the shoulder. Post- contrast oblique coronal, oblique sagittal, and axial T1 spin echo with fat saturation through the shoulder. COMPARISON: [facility], CR, XR RIBS LT MIN 3V W CXR1V, 01/25/2025, 10:53. FINDINGS: Quality: Adequate. Tendons: Rotator cuff tendons: Less than 50% thickness bursal sided tear of the overlapping supraspinatus and infraspinatus tendon fibers at the insertion. Greater than 50% thickness articular insertional sided tear of the anterior-most supraspinatus tendon. Greater than 50% thickness insertional interstitial tear of superior 3rd of subscapularis tendon. Teres minor tendon is intact Long head of biceps tendon: High-grade partial tearing at the rotator interval and anchor. No dislocation. Muscles: No disproportionate fatty degeneration of the rotator cuff musculature. Acromioclavicular joint: Severe arthropathy. Glenohumeral joint: Labrum: Diffuse degeneration and volume loss. Cartilage: Broad areas of full thickness cartilage thinning. Glenoid rim and humeral head large marginal osteophytes. Fluid: Small effusion. Large intra-articular bodies. The largest is in the subscapularis recess measuring 2.0 cm in greatest dimension. This corresponds to the sclerotic lesion seen on prior radiograph. Capsule: No pericapsular inflammation or scarring. Alignment: No dislocation. Bursa: Subacromial/subdeltoid bursa: Nondistended. Subcoracoid bursa: Nondistended. Bones: No fracture. Other: No abnormal enhancement. IMPRESSION: Lesion on prior plain film corresponds to large intra-articular body in the subscapularis recess associated with severe glenohumeral osteoarthritis. High-grade partial tearing of long head of biceps tendon. High-grade partial-thickness supraspinatus and subscapularis tendon tears. Intermediate grade partial thickness bursal sided infraspinatus tendon tear. Severe acromioclavicular osteoarthritis. Dictated by: Te Dewitt M.D. on 02/09/2025 at 10:11 Approved by: Te Dewitt M.D. on 02/09/2025 at 10:17
== END ==
LOC: MRI 08:05
PROVIDERS: Family Provider Family Medicine; PCP Family Medicine; Referring Provider Family Medicine; Visit Provider Family Medicine
DX: M75.102 Unspecified rotator cuff tear or rupture of left shoulder, not specified as traumatic (principal); M19.012 Primary osteoarthritis, left shoulder; M24.012 Loose body in left shoulder; M25.412 Effusion, left shoulder; M85.812 Other specified disorders of bone density and structure, left shoulder; M25.812 Other specified joint disorders, left shoulder; R93.89 Abnormal findings on diagnostic imaging of other specified body structures
CPT/HCPCS: 73223; A9579

== ENCOUNTER 2025-03-02 08:15 | Outpatient (RCR) | payer MEDICARE, OTHER, SELFPAY ==
[2024-05-01 08:11] VITALS: BMI 31.8
--- NOTE | 2025-01-07 15:57 | PT.OIE ---
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) Obstructive sleep apnea Paresthesia Peripheral neuropathic pain PFO (patent foramen ovale) Post-COVID syndrome Primary insomnia Septic olecranon bursitis Spondylolisthesis of lumbar region Trochanteric bursitis of left hip Past Surgical History (Last Reviewed 08/28/24 @ 08:16 by Camille Wagner DO) H/O hernia repair (~08/2018) H/O prostatectomy (~1999) Hx of appendectomy Hx of tonsillectomy Visit Care Team Role Provider Type Colin Grace MD Family Provider Physician Primary Care Provider Specialty: Family Practice Address: [address] [place] [address], [facility] Email: [email or web address] Prince Schmitt DO Attending Provider Physician Referring Provider Specialty: Interventional Radiology Physiatry Pain Management Address: [address] [place] [address], [address] Phone: Fax: Email: [email or web address] Physical Therapy Initial Evaluation PT OP: Lower Back/Lower Extremity Start: 01/07/25 09:49 Freq: Status: Active Protocol: Document 01/07/25 09:50 JZ (Rec: 01/07/25 12:24 JZ [id number]) Out-Patient Physical Therapy Visit Information Visit Information Visit Type Initial Evaluation Visit Start Time 09:50 Visit Stop Time 10:35 Visit Number 1 Number of HOME HEALTH CNA Visits 0 Progress Note Due 02/06/25 OP-PT Subjective Patient Comments Patient Comments History of current diagnosis: Patient reports radicular symptoms that started in his feet about 15 years ago. He reports the symptoms started more distally and have gradually progressed up his legs. He reports that recently has started to have shooting pains up his legs . He had NCV test which showed a potential reduction in signal from L5-S1 but he reports that the findings were not conclusive and did not explain all of his symptoms. He reports he also has back pain since he was a teenager but he does not necessarily think it is related to his neuropathy. He reports that he feels his back pain and neuropathy are unrelated. He reports the loss of feelings in his legs has led to him feeling less balanced when standing. He does report that he has had some pins and needle symptoms in his hands. He also notes ringing in his ears that has been chronic. Patient has chronic insomnia and reports he cannot sleep without a sleeping pill. Currently taking Dulexatine and gabapentin Occupation: Retired Physical activities/ hobbies: Flute Pain location: Plantar surface of feet, radiating up legs (sides and anterior leg) Pain description: Pins and needles, burning (more when on feet for extended period), shocks Pain 0-10/10 (current): 2/10 Pain 0-10/10 (worst): up to a 10/10 Pain 0-10/10 (best): Aggravating: General fatigue, walking extended distances, laying down to go to sleep Alleviating: gabapentin, sleeping (symptoms are gone in the morning) Function prior to injury: Independent with all ADLs Function current: Independent with all ADLs - limited with climbing a ladder, standing on a roof, hiking, getting into and out of a kayak Patient goals: Improve symptoms Patient Questionnaires Oswestry Low Back Index Oswestry Score 22 Oswestry Impairment 20 to 39% Impaired (Score 20-39) Special Tests Other Special Tests Special Tests Lower quarter screen: All normal sensation aside from the following: Reduced sensation in L3-S1 dermatomes L>R All normal strength testing Reduced S1-S2 reflex response (achilles) Repeated movement testing: Flexion: no centralization or peripheralization Extension: no centralization or peripheralization Movement screen (standing): Flexion: Limited, pain reproduction (low back only) Extension: Limited R side bending: WFL L side bending: WFL R rotation: WFL, pain reproduction (low back only) L rotation: WFL Physical Therapy Assessment Rehab Potential Rehabilitation Fair Potential Evaluation Complexity Number of Personal 0 Factors/ Comorbidities Number of Body 1-2 Systems Impaired Clinical Stable Presentation at Evaluation Impairments Impairments Activity Tolerance,Balance,Functional Activities, Functional Mobility,Gait,Pain,Posture,ROM,Transfers Goals Two Impairment General function Short Term Goal (STG Patient will report a GROC of 15% in order to show an ) increase in self-perceived function. STG Duration 3 weeks Citrix Architect Goal (LTG) Patient will report a GROC of 30% in order to show an increase in self-perceived function. LTG Duration 6 weeks One Impairment Lack of HEP Short Term Goal (STG Patient will initiate HEP. ) STG Duration 3 weeks Citrix Architect Goal (LTG) Patient will be independent with HEP. LTG Duration 6 weeks Assessment Summary Assessment Patient presenting to PT with complaints of numbness and tingling in his feet that radiates up his legs. Functional deficits include activities requiring balance such as climbing up a ladder, hiking, and getting into and out of a kayak. Objective investigation revealed no centralization or peripheralization of symptoms with repeated movement testing and reduced sensation and reflex (S1) in a stocking glove pattern indicating peripheral nerve pathology. Presentation is consistent with localized low back pain with mobility deficits. His peripheral symptoms do not appear to be coming from his back and this PT recommended pursing his neuro consult for this issue. Patient will benefit from short PT trial for his low back pain to address deficits and improve function . Physical Therapy Plan Frequency and Duration Frequency of 2x/Week Treatment Duration of 12 treatment (weeks) Plan of Care Start 01/07/25 Date Plan of Care End 04/07/25 Date Next Visit Focus/Plan Next Note Type Treatment Note Next Visit Plan Initiate trial of PT with focus on lumbar mobility and strengthening as tolerated.
--- NOTE | 2025-01-15 12:26 | PT.OTN ---
Current Diagnoses Spondylolisthesis, lumbar region (01/15/25) Physical Therapy Treatment Note PT OP: Lower Back/Lower Extremity Start: 01/07/25 09:49 Freq: Status: Active Protocol: Document 01/15/25 11:43 ARSENIO (Rec: 01/15/25 12:26 ARSENIO [id number]) Out-Patient Physical Therapy Visit Information Visit Information Visit Type Treatment Note Visit Start Time 11:40 Visit Stop Time 12:20 Visit Number 2 Number of PROPERTY MANAGEMENT SPECIALIST Visits 0 Progress Note Due 02/06/25 OP-PT Subjective Patient Comments Patient Comments Patient reports no changes in symptoms. He has not been able to get in to see an neurologist. Therapeutic Exercises Prone Exercises Front plank Reps/Minutes 3x30 Sitting Exercises Seated hip hinge Resistance 20# Reps/Minutes 3x10 Comments Cues for neutral spine Lumbar rotation Reps/Minutes 2x10, 3 Lumbar extension Reps/Minutes 2x10, 3 Lumbar flexion Reps/Minutes 2x10, 3 Standing Exercises Standing hip hinge Resistance 20# Dumbell Reps/Minutes 3x10 Physical Therapy Assessment Goals Two Impairment General function Short Term Goal (STG Patient will report a GROC of 15% in order to show an ) increase in self-perceived function. STG Duration 3 weeks Fci Goal (LTG) Patient will report a GROC of 30% in order to show an increase in self-perceived function. LTG Duration 6 weeks One Impairment Lack of HEP Short Term Goal (STG Patient will initiate HEP. ) STG Duration 3 weeks [facility] Goal (LTG) Patient will be independent with HEP. LTG Duration 6 weeks Assessment Summary Assessment Treatment focused on lumbar mobility and strengthening. Patient tolerated treatment well with no increases in pain levels and reported muscular fatigue at end of strength sets. Plan next session to progress loading as appropriate and update HEP. Physical Therapy Plan Frequency and Duration Frequency of 2x/Week Treatment Duration of 12 treatment (weeks) Plan of Care Start 01/07/25 Date Plan of Care End 04/07/25 Date Next Visit Focus/Plan Next Note Type Treatment Note Next Visit Plan Initiate trial of PT with focus on lumbar mobility and strengthening as tolerated.
--- NOTE | 2025-03-02 09:32 | PT.OPDS ---
Current Diagnoses Spondylolisthesis, lumbar region (03/02/25) Visit Care Team Role Provider Type Colin Grace MD Family Provider Physician Primary Care Provider Specialty: Family Practice Address: [address] [place] [address], [id number] Email: [email or web address] Prince Schmitt DO Attending Provider Physician Referring Provider Specialty: Interventional Radiology Physiatry Pain Management Address: [address] [place] [address], [address] Phone: Fax: Email: [email or web address] Visit Number Visit Number 3 Discharge Summary PT OP: Lower Back/Lower Extremity Start: 01/07/25 09:49 Freq: Status: Active Protocol: Document 03/02/25 08:29 ARSENIO (Rec: 03/02/25 09:31 ARSENIO [id number]) Out-Patient Physical Therapy Visit Information Visit Information Visit Type Discharge Summary Visit Start Time 08:30 Visit Stop Time 09:10 Visit Number 3 Number of NUTRITION SPECIALIST Visits 0 Progress Note Due 04/01/25 OP-PT Subjective Patient Comments Patient Comments Patient reports his back is mostly unchanged. He reports that he still has an appointment scheduled with neurology in March. He is taking Gabapentin to manage these symptoms. He also notes he has had increased shooting pain from his feet but otherwise has had no changes in symptoms. He reports his knee has been doing well. He did have a fall back in January and reports he fractured some ribs and had a concussion . Therapeutic Exercises Sitting Exercises Seated hip hinge Resistance 10# Reps/Minutes 2x10 Comments Cues for neutral spine Lumbar rotation Reps/Minutes x10, 3 Lumbar extension Reps/Minutes x10, 3 Lumbar flexion Reps/Minutes x10, 3 Standing Exercises Standing hip hinge Resistance 10# Dumbell Reps/Minutes 3x10 Physical Therapy Assessment Goals Two Impairment General function Short Term Goal (STG Patient will report a GROC of 15% in order to show an ) increase in self-perceived function. Not met - 03/02/2025 STG Duration 3 weeks Bacteriologist Food Goal (LTG) Patient will report a GROC of 30% in order to show an increase in self-perceived function. Not met - 03/02/2025 LTG Duration 6 weeks One Impairment Lack of HEP Short Term Goal (STG Patient will initiate HEP. ) Met - 03/02/2025 STG Duration 3 weeks Bacteriologist Food Goal (LTG) Patient will be independent with HEP. Not met - 03/02/2025 LTG Duration 6 weeks Assessment Summary Assessment Patient presenting to PT after two sessions for localized low back pain and peripheral nerve symptoms. His symptoms are largely unchanged and have progressed a little bit since his last appointment. He is still scheduled to see a neurologist in March and that is the recommendation of this PT at this time as his symptoms are not consistent with a lumbar radiculopathy . Episode of care will be discharged today. Physical Therapy Plan Frequency and Duration Frequency of 2x/Week Treatment Duration of 12 treatment (weeks) Plan of Care Start 01/07/25 Date Plan of Care End 04/07/25 Date Next Visit Focus/Plan Next Note Type Treatment Note Next Visit Plan Initiate trial of PT with focus on lumbar mobility and strengthening as tolerated.
== END 2025-03-03 13:30 | disposition home or self-care (01) ==
LOC: PHYS 08:15
PROVIDERS: Family Provider Family Medicine; PCP Family Medicine; Referring Provider Physical Medicine & Rehabilitation; Visit Provider Physical Medicine & Rehabilitation
DX: M43.16 Spondylolisthesis, lumbar region (principal)
CPT/HCPCS: 97110; 97161

== ENCOUNTER → 2025-03-05 14:18 | Outpatient (CLI) | payer MEDICARE, OTHER, SELFPAY ==
[2024-05-01 08:11] VITALS: BMI 31.8
--- NOTE | 2025-03-05 14:19 | DI.US.S_ITS ---
PROCEDURE: US INJECTION TENDON SHEATH INDICATIONS: R shoulder proximal bicep tendon sheath injection TECHNIQUE: The indications, alternatives, benefits, risks, and complications of the procedure were explained to the patient. Written informed consent was obtained and placed in the chart. The patient was placed in an appropriate position on the fluoroscopy table, and a site was chosen for percutaneous access under ultrasound guidance. Local anesthetic was administered using a 1% lidocaine solution. A hypodermic or spinal needle was then used to access the symptomatic joint. Intra-articular location of the needle tip was confirmed by real time ultrasound imaging, followed by steroid administration. The needle was then withdrawn, and a bandage applied to the puncture site. COMPARISON: [facility], CR, XR SHOULDER RT 2+ VIEWS, 03/03/2025, 11:18. FINDINGS: Joint injected: Right biceps tendon sheath Medications injected: 4 mL of 40 mg/mL Kenalog and 0.5% Ropivacaine mixture. Complications: None. IMPRESSION: Successful ultrasound guided administration of steroid and anaesthetic solution into the right biceps tendon sheath. Dictated by: Erickson Nobles M.D. on 03/05/2025 at 17:35 Approved by: Erickson Nobles M.D. on 03/05/2025 at 17:37
--- NOTE | 2025-03-05 14:19 | DI.CT.S_ITS ---
PROCEDURE: CT SHOULDER LEFT WITHOUT CON INDICATIONS: eval mass in subscapularis TECHNIQUE: Noncontrast 0.75 mm thick sections acquired from the acromioclavicular joint to the inferior scapula, with coronal and sagittal reformatting. COMPARISON: None. FINDINGS: Image quality: Excellent. Bones: No fracture or dislocation. Severe degenerative arthrosis of the glenohumeral joint with [id number] articulation and moderately a directed inferior and posterior osteophytes. There are 2 calcified bodies within the subcoracoid recess, which measure up to 2.1 cm in diameter. Healed left anterolateral 5th and 6th rib fractures. Moderate osteoarthritis of the acromioclavicular joint with inferiorly directed osteophytosis. Soft tissues: Normal bulk of the deltoid and of the rotator cuff on common for age. No axillary lymphadenopathy. No focal consolidation in the partially visualized left lung. A subpleural, 4 mm, nodule in the superior segment of the left lower lobe (series 2, image 188). IMPRESSION: Severe left glenohumeral joint osteoarthritis. Incidental subpleural 4 mm nodule in the superior segment of the left lower lobe. Recommend follow-up chest CT in 12 months for a high risk (smoker or immunocompromised patient). In a a nonsmoker and not immune compromised patient, this nodule requires no further follow-up per Fleischner criteria. Dictated by: Aryan Quijano M.D. on 03/05/2025 at 15:07 Approved by: Aryan Quijano M.D. on 03/05/2025 at 15:15
== END ==
LOC: CT 14:18
PROVIDERS: Family Provider Family Medicine; PCP Family Medicine; Referring Provider Family Medicine; Visit Provider Orthopaedic Surgery
DX: M25.511 Pain in right shoulder (principal); M19.012 Primary osteoarthritis, left shoulder; M25.512 Pain in left shoulder
CPT/HCPCS: 20550; 73200; 76942